=== PATIENT | male | born 1955 | race African-American/Black ===

== ENCOUNTER 2018-08-23 13:45 | Inpatient (IN) | payer MEDICARE, OTHER ==
[2018-08-23] MEDS ORDERED: NITROGLYCERIN SL TABS 0.4 MG TAB SUBLINGUAL STA (14:07)
[2018-08-23] MEDS ORDERED: hydrALAZINE HCL 20 MG/ML 1 ML VIAL IVP STA (14:07)
[2018-08-23] MEDS ORDERED: ASPIRIN 81 MG PO STA (14:07)
[2018-08-23] MEDS ORDERED: NITROGLYCERIN OINT 1 INCH/GM PACKET TOPICAL STA (14:07)
--- NOTE | 2018-08-23 14:11 | ED ---
General Adult HPI - General Chief complaint: Chest Pain Stated complaint: MCKENZIE Time Seen by Provider: 08/23/18 13:50 Source: patient, RN notes reviewed Mode of arrival: EMS Limitations: no limitations - History of Present Illness Initial comments: This is a 62-year-old male who presents emergency Department complaining of shortness of breath and chest pain. Patient states he has been having this chest pain shows breath for about 3 days. Patient states she was recently discharged from the hospital told to take some blood pressure medication but he has not taken it because he wants to be back on his old medication. Patient states the chest pain comes and goes and is worse with exertion. Patient denies any diaphoretic episodes. Patient denies radiation of the pain. Patient denies any nausea. Patient denies abdominal pain. Patient denies any recent vomiting or diarrhea per patient states he has a hard cough but no sputum production and denies any fever chills. Patient denies any lightheadedness dizziness or near syncopal episode. Patient denies any palpitations. Patient denies headache patient denies numbness weakness. Patient denies any swelling to the legs. His any calf tenderness. - Related Data Home Medications Medication Instructions Recorded Confirmed Labetalol [Trandate] 200 mg PO DIRECTED 08/23/18 08/23/18 Allergies Allergy/AdvReac Type Severity Reaction Status Date / Time clonidine Allergy Swelling Verified 08/23/18 14:09 hydralazine Allergy Rash/Hives Verified 08/23/18 14:09 lisinopril Allergy Swelling Verified 08/23/18 14:09 Review of Systems ROS Statement: Those systems with pertinent positive or pertinent negative responses have been documented in the HPI. ROS Other: All systems not noted in ROS Statement are negative. Past Medical History Past Medical History: CVA/TIA, Hypertension, Myocardial Infarction ([place]) Additional Past Medical History / Comment(s): stroke, [place] (2006) History of Any Multi-Drug Resistant Organisms: None Reported Past Surgical History: Heart Catheterization Additional Past Surgical History / Comment(s): removal of left kidney. Past Psychological History: No Psychological Hx Reported Smoking Status: Current every day smoker Past Alcohol Use History: Occasional Past Drug Use History: Marijuana General Exam - General Exam Comments Initial Comments: GENERAL: Patient is well-developed and well-nourished. Patient is nontoxic and well- hydrated and is in mild distress. ENT: Neck is soft and supple. No significant lymphadenopathy is noted. Oropharynx is clear. Moist mucous membranes. Neck has full range of motion without eliciting any pain. EYES: The sclera were anicteric and conjunctiva were pink and moist. Extraocular movements were intact and pupils were equal round and reactive to light. Eyelids were unremarkable. PULMONARY: Unlabored respirations. Good breath sounds bilaterally. Patient's crackles bilateral bases CARDIOVASCULAR: There is a regular rate and rhythm without any murmurs gallops or rubs. ABDOMEN: Soft and nontender with normal bowel sounds. No palpable organomegaly was noted. There is no palpable pulsatile mass. SKIN: Skin is clear with no lesions or rashes and otherwise unremarkable. NEUROLOGIC: Patient is alert and oriented x3. Cranial nerves II through XII are grossly intact. Motor and sensory are also intact. Normal speech, volume and content. Symmetrical smile. MUSCULOSKELETAL: Normal extremities with adequate strength and full range of motion. No lower extremity swelling or edema. No calf tenderness. LYMPHATICS: No significant lymphadenopathy is noted PSYCHIATRIC: Normal psychiatric evaluation. Limitations: no limitations Course Vital Signs 08/23/18 08/23/18 08/23/18 13:47 14:15 14:29 Temperature 97.8 F Pulse Rate 97 89 92 Respiratory 18 22 22 Rate Blood Pressure 211/154 181/135 171/120 O2 Sat by Pulse 98 96 99 Oximetry 08/23/18 08/23/18 08/23/18 14:41 15:00 15:10 Temperature Pulse Rate 88 103 H 87 Respiratory 24 24 24 Rate Blood Pressure 182/116 200/140 180/110 O2 Sat by Pulse 99 99 98 Oximetry 08/23/18 08/23/18 08/23/18 15:19 15:29 15:33 Temperature Pulse Rate 86 78 94 Respiratory 22 24 22 Rate Blood Pressure 178/121 174/115 152/95 O2 Sat by Pulse 98 99 98 Oximetry 08/23/18 16:27 Temperature Pulse Rate 90 Respiratory 22 Rate Blood Pressure 174/117 O2 Sat by Pulse 97 Oximetry Medical Decision Making - Medical Decision Making EKG shows normal sinus rhythm at 92 bpm AR interval 270 QRS is 96 QT interval 400 QTC is 494. Patient's EKG shows ST segment depression in V5 V6. Patient also has T-wave inversions in leads V5 and V6 1 and aVL. I gave the patient nitroglycerin sublingual times one Nitropaste and follow that up with some hydralazine 20 mg. This is all for his high blood pressure. Chest x-ray showed pulmonary edema. Patient received Lasix as well. Patient's blood pressure still remained very mild I informed Dr. Zelaya of this he was okay with the patient going to the floor. I admitted the patient wrote admitting orders I consult to cardiology. I continue the heparin and aspirin and Nitropaste on the floor. - Lab Data Result diagrams: 08/23/18 14:10 08/23/18 14:10 Lab Results 08/23/18 08/23/18 08/23/18 Range/Units 14:10 14:10 14:10 WBC 8.1 (3.8-10.6) k/uL RBC 4.71 (4.30-5.90) m/uL Hgb 12.9 L (13.0-17.5) gm/dL Hct 42.0 (39.0-53.0) % MCV 89.3 (80.0-100.0) fL MCH 27.4 (25.0-35.0) pg MCHC 30.7 L (31.0-37.0) g/dL RDW 14.9 (11.5-15.5) % Plt Count 162 (150-450) k/uL Neutrophils % 61 % Lymphocytes % 29 % Monocytes % 5 % Eosinophils % 3 % Basophils % 0 % Neutrophils # 4.9 (1.3-7.7) k/uL Lymphocytes # 2.4 (1.0-4.8) k/uL Monocytes # 0.4 (0-1.0) k/uL Eosinophils # 0.2 (0-0.7) k/uL Basophils # 0.0 (0-0.2) k/uL Hypochromasia Slight PT 10.1 (9.0-12.0) sec INR 0.9 (<1.2) APTT 24.5 (22.0-30.0) sec Sodium 144 (137-145) mmol/L Potassium 5.0 (3.5-5.1) mmol/L Chloride 113 H (98-107) mmol/L Carbon Dioxide 26 (22-30) mmol/L Anion Gap 5 mmol/L BUN 42 H (9-20) mg/dL Creatinine 2.96 H (0.66-1.25) mg/dL Est GFR (CKD-EPI)AfAm 25 (>60 ml/min/1.73 sqM) Est GFR (CKD-EPI)NonAf 22 (>60 ml/min/1.73 sqM) Glucose 102 H (74-99) mg/dL Calcium 8.8 (8.4-10.2) mg/dL Magnesium 2.0 (1.6-2.3) mg/dL Total Bilirubin 0.4 (0.2-1.3) mg/dL AST 16 L (17-59) U/L ALT 33 (21-72) U/L Alkaline Phosphatase 89 (38-126) U/L Troponin I (0.000-0.034) ng/mL NT-Pro-B Natriuret Pep pg/mL Total Protein 7.3 (6.3-8.2) g/dL Albumin 3.7 (3.5-5.0) g/dL Urine Opiates Screen (NotDetected) Ur Oxycodone Screen (NotDetected) Urine Methadone Screen (NotDetected) Ur Propoxyphene Screen (NotDetected) Ur Barbiturates Screen (NotDetected) U Tricyclic Antidepress (NotDetected) Ur Phencyclidine Scrn (NotDetected) Ur Amphetamines Screen (NotDetected) U Methamphetamines Scrn (NotDetected) U Benzodiazepines Scrn (NotDetected) Urine Cocaine Screen (NotDetected) U Marijuana (THC) Screen (NotDetected) 08/23/18 08/23/18 08/23/18 Range/Units 14:10 14:10 16:00 WBC (3.8-10.6) k/uL RBC (4.30-5.90) m/uL Hgb (13.0-17.5) gm/dL Hct (39.0-53.0) % MCV (80.0-100.0) fL MCH (25.0-35.0) pg MCHC (31.0-37.0) g/dL RDW (11.5-15.5) % Plt Count (150-450) k/uL Neutrophils % % Lymphocytes % % Monocytes % % Eosinophils % % Basophils % % Neutrophils # (1.3-7.7) k/uL Lymphocytes # (1.0-4.8) k/uL Monocytes # (0-1.0) k/uL Eosinophils # (0-0.7) k/uL Basophils # (0-0.2) k/uL Hypochromasia PT (9.0-12.0) sec INR (<1.2) APTT (22.0-30.0) sec Sodium (137-145) mmol/L Potassium (3.5-5.1) mmol/L Chloride (98-107) mmol/L Carbon Dioxide (22-30) mmol/L Anion Gap mmol/L BUN (9-20) mg/dL Creatinine (0.66-1.25) mg/dL Est GFR (CKD-EPI)AfAm (>60 ml/min/1.73 sqM) Est GFR (CKD-EPI)NonAf (>60 ml/min/1.73 sqM) Glucose (74-99) mg/dL Calcium (8.4-10.2) mg/dL Magnesium (1.6-2.3) mg/dL Total Bilirubin (0.2-1.3) mg/dL AST (17-59) U/L ALT (21-72) U/L Alkaline Phosphatase (38-126) U/L Troponin I 0.066 H* (0.000-0.034) ng/mL NT-Pro-B Natriuret Pep 5340 pg/mL Total Protein (6.3-8.2) g/dL Albumin (3.5-5.0) g/dL Urine Opiates Screen Not Detected (NotDetected) Ur Oxycodone Screen Not Detected (NotDetected) Urine Methadone Screen Not Detected (NotDetected) Ur Propoxyphene Screen Not Detected (NotDetected) Ur Barbiturates Screen Not Detected (NotDetected) U Tricyclic Antidepress Not Detected (NotDetected) Ur Phencyclidine Scrn Not Detected (NotDetected) Ur Amphetamines Screen Not Detected (NotDetected) U Methamphetamines Scrn Not Detected (NotDetected) U Benzodiazepines Scrn Not Detected (NotDetected) Urine Cocaine Screen Not Detected (NotDetected) U Marijuana (THC) Screen Not Detected (NotDetected) Critical Care Time Critical Care Time: Yes Total Critical Care Time: 45 Disposition Clinical Impression: Unstable angina pectoris, Acute pulmonary edema, Renal insufficiency, Hypertensive urgency Disposition: ADMITTED IP TO THIS HOSP Referrals: Hansa Freeman MD [Primary Care Provider] - 1-2 days Time of Disposition: 16:35
[2018-08-23 14:29] LABS: Basophils % (A) 0 %; Eosinophils # (A) 0.2 k/uL (0-0.7); Eosinophils % (A) 3 %; HGB 12.9 gm/dL (13.0-17.5); Hypochromasia Slight; Lymphocytes # (A) 2.4 k/uL (1.0-4.8); Lymphocytes % (A) 29 %; MCH 27.4 pg (25.0-35.0); MCHC 30.7 g/dL (31.0-37.0); MCV 89.3 fL (80.0-100.0); Mean Platelet Volume 8.5; Monocytes # (A) 0.4 k/uL (0-1.0); Monocytes % (A) 5 %; Neutrophils # (A) 4.9 k/uL (1.3-7.7); Neutrophils % (A) 61 %; Platelet Count 162 k/uL (150-450); RBC 4.71 m/uL (4.30-5.90); RDW 14.9 % (11.5-15.5); WBC 8.1 k/uL (3.8-10.6)
[2018-08-23 14:38] LABS: Albumin 3.7 g/dL (3.5-5.0); Calcium 8.8 mg/dL (8.4-10.2); Total Bilirubin 0.4 mg/dL (0.2-1.3); Total Protein 7.3 g/dL (6.3-8.2)
[2018-08-23 14:39] LABS: INR 0.9 (<1.2); Partial Thromboplastin Time 24.5 sec (22.0-30.0); Prothrombin Time 10.1 sec (9.0-12.0)
[2018-08-23] MEDS ORDERED: LABETALOL SYRINGE 5 MG/ML IVP STA ×3 (14:57→16:29)
--- NOTE | 2018-08-23 15:00 | XR ---
EXAMINATION TYPE: XR chest 2V DATE OF EXAM: 08/23/2018 COMPARISON: 06/22/2010 TECHNIQUE: PA and lateral views submitted. HISTORY: Shortness of breath FINDINGS: Appears to be dilation of the aorta measuring approximately 4.5 cm correlate for aneurysm. Heart is e nlarged. There is mild coarsened interstitium and bilateral infiltrate with tiny right effusion. Pulm onary artery prominence noted. IMPRESSION: 1. Mild CHF with small right effusion. 2. Suspect that there is a descending thoracic aortic aneurysm measuring approximately 4.5 cm 3. Prominence the pulmonary arteries can be associated with pulmonary arterial hypertension.
[2018-08-23] MEDS ORDERED: diphenhydrAMINE 50 MG/ML 1 ML VIAL IVP STA (15:01)
[2018-08-23] MEDS ORDERED: LORazepam 2 MG/ML INJ IV STA ×2 (15:22→15:55)
[2018-08-23] MEDS ORDERED: HEPARIN SODIUM,PORCINE 5,000 UNIT/ML 1 ML VIAL IV STA ×2 (15:52→23:49)
[2018-08-23] MEDS ORDERED: HEPARIN SOD,PORK IN 0.45% NACL 25,000 UNIT in 0.45% NACL 1 250ML.BAG IV ONE (15:52)
[2018-08-23] MEDS ORDERED: FUROSEMIDE 10 MG/ML 4 ML VIAL IV STA (16:07)
[2018-08-23 16:18] LABS: Amphetamine Screen,Urine Not Detected (NotDetected); Barbiturate Screen,Urine Not Detected (NotDetected); Benzodiazepines Screen,Urine Not Detected (NotDetected); Cocaine Screen,Urine Not Detected (NotDetected); Methadone Screen, Urine Not Detected (NotDetected); Opiate Screen,Urine Not Detected (NotDetected); Oxycodone Screen, Urine Not Detected (NotDetected); Phencyclidine Screen,Urine Not Detected (NotDetected); Tricyclic Antidepressant,Urine Not Detected (NotDetected); Urn Cannabinoid Scrn Not Detected (NotDetected)
[2018-08-23] MEDS ORDERED: NITROGLYCERIN-D5W PMX 50 MG in DEXTROSE/WATER 1 250ML.BAG IV ONE (16:43)
[2018-08-23 18:44] LABS: Glucose,Whole Blood 119 mg/dL (75-99)
[2018-08-23] MEDS: METOPROLOL TARTRATE 25 MG TAB PO SCH (20:11)
[2018-08-23] MEDS ORDERED: amLODIPine 10 MG TAB PO STA (21:04)
[2018-08-24] MEDS: ALPRAZolam 0.25 MG TAB PO PRN ×2 (00:33→12:11)
[2018-08-24] MEDS ORDERED: NALOXONE 0.4 MG/ML 1 ML VIAL IV PRN (01:02)
[2018-08-24] MEDS ORDERED: ACETAMINOPHEN TAB 325 MG TAB PO PRN (01:09)
[2018-08-24] MEDS: SODIUM CHLORIDE 0.9% 1,000 ML IV SCH (02:00)
[2018-08-24 04:36] VITALS: BMI 23.3
[2018-08-24 05:36] LABS: Basophils % (A) 0 %; Eosinophils # (A) 0.2 k/uL (0-0.7); Eosinophils % (A) 3 %; HCT 42.3 % (39.0-53.0); HGB 12.8 gm/dL (13.0-17.5); Hypochromasia Slight; Lymphocytes # (A) 2.5 k/uL (1.0-4.8); Lymphocytes % (A) 31 %; MCH 27.5 pg (25.0-35.0); MCHC 30.3 g/dL (31.0-37.0); MCV 90.8 fL (80.0-100.0); Mean Platelet Volume 8.2; Monocytes # (A) 0.4 k/uL (0-1.0); Monocytes % (A) 5 %; Neutrophils # (A) 4.9 k/uL (1.3-7.7); Neutrophils % (A) 59 %; Platelet Count 180 k/uL (150-450); RBC 4.66 m/uL (4.30-5.90); RDW 14.9 % (11.5-15.5); WBC 8.2 k/uL (3.8-10.6)
[2018-08-24 05:51] LABS: Albumin 3.8 g/dL (3.5-5.0); Calcium 9.6 mg/dL (8.4-10.2); Phosphorus 3.7 mg/dL (2.5-4.5); Total Bilirubin 0.8 mg/dL (0.2-1.3); Total Protein 7.3 g/dL (6.3-8.2)
[2018-08-24] MEDS: FUROSEMIDE 10 MG/ML 4 ML VIAL IV SCH ×2 (06:50→17:48)
[2018-08-24] MEDS: METOPROLOL TARTRATE 25 MG TAB PO SCH ×2 (07:59→20:11)
[2018-08-24] MEDS: PANTOPRAZOLE 40 MG/10 ML VIAL IVP SCH (07:59)
[2018-08-24] MEDS: ASPIRIN 325 MG TAB PO SCH (07:59)
--- NOTE | 2018-08-24 08:21 | XR ---
EXAMINATION TYPE: XR chest 1V portable DATE OF EXAM: 08/24/2018 COMPARISON: Prior chest x-ray 08/23/2018 HISTORY: Shortness of breath TECHNIQUE: Single frontal view of the chest is obtained. FINDINGS: Patient is rotated. No pneumothorax. There is interval blunting of the right costophrenic angle. Heart is enlarged. Central vascularity and interstitium are increased. Aorta appears dilated a nd dense. There are cardiac leads. IMPRESSION: Correlate for congestive heart failure, right pleural effusion and associated atelectasi s versus edema. Correlate to exclude pneumonia. Suspect aortic aneurysm.
[2018-08-24] MEDS: amLODIPine 10 MG TAB PO SCH (09:29)
--- NOTE | 2018-08-24 11:15 | P.CNPUL ---
History of Present Illness Consult date: 08/24/18 Reason for consult: chest pain, other (Hypertensive emergency.) Chief complaint: Chest pain. History of present illness: This is a 62-year-old -Citizen Of [place] male with history of multiple medical problems including alcoholism, hypertension, previous myocardial infarction, previous CVA in 2005, previous cardiac catheterization, history of renal cell carcinoma and previous left nephrectomy, patient is familiar to my service, he was admitted back in June to [facility], and I saw him on consultation at the time. Patient presented at that time with mental status change, and workup including CT of the brain was negative. Lumbar puncture was negative. Cultures were nondiagnostic. And he was seen by many consultants including infectious disease. Patient was treated mostly for alcohol withdrawal , and he was eventually discharged home. He was recently seen in the ER again at [facility], and he was noted to have elevated blood pressure patient was complaining of chest pain. Given a prescription for blood pressure medication, patient could not afford it and he did not comply with it. He presented yesterday to the ER at [facility], mostly complaining of substernal chest pain, and shortness of breath. Pain has been going on for about 3 days, describes the pain as substernal, worse on exertion, not radiating, not associated with diaphoresis, not associated with any other symptoms. Patient was found to have significantly elevated blood pressure, in the range of 220 systolic. His troponin was elevated, hence the patient was placed on nitroglycerin drip, heparin drip, and he was admitted to the intensive care unit. Chest x-ray showed evidence of mild congestive heart failure changes. Received a dose of Lasix in the ER, and overnight no major issues. He was kept on nitroglycerin drip, he was given 1 dose of the beta loll in the ER, and today he was switched to Norvasc, and metoprolol 50 mg by mouth twice a day by cardiology. Feeling better this morning, remains a bit agitated, blood pressure seems to be better controlled, and he is on Ativan when necessary. Blood pressure during my evaluation was 140/90. And his nitroglycerin drip was being titrated down to be discontinued. Patient denies any headache, no blurred vision, no dizziness, had no chest pain, no nausea no vomiting no abdominal pain, no diaphoresis, no dysuria and no frequency no urgency. He just felt a bit short of breath. Chest x-ray showed evidence of interstitial edema, I believe the patient has history of LV dysfunction, and this is more of a pulmonary edema secondary to systolic dysfunction Review of Systems 14 point review of systems were obtained, please refer to pertinent positives in HPI, otherwise remaining systems are negative Past Medical History Past Medical History: CVA/TIA, Hypertension, Myocardial Infarction ([place]) Additional Past Medical History / Comment(s): stroke, [place] (2005) Last Myocardial Infarction Date:: 2005 History of Any Multi-Drug Resistant Organisms: None Reported Past Surgical History: Heart Catheterization Additional Past Surgical History / Comment(s): removal of left kidney. Past Psychological History: No Psychological Hx Reported Smoking Status: Current every day smoker Past Alcohol Use History: None Reported, Occasional Past Drug Use History: Marijuana Medications and Allergies Home Medications Medication Instructions Recorded Confirmed Type Labetalol [Trandate] 200 mg PO DIRECTED 08/23/18 08/23/18 History Allergies Allergy/AdvReac Type Severity Reaction Status Date / Time clonidine Allergy Swelling Verified 08/23/18 14:09 hydralazine Allergy Rash/Hives Verified 08/23/18 14:09 lisinopril Allergy Swelling Verified 08/23/18 14:09 Physical Exam Vitals: Vital Signs Temp Pulse Resp BP Pulse Ox 08/24/18 10:00 79 23 132/91 99 08/24/18 09:00 78 16 131/88 99 08/24/18 08:00 97.6 F 73 12 136/121 96 08/24/18 07:00 75 19 149/108 94 L 08/24/18 06:00 81 15 145/114 98 08/24/18 05:00 78 9 L 145/114 99 08/24/18 04:00 83 19 145/125 99 08/24/18 03:45 85 20 141/119 96 08/24/18 03:30 84 26 H 157/111 100 08/24/18 03:15 82 22 129/106 97 08/24/18 03:00 123/87 96 08/24/18 02:45 81 16 127/94 98 08/24/18 02:30 79 17 130/96 99 08/24/18 02:15 79 13 133/91 99 08/24/18 02:00 78 6 L 122/100 99 08/24/18 01:45 74 8 L 129/99 99 08/24/18 01:30 75 18 138/90 99 08/24/18 01:15 79 19 131/93 98 08/24/18 01:00 78 19 140/105 97 08/24/18 00:45 73 11 L 153/120 97 08/24/18 00:30 73 11 L 170/121 98 08/24/18 00:15 76 11 L 153/113 98 08/24/18 00:00 78 16 161/117 99 08/23/18 23:45 83 23 158/118 99 08/23/18 23:30 83 20 159/124 99 08/23/18 23:15 80 28 H 164/112 100 08/23/18 23:00 79 16 152/120 99 08/23/18 22:45 81 11 L 158/128 98 08/23/18 22:30 75 10 L 147/111 98 08/23/18 22:15 78 10 L 140/94 100 08/23/18 22:00 80 9 L 153/116 99 08/23/18 21:45 77 16 165/132 98 08/23/18 21:30 92 17 143/104 96 08/23/18 21:15 83 23 144/92 99 08/23/18 21:00 83 21 145/112 99 08/23/18 20:45 73 31 H 139/115 100 08/23/18 20:30 81 19 152/118 98 08/23/18 20:15 84 19 155/125 98 08/23/18 20:00 96.1 F L 78 19 143/126 99 08/23/18 19:45 85 9 L 150/109 97 08/23/18 19:30 85 34 H 151/121 99 08/23/18 19:15 81 19 157/111 98 08/23/18 19:00 80 47 H 159/127 97 08/23/18 18:45 96.7 F L 79 14 157/123 98 08/23/18 18:18 98.4 F 78 22 178/122 98 08/23/18 17:59 70 22 167/142 95 08/23/18 17:50 68 22 181/121 98 08/23/18 17:20 98.6 F 77 16 164/112 100 08/23/18 17:00 73 22 164/117 100 08/23/18 16:37 84 16 176/110 100 08/23/18 16:27 90 22 174/117 97 08/23/18 15:33 94 22 152/95 98 08/23/18 15:29 78 24 174/115 99 08/23/18 15:19 86 22 178/121 98 08/23/18 15:10 87 24 180/110 98 08/23/18 15:00 103 H 24 200/140 99 08/23/18 14:41 88 24 182/116 99 08/23/18 14:29 92 22 171/120 99 08/23/18 14:15 89 22 181/135 96 08/23/18 13:47 97.8 F 97 18 211/154 98 Intake and Output 08/23/18 08/24/18 08/24/18 22:59 06:59 14:59 Intake Total 104.067 691.45 217.95 Output Total 1015 425 700 Balance -910.933 266.45 -482.05 Intake: IV 70 160 80 0.9 NS 70 160 80 Intake, IV Titration 34.067 51.45 137.95 Amount Heparin Sod,Pork in 0.45% 25.167 51.45 NaCl 25,000 unit In 0.45 % NaCl 1 250ml.bag @ 1, 000 UNIT/HR 10 mls/hr IV .Q24H ONE Rx#:[id number] Nitroglycerin-D5w Pmx 50 8.9 137.95 mg In Dextrose/Water 1 250ml.bag @ 10 MCG/MIN 3 mls/hr IV .Q24H ONE Rx#: [id number] Oral 480 Output: Urine 1015 425 700 Other: Voiding Method Urinal Urinal Urinal # Voids 3 Weight 76 kg 76 kg GENERAL: Revealed a 62-year-old black male in no distress. Slightly anxious and a bit agitated. ENT: Neck is soft and supple. No significant lymphadenopathy is noted. Oropharynx is clear. Moist mucous membranes. Neck has full range of motion without eliciting any pain. EYES: PERRLA, EOMI, no icterus. PULMONARY: Minimal fine crackles at the bases, no rhonchi no wheezes. Symmetrical chest expansion, no chest wall tenderness. CARDIOVASCULAR: Normal S1 and S2, no S3 gallop, no murmur. ABDOMEN: Soft and nontender with normal bowel sounds. No palpable organomegaly was noted. No bruit, SKIN: Skin is clear with no lesions or rashes and otherwise unremarkable. NEUROLOGIC: Patient is alert and oriented x3. Cranial nerves II through XII are grossly intact. Motor and sensory are also intact. Normal speech, volume and content. MUSCULOSKELETAL: Normal extremities with adequate strength and full range of motion. No lower extremity swelling or edema. No calf tenderness. LYMPHATICS: No significant lymphadenopathy is noted PSYCHIATRIC: Slightly anxious, normal mental status exam. Results - Laboratory Findings CBC and BMP: 08/24/18 05:07 08/24/18 05:07 PT/INR, D-dimer PT 10.1 sec (9.0-12.0) 08/23/18 14:10 INR 0.9 (<1.2) 08/23/18 14:10 Abnormal lab findings: Abnormal Labs 08/23/18 08/23/18 08/23/18 14:10 14:10 14:10 Hgb 12.9 L MCHC 30.7 L APTT Chloride 113 H BUN 42 H Creatinine 2.96 H Glucose 102 H POC Glucose (mg/dL) AST 16 L Troponin I 0.066 H* 08/23/18 08/23/18 08/23/18 18:28 19:29 22:26 Hgb MCHC APTT 30.5 H Chloride BUN Creatinine Glucose POC Glucose (mg/dL) 119 H AST Troponin I 0.071 H* 08/24/18 08/24/18 08/24/18 05:07 05:07 06:56 Hgb 12.8 L MCHC 30.3 L APTT 58.6 H Chloride 113 H BUN 37 H Creatinine 2.82 H Glucose 109 H POC Glucose (mg/dL) AST 15 L Troponin I 08/24/18 06:56 Hgb MCHC APTT Chloride BUN Creatinine Glucose POC Glucose (mg/dL) AST Troponin I 0.063 H* - Diagnostic Findings Chest x-ray: image reviewed (Chest x-ray is suggestive of mild interstitial edema.) Assessment and Plan Assessment: Impression: 1 acute hypertensive emergency 2 acute systolic congestive heart failure and pulmonary edema 3 acute coronary syndrome with positive troponins is strongly suspected. 4 history of alcoholism and recurrent episodes of mental status change I believe related to alcoholism. 5 history of previous myocardial infarction 6 history of previous CVA. 7 history of renal cell carcinoma and previous left-sided nephrectomy. 8 history of noncompliance with medications as noted in the chart. 9 acute on chronic kidney injury, most likely secondary to poorly controlled hypertension. And hypertensive nephrosclerosis. Recommendation: Continue present supportive care measures, continue nitroglycerin and titrate since the blood pressure seems to be better controlled and the patient is pain-free at present. Continue heparin, awaiting cardiology evaluation not certain whether the patient will need to be further studied, I believe considering his renal functioning very unlikely that the patient will undergo cardiac catheterization. Continue Ativan for his mental status change and possible alcohol withdrawal. Patient will be kept in the ICU today, and we'll continue to follow closely. Continue GI and DVT prophylaxis. Will follow. Time with Patient: Greater than 30
--- NOTE | 2018-08-24 11:15 | ECHOF ---
Referral Reason:hypertension crisis MEASUREMENTS -------- HEIGHT: 182.9 cm WEIGHT: 75.7 kg BP: RVIDd: 2.5 cm (< 3.3) IVSd: 1.6 cm (0.6 - 1.1) LVIDd: 4.9 cm (3.9 - 5.3) LVPWd: 1.8 cm (0.6 - 1.1) IVSs: 1.7 cm LVIDs: 4.8 cm LVPWs: 1.7 cm LAESV Index (A-L): 49.80 ml/m Ao Diam: 3.6 cm (2.0 - 3.7) AV Cusp: 2.0 cm (1.5 - 2.6) LA Diam: 3.6 cm (2.7 - 3.8) MV EXCURSION: 25.336 mm (> 18.000) MV EF SLOPE: 203 mm/s (70 - 150) EPSS: 1.4 cm MV E Ralph: 0.62 m/s MV DecT: 149 ms MV A Ralph: 0.38 m/s MV E/A Ratio: 1.61 RAP: 5.00 mmHg RVSP: 27.35 mmHg FINDINGS -------- Sinus rhythm. This was a technically good study. The left ventricular size is normal. There is moderate concentric left ventricular hypertrophy. T here is severe global hypokinesis of LV . Overall left ventricular systolic function is severely im paired with, an EF between 20 - 25 %. The right ventricle is normal in size. LA is severely dilated >40 ml/m2 The right atrium is normal in size. There is mild aortic valve sclerosis. The mitral valve leaflets are mildly thickened. Moderate mitral regurgitation is present. Mild tricuspid regurgitation present. There is no evidence of pulmonary hypertension. The right v entricular systolic pressure, as measured by Doppler, is 27.35mmHg. Trace/mild (physiologic) pulmonic regurgitation. The aortic root size is normal. The inferior vena cava is mildly dilated. There is no pericardial effusion. CONCLUSIONS -------- 1. Sinus rhythm. 2. This was a technically good study. 3. The left ventricular size is normal. 4. There is moderate concentric left ventricular hypertrophy. 5. There is severe global hypokinesis of LV . 6. Overall left ventricular systolic function is severely impaired with, an EF between 20 - 25 %. 7. LA is severely dilated >40 ml/m2 8. There is mild aortic valve sclerosis. 9. The mitral valve leaflets are mildly thickened. 10. Moderate mitral regurgitation is present. 11. Mild tricuspid regurgitation present. 12. There is no evidence of pulmonary hypertension. 13. Trace/mild (physiologic) pulmonic regurgitation. 14. The aortic root size is normal. 15. The inferior vena cava is mildly dilated. 16. There is no pericardial effusion. BAKERY DECORATOR: Lianne Moura RDCS
--- NOTE | 2018-08-24 12:44 | CONS ---
CONSULTATION REASON FOR CONSULT: Renal failure. HISTORY OF PRESENT ILLNESS: The patient is a 62-year-old male who has a history of hypertension, chronic kidney disease. Baseline renal function not known at this time as we do not have previous labs available in the computer. I did check our office records as well and we have not seen the patient recently. He did state that he has seen us in the office a few years ago. The patient was admitted to the hospital with complaints of shortness of breath. He did have some chest pains as well. Serum creatinine on admission was 2.9, it is down to 2.8 today. Blood pressure was also significantly elevated. The patient is maintained on nitroglycerin drip. Chest x-ray showed evidence of CHF and he is currently maintained on Lasix. Patient has a solitary functioning kidney. He has had a left nephrectomy. It appears that patient may not have been taking his medications regularly prior to admission. He denies any significant urinary symptoms. PAST MEDICAL HISTORY: Hypertension, coronary artery disease, CVA/TIA, history of [place], chronic kidney disease. PAST SURGICAL HISTORY: Cardiac catheterization, left nephrectomy. SOCIAL HISTORY: Social history is positive for smoking as well as marijuana use. MEDICATIONS: Medications at home prior to admission included labetalol. ALLERGIES: Allergies are multiple include CLONIDINE, which causes swelling; HYDRALAZINE, causes rash and hives; LISINOPRIL causes swelling as well. PHYSICAL EXAMINATION: On examination, patient is comfortable, awake. He is not in any acute distress. He is sleepy but easily arousable. Blood pressure was 132/91, heart rate 79 per minute. He is afebrile. EXAMINATION OF THE HEART: S1 and S2. EXAMINATION OF THE LUNGS: Bilateral breath sounds are heard. Basal crackles are heard. Abdomen is soft, nontender. Examination of lower extremities shows no evidence of edema. OVERCOILER exam is grossly intact. Patient moving all 4 extremities. LABS: Labs show sodium 144, potassium 5.0, BUN 37, serum creatinine 2.82, hemoglobin 12.8 g/dL. ASSESSMENT: 1. Chronic kidney disease, baseline renal function not known at this time. Currently patient is stage 4. We will try and obtain previous records. I do not see any records through our EMR in the office or at the hospital. We will look through primary care physician;s labs. The etiology is likely nephrosclerosis. Check a urinalysis. 2. Acute kidney injury secondary to congestive heart failure, cardiorenal syndrome, currently somewhat improved. Patient has good urine output. Echocardiogram is being done to assess ejection fraction. We will continue with the current dose of Lasix. There are no nephrotoxic agents on board. Check urinalysis and check ultrasound of the kidneys. 3. History of left nephrectomy for a mass in the . The patient does not believe that it was cancer. 4. Fluid overload. 5. Congestive heart failure, acute on top of chronic. Ejection fraction not known at this time. PLAN: Continue with the Lasix. Check urinalysis. Check ultrasound of the kidney. Repeat labs in a.m. Avoid nephrotoxic agents. Wean down nitro drip. Continue with the Norvasc and Lopressor. Patient is allergic to CLONIDINE, COLTON INHIBITORS, and HYDRALAZINE. Thank you for this consultation. We will continue to follow the patient with you during his hospitalization. MMODL / IJN: [id number] /
[2018-08-24 12:52] LABS: Appearance,Urine Clear (Clear); Bilirubin,Urine Negative (Negative); Blood,Urine Negative (Negative); Color,Urine Colorless; Glucose,Urine (UA) Negative (Negative); Ketones,Urine Negative (Negative); Leukocyte Esterase,Urine Negative (Negative); Nitrite,Urine Negative (Negative); PH, Urine 6.5 (5.0-8.0); Protein,Urine Negative (Negative); Specific Gravity,Urine 1.005 (1.001-1.035); Urobilinogen,Urine <2.0 mg/dL (<2.0)
--- NOTE | 2018-08-24 13:24 | US ---
EXAMINATION TYPE: US renals and bladder DATE OF EXAM: 08/24/2018 COMPARISON: None CLINICAL HISTORY: Renal failure. Left kidney removed x 2006 due to mass per patient EXAM MEASUREMENTS: Right Kidney: 10.4 x 4.9 x 4.3 cm Right Kidney: Appears echogenic in appearance. Two cystic appearing lesion seen. 1- lower medial po le = 0.7 x 0.5 x 0.6 cm. 2- mid lateral pole = 0.6 x 0.5 x 0.5 cm Left Kidney: Surgically absent Bladder: distended, wnl Right jet no seen Right renal cortex is sharply increase echogenicity, there is poor cortical medullary differentiation . Left kidney is not seen. No ureteral jet was identified. No hydronephrosis of the right kidney. IMPRESSION: Findings suggest medical renal disease, postop changes
--- NOTE | 2018-08-24 16:09 | P.CRDCN ---
History of Present Illness Consult date: 08/24/18 History of present illness: This is a 61-year-old -[place] male with history of 4. Multiple medical problems including hypertension, previous myocardial infarction, previous CVA and also renal cell carcinoma. Patient apparently had a left nephrectomy and has chronic renal failure. He was in [facility] in June with alcohol intoxication and withdrawal status. Patient also had an altered mental status. Subsequently he was seen in the emergency room with uncontrolled hypertension. Patient was given new prescription for medication which he could not take . Patient presented to the emergency room with increasing shortness of breath. He was found to have extremely high blood pressures and evidence of CHF. He was also complaining some intermittent chest pain. He was started on IV nitroglycerin and also Lasix along with beta christie. Patient seemed to be relatively stable. Patient is slow in onset and questions could be related to previous CVA. He continues to drink. Denied any drug abuse. His echocardiogram showed severely impaired LV function with an ejection fraction of 20%. Patient is also agitated. At this point we'll continue with current medical therapy with comminution of beta blockers and Norvasc for blood pressure control. We will taper off IV nitroglycerin and started on by mouth nitrates. I will try to get old information and information regarding previous cardiac catheterization. Patient has acute on chronic renal failure. Were not planning any cardiac catheterization at this juncture. Further recommendations depend upon the clinical course Review of Systems As per the chart Past Medical History Past Medical History: CVA/TIA, Hypertension, Myocardial Infarction ([place]) Additional Past Medical History / Comment(s): stroke, [place] (2005) Last Myocardial Infarction Date:: 2005 History of Any Multi-Drug Resistant Organisms: None Reported Past Surgical History: Heart Catheterization Additional Past Surgical History / Comment(s): removal of left kidney. Past Psychological History: No Psychological Hx Reported Smoking Status: Current every day smoker Past Alcohol Use History: None Reported, Occasional Past Drug Use History: Marijuana Medications and Allergies Home Medications Medication Instructions Recorded Confirmed Type Labetalol [Trandate] 200 mg PO DIRECTED 08/23/18 08/23/18 History Allergies Allergy/AdvReac Type Severity Reaction Status Date / Time clonidine Allergy Swelling Verified 08/23/18 14:09 hydralazine Allergy Rash/Hives Verified 08/23/18 14:09 lisinopril Allergy Swelling Verified 08/23/18 14:09 Physical Exam Vitals: Vital Signs Temp Pulse Resp BP Pulse Ox 08/24/18 15:00 77 22 144/99 98 08/24/18 14:00 72 15 114/85 98 08/24/18 13:00 71 17 148/112 97 08/24/18 12:00 96.4 F L 83 20 151/115 98 08/24/18 11:00 75 14 120/66 97 08/24/18 10:00 79 23 132/91 99 08/24/18 09:00 78 16 131/88 99 08/24/18 08:00 97.6 F 73 12 136/121 96 08/24/18 07:00 75 19 149/108 94 L 08/24/18 06:00 81 15 145/114 98 08/24/18 05:00 78 9 L 145/114 99 08/24/18 04:00 83 19 145/125 99 08/24/18 03:45 85 20 141/119 96 08/24/18 03:30 84 26 H 157/111 100 08/24/18 03:15 82 22 129/106 97 08/24/18 03:00 123/87 96 08/24/18 02:45 81 16 127/94 98 08/24/18 02:30 79 17 130/96 99 08/24/18 02:15 79 13 133/91 99 08/24/18 02:00 78 6 L 122/100 99 08/24/18 01:45 74 8 L 129/99 99 08/24/18 01:30 75 18 138/90 99 08/24/18 01:15 79 19 131/93 98 08/24/18 01:00 78 19 140/105 97 08/24/18 00:45 73 11 L 153/120 97 08/24/18 00:30 73 11 L 170/121 98 08/24/18 00:15 76 11 L 153/113 98 08/24/18 00:00 78 16 161/117 99 08/23/18 23:45 83 23 158/118 99 08/23/18 23:30 83 20 159/124 99 08/23/18 23:15 80 28 H 164/112 100 08/23/18 23:00 79 16 152/120 99 08/23/18 22:45 81 11 L 158/128 98 08/23/18 22:30 75 10 L 147/111 98 08/23/18 22:15 78 10 L 140/94 100 08/23/18 22:00 80 9 L 153/116 99 08/23/18 21:45 77 16 165/132 98 08/23/18 21:30 92 17 143/104 96 08/23/18 21:15 83 23 144/92 99 08/23/18 21:00 83 21 145/112 99 08/23/18 20:45 73 31 H 139/115 100 08/23/18 20:30 81 19 152/118 98 08/23/18 20:15 84 19 155/125 98 08/23/18 20:00 96.1 F L 78 19 143/126 99 08/23/18 19:45 85 9 L 150/109 97 08/23/18 19:30 85 34 H 151/121 99 08/23/18 19:15 81 19 157/111 98 08/23/18 19:00 80 47 H 159/127 97 08/23/18 18:45 96.7 F L 79 14 157/123 98 08/23/18 18:18 98.4 F 78 22 178/122 98 08/23/18 17:59 70 22 167/142 95 08/23/18 17:50 68 22 181/121 98 08/23/18 17:20 98.6 F 77 16 164/112 100 08/23/18 17:00 73 22 164/117 100 08/23/18 16:37 84 16 176/110 100 08/23/18 16:27 90 22 174/117 97 Intake and Output 08/24/18 08/24/18 08/24/18 06:59 14:59 22:59 Intake Total 691.45 302.15 40 Output Total 425 1040 340 Balance 266.45 -737.85 -300 Intake: IV 160 140 40 0.9 NS 160 140 40 Intake, IV Titration 51.45 162.15 Amount Heparin Sod,Pork in 0.45% 51.45 NaCl 25,000 unit In 0.45 % NaCl 1 250ml.bag @ 1, 000 UNIT/HR 10 mls/hr IV .Q24H ONE Rx#:[id number] Nitroglycerin-D5w Pmx 50 142.15 mg In Dextrose/Water 1 250ml.bag @ 10 MCG/MIN 3 mls/hr IV .Q24H ONE Rx#: [id number] Sodium Chloride 0.9% 1, 20 000 ml @ 20 mls/hr IV . Q24H [facility] Rx#:[id number] Oral 480 Output: Urine 425 1040 340 Other: Voiding Method Urinal Urinal Urinal # Voids 1 Weight 76 kg 76 kg GENERAL EXAM: Patient is alert and oriented and doesn't appear to be in any acute distress HEENT: Normocephalic. N NECK: No masses, no nuchal rigidity. CHEST: No chest wall deformity. LUNGS: Few rales at the bases HEART: S1 and S2 normal with no audible mumurs or gallops. Regular rhythm, femorals equal on both sides.. ABDOMEN: No hepatosplenomegaly, normal bowel sounds, no guarding or rigidity. SKIN: No rashes CENTRAL NERVOUS SYSTEM: Grossly intact EXTREMITIES: No cyanosis, clubbing or edema. Results 08/24/18 05:07 08/24/18 05:07 Cardiac Enzymes 08/23/18 08/24/18 08/24/18 Range/Units 19:29 05:07 06:56 AST 15 L (17-59) U/L Troponin I 0.071 H* 0.063 H* (0.000-0.034) ng/mL Coagulation 08/23/18 08/24/18 Range/Units 22:26 06:56 APTT 30.5 H 58.6 H (22.0-30.0) sec CBC 08/24/18 Range/Units 05:07 WBC 8.2 (3.8-10.6) k/uL RBC 4.66 (4.30-5.90) m/uL Hgb 12.8 L (13.0-17.5) gm/dL Hct 42.3 (39.0-53.0) % Plt Count 180 (150-450) k/uL Comprehensive Metabolic Panel 08/24/18 Range/Units 05:07 Sodium 144 (137-145) mmol/L Potassium 5.0 (3.5-5.1) mmol/L Chloride 113 H (98-107) mmol/L Carbon Dioxide 23 (22-30) mmol/L BUN 37 H (9-20) mg/dL Creatinine 2.82 H (0.66-1.25) mg/dL Glucose 109 H (74-99) mg/dL Calcium 9.6 (8.4-10.2) mg/dL AST 15 L (17-59) U/L ALT 28 (21-72) U/L Alkaline Phosphatase 86 (38-126) U/L Total Protein 7.3 (6.3-8.2) g/dL Albumin 3.8 (3.5-5.0) g/dL Current Medications Generic Name Dose Route Start Last Admin Trade Name Freq PRN Reason Stop Dose Admin Acetaminophen 650 mg 08/24/18 01:09 08/24/18 12:11 Tylenol Tab PO 650 mg Q4HR PRN Administration Fever and/or Mild Pain Alprazolam 0.25 mg 08/24/18 00:21 08/24/18 12:11 Xanax PO 0.25 mg Q8H PRN Administration Anxiety Amlodipine Besylate 10 mg 08/24/18 09:15 08/24/18 09:29 Norvasc PO 10 mg DAILY ETHEL Administration Aspirin 325 mg 08/24/18 09:00 08/24/18 07:59 Aspirin PO 325 mg DAILY ETHEL Administration Furosemide 40 mg 08/24/18 06:00 08/24/18 06:50 Lasix IV 40 mg Q12H ETHEL Administration Nitroglycerin/Dextrose 50 mg/ 250 mls @ 3 mls/hr 08/23/18 16:43 08/24/18 11: 06 IV Solution IV 08/24/18 16:42 0 mcg/min .Q24H ONE 0 mls/hr Titration Protocol 10 MCG/MIN Sodium Chloride 1,000 mls @ 20 mls/hr 08/24/18 01:15 08/24/18 02:00 Saline 0.9% IV 20 mls/hr .Q24H ETHEL Administration Metoprolol Tartrate 50 mg 08/23/18 21:00 08/24/18 07:59 Lopressor PO 50 mg BID ETHEL Administration Naloxone HCl 0.2 mg 08/24/18 01:02 Narcan IV Q2M PRN Opioid Reversal Pantoprazole Sodium 40 mg 08/24/18 09:00 08/24/18 07:59 Protonix IVP 40 mg DAILY ETHEL Administration Intake and Output 08/24/18 08/24/18 08/24/18 06:59 14:59 22:59 Intake Total 691.45 302.15 40 Output Total 425 1040 340 Balance 266.45 -737.85 -300 Intake: IV 160 140 40 0.9 NS 160 140 40 Intake, IV Titration 51.45 162.15 Amount Heparin Sod,Pork in 0.45% 51.45 NaCl 25,000 unit In 0.45 % NaCl 1 250ml.bag @ 1, 000 UNIT/HR 10 mls/hr IV .Q24H [facility] Rx#:[id number] Nitroglycerin-D5w Pmx 50 142.15 mg In Dextrose/Water 1 250ml.bag @ 10 MCG/MIN 3 mls/hr IV .Q24H [facility] Rx#: [id number] Sodium Chloride 0.9% 1, 20 000 ml @ 20 mls/hr IV . Q24H [facility] Rx#:[id number] Oral 480 Output: Urine 425 1040 340 Other: Voiding Method Urinal Urinal Urinal # Voids 1 Weight 76 kg 76 kg Patient Weight 08/25/18 06:59 Weight 76 kg 08/24/18 05:07 08/24/18 05:07 EKG Interpretations (text) EKG showed a sinus rhythm with biatrial enlargement and left ventricular hypertrophy pattern. QT is prolonged. T-wave inversion in the lateral leads are consistent with hypertrophy Assessment and Plan (1) Chest pain Current Visit: Yes Status: Acute Code(s): R07.9 - CHEST PAIN, UNSPECIFIED SNOMED Code(s): 20154811 (2) Acute pulmonary edema Current Visit: Yes Status: Acute Code(s): J81.0 - ACUTE PULMONARY EDEMA SNOMED Code(s): 27204715 (3) Hypertensive urgency Current Visit: Yes Status: Acute Code(s): I16.0 - HYPERTENSIVE URGENCY SNOMED Code(s): 266317204 (4) Renal insufficiency Current Visit: Yes Status: Acute Code(s): N28.9 - DISORDER OF KIDNEY AND URETER, UNSPECIFIED SNOMED Code(s): 417337447 (5) CAD (coronary artery disease) Current Visit: Yes Status: Acute Code(s): I25.10 - ATHSCL HEART DISEASE OF [place] CORONARY ARTERY W/O ANG PCTRS SNOMED Code(s): 32155677 (6) Troponin level elevated Current Visit: Yes Status: Acute Code(s): R74.8 - ABNORMAL LEVELS OF OTHER SERUM ENZYMES SNOMED Code(s): 307368341 Plan: Though patient had chest pains, his troponin elevation is not consistent with acute myocardial infarction. Seem to be related to his renal failure. Patient has acute on chronic renal failure and acute on chronic systolic congestive heart failure. Patient also has severe cardiomyopathy. We'll continue current medical therapy. Patient is ALLERGIC to hydralazine. I'm going to start him on by mouth nitrates. We'll continue with IV diuretics, beta christie and also Norvasc. We'll also start him on by mouth lipid-lowering agent along with aspirin. Prognosis is guarded
[2018-08-24] MEDS ORDERED: HEPARIN SODIUM,PORCINE 5,000 UNIT/ML 1 ML VIAL IV PRN (16:10)
[2018-08-24] MEDS ORDERED: HEPARIN SOD,PORK IN 0.45% NACL 25,000 UNIT in 0.45% NACL 1 250ML.BAG IV SCH (16:15)
[2018-08-25] MEDS: SODIUM CHLORIDE 0.9% 1,000 ML IV SCH (01:15)
[2018-08-25 05:07] LABS: Basophils % (A) 1 %; Eosinophils # (A) 0.2 k/uL (0-0.7); Eosinophils % (A) 3 %; HCT 48.2 % (39.0-53.0); HGB 14.6 gm/dL (13.0-17.5); Hypochromasia Moderate; Lymphocytes # (A) 2.7 k/uL (1.0-4.8); Lymphocytes % (A) 41 %; MCH 27.4 pg (25.0-35.0); MCHC 30.2 g/dL (31.0-37.0); MCV 90.7 fL (80.0-100.0); Mean Platelet Volume 8.7; Monocytes # (A) 0.4 k/uL (0-1.0); Monocytes % (A) 6 %; Neutrophils # (A) 3.2 k/uL (1.3-7.7); Neutrophils % (A) 48 %; Platelet Count 185 k/uL (150-450); RBC 5.31 m/uL (4.30-5.90); RDW 14.9 % (11.5-15.5); WBC 6.8 k/uL (3.8-10.6)
[2018-08-25 05:16] LABS: Magnesium 2.1 mg/dL (1.6-2.3); Phosphorus 4.3 mg/dL (2.5-4.5); Potassium 5.5 mmol/L (3.5-5.1)
[2018-08-25] MEDS: FUROSEMIDE 10 MG/ML 4 ML VIAL IV SCH (06:50)
[2018-08-25] MEDS ORDERED: ISOSORBIDE MONONITRATE ER 60 MG TAB.ER.24H PO SCH (09:00)
[2018-08-25] MEDS ORDERED: ATORVASTATIN 10 MG TAB PO SCH (09:00)
--- NOTE | 2018-08-25 09:30 | XR ---
EXAMINATION TYPE: XR chest 1V portable DATE OF EXAM: 08/25/2018 COMPARISON: Prior chest x-ray 08/24/2018 HISTORY: Shortness of breath TECHNIQUE: Single frontal view of the chest is obtained. FINDINGS: There is improvement in the interstitium, aeration within the lungs. No pneumothorax. Hear t remains enlarged. Pulmonary artery appears prominently, correlate for possible pulmonary artery hyp ertension. IMPRESSION: Improvement in aeration and volume status, additional findings above
[2018-08-25] MEDS: METOPROLOL TARTRATE 25 MG TAB PO SCH ×2 (10:34→21:02)
[2018-08-25] MEDS: ASPIRIN 325 MG TAB PO SCH (10:34)
[2018-08-25] MEDS: amLODIPine 10 MG TAB PO SCH (10:35)
[2018-08-25] MEDS: PANTOPRAZOLE 40 MG/10 ML VIAL IVP SCH (10:35)
--- NOTE | 2018-08-25 11:10 | P.PN ---
Subjective Progress Note Date: 08/25/18 This is a 62-year-old gentleman with history of hypertension, cardiomyopathy and congestive heart failure who is noncompliant with medications. Patient was admitted with uncontrolled high blood pressure and also congestive heart failure. Patient blood pressure is better but not well controlled. Patient has diuresed well and feeling better. Chest x-ray showed improvement. His blood pressure is still running high. I'm going to start him on labetalol. We' ll continue the rest of the medication. His creatinine has gone up. We'll wait for the nephrology input. Increase activity as tolerated Objective - Vital Signs Vital signs: Vital Signs Temp 97.5 F L 08/25/18 04:00 Pulse 77 08/25/18 07:00 Resp 18 08/25/18 07:00 BP 145/111 08/25/18 07:00 Pulse Ox 97 08/25/18 07:00 Intake & Output 08/24/18 08/25/18 08/25/18 18:59 06:59 18:59 Intake Total 322.15 540 230 Output Total 2019 1200 250 Balance -1697.85 -660 -20 Weight 76 kg 71.6 kg Intake: IV 160 0.9 NS 160 Intake, IV Titration 162.15 Amount Nitroglycerin-D5w Pmx 50 142.15 mg In Dextrose/Water 1 250ml.bag @ 10 MCG/MIN 3 mls/hr IV .Q24H [facility] Rx#: [id number] Sodium Chloride 0.9% 1, 20 000 ml @ 20 mls/hr IV . Q24H [facility] Rx#:[id number] Oral 540 230 Output: Urine 2019 1200 250 Other: Voiding Method Urinal Urinal # Voids 1 # Bowel Movements 1 - Exam GENERAL EXAM: Patient is alert and oriented and doesn't appear to be in any acute distress HEENT: Normocephalic. Normal reaction of pupils, equal size, normal range of extraocular motion. No erythema or exudates in the throat. NECK: No masses, no nuchal rigidity. CHEST: No chest wall deformity. LUNGS: Equal air entry with no crackles or wheeze. HEART: S1 and S2 normal with no audible mumurs or gallops. Regular rhythm, femorals equal on both sides.. ABDOMEN: No hepatosplenomegaly, normal bowel sounds, no guarding or rigidity. SKIN: No rashes CENTRAL NERVOUS SYSTEM: No focal deficits. EXTREMITIES: No cyanosis, clubbing or edema. - Labs CBC & Chem 7: 08/25/18 04:45 08/25/18 04:45 Labs: Abnormal Lab Results - Last 24 Hours (Table) 08/25/18 08/25/18 Range/Units 04:45 04:45 MCHC 30.2 L (31.0-37.0) g/dL Potassium 5.5 H (3.5-5.1) mmol/L BUN 46 H (9-20) mg/dL Creatinine 3.34 H (0.66-1.25) mg/dL Assessment and Plan (1) Chest pain Current Visit: Yes Status: Acute Code(s): R07.9 - CHEST PAIN, UNSPECIFIED SNOMED Code(s): 80914842 (2) Acute pulmonary edema Current Visit: Yes Status: Acute Code(s): J81.0 - ACUTE PULMONARY EDEMA SNOMED Code(s): 63959498 (3) Hypertensive urgency Current Visit: Yes Status: Acute Code(s): I16.0 - HYPERTENSIVE URGENCY SNOMED Code(s): 659418322 (4) Renal insufficiency Current Visit: Yes Status: Acute Code(s): N28.9 - DISORDER OF KIDNEY AND URETER, UNSPECIFIED SNOMED Code(s): 667456576 (5) CAD (coronary artery disease) Current Visit: Yes Status: Acute Code(s): I25.10 - ATHSCL HEART DISEASE OF [place] CORONARY ARTERY W/O ANG PCTRS SNOMED Code(s): 89688957 (6) Troponin level elevated Current Visit: Yes Status: Acute Code(s): R74.8 - ABNORMAL LEVELS OF OTHER SERUM ENZYMES SNOMED Code(s): 314935930 Plan: Continue current medical therapy. I will add labetalol 200 mg by mouth twice a day. Increase activity. Creatinine is going up. I will leave the gaming table operator for the dosing of the diuretics
--- NOTE | 2018-08-25 11:40 | P.PN ---
Subjective Progress Note Date: 08/25/18 Principal diagnosis: Hypertensive emergency This is a 62-year-old -[place] male with history of multiple medical problems including alcoholism, hypertension, previous myocardial infarction, previous CVA in 2005, previous cardiac catheterization, history of renal cell carcinoma and previous left nephrectomy, patient is familiar to my service, he was admitted back in June to [facility], and I saw him on consultation at the time. Patient presented at that time with mental status change, and workup including CT of the brain was negative. Lumbar puncture was negative. Cultures were nondiagnostic. And he was seen by many consultants including infectious disease. Patient was treated mostly for alcohol withdrawal , and he was eventually discharged home. He was recently seen in the ER again at [facility] [place], and he was noted to have elevated blood pressure patient was complaining of chest pain. Given a prescription for blood pressure medication, patient could not afford it and he did not comply with it. He presented yesterday to the ER at [facility], mostly complaining of substernal chest pain, and shortness of breath. Pain has been going on for about 3 days, describes the pain as substernal, worse on exertion, not radiating, not associated with diaphoresis, not associated with any other symptoms. Patient was found to have significantly elevated blood pressure, in the range of 220 systolic. His troponin was elevated, hence the patient was placed on nitroglycerin drip, heparin drip, and he was admitted to the intensive care unit. Chest x-ray showed evidence of mild congestive heart failure changes. Received a dose of Lasix in the ER, and overnight no major issues. He was kept on nitroglycerin drip, he was given 1 dose of the beta loll in the ER, and today he was switched to Norvasc, and metoprolol 50 mg by mouth twice a day by cardiology. Feeling better this morning, remains a bit agitated, blood pressure seems to be better controlled, and he is on Ativan when necessary. Blood pressure during my evaluation was 140/90. And his nitroglycerin drip was being titrated down to be discontinued. Patient denies any headache, no blurred vision, no dizziness, had no chest pain, no nausea no vomiting no abdominal pain, no diaphoresis, no dysuria and no frequency no urgency. He just felt a bit short of breath. Chest x-ray showed evidence of interstitial edema, I believe the patient has history of LV dysfunction, and this is more of a pulmonary edema secondary to systolic dysfunction Reevaluated today on 08/25/2018, patient remains in the ICU, he is presently off all the drips including nitroglycerin drip, he is maintained on oral medications for elevated blood pressure, seems to be doing well. Remains on the alcohol withdrawal protocol. Patient is calm, denies any chest pain, denies any shortness of breath, no cough, no wheezing. However his renal functioning seems to be getting worse, and nephrology was consulted. Patient was restarted on labetalol by cardiology, and supposedly he was taking the basal at home but noncompliant. CBC is normal electrolytes were reviewed. BUN is 46 creatinine 3.34 potassium is 5.5, and again those are being addressed by nephrology on the case. Chest x-ray was reviewed and it showed improved aeration and improved interstitium. Objective - Vital Signs Vital signs: Vital Signs Temp 97.5 F L 08/25/18 04:00 Pulse 77 08/25/18 07:00 Resp 18 08/25/18 07:00 BP 145/111 08/25/18 07:00 Pulse Ox 97 08/25/18 07:00 Intake & Output 08/24/18 08/25/18 08/25/18 18:59 06:59 18:59 Intake Total 322.15 540 230 Output Total 2020 1200 250 Balance -1697.85 -660 -20 Weight 76 kg 71.6 kg Intake: IV 160 0.9 NS 160 Intake, IV Titration 162.15 Amount Nitroglycerin-D5w Pmx 50 142.15 mg In Dextrose/Water 1 250ml.bag @ 10 MCG/MIN 3 mls/hr IV .Q24H [facility] Rx#: [id number] Sodium Chloride 0.9% 1, 20 000 ml @ 20 mls/hr IV . Q24H [facility] Rx#:[id number] Oral 540 230 Output: Urine 2019 1200 250 Other: Voiding Method Urinal Urinal # Voids 1 # Bowel Movements 1 - Exam GENERAL: Revealed a 62-year-old black male in no distress. Definitely calm and less anxious today. ENT: Neck is soft and supple. No significant lymphadenopathy is noted. Oropharynx is clear. Moist mucous membranes. Neck has full range of motion without eliciting any pain. EYES: PERRLA, EOMI, no icterus. PULMONARY: Clear throughout no crackles or rhonchi or wheezes. CARDIOVASCULAR: Normal S1 and S2, no S3 gallop, no murmur. ABDOMEN: Soft and nontender with normal bowel sounds. No palpable organomegaly was noted. No bruit, SKIN: Skin is clear with no lesions or rashes and otherwise unremarkable. NEUROLOGIC: Patient is alert and oriented x3. Cranial nerves II through XII are grossly intact. Motor and sensory are also intact. MUSCULOSKELETAL: Normal extremities with adequate strength and full range of motion. No lower extremity swelling or edema. No calf tenderness. LYMPHATICS: No significant lymphadenopathy is noted PSYCHIATRIC: Normal mood, affect and mental status examination, his anxious mood did resolve - Labs CBC & Chem 7: 08/25/18 04:45 08/25/18 04:45 Labs: Abnormal Lab Results - Last 24 Hours (Table) 08/25/18 08/25/18 Range/Units 04:45 04:45 MCHC 30.2 L (31.0-37.0) g/dL Potassium 5.5 H (3.5-5.1) mmol/L BUN 46 H (9-20) mg/dL Creatinine 3.34 H (0.66-1.25) mg/dL Assessment and Plan Assessment: Impression: 1 acute hypertensive emergency 2 acute systolic congestive heart failure and pulmonary edema 3 acute coronary syndrome with positive troponins is strongly suspected. 4 history of alcoholism and recurrent episodes of mental status change I believe related to alcoholism. 5 history of previous myocardial infarction 6 history of previous CVA. 7 history of renal cell carcinoma and previous left-sided nephrectomy. 8 history of noncompliance with medications as noted in the chart. 9 acute on chronic kidney injury, most likely secondary to poorly controlled hypertension. And hypertensive nephrosclerosis. Recommendation: Continue present blood pressure medications to control the blood pressure, discontinue IV nitroglycerin, continue alcohol withdrawal protocol, continue heparin, continue GI and DVT prophylaxis, continue statins, continue beta blockers, nitrobid orally. We will likely transfer the patient out of the ICU to a monitor bed on selective today. Patient is still followed by cardiology, and now he is being seen by nephrology for his renal failure. Prognosis remains guarded, we'll continue to follow closely. Time with Patient: Less than 30
--- NOTE | 2018-08-25 15:32 | P.HPIM ---
History of Present Illness H&P Date: 08/24/18 Chief Complaint: Shortness of breath 5-year-old gentleman comes into the ER for evaluation of shortness of breath and chest pain gone on for the past 2 days. He said that he is not compliant with his medication. He was prescribed some blood pressure medication while here in the hospital patient a few weeks ago but did not take them and he was taking his own medications. He started having chest pain starting 3 days and also become short of breath at this time. He does came into the ER for further urology management the patient denies any radiation of the pain denies any nausea he denies any abdominal pain, nausea and vomiting no diarrhea constipation he does not complain of any tingling numbness on his extremities, no itch no rash. Review of Systems All systems: negative Past Medical History Past Medical History: CVA/TIA, Hypertension, Myocardial Infarction ([place]) Additional Past Medical History / Comment(s): stroke, MA (2005) Last Myocardial Infarction Date:: 2005 History of Any Multi-Drug Resistant Organisms: None Reported Past Surgical History: Heart Catheterization Additional Past Surgical History / Comment(s): removal of left kidney. Past Psychological History: No Psychological Hx Reported Smoking Status: Current every day smoker Past Alcohol Use History: None Reported, Occasional Past Drug Use History: Marijuana Medications and Allergies Home Medications Medication Instructions Recorded Confirmed Type Labetalol [Trandate] 200 mg PO DIRECTED 08/23/18 08/23/18 History Allergies Allergy/AdvReac Type Severity Reaction Status Date / Time clonidine Allergy Swelling Verified 08/23/18 14:09 hydralazine Allergy Rash/Hives Verified 08/23/18 14:09 lisinopril Allergy Swelling Verified 08/23/18 14:09 Physical Exam Vitals: Vital Signs Temp Pulse Resp BP Pulse Ox 08/25/18 12:00 97.9 F 72 20 103/85 99 08/25/18 09:00 80 18 147/101 95 08/25/18 08:00 97.6 F 73 20 144/111 93 L 08/25/18 07:00 77 18 145/111 97 08/25/18 06:00 73 16 144/104 100 08/25/18 05:00 85 18 137/106 96 08/25/18 04:00 97.5 F L 78 16 120/94 98 08/25/18 03:00 78 16 154/117 95 08/25/18 02:00 65 14 144/98 99 08/25/18 01:00 72 16 147/119 97 08/25/18 00:00 64 13 99 08/24/18 23:24 81 14 126/101 98 08/24/18 23:00 73 19 129/93 96 08/24/18 22:01 97.6 F 65 22 154/99 100 08/24/18 21:00 96.8 F L 67 17 115/42 99 08/24/18 20:00 94.6 F L 80 12 139/104 99 08/24/18 19:00 76 13 152/115 98 08/24/18 18:00 85 19 153/122 96 08/24/18 17:00 78 16 146/107 98 08/24/18 16:00 96.5 F L 72 11 L 133/96 98 Intake and Output 08/25/18 08/25/18 08/25/18 06:59 14:59 22:59 Intake Total 440 730 Output Total 600 550 Balance -160 180 Intake: Oral 440 730 Output: Urine 600 550 Other: Voiding Method Urinal Weight 71.6 kg On exam, alert and oriented x3. HEENT: Conjunctivae normal. eyes normal. NECK: No JVD. No thyroid enlargement. No LNs CARDIOVASCULAR: S1, S2 positive RESPIRATION: Breath sounds diminished in the bases. No rhonchi or crackles. No bronchial breathing. ABDOMEN: Soft, nontender . No guarding. no masses palpable. No ascites, No hepatosplenomegaly.Bowel sounds heard. LEGS: No edema. no swelling NERVOUS SYSTEM: Cranial N 2-12 grossly normal. Moves all 4 limbs. No focal deficits. No sensory deficit. No signs of cerebellar dysfucntion. Skin: no ulcer no rash Joints: No active swelling. No inflammation. Lymphatic system. No LN neck axilla or groin. Results CBC & Chem 7: 08/25/18 04:45 08/25/18 04:45 Labs: Abnormal Lab Results - Last 24 Hours (Table) 08/25/18 08/25/18 Range/Units 04:45 04:45 MCHC 30.2 L (31.0-37.0) g/dL Potassium 5.5 H (3.5-5.1) mmol/L BUN 46 H (9-20) mg/dL Creatinine 3.34 H (0.66-1.25) mg/dL Thrombosis Risk Factor Assmnt - Choose All That Apply Any of the Below Risk Factors Present?: Yes Each Factor Represents 1 point: Heart failure (<1month) Each Risk Factor Represents 2 Points: Age 61-74 years Thrombosis Risk Factor Assessment Total Risk Factor Score: 3 Thrombosis Risk Factor Assessment Level: Moderate Risk Assessment and Plan Assessment: - ACCELERATED HTN - CHEST PAIN - INCREASED TROPS - KASSIE - Non-compliance with medications - History of renal cell carcinoma - History of previous CVA - History of [place] Plan - We'll admit the patient to ICU -The patient is on heparin. Nitro drip was just turned off it was initially started as his blood pressure was very high - Cardiology on board. His troponins are high - Continue aggressive medical care - Nephrology on board as he looks like he is having AK I - ICU management as per ICU team - DVT and GI prophylaxis - We'll order for lab work in the morning - Expected length of stay more than 2 midnights - Patient is full code Time with Patient: Greater than 30
--- NOTE | 2018-08-25 15:34 | P.PN ---
Subjective Patient says that he says short of breath but better than yesterday No chest pain today no racing heart Objective - Vital Signs Vital signs: Vital Signs Temp 97.9 F 08/25/18 12:00 Pulse 72 08/25/18 12:00 Resp 20 08/25/18 12:00 BP 103/85 08/25/18 12:00 Pulse Ox 99 08/25/18 12:00 Intake & Output 08/24/18 08/25/18 08/25/18 18:59 06:59 18:59 Intake Total 322.15 540 730 Output Total 2020 1200 550 Balance -1697.85 -660 180 Weight 76 kg 71.6 kg Intake: IV 160 0.9 NS 160 Intake, IV Titration 162.15 Amount Nitroglycerin-D5w Pmx 50 142.15 mg In Dextrose/Water 1 250ml.bag @ 10 MCG/MIN 3 mls/hr IV .Q24H [facility] Rx#: [id number] Sodium Chloride 0.9% 1, 20 000 ml @ 20 mls/hr IV . Q24H [facility] Rx#:[id number] Oral 540 730 Output: Urine 2019 1200 550 Other: Voiding Method Urinal Urinal Urinal # Voids 1 # Bowel Movements 1 - Exam On exam, alert and oriented x3. HEENT: Conjunctivae normal. eyes normal. NECK: No JVD. No thyroid enlargement. No LNs CARDIOVASCULAR: S1-S2 positive RESPIRATION: Breath sounds diminished in the bases. No rhonchi or crackles. No bronchial breathing. ABDOMEN: Soft, nontender . No guarding. no masses palpable. No ascites, No hepatosplenomegaly.Bowel sounds heard. LEGS: No edema. no swelling NERVOUS SYSTEM: Cranial N 2-12 grossly normal. Moves all 4 limbs. No focal deficits. No sensory deficit. No signs of cerebellar dysfucntion. Skin: no ulcer no rash - Labs CBC & Chem 7: 08/25/18 04:45 08/25/18 04:45 Labs: Abnormal Lab Results - Last 24 Hours (Table) 08/25/18 08/25/18 Range/Units 04:45 04:45 MCHC 30.2 L (31.0-37.0) g/dL Potassium 5.5 H (3.5-5.1) mmol/L BUN 46 H (9-20) mg/dL Creatinine 3.34 H (0.66-1.25) mg/dL Assessment and Plan Assessment: - ACCELERATED HTN - CHEST PAIN - INCREASED TROPS - KASSIE - Non-compliance with medications - History of renal cell carcinoma - History of previous CVA - History of [place] Plan - Continue current management - Cardiology following the patient - Diuretics as per nephrology recommendations - We'll follow the patient Time with Patient: Greater than 30
[2018-08-25 20:47] VITALS: TEMP 97.9
--- NOTE | 2018-08-25 20:53 | PN ---
PROGRESS NOTE Patient is seen for followup for acute kidney injury. He was admitted with CHF, uncontrolled hypertension. Patient was found to have an ejection fraction of 20%. He was being diuresed. Serum creatinine went up from 2.8 to 3.34. We do not have any previous labs available for comparison. This morning patient is much more awake. He states he is feeling better. Respiratory status is also improved. PHYSICAL EXAMINATION: On examination this morning blood pressure was 147/101, heart rate 70 per minute. Patient is afebrile. EXAMINATION OF THE HEART: S1 and S2. EXAMINATION OF LUNGS: Decreased breath sounds at the bases. Basal crackles are heard. ABDOMEN: Soft, non-tender. Examination of lower extremities shows trace edema. BEE BREEDER exam is grossly intact. LABS: Labs show sodium 143, potassium 5.5, chloride 107, BUN 46, serum creatinine 3.34. UA is completely negative. Ultrasound of the kidney shows right kidney 10.4 cm with 2 cysts noted. These appear to be benign. ASSESSMENT: 1. Acute kidney injury, mainly cardiorenal. Patient is status post diuresis. I will decrease the Lasix. Patient did get his dose this morning. I will hold this evening's dose and we will reassess his volume status in the morning. If he remains fluid-overloaded, patient will need to restart diuretics along with inotropic agents like dobutamine. I would also avoid dropping the systolic blood pressure below 130 mmHg. Currently patient is not on any nephrotoxic medications. 2. History of left nephrectomy for a mass which turned out to be not malignant, per patient. 3. Fluid overload, somewhat improved from yesterday. 4. Cardiomyopathy, ejection fraction 20%. 5. Uncontrolled hypertension, now improved. Hold blood pressure medications for systolic blood pressure less than 120. Currently patient is only on Lopressor and Norvasc. PLAN: Hold Lasix. Reassess volume status in a.m. Start dobutamine if renal function is worse and patient needs to be diuresed. Discussed with Dr. Florez as well. MMODL / IJN: [id number] /
[2018-08-26 00:30] VITALS: BP 122/79; PULSE 69; RESP 16
[2018-08-26] MEDS: SODIUM CHLORIDE 0.9% 1,000 ML IV SCH (00:32)
[2018-08-26] MEDS: ALPRAZolam 0.25 MG TAB PO PRN (01:34)
[2018-08-26] MEDS ORDERED: PANTOPRAZOLE 40 MG TABLET PO SCH (09:00)
== END 2018-08-26 04:15 | disposition left against medical advice (07) | DRG 291 ==
LOC: EC 13:45 → 2SICU 16:48
PROVIDERS: ADMIT Internal Medicine; ATTEND Internal Medicine
DX: I13.0 Hypertensive heart and chronic kidney disease with heart failure and stage 1 through stage 4 chronic kidney disease, or unspecified chronic kidney disease (principal); I50.21 Acute systolic (congestive) heart failure; I16.1 Hypertensive emergency; N17.9 Acute kidney failure, unspecified; F10.239 Alcohol dependence with withdrawal, unspecified; I24.9 Acute ischemic heart disease, unspecified; N18.4 Chronic kidney disease, stage 4 (severe); I42.9 Cardiomyopathy, unspecified; T46.5X6A Underdosing of other antihypertensive drugs, initial encounter; I25.10 Atherosclerotic heart disease of native coronary artery without angina pectoris; I25.2 Old myocardial infarction; F17.200 Nicotine dependence, unspecified, uncomplicated; Z91.128 Patient's intentional underdosing of medication regimen for other reason; Z79.899 Other long term (current) drug therapy; Z86.73 Personal history of transient ischemic attack (TIA), and cerebral infarction without residual deficits; Z90.5 Acquired absence of kidney; Z85.528 Personal history of other malignant neoplasm of kidney; Z88.8 Allergy status to other drugs, medicaments and biological substances
CPT/HCPCS: 36415; 71045; 71046; 76770; 80048; 80053; 80306; 81003; 83735; 83880; 84100; 84484; 85025; 85610; 85730; 93005; 93306; 96365; 96366; 96368; 96374; 96375; 96376; 99291

== ENCOUNTER 2018-08-28 01:19 | Inpatient (IN) | payer MEDICARE, OTHER ==
--- NOTE | 2018-08-28 02:05 | ED ---
General Adult HPI - General Chief complaint: Shortness of Breath Stated complaint: SOB Time Seen by Provider: 08/28/18 01:34 Source: patient Mode of arrival: ambulatory Limitations: no limitations - History of Present Illness Initial comments: Dictation was produced using [employer] dictation software. please excuse any grammatical, word or spelling errors. Chief Complaint: Patient is 62-year-old male past nuchal history of CVA, hypertension, OR, nephrectomy presents with chief complaint of dyspnea. History of Present Illness: Patient is a 62-year-old male. Patient was recently admitted to the hospital for congestive heart failure and acute kidney injury. Patient has history of nephrectomy. Patient was admitted to the hospital for approximately 2 days when he signed himself out AGAINST MEDICAL ADVICE because he reports he was feeling better. He was seen by his primary care physician earlier today. Patient states that he was beginning to have increasing shortness of breath that was recurring. Patient denies any cough. Denies any chest pain. However does report feeling in abnormal left costochondral chest discomfort. Chart review shows that patient was recently admitted and 4 days ago was value by pulmonology, nephrology and cardiology. The ROS documented in this emergency department record has been reviewed and confirmed by me. Those systems with pertinent positive or negative responses have been documented in the HPI. All other systems are other negative and/or noncontributory. PHYSICAL EXAM: General Impression: Alert and oriented x3, not in acute distress HEENT: Normocephalic atraumatic, extra-ocular movements intact, pupils equal and reactive to light bilaterally, mucous membranes moist. Cardiovascular: Heart regular rate and rhythm, S1&S2 audible, no murmurs, rubs or gallops Chest: Mild chest crackles Abdomen: Bowel sounds present, abdomen soft, non-tender, non-distended, no orga nomegaly Musculoskeletal: Pulses present and equal in all extremities, no peripheral edema Motor: Power 5/5 bilaterally, no focal deficits noted Neurological: CN II-XII grossly intact, no focal motor or sensory deficits noted Skin: Intact with no visualized rashes Psych: Normal affect and mood ED course: 62-year-old male presents with chief complaint of dyspnea. Vital signs upon arrival are within acceptable limits. Laboratory evaluation obtained. CBC, metabolic panels obtained. CBC is unremarkable. Metabolic panel shows creatinine 3.71 which has been trending of since recent admission. This reflects worsening acute kidney injury. Patient also has elevated troponin of 0.082. Renagel or hepatitis 2000. Chest x-ray shows no consolidation or pleural effusion. Patient's clinical presentation consistent with CHF, acute kidney injury and non-ST segment elevation OR. Patient started heparin given aspirin. At this point patient not showing significant signs of respiratory distress. We've sent more of a priority to provide patient with fluids given that patient has history of nephrectomy. Patient be admitted. Cardiology and nephrology consult it. EKG interpretation: Ventricular rate 74, normal sinus rhythm, MT interval 190, QRS 102, QTC 492. There are T-wave inversions in the lateral precordial leads and high lateral leads. These findings are similar to EKG performed on 08/23/2018 - Related Data Home Medications Medication Instructions Recorded Confirmed Labetalol [Trandate] 200 mg PO DIRECTED 08/23/18 08/28/18 Allergies Allergy/AdvReac Type Severity Reaction Status Date / Time clonidine Allergy Swelling Verified 08/23/18 14:09 hydralazine Allergy Rash/Hives Verified 08/23/18 14:09 lisinopril Allergy Swelling Verified 08/23/18 14:09 Review of Systems ROS Statement: Those systems with pertinent positive or pertinent negative responses have been documented in the HPI. ROS Other: All systems not noted in ROS Statement are negative. Past Medical History Past Medical History: CVA/TIA, Hypertension, Myocardial Infarction (OR) Additional Past Medical History / Comment(s): stroke, [place] (2005) Last Myocardial Infarction Date:: 2005 History of Any Multi-Drug Resistant Organisms: None Reported Past Surgical History: Heart Catheterization Additional Past Surgical History / Comment(s): removal of left kidney. Past Psychological History: No Psychological Hx Reported Smoking Status: Current every day smoker Past Alcohol Use History: None Reported, Occasional Past Drug Use History: Marijuana General Exam Limitations: no limitations Course Vital Signs 08/28/18 01:27 Temperature 97.7 F Pulse Rate 71 Respiratory 22 Rate Blood Pressure 167/109 O2 Sat by Pulse 98 Oximetry Medical Decision Making - Lab Data Result diagrams: 08/28/18 01:58 08/28/18 01:58 Lab Results 08/28/18 08/28/18 08/28/18 Range/Units 01:58 01:58 01:58 WBC 8.3 (3.8-10.6) k/uL RBC 4.85 (4.30-5.90) m/uL Hgb 13.6 (13.0-17.5) gm/dL Hct 43.8 (39.0-53.0) % MCV 90.3 (80.0-100.0) fL MCH 28.1 (25.0-35.0) pg MCHC 31.2 (31.0-37.0) g/dL RDW 15.0 (11.5-15.5) % Plt Count 177 (150-450) k/uL Neutrophils % 51 % Lymphocytes % 35 % Monocytes % 7 % Eosinophils % 3 % Basophils % 0 % Neutrophils # 4.2 (1.3-7.7) k/uL Lymphocytes # 2.9 (1.0-4.8) k/uL Monocytes # 0.6 (0-1.0) k/uL Eosinophils # 0.2 (0-0.7) k/uL Basophils # 0.0 (0-0.2) k/uL Hypochromasia Slight Sodium 143 (137-145) mmol/L Potassium 4.7 (3.5-5.1) mmol/L Chloride 109 H (98-107) mmol/L Carbon Dioxide 25 (22-30) mmol/L Anion Gap 9 mmol/L BUN 57 H (9-20) mg/dL Creatinine 3.71 H (0.66-1.25) mg/dL Est GFR (CKD-EPI)AfAm 19 (>60 ml/min/1.73 sqM) Est GFR (CKD-EPI)NonAf 16 (>60 ml/min/1.73 sqM) Glucose 126 H (74-99) mg/dL Calcium 9.3 (8.4-10.2) mg/dL Magnesium 2.1 (1.6-2.3) mg/dL Total Creatine Kinase (55-170) U/L CK-MB (CK-2) (0.0-2.4) ng/mL CK-MB (CK-2) Rel Index Troponin I (0.000-0.034) ng/mL NT-Pro-B Natriuret Pep 2060 pg/mL 08/28/18 Range/Units 02:18 WBC (3.8-10.6) k/uL RBC (4.30-5.90) m/uL Hgb (13.0-17.5) gm/dL Hct (39.0-53.0) % MCV (80.0-100.0) fL MCH (25.0-35.0) pg MCHC (31.0-37.0) g/dL RDW (11.5-15.5) % Plt Count (150-450) k/uL Neutrophils % % Lymphocytes % % Monocytes % % Eosinophils % % Basophils % % Neutrophils # (1.3-7.7) k/uL Lymphocytes # (1.0-4.8) k/uL Monocytes # (0-1.0) k/uL Eosinophils # (0-0.7) k/uL Basophils # (0-0.2) k/uL Hypochromasia Sodium (137-145) mmol/L Potassium (3.5-5.1) mmol/L Chloride (98-107) mmol/L Carbon Dioxide (22-30) mmol/L Anion Gap mmol/L BUN (9-20) mg/dL Creatinine (0.66-1.25) mg/dL Est GFR (CKD-EPI)AfAm (>60 ml/min/1.73 sqM) Est GFR (CKD-EPI)NonAf (>60 ml/min/1.73 sqM) Glucose (74-99) mg/dL Calcium (8.4-10.2) mg/dL Magnesium (1.6-2.3) mg/dL Total Creatine Kinase 326 H (55-170) U/L CK-MB (CK-2) 4.3 H (0.0-2.4) ng/mL CK-MB (CK-2) Rel Index 1.3 Troponin I 0.082 H* (0.000-0.034) ng/mL NT-Pro-B Natriuret Pep pg/mL Disposition Clinical Impression: Congestive heart failure, KASSIE (acute kidney injury) Disposition: ADMITTED IP TO THIS HOSP Condition: Fair Referrals: Hansa Freeman MD [Primary Care Provider] - 1-2 days Decision Time: 04:03
[2018-08-28 02:19] LABS: Basophils % (A) 0 %; Eosinophils # (A) 0.2 k/uL (0-0.7); Eosinophils % (A) 3 %; HCT 43.8 % (39.0-53.0); HGB 13.6 gm/dL (13.0-17.5); Hypochromasia Slight; Lymphocytes # (A) 2.9 k/uL (1.0-4.8); Lymphocytes % (A) 35 %; MCH 28.1 pg (25.0-35.0); MCHC 31.2 g/dL (31.0-37.0); MCV 90.3 fL (80.0-100.0); Mean Platelet Volume 9.2; Monocytes # (A) 0.6 k/uL (0-1.0); Monocytes % (A) 7 %; Neutrophils # (A) 4.2 k/uL (1.3-7.7); Neutrophils % (A) 51 %; Platelet Count 177 k/uL (150-450); RBC 4.85 m/uL (4.30-5.90); WBC 8.3 k/uL (3.8-10.6)
[2018-08-28 02:38] LABS: Calcium 9.3 mg/dL (8.4-10.2); Magnesium 2.1 mg/dL (1.6-2.3); Potassium 4.7 mmol/L (3.5-5.1)
[2018-08-28 02:55] LABS: Creatine Kinase MB 4.3 ng/mL (0.0-2.4)
--- NOTE | 2018-08-28 02:55 | XR ---
EXAM: XR Chest, 2 Views CLINICAL HISTORY: ITS.REASON XR Reason: Pain TECHNIQUE: Frontal and lateral views of the chest. COMPARISON: 08/25/18 chest x-ray IMPRESSION: Cardiomegaly. No consolidation or pleural effusion.
[2018-08-28 03:30] LABS: Troponin I 0.082 ng/mL (0.000-0.034)
[2018-08-28] MEDS ORDERED: HEPARIN SODIUM,PORCINE 5,000 UNIT/ML 1 ML VIAL IV ONE (03:51)
[2018-08-28] MEDS ORDERED: HEPARIN SODIUM,PORCINE 5,000 UNIT/ML 1 ML VIAL IV PRN (03:51)
[2018-08-28] MEDS ORDERED: ASPIRIN 81 MG PO STA (03:53)
[2018-08-28] MEDS ORDERED: SODIUM CHLORIDE 0.9% 1,000 ML IV STA (03:55)
[2018-08-28] MEDS ORDERED: NITROGLYCERIN SL TABS 0.4 MG TAB SUBLINGUAL PRN (03:59)
[2018-08-28] MEDS ORDERED: HEPARIN SOD,PORK IN 0.45% NACL 25,000 UNIT in 0.45% NACL 1 250ML.BAG IV SCH (04:00)
[2018-08-28] MEDS: LABETALOL 200 MG TAB PO SCH ×2 (04:32→04:56)
[2018-08-28 05:21] VITALS: RESP 18; BMI 23.4
--- NOTE | 2018-08-28 09:16 | P.NPCON ---
History of Present Illness - Reason for Consult acute renal failure - History of Present Illness Reason for consultation: Acute kidney injury History of present illness: Patient is a 62-year-old male seen in renal consultation for acute kidney injury. Unclear as to what his basin renal function is. Patient was recently admitted to the hospital for CHF exacerbation and received IV diuresis. Creatinine during that admission was 2.96 and went up to 3.34 with diuresis. Patient subsequently signed himself out AGAINST MEDICAL ADVICE as he started to feel better. Patient comes back to the hospital with dyspnea and chest discomfort. He is currently maintained on IV heparin. He does have systolic CH F with ejection fraction of 20-25% with moderate atrial regurgitation. He admits to good urine output. No hematuria or dysuria. Denies history of diabetes. No vomiting or diarrhea. He is currently not on any diuretics. Chest x-ray was not suggestive of fluid overload. He denies regular use of NSAIDs. No family history of renal disease. Vital signs are stable. General: The patient appeared well nourished and normally developed. HEENT: Head exam is unremarkable. Neck is without jugular venous distension. LUNGS: Lungs are clear to auscultation and percussion. Breath sounds decreased. HEART: Rate and Rhythm are regular. First and second heart sounds normal. No murmurs, rubs or gallops. ABDOMEN: Abdominal exam reveals normal bowel sounds. Non-tender and non- distended. No evidence of peritonitis. EXTREMITITES: No clubbing, cyanosis, or edema. Past Medical History Past Medical History: CVA/TIA, Hypertension, Myocardial Infarction ([place]) Additional Past Medical History / Comment(s): stroke, [place] (2005) Last Myocardial Infarction Date:: 2005 History of Any Multi-Drug Resistant Organisms: None Reported Past Surgical History: Heart Catheterization Additional Past Surgical History / Comment(s): removal of left kidney. Past Anesthesia/Blood Transfusion Reactions: No Reported Reaction Past Psychological History: No Psychological Hx Reported Smoking Status: Current every day smoker Past Alcohol Use History: None Reported, Occasional Past Drug Use History: Marijuana Medications and Allergies Home Medications Medication Instructions Recorded Confirmed Type Metoprolol Tartrate [Lopressor] 50 mg PO BID 08/28/18 08/28/18 History amLODIPine [Norvasc] 10 mg PO DAILY 08/28/18 08/28/18 History Allergies Allergy/AdvReac Type Severity Reaction Status Date / Time clonidine Allergy Swelling Verified 08/28/18 08:13 hydralazine Allergy Rash/Hives Verified 08/28/18 08:13 lisinopril Allergy Swelling Verified 08/28/18 08:13 Physical Exam Vitals: Vital Signs Temp Pulse Pulse Resp BP BP Pulse Ox 08/28/18 04:35 97.5 F L 81 18 128/90 97 08/28/18 04:30 70 20 159/106 97 08/28/18 01:27 97.7 F 71 22 167/109 98 Intake and Output 08/27/18 08/28/18 08/28/18 22:59 06:59 14:59 Intake Total 150 Balance 150 Intake: Intake, IV Titration 150 Amount Sodium Chloride 0.9% 1, 150 000 ml @ 75 mls/hr IV . [id number] STA Rx#:[id number] Other: Weight 76.2 kg Results - Lab Results Most recent lab results Calcium 9.3 mg/dL (8.4-10.2) 08/28/18 01:58 Magnesium 2.1 mg/dL (1.6-2.3) 08/28/18 01:58 08/28/18 01:58 08/28/18 01:58 Assessment and Plan Plan: Assessment: 1. Acute kidney injury secondary to cardiorenal syndrome. Creatinine 3.71 on admission. Unknown baseline renal function. Creatinine earlier this month was in the range of 2.9-3.3. Recent ultrasound revealed no evidence of hydronephrosis in the right kidney. Recent UA benign. 2. Systolic CHF with ejection fraction of 20-25% with moderate mitral regurgitation. Currently compensated. 3. Benign hypertension. Better this morning. 4. Status post left nephrectomy due to renal mass in 2006. Plan: I will decrease the rate of normal saline to 50 mL an hour. Encourage oral intake. Avoid nephrotoxins. Hold off on diuretics at this time. Thank you for the consultation. I will continue to follow the patient with you during his hospital stay.
[2018-08-28] MEDS: amLODIPine 10 MG TAB PO SCH (12:20)
--- NOTE | 2018-08-28 13:03 | P.CRDCN ---
History of Present Illness History of present illness: This is a pleasant 62-year-old -[place] male past medical history significant for hypertension, peripheral vascular disease, renal cell carcinoma status post left nephrectomy, chronic renal failure, excessive alcohol consumption, chronic nicotine dependence and cardiomyopathy. He also has a history of noncompliance. He has followed in the office with Dr. Valdez in the past, last visit was 2016. He has undergone cardiac catheterization in 2010 which revealed normal coronary artery disease. He was here earlier this month for heart failure and fluid overload however he left AGAINST MEDICAL ADVICE. He returned to the hospital with ongoing shortness of breath and the desire to get his medications resumed. We have been asked to see him in consultation for congestive heart failure. He presented to the hospital with persistent shortness of breath with chest tightness intermittently since leaving the hospital last week. He denies palpitations, dizziness, nausea, vomiting or d iaphoresis. Echocardiogram obtained reveals LV systolic function with EF 20-25%, severely dilated LA, moderate MR. Previously in the office is maintained on amlodipine 10 mg daily, atorvastatin 40 mg daily, Coreg 25 mg twice a day and hydralazine 25 mg 3 times a day. EKG reveals sinus mechanism with diffuse T-wave inversion similar to previous EKG. Chest xray negative for an acute cardiopulmonary process. Laboratory data reviewed, WBC 8.3, hemoglobin 13.6, platelets 177, sodium 143, potassium 4.7, creatinine 3.71, magnesium 2.1, troponin 0.082 and 0.069, NT proBNP 2060. At the time of my exam: CONSTITUTIONAL: Denies fever. Denies chills. EYES: Denies blurred vision. Denies vision changes. Denies eye pain. EARS, NOSE, MOUTH & THROAT: Denies headache. Denies sore throat. Denies ear pain. CARDIOVASCULAR: Denies chest pain. Complains of shortness of breath. Denies orthopnea. Denies PND. Denies palpitations. RESPIRATORY: Denies cough. GASTROINTESTINAL: Denies abdominal pain. Denies diarrhea. Denies constipation. Denies nausea. Denies vomiting. MUSCULOSKELETAL: Denies myalgias. INTEGUMENTARY: Denies pruitis. Denies rash. NEUROLOGIC: Denies numbness. Denies tingling. Denies weakness. PSYCHIATRIC: Denies anxiety. Denies depression. ENDOCRINE: Denies fatigue. Denies weight change. Denies polydipsia. Denies polyurina. GENITOURINARY: Denies burning, hematuria or urgency with micturation. HEMATOLOGIC: Denies history of anemia. Denies bleeding. Blood pressure 141/99 heart rate 74 afebrile maintaining oxygen saturation on room air GENERAL: This is a 62-year-old -[place] male in no apparent distress at the time of my examination. HEENT: Head is atraumatic, normocephalic. Pupils are equal, round. Sclerae anicteric. Conjunctivae are clear. Mucous membranes of the mouth are moist. Neck is supple. There is no jugular venous distention. No carotid bruit is heard. LUNGS: Trace rhonchi throughout, no wheezes or raless. No chest wall tenderness is noted on palpation or with deep breathing. HEART: Regular rate and rhythm without murmurs, rubs or gallops. S1 and S2 heard. ABDOMEN: Soft, nontender. Bowel sounds are heard. No organomegaly noted. EXTREMITIES: No evidence of peripheral edema and no calf tenderness noted. VASCULAR: Radial and dorsalis pedis pulses palpated, no evidence of clubbing. NEUROLOGIC: Patient is awake, alert and oriented x3. ASSESSMENT Pleuritic chest pain not suggestive of angina. Troponin elevation, not due to ischemia or infarction. Secondary to renal failure with similar elvations previously. Hypertension Dyslipidemia History of peripheral vascular disease Non-ischemic cardiomyopathy Chronic systolic heart failure Histoy of peripheral vascular disease Chronic nicotine dependence Daily excessive alcohol intake PLAN Troponin elevation is not due to an acute myocardial infarction, discontinue heparin infusion. Resume amlodipine, beta blockers and atorvastatin. Appreciate nephrology recommendations regarding diuretics. We will continue to follow and make recommendations accordingly. Alcohol and tobacco cessation recommended. Further recommendations to follow. Thank you kindly for this consultation. Nurse Practitioner note has been reviewed, I agree with a documented findings and plan of care. Patient was seen and examined. Past Medical History Past Medical History: CVA/TIA, Hypertension, Myocardial Infarction ([place]) Additional Past Medical History / Comment(s): stroke, [place] (2005) Last Myocardial Infarction Date:: 2005 History of Any Multi-Drug Resistant Organisms: None Reported Past Surgical History: Heart Catheterization Additional Past Surgical History / Comment(s): removal of left kidney. Past Anesthesia/Blood Transfusion Reactions: No Reported Reaction Past Psychological History: No Psychological Hx Reported Smoking Status: Current every day smoker Past Alcohol Use History: None Reported, Occasional Past Drug Use History: Marijuana Medications and Allergies Home Medications Medication Instructions Recorded Confirmed Type Metoprolol Tartrate [Lopressor] 50 mg PO BID 08/28/18 08/28/18 History amLODIPine [Norvasc] 10 mg PO DAILY 08/28/18 08/28/18 History Allergies Allergy/AdvReac Type Severity Reaction Status Date / Time clonidine Allergy Swelling Verified 08/28/18 08:13 hydralazine Allergy Rash/Hives Verified 08/28/18 08:13 lisinopril Allergy Swelling Verified 08/28/18 08:13 Physical Exam Vitals: Vital Signs Temp Pulse Pulse Resp BP BP Pulse Ox 08/28/18 04:35 97.5 F L 81 18 128/90 97 08/28/18 04:30 70 20 159/106 97 08/28/18 01:27 97.7 F 71 22 167/109 98 Intake and Output 08/27/18 08/28/18 08/28/18 22:59 06:59 14:59 Intake Total 150 Balance 150 Intake: Intake, IV Titration 150 Amount Sodium Chloride 0.9% 1, 150 000 ml @ 75 mls/hr IV . [id number] STA Rx#:[id number] Other: Weight 76.2 kg Results 08/28/18 01:58 08/28/18 01:58 Cardiac Enzymes 08/28/18 Range/Units 02:18 CK-MB (CK-2) 4.3 H (0.0-2.4) ng/mL Troponin I 0.082 H* (0.000-0.034) ng/mL CBC 08/28/18 Range/Units 01:58 WBC 8.3 (3.8-10.6) k/uL RBC 4.85 (4.30-5.90) m/uL Hgb 13.6 (13.0-17.5) gm/dL Hct 43.8 (39.0-53.0) % Plt Count 177 (150-450) k/uL Comprehensive Metabolic Panel 08/28/18 Range/Units 01:58 Sodium 143 (137-145) mmol/L Potassium 4.7 (3.5-5.1) mmol/L Chloride 109 H (98-107) mmol/L Carbon Dioxide 25 (22-30) mmol/L BUN 57 H (9-20) mg/dL Creatinine 3.71 H (0.66-1.25) mg/dL Glucose 126 H (74-99) mg/dL Calcium 9.3 (8.4-10.2) mg/dL Current Medications Generic Name Dose Route Start Last Admin Trade Name Freq PRN Reason Stop Dose Admin Aspirin 325 mg 08/29/18 09:00 Aspirin PO DAILY [facility] Heparin Sodium (Porcine) 0 unit 08/28/18 03:51 Heparin IV PER PROTOCOL PRN Low PTT Protocol Heparin Sodium/Sodium Chloride 250 mls @ 8.981 mls/hr 08/28/18 04:00 08/28/18 04:28 25,000 unit/ Sodium Chloride IV 12 units/kg/hr .Q24H ETHEL 8.981 mls/hr Administration Protocol 12 UNITS/KG/HR Sodium Chloride 1,000 mls @ 75 mls/hr 08/28/18 03:55 08/28/18 04:29 Saline 0.9% IV 08/28/18 17:14 75 mls/hr .[id number] STA Administration Labetalol HCl 200 mg 08/28/18 04:15 08/28/18 04:56 Trandate PO Not Given DIRECTED [facility] Nitroglycerin 0.4 mg 08/28/18 03:59 Nitrostat SUBLINGUAL Q5M PRN Chest Pain Intake and Output 08/27/18 08/28/18 08/28/18 22:59 06:59 14:59 Intake Total 150 Balance 150 Intake: Intake, IV Titration 150 Amount Sodium Chloride 0.9% 1, 150 000 ml @ 75 mls/hr IV . [id number] STA Rx#:[id number] Other: Weight 76.2 kg 08/28/18 01:58 08/28/18 01:58
--- NOTE | 2018-08-28 14:46 | P.HPIM ---
History of Present Illness 61-year-old male came in with complaints of a chest of pain in the left side of the chest appears to have some relationship with the food moderate amount of chest pain and patient's symptomology is not clear patient's present with s imilar symptoms last time did have some elevated troponins at that time patient was admitted to ICU was treated for hypertensive emergency patient left AMA came back again with similar symptoms. Patient had ejection fraction of 20-25% patient was diuresed at this time patient has increased to creatinine from his baseline of 2.9 during his last hospitalization to 3.5. Patient is not volume overloaded patient chest pain has some pleuritic competent acidosis some nausea started after eating moderate amount of chest pain nonreproducible. Because of the pleuritic competent of obtain a d-dimer if it's positive adopted a VQ scan. Patient had history of renal cell carcinoma status post left nephrectomy with chronic renal failure. Continues to smoke has nonischemic cardio myopathy possibility of cardio myopathy from alcoholism. Patient is minimally elevated troponins which are flat didn't go up. Cardiology evaluated the patient they do not believe patient has acute microinfarction patient had a cardiac catheterization in 2010 which did not show any significant the ascorbic vascular disease. EKG showed diffuse T-wave inversions. IV heparin was discontinued. Patient was on labetalol during her last hospitalization presently will be started on amlodipine and is also on hydralazine both of which will be continued. Review of Systems REVIEW OF SYSTEMS: CONSTITUTIONAL: No fever, no malaise, no fatigue. HEENT: No recent visual problems or hearing problems. Denied any sore throat. CARDIOVASCULAR: No orthopnea, PND, no palpitations, no syncope. PULMONARY: No shortness of breath, no cough, no hemoptysis. GASTROINTESTINAL: No diarrhea, no nausea, no vomiting, no abdominal pain. NEUROLOGICAL: No headaches, no weakness, no numbness. HEMATOLOGICAL: Denies any bleeding or petechiae. GENITOURINARY: Denies any burning micturition, frequency, or urgency. MUSCULOSKELETAL/RHEUMATOLOGICAL: Denies any joint pain, swelling, or any muscle pain. ENDOCRINE: Denies any polyuria or polydipsia. The rest of the 14-point review of systems is negative. Past Medical History Past Medical History: CVA/TIA, Hypertension, Myocardial Infarction ([place]) Additional Past Medical History / Comment(s): stroke, [place] (2005) Last Myocardial Infarction Date:: 2005 History of Any Multi-Drug Resistant Organisms: None Reported Past Surgical History: Heart Catheterization Additional Past Surgical History / Comment(s): removal of left kidney. Past Anesthesia/Blood Transfusion Reactions: No Reported Reaction Past Psychological History: No Psychological Hx Reported Smoking Status: Current every day smoker Past Alcohol Use History: None Reported, Occasional Past Drug Use History: Marijuana Medications and Allergies Home Medications Medication Instructions Recorded Confirmed Type Metoprolol Tartrate [Lopressor] 50 mg PO BID 08/28/18 08/28/18 History amLODIPine [Norvasc] 10 mg PO DAILY 08/28/18 08/28/18 History Allergies Allergy/AdvReac Type Severity Reaction Status Date / Time clonidine Allergy Swelling Verified 08/28/18 08:13 hydralazine Allergy Rash/Hives Verified 08/28/18 08:13 lisinopril Allergy Swelling Verified 08/28/18 08:13 Physical Exam Vitals: Vital Signs Temp Pulse Pulse Resp BP BP Pulse Ox 08/28/18 12:15 97.5 F L 69 18 166/78 99 08/28/18 08:35 97.4 F L 74 18 141/99 99 08/28/18 04:35 97.5 F L 81 18 128/90 97 08/28/18 04:30 70 20 159/106 97 08/28/18 01:27 97.7 F 71 22 167/109 98 Intake and Output 08/27/18 08/28/18 08/28/18 22:59 06:59 14:59 Intake Total 150 740 Balance 150 740 Intake: Intake, IV Titration 150 500 Amount Sodium Chloride 0.9% 1, 150 500 000 ml @ 50 mls/hr IV . Q20H STA Rx#:[id number] Oral 240 Other: Weight 76.2 kg PHYSICAL EXAMINATION: GENERAL: The patient is alert and oriented x3, not in any acute distress. Well developed, well nourished. HEENT: Pupils are round and equally reacting to light. EOMI. No scleral icterus. No conjunctival pallor. Normocephalic, atraumatic. No pharyngeal erythema. No thyromegaly. CARDIOVASCULAR: S1 and S2 present. No murmurs, rubs, or gallops. PULMONARY: Chest is clear to auscultation, no wheezing or crackles. ABDOMEN: Soft, nontender, nondistended, normoactive bowel sounds. No palpable organomegaly. MUSCULOSKELETAL: No joint swelling or deformity. EXTREMITIES: No cyanosis, clubbing, or pedal edema. NEUROLOGICAL: Gross neurological examination did not reveal any focal deficits. SKIN: No rashes. Results CBC & Chem 7: 08/28/18 01:58 08/28/18 01:58 Labs: Abnormal Lab Results - Last 24 Hours (Table) 08/28/18 08/28/18 08/28/18 Range/Units 01:58 02:18 06:15 Chloride 109 H (98-107) mmol/L BUN 57 H (9-20) mg/dL Creatinine 3.71 H (0.66-1.25) mg/dL Glucose 126 H (74-99) mg/dL Total Creatine Kinase 326 H (55-170) U/L CK-MB (CK-2) 4.3 H (0.0-2.4) ng/mL Troponin I 0.082 H* 0.069 H* (0.000-0.034) ng/mL Thrombosis Risk Factor Assmnt - Choose All That Apply Any of the Below Risk Factors Present?: Yes Each Factor Represents 1 point: Heart failure (<1month) Other Risk Factors: Yes Each Risk Factor Represents 2 Points: Age 61-74 years Other congenital or acquired thrombophilia - If yes, enter type in comment: No Thrombosis Risk Factor Assessment Total Risk Factor Score: 3 Thrombosis Risk Factor Assessment Level: Moderate Risk Assessment and Plan Plan: -Chest pain, atypical, cardiology valid the patient IV heparin was discontinued patient has some pleuritic chest pain cannot rule out chest pain secondary to gastritis. D-dimer will be obtained and patient will be started on Pepcid. Extensive counseling was provided regarding noncompliance with medications. Patient said he will not leave against medical advise this time acute renal failure on chronic kidney disease which I cannot stage at this time. Patient was on gentle hydration because of his poor ejection fraction ultrasound of the kidney did not show any hydronephrosis during his last hospital admission did not show any significant abnormality. Will monitor kidney function -Hypertension uncontrolled due to noncompliance patient was started on amlodipine and the hydralazine -Status post left nephrectomy from renal cell carcinoma in the past -Mild troponin elevation which appears to be secondary to renal failure.
[2018-08-28] MEDS: FAMOTIDINE 20 MG/2 ML VIAL IV SCH ×2 (15:19→22:05)
[2018-08-28] MEDS: ATORVASTATIN 40 MG TAB PO SCH (15:19)
[2018-08-28] MEDS: CARVEDILOL 12.5 MG TAB PO SCH (17:21)
[2018-08-28] MEDS ORDERED: METOPROLOL TARTRATE 50 MG TAB PO SCH (21:00)
[2018-08-29 03:47] VITALS: TEMP 97.5
[2018-08-29] MEDS: CARVEDILOL 12.5 MG TAB PO SCH (06:22)
[2018-08-29 07:01] LABS: Calcium 8.9 mg/dL (8.4-10.2); Potassium 4.8 mmol/L (3.5-5.1)
[2018-08-29] MEDS: ATORVASTATIN 40 MG TAB PO SCH (08:23)
[2018-08-29] MEDS: amLODIPine 10 MG TAB PO SCH (08:23)
[2018-08-29] MEDS: FAMOTIDINE 20 MG/2 ML VIAL IV SCH (08:23)
[2018-08-29] MEDS ORDERED: ASPIRIN 81 MG PO SCH (09:00)
[2018-08-29] MEDS ORDERED: ASPIRIN 325 MG TAB PO SCH (09:00)
[2018-08-29 09:52] VITALS: BP 137/92; PULSE 67
--- NOTE | 2018-08-29 10:07 | P.PN ---
Subjective Patient is seen in follow-up for acute kidney injury. Unclear as to what his baseline renal function is. Creatinine was 2.7 on admission and is 3.17 today. No vomiting or diarrhea. No chest pain or shortness of breath. No edema. Patient has systolic CHF with ejection fraction of 20-25% with moderate mitral regurgitation. He is currently off all IV fluids. He is also not on any diuretics at this time. Vital signs are stable. General: The patient appeared well nourished and normally developed. HEENT: Head exam is unremarkable. Neck is without jugular venous distension. LUNGS: Lungs are clear to auscultation and percussion. Breath sounds decreased. HEART: Rate and Rhythm are regular. First and second heart sounds normal. No murmurs, rubs or gallops. ABDOMEN: Abdominal exam reveals normal bowel sounds. Non-tender and non-distende d. No evidence of peritonitis. EXTREMITITES: No clubbing, cyanosis, or edema. Objective - Vital Signs Vital signs: Vital Signs Temp 97.5 F L 08/29/18 08:20 Pulse 67 08/29/18 09:52 Resp 18 08/29/18 08:20 BP 137/92 08/29/18 09:52 Pulse Ox 99 08/29/18 08:20 Intake & Output 08/28/18 08/29/18 08/29/18 17:59 06:59 18:59 Intake Total 110 Output Total Balance 110 Weight Intake: Intake, IV Titration Amount Sodium Chloride 0.9% 1, 000 ml @ 50 mls/hr IV . Q20H STA Rx#:[id number] Oral 110 Output: Urine Other: Voiding Method # Voids - Labs CBC & Chem 7: 08/28/18 01:58 08/29/18 05:45 Labs: Abnormal Lab Results - Last 24 Hours (Table) 08/28/18 08/29/18 Range/Units 13:46 05:45 Chloride 111 H (98-107) mmol/L BUN 45 H (9-20) mg/dL Creatinine 3.17 H (0.66-1.25) mg/dL Troponin I 0.053 H* (0.000-0.034) ng/mL HDL Cholesterol 31 L (40-60) mg/dL Assessment and Plan Plan: Assessment: 1. Acute kidney injury secondary to cardiorenal syndrome. Creatinine 3.71 on admission and is 3.17 today. Unknown baseline renal function. Creatinine earlier this month was in the range of 2.9-3.3. Recent ultrasound revealed no evidence of hydronephrosis in the right kidney. Recent UA benign. 2. Systolic CHF with ejection fraction of 20-25% with moderate mitral r egurgitation. Currently compensated. 3. Benign hypertension. Better this morning. 4. Status post left nephrectomy due to renal mass in 2006. Plan: Remains off all IV fluids and diuretics at this time. Encourage oral intake. Avoid nephrotoxins. Stable for discharge from nephrology standpoint if cleared by cardiology. He will need to follow-up as outpatient in the next 1-2 weeks.
--- NOTE | 2018-08-29 11:47 | P.DS ---
Providers Date of admission: 08/28/18 04:03 Attending physician: Phil Pa Consults: 08/28/18 03:59 Consult Physician Routine Consulting Provider: Radha Anthony Consult Reason/Comments: ricardo Do you want consulting provider notified?: Yes Consult Physician Urgent Consulting Provider: Garry Valdez Consult Reason/Comments: chf Do you want consulting provider notified?: Yes Primary care physician: [facility] Course: 61-year-old male came in with complaints of a chest of pain in the left side of the chest appears to have some relationship with the food moderate amount of chest pain and patient's symptomology is not clear patient's present with similar symptoms last time did have some elevated troponins at that time patient was admitted to ICU was treated for hypertensive emergency patient left AMA came back again with similar symptoms. Patient had ejection fraction of 20-25% patient was diuresed at this time patient has increased to creatinine from his baseline of 2.9 during his last hospitalization to 3.5. Patient is not volume overloaded patient chest pain has some pleuritic competent acidosis some nausea started after eating moderate amount of chest pain nonreproducible. Because of the pleuritic competent of obtain a d-dimer if it's positive adopted a VQ scan. Patient had history of renal cell carcinoma status post left nephrectomy with chronic renal failure. Continues to smoke has nonischemic cardio myopathy possibility of cardio myopathy from alcoholism. Patient is minimally elevated troponins which are flat didn't go up. Cardiology evaluated the patient they do not believe patient has acute microinfarction patient had a cardiac catheterization in 2010 which did not show any significant the ascorbic vascular disease. EKG showed diffuse T-wave inversions. IV heparin was discontinued. Patient was on labetalol during her last hospitalization presently will be started on amlodipine and is also on hydralazine both of which will be continued. 08/29/2018 Patient blood pressure is well controlled today with cardiology and nephrology. Patient's serum creatinine is coming down in spite of low ejection fraction patient will not require any Lasix. Patient will closely follow with nephrology as an outpatient and the patient and septic going into heart failure patient will be started on diuretic therapy. In spite of low ejection fraction cannot start him on any COLTON inhibitor because of his acute renal failure which appears to be improving at this time. PHYSICAL EXAMINATION: GENERAL: The patient is alert and oriented x3, not in any acute distress. Well developed, well nourished. HEENT: Pupils are round and equally reacting to light. EOMI. No scleral icterus. No conjunctival pallor. Normocephalic, atraumatic. No pharyngeal erythema. No thyromegaly. CARDIOVASCULAR: S1 and S2 present. No murmurs, rubs, or gallops. PULMONARY: Chest is clear to auscultation, no wheezing or crackles. ABDOMEN: Soft, nontender, nondistended, normoactive bowel sounds. No palpable organomegaly. MUSCULOSKELETAL: No joint swelling or deformity. EXTREMITIES: No cyanosis, clubbing, or pedal edema. NEUROLOGICAL: Gross neurological examination did not reveal any focal deficits. SKIN: No rashes. Assessment and Plan Plan: -Chest pain, atypical, cardiology evaluated the patient and cleared for discharge patient troponin elevation is secondary to a renal failure and the chest pain is mostly peptic ulcer disease mild patient will be discharged on Zantac acute renal failure on chronic kidney disease which I cannot stage at this time. Probably due to excessive diuretic therapy, patient is euvolemic at this time diuretics will be discontinued patient will followed closely with nephrology and cardiology considering his low ejection fraction. Start failure nonischemic cardiomyopathy ejection fraction of 20% patient is hypovolemic not in heart failure exacerbation -Hypertension uncontrolled due to noncompliance patient will be discharged on amlodipine and Coreg -Status post left nephrectomy from renal cell carcinoma in the past -Mild troponin elevation which appears to be secondary to renal failure. Patient Condition at Discharge: Fair Plan - Discharge Summary Discharge Rx Participant: Yes New Discharge Prescriptions: New Aspirin 81 mg PO DAILY chew Carvedilol [Coreg*] 25 mg PO BID-W/MEALS #60 tab Nitroglycerin Sl Tabs [Nitrostat] 0.4 mg SUBLINGUAL Q5M PRN #30 tab PRN Reason: Chest Pain Continue amLODIPine [Norvasc] 10 mg PO DAILY #30 tab Discontinued Metoprolol Tartrate [Lopressor] 50 mg PO BID Discharge Medication List Aspirin 81 mg PO DAILY chew 08/29/18 [Rx] Carvedilol [Coreg*] 25 mg PO BID-W/MEALS #60 tab 08/29/18 [Rx] Nitroglycerin Sl Tabs [Nitrostat] 0.4 mg SUBLINGUAL Q5M PRN #30 tab 08/29/18 [Rx] amLODIPine [Norvasc] 10 mg PO DAILY #30 tab 08/29/18 [Rx] Follow up Appointment(s)/Referral(s): [facility], [NON-STAFF] - Garry Valdez MD [STAFF PHYSICIAN] - 2 Weeks Hansa Freeman MD [Primary Care Provider] - 1-2 days
== END 2018-08-29 12:27 | disposition home or self-care (01) | DRG 683 ==
LOC: EC 01:19 → 3SCARD 04:03
PROVIDERS: ADMIT Hospitalist; ATTEND Hospitalist
DX: N17.9 Acute kidney failure, unspecified (principal); E87.2 Acidosis; I42.6 Alcoholic cardiomyopathy; I13.0 Hypertensive heart and chronic kidney disease with heart failure and stage 1 through stage 4 chronic kidney disease, or unspecified chronic kidney disease; I50.22 Chronic systolic (congestive) heart failure; N18.9 Chronic kidney disease, unspecified; K27.9 Peptic ulcer, site unspecified, unspecified as acute or chronic, without hemorrhage or perforation; E78.5 Hyperlipidemia, unspecified; E86.1 Hypovolemia; F10.20 Alcohol dependence, uncomplicated; Z71.6 Tobacco abuse counseling; F17.210 Nicotine dependence, cigarettes, uncomplicated; Z71.41 Alcohol abuse counseling and surveillance of alcoholic; I25.10 Atherosclerotic heart disease of native coronary artery without angina pectoris; I25.2 Old myocardial infarction; I34.0 Nonrheumatic mitral (valve) insufficiency; I73.9 Peripheral vascular disease, unspecified; Z86.19 Personal history of other infectious and parasitic diseases; Z79.899 Other long term (current) drug therapy; Z86.73 Personal history of transient ischemic attack (TIA), and cerebral infarction without residual deficits; Z90.5 Acquired absence of kidney; Z91.14 Patient's other noncompliance with medication regimen; Z91.19 Patient's noncompliance with other medical treatment and regimen; R74.8 Abnormal levels of other serum enzymes; T50.2X5A Adverse effect of carbonic-anhydrase inhibitors, benzothiadiazides and other diuretics, initial encounter; Z88.8 Allergy status to other drugs, medicaments and biological substances
CPT/HCPCS: 36415; 71046; 80048; 80061; 82550; 82553; 83735; 83880; 84484; 85025; 93005; 96365; 96376; 99285

== ENCOUNTER 2020-12-24 18:11 | Inpatient (IN) | payer MEDICARE, OTHER ==
[2020-12-24] MEDS ORDERED: ALBUTEROL NEBULIZED 2.5 MG/3 ML INHALATION STA (18:26)
[2020-12-24] MEDS ORDERED: methylPREDNISolone SOD SUCCI 125 MG/2 ML VIAL IV STA (18:26)
[2020-12-24] MEDS ORDERED: IPRATROPIUM 0.5 MG/2.5 ML NEBU INHALATION STA (18:26)
[2020-12-24] MEDS ORDERED: SODIUM CHLORIDE 0.9% 500 ML 500 ML IV STA (18:26)
--- NOTE | 2020-12-24 18:34 | ED ---
General Adult HPI - General Chief complaint: Shortness of Breath Stated complaint: MCKENZIE, leg pain Time Seen by Provider: 12/24/20 18:15 Source: patient, RN notes reviewed, old records reviewed Mode of arrival: ambulatory Limitations: no limitations - History of Present Illness Initial comments: This is a 65-year-old male who presents emergency Department complaining of difficulty breathing and bilateral leg cramping at night. Patient states it's been the last few days or difficulty breathing patient denies any chest pain or palpitations. Patient states he has a history of high blood pressure high cholesterol as well as having had a heart attack many years ago. Patient continues to smoke as well. Patient denies any fever chills or cough per pa tient denies any sputum production. Patient states he just feels short of breath particularly with any kind activity. Patient denies any abdominal pain patient denies nausea vomiting or diarrhea. Patient denies any recent injury or trauma. - Related Data Previous Rx's Medication Instructions Recorded Aspirin 81 mg PO DAILY chew 08/29/18 Nitroglycerin Sl Tabs [Nitrostat] 0.4 mg SUBLINGUAL Q5M PRN #30 tab 08/29/18 Ranitidine HCl [Zantac] 150 mg PO BID #30 tab 08/29/18 amLODIPine [Norvasc] 10 mg PO DAILY #30 tab 08/29/18 carvediloL [Coreg*] 25 mg PO BID-W/MEALS #60 tab 08/29/18 Allergies Allergy/AdvReac Type Severity Reaction Status Date / Time clonidine Allergy Swelling Verified 12/24/20 18:15 hydralazine Allergy Rash/Hives Verified 12/24/20 18:15 lisinopril Allergy Swelling Verified 12/24/20 18:15 Review of Systems ROS Statement: Those systems with pertinent positive or pertinent negative responses have been documented in the HPI. ROS Other: All systems not noted in ROS Statement are negative. Past Medical History Past Medical History: CVA/TIA, Hypertension, Myocardial Infarction ([place]) Additional Past Medical History / Comment(s): stroke, [place] (2005) Last Myocardial Infarction Date:: 2005 History of Any Multi-Drug Resistant Organisms: None Reported Past Surgical History: Heart Catheterization Additional Past Surgical History / Comment(s): removal of left kidney. Past Anesthesia/Blood Transfusion Reactions: No Reported Reaction Past Psychological History: No Psychological Hx Reported Smoking Status: Current every day smoker Past Alcohol Use History: None Reported, Occasional Past Drug Use History: Marijuana General Exam - General Exam Comments Initial Comments: GENERAL: Patient is well-developed and well-nourished. Patient is nontoxic and well-h ydrated and is in mild distress. ENT: Neck is soft and supple. No significant lymphadenopathy is noted. Oropharynx is clear. Moist mucous membranes. Neck has full range of motion without eliciting any pain. EYES: The sclera were anicteric and conjunctiva were pink and moist. Extraocular mov ements were intact and pupils were equal round and reactive to light. Eyelids were unremarkable. PULMONARY: Unlabored respirations. Good breath sounds bilaterally. Expiratory wheezing CARDIOVASCULAR: There is a regular rate and rhythm without any murmurs gallops or rubs. ABDOMEN: Soft and nontender with normal bowel sounds. SKIN: Skin is clear with no lesions or rashes and otherwise unremarkable. NEUROLOGIC: Patient is alert and oriented x3. Cranial nerves II through XII are grossly intact. Motor and sensory are also intact. Normal speech, volume and content. Symmetrical smile. MUSCULOSKELETAL: Normal extremities with adequate strength and full range of motion. No edema an d no calf tenderness LYMPHATICS: No significant lymphadenopathy is noted PSYCHIATRIC: Normal psychiatric evaluation. Limitations: no limitations Course Vital Signs 12/24/20 12/24/20 12/24/20 18:13 19:13 19:27 Temperature 97.6 F Pulse Rate 87 77 80 Respiratory 24 20 Rate Blood Pressure 134/82 O2 Sat by Pulse 97 Oximetry Medical Decision Making - Medical Decision Making EKG shows sinus rhythm at [address] interval is 248 QRSs 106 QT interval 418 QTC is 42 per patient's EKG shows T-wave inversions in precordial leads V4 V5 and V6 and lateral leads 1 and aVL which were seen on previous EKG. Patient is not expressing any chest pain at this time. Chest x-ray shows a large right-sided mass. Patient's creatinine is 10.6. I'm admitting the patient a doctor sheet Dr. Thierno del rosario agreed to take the admission I wrote admitting orders I consulted nephrology pulmonary and oncology. - Lab Data Result diagrams: 12/24/20 18:40 12/24/20 18:40 Lab Results 12/24/20 12/24/20 12/24/20 Range/Units 18:40 18:40 18:40 WBC 6.7 (3.8-10.6) k/uL RBC 3.34 L (4.30-5.90) m/uL Hgb 9.3 L (13.0-17.5) gm/dL Hct 28.9 L (39.0-53.0) % MCV 86.7 (80.0-100.0) fL MCH 27.8 (25.0-35.0) pg MCHC 32.1 (31.0-37.0) g/dL RDW 15.6 H (11.5-15.5) % Plt Count 207 (150-450) k/uL MPV 9.0 Neutrophils % 60 % Lymphocytes % 28 % Monocytes % 7 % Eosinophils % 3 % Basophils % 0 % Neutrophils # 4.0 (1.3-7.7) k/uL Lymphocytes # 1.9 (1.0-4.8) k/uL Monocytes # 0.5 (0-1.0) k/uL Eosinophils # 0.2 (0-0.7) k/uL Basophils # 0.0 (0-0.2) k/uL Hypochromasia Slight PT 9.9 (9.0-12.0) sec INR 0.9 (<1.2) APTT 22.8 (22.0-30.0) sec D-Dimer 0.68 H (<0.60) mg/L FEU Sodium 142 (137-145) mmol/L Potassium 4.9 (3.5-5.1) mmol/L Chloride 116 H (98-107) mmol/L Carbon Dioxide 14 L (22-30) mmol/L Anion Gap 12 mmol/L BUN 97 H (9-20) mg/dL Creatinine 10.63 H* (0.66-1.25) mg/dL Est GFR (CKD-EPI)AfAm 5 (>60 ml/min/1.73 sqM) Est GFR (CKD-EPI)NonAf 4 (>60 ml/min/1.73 sqM) Glucose 95 (74-99) mg/dL Plasma Lactic Acid Ramón (0.7-2.0) mmol/L Calcium 6.6 L (8.4-10.2) mg/dL Total Bilirubin <0.1 L (0.2-1.3) mg/dL AST 12 L (17-59) U/L ALT 13 (4-49) U/L Alkaline Phosphatase 99 (38-126) U/L Troponin I (0.000-0.034) ng/mL NT-Pro-B Natriuret Pep pg/mL Total Protein 7.1 (6.3-8.2) g/dL Albumin 3.7 (3.5-5.0) g/dL 12/24/20 12/24/20 12/24/20 Range/Units 18:40 18:40 18:40 WBC (3.8-10.6) k/uL RBC (4.30-5.90) m/uL Hgb (13.0-17.5) gm/dL Hct (39.0-53.0) % MCV (80.0-100.0) fL MCH (25.0-35.0) pg MCHC (31.0-37.0) g/dL RDW (11.5-15.5) % Plt Count (150-450) k/uL MPV Neutrophils % % Lymphocytes % % Monocytes % % Eosinophils % % Basophils % % Neutrophils # (1.3-7.7) k/uL Lymphocytes # (1.0-4.8) k/uL Monocytes # (0-1.0) k/uL Eosinophils # (0-0.7) k/uL Basophils # (0-0.2) k/uL Hypochromasia PT (9.0-12.0) sec INR (<1.2) APTT (22.0-30.0) sec D-Dimer (<0.60) mg/L FEU Sodium (137-145) mmol/L Potassium (3.5-5.1) mmol/L Chloride (98-107) mmol/L Carbon Dioxide (22-30) mmol/L Anion Gap mmol/L BUN (9-20) mg/dL Creatinine (0.66-1.25) mg/dL Est GFR (CKD-EPI)AfAm (>60 ml/min/1.73 sqM) Est GFR (CKD-EPI)NonAf (>60 ml/min/1.73 sqM) Glucose (74-99) mg/dL Plasma Lactic Acid Ramón 0.6 L (0.7-2.0) mmol/L Calcium (8.4-10.2) mg/dL Total Bilirubin (0.2-1.3) mg/dL AST (17-59) U/L ALT (4-49) U/L Alkaline Phosphatase (38-126) U/L Troponin I 0.014 (0.000-0.034) ng/mL NT-Pro-B Natriuret Pep 830 pg/mL Total Protein (6.3-8.2) g/dL Albumin (3.5-5.0) g/dL Critical Care Time Critical Care Time: Yes Total Critical Care Time: 35 Disposition Clinical Impression: Lung mass, Acute on chronic renal failure, Dyspnea Disposition: ADMITTED IP TO THIS HOSP Referrals: Hansa Freeman MD [Primary Care Provider] - 1-2 days Time of Disposition: 20:03
[2020-12-24 18:52] LABS: Basophils % (A) 0 %; Eosinophils # (A) 0.2 k/uL (0-0.7); Eosinophils % (A) 3 %; HCT 28.9 % (39.0-53.0); HGB 9.3 gm/dL (13.0-17.5); Hypochromasia Slight; Lymphocytes # (A) 1.9 k/uL (1.0-4.8); Lymphocytes % (A) 28 %; MCH 27.8 pg (25.0-35.0); MCHC 32.1 g/dL (31.0-37.0); MCV 86.7 fL (80.0-100.0); Monocytes # (A) 0.5 k/uL (0-1.0); Monocytes % (A) 7 %; Neutrophils % (A) 60 %; Platelet Count 207 k/uL (150-450); RBC 3.34 m/uL (4.30-5.90); RDW 15.6 % (11.5-15.5); WBC 6.7 k/uL (3.8-10.6)
[2020-12-24 19:04] LABS: ALT 13 U/L (4-49); AST 12 U/L (17-59); African American GFR (CKD) 5 (>60 ml/min/1.73 sqM); Albumin 3.7 g/dL (3.5-5.0); Alkaline Phosphatase 99 U/L (38-126); Anion Gap 12 mmol/L; Blood Urea Nitrogen 97 mg/dL (9-20); Calcium 6.6 mg/dL (8.4-10.2); Carbon Dioxide 14 mmol/L (22-30); Chloride 116 mmol/L (98-107); Glucose 95 mg/dL (74-99); Non-African American GFR(CKD) 4 (>60 ml/min/1.73 sqM); Potassium 4.9 mmol/L (3.5-5.1); Sodium 142 mmol/L (137-145); Total Bilirubin <0.1 mg/dL (0.2-1.3); Total Protein 7.1 g/dL (6.3-8.2)
--- NOTE | 2020-12-24 19:05 | XR ---
EXAMINATION TYPE: XR chest 2V DATE OF EXAM: 12/24/2020 COMPARISON: 08/28/2018 HISTORY: Inability breathing TECHNIQUE: 2 views FINDINGS: There is a slightly lobulated 9 cm masslike density in the right lung in the anterior segme nt right upper lobe. The other lung rosas are clear. There is no heart failure. Mediastinum is tabatha l. There is no pleural effusion. There are chest leads. The bony thorax is intact. IMPRESSION: Large right upper lobe mass suspicious for primary tumor. Follow-up recommended. No heart failure. Mass appears new compared to old exam.
[2020-12-24 19:06] LABS: INR 0.9 (<1.2); Partial Thromboplastin Time 22.8 sec (22.0-30.0); Prothrombin Time 9.9 sec (9.0-12.0)
[2020-12-24 19:09] LABS: D-Dimer 0.68 mg/L FEU (<0.60)
[2020-12-24] MEDS ORDERED: NICOTINE 21MG/24HR PATCH TRANSDERM STA (20:14)
[2020-12-24] MEDS ORDERED: SODIUM CHLORIDE 0.9% 1,000 ML IV SCH (20:30)
[2020-12-24] MEDS ORDERED: IPRATROPIUM-ALBUTEROL 3 ML NEB INHALATION PRN (20:33)
[2020-12-24] MEDS: SODIUM BICARB IV SCH (20:49)
[2020-12-24] MEDS: DEXTROSE 5% IV SCH (20:49)
[2020-12-24] MEDS: WATER IV SCH (20:49)
[2020-12-24] MEDS: FAMOTIDINE 20 MG/2 ML VIAL IV SCH (22:03)
[2020-12-24] MEDS: HEPARIN SODIUM,PORCINE/PF 5,000 UNIT/0.5 ML SYRINGE SQ SCH (22:06)
[2020-12-25 04:52] LABS: Basophils % (A) 0 %; Eosinophils # (A) 0.1 k/uL (0-0.7); Eosinophils % (A) 1 %; HCT 30.7 % (39.0-53.0); HGB 9.6 gm/dL (13.0-17.5); Hypochromasia Moderate; Lymphocytes # (A) 0.6 k/uL (1.0-4.8); Lymphocytes % (A) 9 %; MCH 27.4 pg (25.0-35.0); MCHC 31.4 g/dL (31.0-37.0); MCV 87.3 fL (80.0-100.0); Mean Platelet Volume 8.3; Monocytes # (A) 0.1 k/uL (0-1.0); Monocytes % (A) 1 %; Neutrophils # (A) 6.2 k/uL (1.3-7.7); Neutrophils % (A) 88 %; Platelet Count 221 k/uL (150-450); RBC 3.52 m/uL (4.30-5.90); RDW 15.8 % (11.5-15.5); WBC 7.1 k/uL (3.8-10.6)
[2020-12-25] MEDS: HEPARIN SODIUM,PORCINE/PF 5,000 UNIT/0.5 ML SYRINGE SQ SCH ×2 (09:28→20:07)
--- NOTE | 2020-12-25 09:36 | CT ---
EXAMINATION TYPE: CT chest wo con DATE OF EXAM: 12/25/2020 COMPARISON: Chest x-ray from yesterday and older x-rays HISTORY: Lung mass, difficulty breathing, abnormal chest x-ray. CT DLP: 333.1 mGycm. Automated Exposure Control for Dose Reduction was Utilized. TECHNIQUE: CT scan of the thorax is performed without IV contrast. FINDINGS: LUNGS: There is confirmation of large lobulated mass in the anterior inferior right upper lobe abutti ng the anterior pleural surface in the mediastinum at level of the ascending aorta and SVC measuring 6.7 x 6.4 x 6.9 cm axial image 23 and coronal image 40. Mild bibasilar linear scarring and/or atelect asis. No pleural effusion or pneumothorax. MEDIASTINUM: Lack of IV contrast is noted to limit evaluation for mediastinal and especially hilar ad enopathy. There are no definitive greater than 1 cm mediastinal lymph nodes. Heart size upper limits of normal. No pericardial effusion is seen. Main pulmonary artery dilated at 3.5 cm axial image 27. A scending aorta measures up to 3.9 cm. OTHER: Small degree of playing-shaped gynecomastia bilaterally. No adrenal masses. IMPRESSION: Confirmation of 6.9 cm lobulated right upper lobe mass worrisome for neoplasm. No definit josé manuel abnormal adenopathy or adrenal masses noted. Consider PET/CT or sampling follow-up.
[2020-12-25 09:44] LABS: African American GFR (CKD) 6.5 (60.0-200.0); Albumin 4.2 g/dL (3.80-4.90); Albumin/Globulin Ratio 1.14 (1.60-3.17); Anion Gap 12.4 mmol/L (4.00-12.00); BUN/Creat Ratio 12.5 Ratio (12.00-20.00); Calcium 6.7 mg/dL (8.7-10.3); Carbon Dioxide 13.6 mmol/L (21.6-31.8); Globulin 3.7 g/dL (1.6-3.3); Magnesium 1.6 mg/dL (1.5-2.4); Non-African American GFR(CKD) 5.6 (60.0-200.0); Potassium 4.9 mmol/L (3.5-5.5); Total Bilirubin 0.1 mg/dL (0.2-1.2); Total Protein 7.9 g/dL (6.2-8.2)
[2020-12-25] MEDS ORDERED: CALCIUM GLUCONATE 2 GM in SODIUM CHLORIDE 0.9% 100 ML IVPB ONE (09:57)
--- NOTE | 2020-12-25 10:00 | P.NPCON ---
History of Present Illness - Reason for Consult acute renal failure, chronic renal failure - History of Present Illness Reason for consultation: Acute kidney injury on chronic kidney disease History of present illness: Patient is a 65-year-old male seen in renal consultation for acute kidney injury on chronic kidney disease. Patient has chronic kidney disease stage IV secondary to nephrosclerosis as well as solitary right kidney. Patient had left nephrectomy due to renal cell carcinoma in the past. Patient was following with [place] outpatient in his creatinine in May 2019 was up to 4.3. Patient was interested in peritoneal dialysis and had been referred to surgeon for PD catheter consultation. However patient states that due to the pandemic he stopped all follow-ups and stopped seeing physicians. He presents to the hospital now with shortness of breath which has been progressively worsening over the last few months as well as cramping in his lower extremities. Patient's creatinine on admission was 10.63 and a bicarb level of 14. Potassium level was in the normal range. He denies chest pain. Oral intake has been poor. Has been voiding but states urine output has been low. No hematuria or dysuria. Denies use of nonsteroidals. No history of diabetes. Vital signs are stable. General: The patient appeared well nourished and normally developed. HEENT: Head exam is unremarkable. Neck is without jugular venous distension. LUNGS: Breath sounds decreased. HEART: Rate and Rhythm are regular. ABDOMEN: Soft, no distention. EXTREMITITES: No edema. Past Medical History Past Medical History: CVA/TIA, Hypertension, Myocardial Infarction ([place]), Supraventricular Tachycardia ([place]) Additional Past Medical History / Comment(s): multiple strokes, [place] (2005) Last Myocardial Infarction Date:: 2005 History of Any Multi-Drug Resistant Organisms: None Reported Past Surgical History: Heart Catheterization Additional Past Surgical History / Comment(s): removal of left kidney. Past Anesthesia/Blood Transfusion Reactions: No Reported Reaction Past Psychological History: No Psychological Hx Reported Smoking Status: Current every day smoker Past Alcohol Use History: Occasional Past Drug Use History: Marijuana Medications and Allergies Home Medications Medication Instructions Recorded Confirmed Type Nitroglycerin Sl Tabs [Nitrostat] 0.4 mg SUBLINGUAL Q5M PRN #30 tab 08/29/18 12/24/20 Rx amLODIPine [Norvasc] 10 mg PO DAILY #30 tab 08/29/18 12/24/20 Rx carvediloL [Coreg*] 25 mg PO BID-W/MEALS #60 tab 08/29/18 12/24/20 Rx Potassium Gluconate 99 mg PO DAILY PRN 12/24/20 12/24/20 History Allergies Allergy/AdvReac Type Severity Reaction Status Date / Time clonidine Allergy Swelling Verified 12/24/20 20:11 hydralazine Allergy Rash/Hives Verified 12/24/20 20:11 lisinopril Allergy Swelling Verified 12/24/20 20:11 Physical Exam Vitals: Vital Signs Temp Pulse Pulse Resp BP BP Pulse Ox 12/25/20 04:48 97.3 F L 83 16 130/77 93 L 12/24/20 21:39 97.5 F L 80 20 129/82 98 12/24/20 20:30 86 18 128/85 97 12/24/20 19:27 80 12/24/20 19:13 77 20 12/24/20 18:13 97.6 F 87 24 134/82 97 Intake and Output 12/24/20 12/25/20 12/25/20 22:59 06:59 14:59 Intake Total 650 Balance 650 Intake: Intake, IV Titration 450 Amount Dextrose 5% in Water 1, 450 000 ml Sodium Bicarb (1 Meq/ml) 150 ml @ 100 mls/ hr IV .[id number] [facility] Rx#: [id number] Oral 200 Other: # Voids 3 Weight 90.718 kg Results - Lab Results Most recent lab results Calcium 6.7 mg/dL (8.7-10.3) L 12/25/20 04:35 Magnesium 1.6 mg/dL (1.5-2.4) 12/25/20 04:35 12/25/20 04:35 12/25/20 04:35 Assessment and Plan Plan: Assessment: 1. Acute kidney injury with concern of progression to end-stage renal disease. Creatinine 10.6 on admission. 2. Chronic kidney disease stage IV with creatinine of 4.3 in May 2019. Etiology is solitary right kidney and nephrosclerosis. He also had sub- nephrotic range proteinuria but was not a candidate for renal biopsy. 3. Renal cell carcinoma status post left nephrectomy in the past. 4. Metabolic acidosis secondary to acute kidney injury. 5. Hypocalcemia secondary to acute kidney injury. 6. Poor appetite and leg cramping due to uremia. 7. Anemia of chronic kidney disease. Rule out iron deficiency. Plan: Maintain bicarb drip. Replace calcium. Add oral bicarb. Check iron studies. Check phosphorus level. Due to significantly depressed GFR, acidosis and symptoms of uremia, initiate renal replacement therapy. Consult vascular surgery for dialysis catheter placement. Plan for first treatment of hemodialysis today and second treatment tomorrow. P atient agreeable. Thank you for the consultation. I will continue to follow patient with you during his hospital stay.
[2020-12-25] MEDS: FAMOTIDINE 20 MG/2 ML VIAL IV SCH ×2 (10:07→20:06)
[2020-12-25] MEDS: SODIUM BICARBONATE TAB 650 MG TAB PO SCH ×2 (10:32→20:07)
[2020-12-25] MEDS: SODIUM BICARB IV SCH (10:38)
[2020-12-25] MEDS: DEXTROSE 5% IV SCH (10:38)
[2020-12-25] MEDS: WATER IV SCH (10:38)
[2020-12-25] MEDS ORDERED: NITROGLYCERIN SL TABS 0.4 MG TAB SUBLINGUAL PRN (11:36)
--- NOTE | 2020-12-25 13:49 | P.CONS ---
History of Present Illness - Reason for Consult Consult date: 12/25/20 Rt Lung Mass - History of Present Illness The patient is a 65-year-old male with multiple medical problems. The patient was limited because of shortness of breath that has started a few days ago, and had become much worse over the past 2 days. The patient reports some cough without expectoration. He denied any hemoptysis. He came into the emergency room where chest x-ray revealed a large right upper lobe masslike opacity. He subsequently had a CT scan that confirmed the presence of right upper lobe mass greater than 6 cm. Prior chest x-ray in the EMR, from 02/08 had shown no evidence of a mass. He was therefore admitted for the management and consult placed with He has a long-standing history of smoking greater than a pack a day for many years. He denied any history of malignancy previous to ne. However review of his EMR and other physician notes subsequently revealed a history of left renal cell cancer treated with nephrectomy some years ago. Associated symptoms also included cramping in both lower extremities, with radiation upwards into the lower trunk. In addition the patient was found to have a creatinine of 10.60 on admission. He has a known history of chronic kidney disease with baseline creatinine in the 3-4 range based on most recent labs in the EMR. He states that his oral intake especially fluid intake had been fairly normal. According to the patient since 02/08 his kidney function has been getting worse, and dialysis was recommended as an outpatient. He had not followed up on that because of the coronavirus epidemic. Review of Systems Constitutional: Reports fatigue, Reports weakness Eyes: denies blurred vision, denies pain Ears: deny: decreased hearing, ear discharge, earache, tinnitus Ears, nose, mouth and throat: Denies headache, Denies sore throat Cardiovascular: Reports shortness of breath Respiratory: Reports cough, Reports dyspnea Gastrointestinal: Denies abdominal pain, Denies diarrhea, Denies nausea, Denies vomiting Genitourinary: Reports as per HPI Musculoskeletal: Reports muscle cramps Integumentary: Denies pruritus, Denies rash Neurological: Reports weakness Psychiatric: Denies anxiety, Denies depression Endocrine: Reports fatigue Hematologic/Lymphatic: Reports as per HPI Past Medical History Past Medical History: CVA/TIA, Hypertension, Myocardial Infarction ([place]), Supraventricular Tachycardia (SVT) Additional Past Medical History / Comment(s): multiple strokes, [place] (2005) Last Myocardial Infarction Date:: 2005 History of Any Multi-Drug Resistant Organisms: None Reported Past Surgical History: Heart Catheterization Additional Past Surgical History / Comment(s): removal of left kidney. Past Anesthesia/Blood Transfusion Reactions: No Reported Reaction Past Psychological History: No Psychological Hx Reported Smoking Status: Current every day smoker Past Alcohol Use History: Occasional Past Drug Use History: Marijuana Medications and Allergies Home Medications Medication Instructions Recorded Confirmed Type Nitroglycerin Sl Tabs [Nitrostat] 0.4 mg SUBLINGUAL Q5M PRN #30 tab 08/29/18 0 12/24/20 Rx amLODIPine [Norvasc] 10 mg PO DAILY #30 tab 08/29/18 12/24/20 Rx carvediloL [Coreg*] 25 mg PO BID-W/MEALS #60 tab 08/29/18 12/24/20 Rx Potassium Gluconate 99 mg PO DAILY PRN 12/24/20 12/24/20 History Allergies Allergy/AdvReac Type Severity Reaction Status Date / Time clonidine Allergy Swelling Verified 12/24/20 20:11 hydralazine Allergy Rash/Hives Verified 12/24/20 20:11 lisinopril Allergy Swelling Verified 12/24/20 20:11 Physical Exam Vitals: Vital Signs Temp Pulse Pulse Resp BP BP Pulse Ox 12/25/20 12:15 97.6 F 68 21 153/83 99 12/25/20 04:48 97.3 F L 83 16 130/77 93 L 12/24/20 21:39 97.5 F L 80 20 129/82 98 12/24/20 20:30 86 18 128/85 97 12/24/20 19:27 80 12/24/20 19:13 77 20 12/24/20 18:13 97.6 F 87 24 134/82 97 Intake and Output 12/24/20 12/25/20 12/25/20 22:59 06:59 14:59 Intake Total 650 Balance 650 Intake: Intake, IV Titration 450 Amount Dextrose 5% in Water 1, 450 000 ml Sodium Bicarb (1 Meq/ml) 150 ml @ 100 mls/ hr IV .[id number] Rx#: [id number] Oral 200 Other: Voiding Method Urinal # Voids 3 Weight 90.718 kg - Constitutional General appearance: no acute distress - EENT Eyes: EOMI, PERRLA ENT: hearing grossly normal, normal oropharynx - Neck Neck: no lymphadenopathy - Respiratory Respiratory: right: diminished (Diminished air entry right upper lobe) - Cardiovascular Rhythm: regular Heart sounds: normal: S1, S2 - Gastrointestinal General gastrointestinal: normal bowel sounds, soft - Integumentary Integumentary: normal - Neurologic Neurologic: CNII-XII intact - Musculoskeletal Musculoskeletal: strength equal bilaterally - Psychiatric Psychiatric: A&O x's 3, appropriate affect Results CBC & Chem 7: 12/25/20 04:35 12/25/20 04:35 Labs: Abnormal Lab Results - Last 24 Hours (Table) 12/24/20 12/24/20 12/24/20 Range/Units 18:40 18:40 18:40 RBC 3.34 L (4.30-5.90) m/uL Hgb 9.3 L (13.0-17.5) gm/dL Hct 28.9 L (39.0-53.0) % RDW 15.6 H (11.5-15.5) % Lymphocytes # (1.0-4.8) k/uL D-Dimer 0.68 H (<0.60) mg/L FEU Chloride 116 H (98-107) mmol/L Carbon Dioxide 14 L (22-30) mmol/L Anion Gap (4.00-12.00) mmol/L BUN 97 H (9-20) mg/dL Creatinine 10.63 H* (0.66-1.25) mg/dL Est GFR (CKD-EPI)AfAm (60.0-200.0) Est GFR (CKD-EPI)NonAf (60.0-200.0) Glucose (70-110) mg/dL Plasma Lactic Acid Ramón (0.7-2.0) mmol/L Calcium 6.6 L (8.4-10.2) mg/dL Total Bilirubin <0.1 L (0.2-1.3) mg/dL AST 12 L (17-59) U/L Alkaline Phosphatase (41-126) U/L Globulin (1.6-3.3) g/dL Albumin/Globulin Ratio (1.60-3.17) g/dL Procalcitonin (0.02-0.09) ng/mL 07/11/0912/25/20 12/25/20 Range/Units 18:40 04:35 04:35 RBC 3.52 L (4.30-5.90) m/uL Hgb 9.6 L (13.0-17.5) gm/dL Hct 30.7 L (39.0-53.0) % RDW 15.8 H (11.5-15.5) % Lymphocytes # 0.6 L (1.0-4.8) k/uL D-Dimer (<0.60) mg/L FEU Chloride (98-107) mmol/L Carbon Dioxide (22-30) mmol/L Anion Gap (4.00-12.00) mmol/L BUN (9-20) mg/dL Creatinine (0.66-1.25) mg/dL Est GFR (CKD-EPI)AfAm (60.0-200.0) Est GFR (CKD-EPI)NonAf (60.0-200.0) Glucose (70-110) mg/dL Plasma Lactic Acid Ramón 0.6 L (0.7-2.0) mmol/L Calcium (8.4-10.2) mg/dL Total Bilirubin (0.2-1.3) mg/dL AST (17-59) U/L Alkaline Phosphatase (41-126) U/L Globulin (1.6-3.3) g/dL Albumin/Globulin Ratio (1.60-3.17) g/dL Procalcitonin 0.38 H (0.02-0.09) ng/mL 12/25/20 Range/Units 04:35 RBC (4.30-5.90) m/uL Hgb (13.0-17.5) gm/dL Hct (39.0-53.0) % RDW (11.5-15.5) % Lymphocytes # (1.0-4.8) k/uL D-Dimer (<0.60) mg/L FEU Chloride 113 H (98-107) mmol/L Carbon Dioxide 13.6 L (22-30) mmol/L Anion Gap 12.40 H (4.00-12.00) mmol/L BUN 110.0 H* (9-20) mg/dL Creatinine 8.8 H* (0.66-1.25) mg/dL Est GFR (CKD-EPI)AfAm 6.5 L (60.0-200.0) Est GFR (CKD-EPI)NonAf 5.6 L (60.0-200.0) Glucose 229 H (70-110) mg/dL Plasma Lactic Acid Ramón (0.7-2.0) mmol/L Calcium 6.7 L (8.4-10.2) mg/dL Total Bilirubin 0.1 L (0.2-1.3) mg/dL AST 10 L (17-59) U/L Alkaline Phosphatase 127 H (41-126) U/L Globulin 3.7 H (1.6-3.3) g/dL Albumin/Globulin Ratio 1.14 L (1.60-3.17) g/dL Procalcitonin (0.02-0.09) ng/mL Comments: EKG image and report reviewed Chest x-ray: report reviewed CT scan - chest: report reviewed, image reviewed Assessment and Plan (1) Lung mass Narrative/Plan: The patient is being seen for a new diagnosis of a large right upper lung mass. As noted this was not present on chest x-ray in 02/08. Imaging results and implications were discussed in detail with him. He was advised that malignancy is obviously the primary concern. Given his history of smoking, a primary lung malignancy would likely be the major differential. However in view of prior history of nephrectomy, metastasis from renal cell cancer is also not ruled out. - The patient was advised that he will need a tissue diagnosis as well as add itional staging. He cannot have any contrast studies at this time because of his end-stage renal function. We will therefore plan on a PET scan as an outpatient. Brain imaging would only be sustained with the use of contrast, and will therefore be scheduled once the patient is established on effective renal replacement therapy. - Pulmonary medicine will be consulted to evaluate for getting a biopsy. Patient was advised that a procedure like a bronchoscopy may need to be delayed until he is stabilized in terms of his renal function. He may however be able to proceed with a CT-guided biopsy if that is felt to be feasible by pulmonary medicine. We will await their recommendations. Current Visit: Yes Status: Acute Code(s): R91.8 - OTHER NONSPECIFIC ABNORMAL FINDING OF LUNG FIELD SNOMED Code(s): 113015685 (2) Acute on chronic renal failure Narrative/Plan: The patient had a known history of absence of 1 kidney and nephroscler It appears that renal function Was declining prior to this admission and the patient had actually been recommended dialysis. Nephrology has been consulted. As noted, at least some of his workup I'll forward will need to await stabilization of his renal status. Defer to nephrology and the admitting service for further management Current Visit: Yes Status: Acute Code(s): N17.9 - ACUTE KIDNEY FAILURE, UNSPECIFIED; N18.9 - CHRONIC KIDNEY DISEASE, UNSPECIFIED SNOMED Code(s): 671490408
[2020-12-25] MEDS ORDERED: LIDOCAINE 1% INJ 10MG/ML (20 ML MDV) ONE (14:03)
[2020-12-25] MEDS ORDERED: HEPARIN SODIUM 1,000 UN/ML (10ML VL) ONE (14:03)
[2020-12-25] MEDS ORDERED: fentaNYL (PF) 50 MCG/ML 2 ML AMP ONE (14:03)
[2020-12-25] MEDS ORDERED: fentaNYL (PF) 50 MCG/ML 2 ML AMP IV ONE (14:24)
[2020-12-25] MEDS: LIDOCAINE 1% INJ 10MG/ML (20 ML MDV) SQ ONE ×2 (14:26→14:28)
[2020-12-25] MEDS ORDERED: SODIUM CHLORIDE 0.9% 500 ML 500 ML IV ONE (14:26)
--- NOTE | 2020-12-25 14:43 | CONS ---
DATE OF CONSULTATION: 12/25/2020 This is a 65-year-old gentleman. I was consulted for placement of urgent dialysis catheter. The patient has history of renal carcinoma, had a nephrectomy done on the left side in the past. The patient's creatinine is 10.63 and bicarb is 14. PAST MEDICAL HISTORY: History of hypertension, myocardial infarction, SVT. SOCIAL HISTORY: Smokes every day. PHYSICAL EXAMINATION: NECK: Supple. Trachea central. LUNGS: Breath sounds were decreased. HEART is rate and rhythm are regular. ABDOMEN: Soft, nontender. Femorals are 1+. PLAN: Placement of the dialysis catheter. Risks and complications discussed. MMODL / IJN: [id number] / MTDD
--- NOTE | 2020-12-25 15:21 | IR ---
Fluoroscopy HISTORY: Dialysis catheter placement 1.3 minutes fluoroscopy time supplied to the referring clinician. 265 intraoperative C-arm images do cument the procedure. See dictated report from vascular surgery.
--- NOTE | 2020-12-25 15:26 | P.CNPUL ---
History of Present Illness Consult date: 12/25/20 Reason for consult: lung mass History of present illness: 65-year-old male patient, -[place], came into the hospital because of some increased shortness of breath that was progressively getting worse. The patient also reported some chronic of without any significant sputum production. No hemoptysis. Chest x-ray showed a right upper lobe mass and a CAT scan of the chest showed a 6 cm right upper lobe mass and for that reason a pulmonary consultation was requested. At the same time, the patient was found to be in acute kidney injury. He has a previous history of left renal cell cancer that was treated by nephrectomy several years ago. He was found to have a creatinine of 10.6. He typically has chronic kidney disease with a baseline creatinine ranging between 3 and 4. He stated that he was taking oral intake normally. A pparently there is a possibility that his kidney function was progressively getting worse since January 2020 and he was recommended one point to consider hemodialysis. Overnight the testing is been negative. No altered mentation. No change in his voice characteristics. No swelling of the face or the upper extremities. Review of Systems Constitutional: Reports fatigue, Reports weakness Eyes: denies blurred vision, denies pain Ears: deny: decreased hearing, ear discharge, earache, tinnitus Ears, nose, mouth and throat: Denies headache, Denies sore throat Cardiovascular: Reports shortness of breath Respiratory: Reports cough, Reports dyspnea Gastrointestinal: Denies abdominal pain, Denies diarrhea, Denies nausea, Denies vomiting Genitourinary: Reports as per HPI Musculoskeletal: Reports muscle cramps Integumentary: Denies pruritus, Denies rash Neurological: Reports weakness Psychiatric: Denies anxiety, Denies depression Endocrine: Reports fatigue Hematologic/Lymphatic: Reports as per HPI Past Medical History Past Medical History: CVA/TIA, Hypertension, Myocardial Infarction ([place]), Supraventricular Tachycardia (SV[place]) Additional Past Medical History / Comment(s): multiple strokes, [place] (2005) Last Myocardial Infarction Date:: 2005 History of Any Multi-Drug Resistant Organisms: None Reported Past Surgical History: Heart Catheterization Additional Past Surgical History / Comment(s): removal of left kidney. Past Anesthesia/Blood Transfusion Reactions: No Reported Reaction Past Psychological History: No Psychological Hx Reported Smoking Status: Current every day smoker Past Alcohol Use History: Occasional Past Drug Use History: Marijuana Medications and Allergies Home Medications Medication Instructions Recorded Confirmed Type Nitroglycerin Sl Tabs [Nitrostat] 0.4 mg SUBLINGUAL Q5M PRN #30 tab 08/29/18 12/24/20 Rx amLODIPine [Norvasc] 10 mg PO DAILY #30 tab 08/29/18 12/24/20 Rx carvediloL [Coreg*] 25 mg PO BID-W/MEALS #60 tab 08/29/18 12/24/20 Rx Potassium Gluconate 99 mg PO DAILY PRN 12/24/20 12/24/20 History Allergies Allergy/AdvReac Type Severity Reaction Status Date / Time clonidine Allergy Swelling Verified 12/24/20 20:11 hydralazine Allergy Rash/Hives Verified 12/24/20 20:11 lisinopril Allergy Swelling Verified 12/24/20 20:11 Physical Exam Vitals: Vital Signs Temp Pulse Pulse Resp BP BP Pulse Ox 12/25/20 12:15 97.6 F 68 21 153/83 99 12/25/20 04:48 97.3 F L 83 16 130/77 93 L 12/24/20 21:39 97.5 F L 80 20 129/82 98 12/24/20 20:30 86 18 128/85 97 12/24/20 19:27 80 12/24/20 19:13 77 20 12/24/20 18:13 97.6 F 87 24 134/82 97 Intake and Output 12/24/20 12/25/20 12/25/20 22:59 06:59 14:59 Intake Total 650 50 Balance 650 50 Intake: IV 50 Intake, IV Titration 450 Amount Dextrose 5% in Water 1, 450 000 ml Sodium Bicarb (1 Meq/ml) 150 ml @ 100 mls/ hr IV .[id number] [facility] Rx#: [id number] Oral 200 Other: Voiding Method Urinal # Voids 3 Weight 90.718 kg Results - Laboratory Findings CBC and BMP: 12/25/20 04:35 12/25/20 04:35 PT/INR, D-dimer PT 9.9 sec (9.0-12.0) 12/24/20 18:40 INR 0.9 (<1.2) 12/24/20 18:40 D-Dimer 0.68 mg/L FEU (<0.60) H 12/24/20 18:40 Abnormal lab findings: Abnormal Labs 12/24/20 12/24/20 12/24/20 18:40 18:40 18:40 RBC 3.34 L Hgb 9.3 L Hct 28.9 L RDW 15.6 H Lymphocytes # D-Dimer 0.68 H Chloride 116 H Carbon Dioxide 14 L Anion Gap BUN 97 H Creatinine 10.63 H* Est GFR (CKD-EPI)AfAm Est GFR (CKD-EPI)NonAf Glucose Plasma Lactic Acid Ramón Calcium 6.6 L Total Bilirubin <0.1 L AST 12 L Alkaline Phosphatase Globulin Albumin/Globulin Ratio Procalcitonin 12/24/20 12/25/20 12/25/20 18:40 04:35 04:35 RBC 3.52 L Hgb 9.6 L Hct 30.7 L RDW 15.8 H Lymphocytes # 0.6 L D-Dimer Chloride Carbon Dioxide Anion Gap BUN Creatinine Est GFR (CKD-EPI)AfAm Est GFR (CKD-EPI)NonAf Glucose Plasma Lactic Acid Ramón 0.6 L Calcium Total Bilirubin AST Alkaline Phosphatase Globulin Albumin/Globulin Ratio Procalcitonin 0.38 H 12/25/20 04:35 RBC Hgb Hct RDW Lymphocytes # D-Dimer Chloride 113 H Carbon Dioxide 13.6 L Anion Gap 12.40 H BUN 110.0 H* Creatinine 8.8 H* Est GFR (CKD-EPI)AfAm 6.5 L Est GFR (CKD-EPI)NonAf 5.6 L Glucose 229 H Plasma Lactic Acid Ramón Calcium 6.7 L Total Bilirubin 0.1 L AST 10 L Alkaline Phosphatase 127 H Globulin 3.7 H Albumin/Globulin Ratio 1.14 L Procalcitonin Assessment and Plan Plan: 1 right upper lobe mass measuring as large as 6 cm in size, highly suspicious for primary bronchogenic carcinoma of the lung. Metastatic disease less likely based on the CAT scan images and the radiographic presentation 2 history of kidney cancer, probably in the form of renal cell carcinoma with a previous nephrectomy 3 acute on top of chronic kidney disease. The patient presents with a creatinine of 10 and the patient has a single kidney for now. Nephrology is being consulted, renal function improved slightly 4 shortness of breath secondary to above 5 non-anion gap metabolic acidosis 6 anemia of chronic disease, with a possibility of iron deficiency of the patient's MCV has been low. Plan Corrected bicarb deficits Continue bicarb infusion Monitor renal function, possible hemodialysis and nephrology is on consult We'll schedule this patient for a Bronchoscopy with transbronchial biopsy of the right upper lobe within next 24-48 hours depending on his progress.
[2020-12-25] MEDS: ACETAMINOPHEN TAB 325 MG TAB PO PRN (15:50)
--- NOTE | 2020-12-25 16:33 | OP ---
OPERATIVE REPORT PREOPERATIVE DIAGNOSIS: Acute on chronic failure. POSTOPERATIVE DIAGNOSIS: Same. PROCEDURE PERFORMED: Ultrasound-guided 30 cm dialysis catheter, jugular approach. SEDATION TIME: Forty-eight minutes. PROCEDURE IN DETAIL: This patient was brought to the dentures lab technician. Right neck and chest were prepped and draped in a sterile manner, 1% lidocaine were infiltrated in the neck and chest area. Ultrasound-guided micropuncture into the right jugular vein, micropuncture guidewire was passed and 4-Czech sheath was passed up the guidewire. After that, we passed a guidewire which was parked in the inferior vena cava. A tunnel was created. Through the tunnel , we brought the 30 cm dialysis catheter. The dilator was advanced on the top of the guidewire. Then the sheath was advanced on the top of the guidewire under fluoroscopy control. The catheter was introduced through the sheath. Sheath was removed. The tip of the catheter in superior vena cava at the junction flushed with heparin saline and hep-locked, secured with 3-0 nylon, dressing applied. Patient tolerated the procedure well. MMODL / IJN: [id number] /
[2020-12-25] MEDS: HYDROcodone/APAP 5-325MG 1 EACH TAB PO PRN (16:38)
[2020-12-25 17:12] LABS: % Iron Saturation 17.13 (15.00-50.00)
[2020-12-25 17:19] LABS: Ferritin 55.2 ng/mL (22.0-322.0)
[2020-12-25] MEDS: carvediloL 12.5 MG TAB PO SCH (20:06)
[2020-12-25 20:29] LABS: Glucose,Whole Blood 236 mg/dL (75-99)
[2020-12-25] MEDS: ALPRAZolam 0.25 MG TAB PO PRN (20:50)
[2020-12-25] MEDS: NICOTINE 21MG/24HR PATCH TRANSDERM SCH (20:55)
--- NOTE | 2020-12-25 22:20 | P.HPIM ---
History of Present Illness H&P Date: 12/25/20 Chief Complaint: Shortness of breath and fatigue and back cramps is a 65-year-old male with a past medical history of hypertension, coronary artery disease, CVA/TIA, supraventricular tachycardia, s/p left nephrectomy for renal cell carcinoma, CKD stage IV coming in with a chief complaint of fatigue shortness of breath and trapping of his lower extremities. Patient states that his difficulty in breathing is progressively worsened over the past 1 week and he also complained of decreased urinary output. Patient denies having any chest pain or palpitations. He denies having any cough or sputum production. No abdominal pain nausea vomiting or diarrhea. No dysuria or hematuria. In the ED at the time of admission patient's temperature 97.6, heart rate 87, respiratory 24, blood pressure 134/82 saturating at 97.8. A.m. labs done showing white count of 6.7, hemoglobin 9.3, platelets 207. D-dimer of 0.68. Sodium 142, potassium 4.9, chloride 116, bicarb 14, BUN 97 and creatinine of 10.63 patient's creatinine is around 4 at baseline. Patient had a chest x-ray done showing a large right upper lobe mass suspicious for primary tumor and so he had a chest CT showing 6.9 cm lobulated right upper lobe mass worrisome for neoplasm. He is admitted for further management. Review of Systems REVIEW OF SYSTEMS: CONSTITUTIONAL: No fever, no malaise, no fatigue. HEENT: No headache, no neck stiffness, no blurring of vision CARDIOVASCULAR: No chest pain or palpitations PULMONARY: No cough or difficulty in breathing GASTROINTESTINAL: No abdominal pain, nausea or vomiting NEUROLOGICAL: + generalized weakness , no focal weakness HEMATOLOGICAL: Denies any bleeding or petechiae. GENITOURINARY: Denies any burning micturition, frequency, or urgency. Decreased urine output MUSCULOSKELETAL/RHEUMATOLOGICAL: + leg cramps ENDOCRINE: Denies polyuria polydipsia or heat or cold intolerance The rest of the 14-point review of systems is negative. Past Medical History Past Medical History: CVA/TIA, Hypertension, Myocardial Infarction (NC), Supraventricular Tachycardia (SVT) Additional Past Medical History / Comment(s): multiple strokes, NC (2005) Last Myocardial Infarction Date:: 2005 History of Any Multi-Drug Resistant Organisms: None Reported Past Surgical History: Heart Catheterization Additional Past Surgical History / Comment(s): removal of left kidney. Past Anesthesia/Blood Transfusion Reactions: No Reported Reaction Past Psychological History: No Psychological Hx Reported Smoking Status: Current every day smoker Past Alcohol Use History: Occasional Past Drug Use History: Marijuana Medications and Allergies Home Medications Medication Instructions Recorded Confirmed Type Nitroglycerin Sl Tabs [Nitrostat] 0.4 mg SUBLINGUAL Q5M PRN #30 tab 08/29/18 12/24/20 Rx amLODIPine [Norvasc] 10 mg PO DAILY #30 tab 08/29/18 12/24/20 Rx carvediloL [Coreg*] 25 mg PO BID-W/MEALS #60 tab 08/29/18 12/24/20 Rx Potassium Gluconate 99 mg PO DAILY PRN 12/24/20 12/24/20 History Allergies Allergy/AdvReac Type Severity Reaction Status Date / Time clonidine Allergy Swelling Verified 12/24/20 20:11 hydralazine Allergy Rash/Hives Verified 12/24/20 20:11 lisinopril Allergy Swelling Verified 12/24/20 20:11 Physical Exam Vitals: Vital Signs Temp Pulse Pulse Resp BP BP Pulse Ox 12/25/20 04:48 97.3 F L 83 16 130/77 93 L 12/24/20 21:39 97.5 F L 80 20 129/82 98 12/24/20 20:30 86 18 128/85 97 12/24/20 19:27 80 12/24/20 19:13 77 20 12/24/20 18:13 97.6 F 87 24 134/82 97 Intake and Output 12/24/20 12/25/20 12/25/20 22:59 06:59 14:59 Intake Total 650 Balance 650 Intake: Intake, IV Titration 450 Amount Dextrose 5% in Water 1, 450 000 ml Sodium Bicarb (1 Meq/ml) 150 ml @ 100 mls/ hr IV .[id number] [facility] Rx#: [id number] Oral 200 Other: # Voids 3 Weight 90.718 kg PHYSICAL EXAMINATION: GENERAL:complaining of pain in the right chest where he had the permacath placed HEENT: Pupils are round and equally reacting to light. EOMI. No scleral icterus. No conjunctival pallor. CARDIOVASCULAR: S1 and S2 present. No murmurs, rubs, or gallops. PULMONARY: Bilateral breath sounds positive. No wheeze or crackles.. ABDOMEN: Soft, Non -tender , Bowel sounds hypoactive. MUSCULOSKELETAL: No joint swelling or deformity. EXTREMITIES: No edema NEUROLOGICAL: Gross neurological examination did not reveal any focal deficits. SKIN:No rash Results CBC & Chem 7: 12/25/20 04:35 12/25/20 04:35 Labs: Abnormal Lab Results - Last 24 Hours (Table) 12/24/20 12/24/20 12/24/20 Range/Units 18:40 18:40 18:40 RBC 3.34 L (4.30-5.90) m/uL Hgb 9.3 L (13.0-17.5) gm/dL Hct 28.9 L (39.0-53.0) % RDW 15.6 H (11.5-15.5) % Lymphocytes # (1.0-4.8) k/uL D-Dimer 0.68 H (<0.60) mg/L FEU Chloride 116 H (98-107) mmol/L Carbon Dioxide 14 L (22-30) mmol/L Anion Gap (4.00-12.00) mmol/L BUN 97 H (9-20) mg/dL Creatinine 10.63 H* (0.66-1.25) mg/dL Est GFR (CKD-EPI)AfAm (60.0-200.0) Est GFR (CKD-EPI)NonAf (60.0-200.0) Glucose (70-110) mg/dL Plasma Lactic Acid Ramón (0.7-2.0) mmol/L Calcium 6.6 L (8.4-10.2) mg/dL Total Bilirubin <0.1 L (0.2-1.3) mg/dL AST 12 L (17-59) U/L Alkaline Phosphatase (41-126) U/L Globulin (1.6-3.3) g/dL Albumin/Globulin Ratio (1.60-3.17) g/dL 12/24/20 12/25/20 12/25/20 Range/Units 18:40 04:35 04:35 RBC 3.52 L (4.30-5.90) m/uL Hgb 9.6 L (13.0-17.5) gm/dL Hct 30.7 L (39.0-53.0) % RDW 15.8 H (11.5-15.5) % Lymphocytes # 0.6 L (1.0-4.8) k/uL D-Dimer (<0.60) mg/L FEU Chloride 113 H (98-107) mmol/L Carbon Dioxide 13.6 L (22-30) mmol/L Anion Gap 12.40 H (4.00-12.00) mmol/L BUN 110.0 H* (9-20) mg/dL Creatinine 8.8 H* (0.66-1.25) mg/dL Est GFR (CKD-EPI)AfAm 6.5 L (60.0-200.0) Est GFR (CKD-EPI)NonAf 5.6 L (60.0-200.0) Glucose 229 H (70-110) mg/dL Plasma Lactic Acid Ramón 0.6 L (0.7-2.0) mmol/L Calcium 6.7 L (8.4-10.2) mg/dL Total Bilirubin 0.1 L (0.2-1.3) mg/dL AST 10 L (17-59) U/L Alkaline Phosphatase 127 H (41-126) U/L Globulin 3.7 H (1.6-3.3) g/dL Albumin/Globulin Ratio 1.14 L (1.60-3.17) g/dL Thrombosis Risk Factor Assmnt - Choose All That Apply Any of the Below Risk Factors Present?: Yes Each Factor Represents 1 point: Abnormal pulmonary function (COPD) Other Risk Factors: Yes Each Risk Factor Represents 2 Points: Age 61-74 years Other congenital or acquired thrombophilia - If yes, enter type in comment: No Thrombosis Risk Factor Assessment Total Risk Factor Score: 3 Thrombosis Risk Factor Assessment Level: Moderate Risk Assessment and Plan Assessment: ASSESSMENT Acute kidney injury Right lung upper lobe mass measuring up to 6 cm concerning for neoplasm CKD stage IV Non-anion gap metabolic acidosis History of renal cell carcinoma status post left nephrectomy Anemia of chronic disease Hypertension History of coronary artery disease Nicotine dependence History of CVA/TIA PLAN: Vascular surgery has been consulted and dialysis catheter has been placed by Dr. Neal Nephrology Dr. Rajput consulted and plan for first treatment of dialysis today In view of his right upper lung mass that is concerning for malignancy, oncology Dr. Vaca has been consulted Pulmonary Dr. Ledezma has been consulted for possible biopsy of the right upper lobe, as we need tissue biopsy for diagnosis Overall prognosis remains guarded Further recommendations depending on the progress of the patient
[2020-12-26 05:57] LABS: African American GFR (CKD) 7 (>60 ml/min/1.73 sqM); Anion Gap 14 mmol/L; Blood Urea Nitrogen 85 mg/dL (9-20); Calcium 6.9 mg/dL (8.4-10.2); Carbon Dioxide 24 mmol/L (22-30); Chloride 105 mmol/L (98-107); Glucose 206 mg/dL (74-99); Magnesium 1.7 mg/dL (1.6-2.3); Non-African American GFR(CKD) 6 (>60 ml/min/1.73 sqM); Sodium 143 mmol/L (137-145)
[2020-12-26] MEDS: NICOTINE 21MG/24HR PATCH TRANSDERM SCH (09:01)
[2020-12-26] MEDS: HEPARIN SODIUM,PORCINE/PF 5,000 UNIT/0.5 ML SYRINGE SQ SCH ×2 (09:01→19:39)
[2020-12-26] MEDS: SODIUM CHLORIDE 0.9% 1,000 ML IV SCH (09:23)
--- NOTE | 2020-12-26 09:44 | P.PN ---
Subjective Patient is seen in follow-up for acute kidney injury on chronic kidney disease, now progressed to end-stage renal disease. Started on hemodialysis December 25. Tolerating dialysis well currently. Denies chest pain or shortness of breath. Vital signs are stable. General: The patient appeared well nourished and normally developed. HEENT: Head exam is unremarkable. Neck is without jugular venous distension. LUNGS: Lungs are clear to auscultation and percussion. Breath sounds decreased. HEART: Rate and Rhythm are regular. ABDOMEN: Soft, no distention. EXTREMITITES: No edema. Objective - Vital Signs Vital signs: Vital Signs Temp 97.4 F L 12/26/20 04:41 Pulse 74 12/26/20 04:41 Resp 16 12/26/20 04:41 BP 148/97 12/26/20 04:41 Pulse Ox 95 12/26/20 04:41 Intake & Output 12/25/20 12/26/20 12/26/20 18:59 06:59 18:59 Intake Total 1200 Output Total 700 Balance 500 Intake: IV 50 Intake, IV Titration 1150 Amount Calcium Gluconate 2 gm In 100 Sodium Chloride 0.9% 100 ml @ 100 mls/hr IVPB ONCE ONE Rx#:[id number] Dextrose 5% in Water 1, 150 000 ml Sodium Bicarb (1 Meq/ml) 150 ml @ 100 mls/ hr IV .[id number] [facility] Rx#: [id number] Sodium Chloride 0.9% 1, 900 000 ml @ 75 mls/hr IV . [id number] [facility] Rx#:[id number] Output: Urine 200 Hemodialysis 500 Other: Voiding Method Urinal Urinal # Voids 1 - Labs CBC & Chem 7: 12/25/20 04:35 12/26/20 05:16 Labs: Abnormal Lab Results - Last 24 Hours (Table) 12/24/20 12/25/20 12/25/20 Range/Units 18:40 04:35 04:35 Chloride 113 H (96-109) mmol/L Carbon Dioxide 13.6 L (21.6-31.8) mmol/L Anion Gap 12.40 H (4.00-12.00) mmol/L BUN 110.0 H* (9.0-27.0) mg/dL Creatinine 8.8 H* (0.6-1.5) mg/dL Est GFR (CKD-EPI)AfAm 6.5 L (60.0-200.0) Est GFR (CKD-EPI)NonAf 5.6 L (60.0-200.0) Glucose 229 H (70-110) mg/dL POC Glucose (mg/dL) (75-99) mg/dL Calcium 6.7 L (8.7-10.3) mg/dL Phosphorus (2.5-4.5) mg/dL Iron 49 L (65-175) ug/dL Total Bilirubin 0.1 L (0.2-1.2) mg/dL AST 10 L (14-35) U/L Alkaline Phosphatase 127 H (41-126) U/L Globulin 3.7 H (1.6-3.3) g/dL Albumin/Globulin Ratio 1.14 L (1.60-3.17) g/dL Procalcitonin 0.38 H (0.02-0.09) ng/mL 12/25/20 12/26/20 Range/Units 20:27 05:16 Chloride (96-109) mmol/L Carbon Dioxide (21.6-31.8) mmol/L Anion Gap (4.00-12.00) mmol/L BUN 85 H (9.0-27.0) mg/dL Creatinine 7.85 H* (0.6-1.5) mg/dL Est GFR (CKD-EPI)AfAm (60.0-200.0) Est GFR (CKD-EPI)NonAf (60.0-200.0) Glucose 206 H (70-110) mg/dL POC Glucose (mg/dL) 236 H (75-99) mg/dL Calcium 6.9 L (8.7-10.3) mg/dL Phosphorus 5.0 H (2.5-4.5) mg/dL Iron (65-175) ug/dL Total Bilirubin (0.2-1.2) mg/dL AST (14-35) U/L Alkaline Phosphatase (41-126) U/L Globulin (1.6-3.3) g/dL Albumin/Globulin Ratio (1.60-3.17) g/dL Procalcitonin (0.02-0.09) ng/mL Assessment and Plan Plan: Assessment: 1. Chronic kidney disease stage IV now progressed to end-stage renal disease. Etiology is solitary right kidney and nephrosclerosis. He also had sub- nephrotic range proteinuria but was not a candidate for renal biopsy. Started on hemodialysis December 25. Has a permacath. 2. Lung mass. Pulmonology and oncology following. Bronchoscopy and biopsy pending. 3. Renal cell carcinoma status post left nephrectomy in the past. 4. Metabolic acidosis secondary to acute kidney injury. Status post bicarb drip. Improved. 5. Hypocalcemia secondary to acute kidney injury. Improved. 6. Poor appetite and leg cramping due to uremia. 7. Anemia of chronic kidney disease. Iron deficiency noted. 8. Hyperphosphatemia secondary to chronic kidney disease. Plan: Stop bicarb drip. Start normal saline at 50 mL an hour. Add PhosLo with meals. Add IV iron. Currently seen was undergoing hemodialysis. Another treatment tomorrow. product engineering manager to set up outpatient hemodialysis.
[2020-12-26] MEDS: SODIUM FERRIC GLUCONAT-SUCROSE 125 MG in SODIUM CHLORIDE 0.9% 100 ML IVPB SCH (10:30)
--- NOTE | 2020-12-26 10:48 | P.PN ---
Subjective Progress Note Date: 12/26/20 65-year-old male patient, -[place], came into the hospital because of some increased shortness of breath that was progressively getting worse. The patient also reported some chronic of without any significant sputum production. No hemoptysis. Chest x-ray showed a right upper lobe mass and a CAT scan of the chest showed a 6 cm right upper lobe mass and for that reason a pulmonary consultation was requested. At the same time, the patient was found to be in acute kidney injury. He has a previous history of left renal cell cancer that was treated by nephrectomy several years ago. He was found to have a creatinine of 10.6. He typically has chronic kidney disease with a baseline creatinine ranging between 3 and 4. He stated that he was taking oral intake normally. Apparently there is a possibility that his kidney function was progressively getting worse since January 2020 and he was recommended one point to consider hemodialysis. Overnight the testing is been negative. No altered mentation. No change in his voice characteristics. No swelling of the face or the upper extremities. 12/26/2020 I'm seeing the patient for a follow-up. The patient is currently undergoing hemodialysis. He received his first session yesterday after having a permacath catheter insertion and a second session is due to be done today and a third session tomorrow. Is a bit cloudy although much more alert and oriented compared to yesterday. No confusion. No focal neurological deficit. Metabolic acidosis improved and serum bicarbs up to 24. Creatinine is also on the decline. No major electrode imbalance. I discussed with him the possibility of doing a bronchoscopy and transbronchial biopsy of the right upper lobe mass. I think it's reasonable to postpone another day or 2 until the patient has further stabilizes and undergone at least 3 sessions of hemodialysis and the tentative plan is to proceed with this procedure on Thursday. Objective - Vital Signs Vital signs: Vital Signs Temp 97.4 F L 12/26/20 04:41 Pulse 74 12/26/20 04:41 Resp 16 12/26/20 04:41 BP 148/97 12/26/20 04:41 Pulse Ox 95 12/26/20 04:41 Intake & Output 12/25/20 12/26/20 12/26/20 18:59 06:59 18:59 Intake Total 1200 Output Total 700 Balance 500 Intake: IV 50 Intake, IV Titration 1150 Amount Calcium Gluconate 2 gm In 100 Sodium Chloride 0.9% 100 ml @ 100 mls/hr IVPB ONCE ONE Rx#:[id number] Dextrose 5% in Water 1, 150 000 ml Sodium Bicarb (1 Meq/ml) 150 ml @ 100 mls/ hr IV .[id number] [facility] Rx#: [id number] Sodium Chloride 0.9% 1, 900 000 ml @ 75 mls/hr IV . [id number] [facility] Rx#:[id number] Output: Urine 200 Hemodialysis 500 Other: Voiding Method Urinal Urinal # Voids 1 - Exam he patient appeared well nourished and normally developed. Vital signs as documented. Head exam is unremarkable. No scleral icterus or corneal arcus noted. Neck is without jugular venous distension, thyromegaly, or carotid bruits. Carotid upstrokes are brisk bilaterally. Lungs are clear to auscultation and percussion. Cardiac exam reveals the PMI to be normally sized and situated. Rhythm is regular. First and second heart sounds normal. No murmurs, rubs or gallops. Abdominal exam reveals normal bowel sounds, no masses, no organomegaly and no aortic enlargement. Extremities are nonedematous and both femoral and pedal pulses are normal. Examination of the skin revealed no evidence of significant rashes, suspicious appearing nevi or other concerning lesions. The patient has a permacath over the right anterior chest area - Labs CBC & Chem 7: 12/25/20 04:35 12/26/20 05:16 Labs: Abnormal Lab Results - Last 24 Hours (Table) 12/24/20 12/25/20 12/25/20 Range/Units 18:40 04:35 20:27 BUN (9-20) mg/dL Creatinine (0.66-1.25) mg/dL Glucose (74-99) mg/dL POC Glucose (mg/dL) 236 H (75-99) mg/dL Calcium (8.4-10.2) mg/dL Phosphorus (2.5-4.5) mg/dL Iron 49 L (65-175) ug/dL Procalcitonin 0.38 H (0.02-0.09) ng/mL 12/26/20 Range/Units 05:16 BUN 85 H (9-20) mg/dL Creatinine 7.85 H* (0.66-1.25) mg/dL Glucose 206 H (74-99) mg/dL POC Glucose (mg/dL) (75-99) mg/dL Calcium 6.9 L (8.4-10.2) mg/dL Phosphorus 5.0 H (2.5-4.5) mg/dL Iron (65-175) ug/dL Procalcitonin (0.02-0.09) ng/mL Assessment and Plan Plan: 1 right upper lobe mass measuring as large as 6 cm in size, highly suspicious for primary bronchogenic carcinoma of the lung. Metastatic disease less likely based on the CAT scan images and the radiographic presentation 2 history of kidney cancer, probably in the form of renal cell carcinoma with a previous nephrectomy 3 acute on top of chronic kidney disease. The patient presents with a creatinine of 10 and the patient has a single kidney for now. Nephrology is being consulted, renal function improved slightly 4 shortness of breath secondary to above 5 non-anion gap metabolic acidosis 6 anemia of chronic disease, with a possibility of iron deficiency of the patient's MCV has been low. Plan The bicarb deficit is corrected and the patient is undergoing a second session of hemodialysis. His third session is to follow tomorrow and attentive bronchoscopy dated will be on Thursday. Procedure was discussed with the patient.
[2020-12-26 11:16] LABS: Hepatitis B Surface AB- Quant 9.1 mIU/mL; Hepatitis B Surface Antibody Equivocal (Non-Reactive); Hepatitis B Surface Antigen Non-Reactive (Non-Reactive)
[2020-12-26] MEDS: CALCIUM ACETATE 667 MG TAB PO SCH ×2 (12:46→17:44)
[2020-12-26] MEDS: carvediloL 12.5 MG TAB PO SCH ×2 (12:46→17:44)
[2020-12-26] MEDS: SODIUM BICARBONATE TAB 650 MG TAB PO SCH ×2 (12:46→19:39)
[2020-12-26] MEDS: FAMOTIDINE 20 MG TAB PO SCH (12:47)
[2020-12-26] MEDS: WATER IV SCH ×2 (12:53→13:01)
[2020-12-26] MEDS: DEXTROSE 5% IV SCH ×2 (12:53→13:01)
[2020-12-26] MEDS: SODIUM BICARB IV SCH ×2 (12:53→13:01)
[2020-12-26] MEDS ORDERED: SODIUM FERRIC GLUCONAT-SUCROSE 125 MG in SODIUM CHLORIDE 0.9% 100 ML IVPB ONE (13:00)
--- NOTE | 2020-12-26 16:01 | P.PN ---
Subjective Progress Note Date: 12/26/20 Chief Complaint: Shortness of breath and fatigue and back cramps is a 65-year-old male with a past medical history of hypertension, coronary artery disease, CVA/TIA, supraventricular tachycardia, s/p left nephrectomy for renal cell carcinoma, CKD stage IV coming in with a chief complaint of fatigue shortness of breath and trapping of his lower extremities. Patient states that his difficulty in breathing is progressively worsened over the past 1 week and he also complained of decreased urinary output. Patient denies having any chest pain or palpitations. He denies having any cough or s putum production. No abdominal pain nausea vomiting or diarrhea. No dysuria or hematuria. In the ED at the time of admission patient's temperature 97.6, heart rate 87, respiratory 24, blood pressure 134/82 saturating at 97.8. A.m. labs done showing white count of 6.7, hemoglobin 9.3, platelets 207. D-dimer of 0.68. Sodium 142, potassium 4.9, chloride 116, bicarb 14, BUN 97 and creatinine of 10.63 patient's creatinine is around 4 at baseline. Patient had a chest x-ray done showing a large right upper lobe mass suspicious for primary tumor and so he had a chest CT showing 6.9 cm lobulated right upper lobe mass worrisome for neoplasm. He is admitted for further management. 12/26/2020 Patient is seen in follow-up this morning currently receiving ultrafiltration with hemodialysis nurse at the bedside. Patient was reportedly having some right chest wall discomfort at the dialysis site with some mild anxiety and given small dose of Xanax as needed and states improved. Patient continues on gentle IV hydration along with sodium bicarb tablets per nephrology recommendations with nephrology following closely. Pulmonary also following closely with possible bronchoscopy this Thursday with a transbronchial biopsy of the right upper lobe mass if stabilized. Patient continues on 2 L via nasal cannula and states he does not wear oxygen in the outpatient setting. Oxygen saturation is 99% on 2 L. Patient is afebrile. Sodium is 143 with a potassium of 4.0 current creatinine slightly improved at 7.85 with a BUN of 85. Hepatitis B testing antibody is equivocal and hepatitis B core total antibody is reactive a. IDDM is 1.7 today. Review of systems: Constitutional: No reports of fatigue, fever, or chills Cardiovascular: No reports of chest pain or palpitations Respiratory: Reports mild shortness of breath GI: No reports of nausea, vomiting, or diarrhea : No reports of dysuria or retention Neurovascular: No reports of weakness or numbness All medications have been reviewed Objective - Vital Signs Vital signs: Vital Signs Temp 97.4 F L 12/26/20 04:41 Pulse 74 12/26/20 04:41 Resp 16 12/26/20 04:41 BP 148/97 12/26/20 04:41 Pulse Ox 95 12/26/20 04:41 Intake & Output 12/25/20 12/26/20 12/26/20 18:59 06:59 18:59 Intake Total 1200 Output Total 700 Balance 500 Intake: IV 50 Intake, IV Titration 1150 Amount Calcium Gluconate 2 gm In 100 Sodium Chloride 0.9% 100 ml @ 100 mls/hr IVPB ONCE ONE Rx#:[id number] Dextrose 5% in Water 1, 150 000 ml Sodium Bicarb (1 Meq/ml) 150 ml @ 100 mls/ hr IV .[id number] [facility] Rx#: [id number] Sodium Chloride 0.9% 1, 900 000 ml @ 75 mls/hr IV . [id number] [facility] Rx#:[id number] Output: Urine 200 Hemodialysis 500 Other: Voiding Method Urinal Urinal # Voids 1 - Exam GENERAL: This is a 65-year-old male awake, alert and oriented 3, well- developed, well-nourished in no acute distress HEENT: Pupils are round and equally reacting to light. EOMI. No scleral icterus. No conjunctival pallor. CARDIOVASCULAR: S1 and S2 present. No murmurs, rubs, or gallops. PULMONARY: Bilateral breath sounds positive. No wheeze or crackles.. ABDOMEN: Soft, Non -tender , Bowel sounds hypoactive. MUSCULOSKELETAL: No joint swelling or deformity. EXTREMITIES: No edema NEUROLOGICAL: Gross neurological examination did not reveal any focal deficits. SKIN:No rash - Labs CBC & Chem 7: 12/25/20 04:35 12/26/20 05:16 Labs: Abnormal Lab Results - Last 24 Hours (Table) 12/24/20 12/25/20 12/25/20 Range/Units 18:40 04:35 17:00 BUN (9-20) mg/dL Creatinine (0.66-1.25) mg/dL Glucose (74-99) mg/dL POC Glucose (mg/dL) (75-99) mg/dL Calcium (8.4-10.2) mg/dL Phosphorus (2.5-4.5) mg/dL Iron 49 L (65-175) ug/dL Procalcitonin 0.38 H (0.02-0.09) ng/mL Hep Bs Antibody Equivocal A (Non-Reactive) Hep B Core Total Ab Reactive A (Non-Reactive) 12/25/20 12/26/20 Range/Units 20:27 05:16 BUN 85 H (9-20) mg/dL Creatinine 7.85 H* (0.66-1.25) mg/dL Glucose 206 H (74-99) mg/dL POC Glucose (mg/dL) 236 H (75-99) mg/dL Calcium 6.9 L (8.4-10.2) mg/dL Phosphorus 5.0 H (2.5-4.5) mg/dL Iron (65-175) ug/dL Procalcitonin (0.02-0.09) ng/mL Hep Bs Antibody (Non-Reactive) Hep B Core Total Ab (Non-Reactive) Assessment and Plan Assessment: Acute kidney injury, status post permacath placement and started on hemodialysis Right lung upper lobe mass measuring up to 6 cm concerning for neoplasm CKD stage IV Non-anion gap metabolic acidosis History of renal cell carcinoma status post left nephrectomy Anemia of chronic disease Hypertension History of coronary artery disease Nicotine dependence History of CVA/TIA PLAN: Patient received permacath right chest wall placement for hemodialysis and currently undergoing ultrafiltration today with nephrology following closely. Pulmonary also following and plans are for possible endoscopy with biopsy once more stabilized and tentatively scheduled for Thursday. Patient will continue with breathing inhalational treatments and oxygen therapy as needed. Discussed with nursing staff about weaning FiO2 as tolerated as he does not wear oxygen at home and currently 99% on 2 L. Oncology also following and will need results from tissue biopsy and possible outpatient PET scan for further diagnosis. Will repeat labs and continue to monitor closely. Further recommendations to follow based on the clinical course of the patient. Prognosis remains guarded.
[2020-12-26] MEDS: ALPRAZolam 0.25 MG TAB PO PRN (19:39)
[2020-12-27] MEDS: HYDROcodone/APAP 5-325MG 1 EACH TAB PO PRN (07:43)
[2020-12-27] MEDS: CALCIUM ACETATE 667 MG TAB PO SCH ×3 (08:08→17:06)
[2020-12-27] MEDS: HEPARIN SODIUM,PORCINE/PF 5,000 UNIT/0.5 ML SYRINGE SQ SCH ×2 (08:08→20:08)
[2020-12-27] MEDS: FAMOTIDINE 20 MG TAB PO SCH (08:08)
[2020-12-27] MEDS: SODIUM BICARBONATE TAB 650 MG TAB PO SCH ×2 (08:08→20:08)
[2020-12-27] MEDS: NICOTINE 21MG/24HR PATCH TRANSDERM SCH (08:09)
--- NOTE | 2020-12-27 09:32 | P.PN ---
Subjective Patient is seen in follow-up for acute kidney injury on chronic kidney disease, now progressed to end-stage renal disease. Started on hemodialysis December 25. No problems with dialysis. Denies chest pain or shortness of breath. Vital signs are stable. General: The patient appeared well nourished and normally developed. HEENT: Head exam is unremarkable. Neck is without jugular venous distension. LUNGS: Lungs are clear to auscultation and percussion. Breath sounds decreased. HEART: Rate and Rhythm are regular. ABDOMEN: Soft, no distention. EXTREMITITES: No edema. Objective - Vital Signs Vital signs: Vital Signs Temp 97.3 F L 12/27/20 04:44 Pulse 70 12/27/20 04:44 Resp 16 12/27/20 04:44 BP 142/89 12/27/20 04:44 Pulse Ox 100 12/27/20 04:44 Intake & Output 12/26/20 12/27/20 12/27/20 18:59 06:59 18:59 Intake Total 0 500 Output Total 300 Balance -300 500 Intake: Intake, IV Titration 500 Amount Sodium Chloride 0.9% 1, 500 000 ml @ 50 mls/hr IV . Q20H [facility] Rx#:[id number] Hemodialysis 0 Output: Urine 300 Other: Voiding Method Urinal # Voids 1 0 - Labs CBC & Chem 7: 12/25/20 04:35 12/26/20 05:16 Labs: Abnormal Lab Results - Last 24 Hours (Table) 12/25/20 Range/Units 17:00 Hep Bs Antibody Equivocal A (Non-Reactive) Hep B Core Total Ab Reactive A (Non-Reactive) Assessment and Plan Plan: Assessment: 1. Chronic kidney disease stage IV now progressed to end-stage renal disease. Etiology is solitary right kidney and nephrosclerosis. He also had sub- nephrotic range proteinuria but was not a candidate for renal biopsy. Started on hemodialysis December 25. Has a permacath. 2. Lung mass. Pulmonology and oncology following. Bronchoscopy tomorrow. 3. Renal cell carcinoma status post left nephrectomy in the past. 4. Metabolic acidosis secondary to acute kidney injury. Status post bicarb drip. Improved. Now on oral bicarbonate. 5. Hypocalcemia secondary to acute kidney injury. Improved. 6. Poor appetite and leg cramping due to uremia. 7. Anemia of chronic kidney disease. Iron deficiency noted. 8. Hyperphosphatemia secondary to chronic kidney disease maintained on PhosLo. Plan: Maintain IV fluids. Maintain IV iron. Third treatment of hemodialysis today. Hold dialysis tomorrow. manager [employer] to set up outpatient hemodialysis.
[2020-12-27 09:52] LABS: African American GFR (CKD) 12.3 (60.0-200.0); Anion Gap 12.3 mmol/L (4.00-12.00); BUN/Creat Ratio 8.85 Ratio (12.00-20.00); Carbon Dioxide 24.7 mmol/L (21.6-31.8); Magnesium 1.5 mg/dL (1.5-2.4); Non-African American GFR(CKD) 10.6 (60.0-200.0); Potassium 4.1 mmol/L (3.5-5.5)
[2020-12-27] MEDS: SODIUM FERRIC GLUCONAT-SUCROSE 125 MG in SODIUM CHLORIDE 0.9% 100 ML IVPB SCH (10:09)
--- NOTE | 2020-12-27 11:50 | P.PN ---
Subjective Progress Note Date: 12/27/20 Principal diagnosis: Right upper lobe lung mass This is a 67-year-old male patient, known history of CAD, known history of ischemic cardiomyopathy with an ejection fraction of 20%, coming in for worsening dyspnea. He denied having any chest pain. He was quite exhausted, tired and he had some slight cough without any significant sputum production. No angina. No palpitation. The patient was started on a combination of antibiotics utilizing a combination of Rocephin and Zithromax. His white cell count was at 9.3 as was nonelevated. BUN was 21 with a creatinine of 1.1. His proBNP level was 2660 and a proton syndrome and level was nonelevated at 0.12. The CT angiogram showed areas of scattered groundglass pulmonary infiltrates bilaterally. Overnight the testing is been negative patient has taken his COVID-19 vaccination. Cultures are negative thus far and the patient is responding nicely to diuretics. He is currently on Lasix 40 mg IV every 8 hours. A repeat chest x-ray was done that showed presence of patchy airspace pulmonary infiltrates although this was improving compared to the earlier chest x-ray was done on admission. Cardiac the patient is on room air oxygen. His cardiac rhythm is in atrial fibrillation. The echocardiogram shows an ejection fraction of less than 20%. Most of any chronic lung disease. No cervical emphysema and asthma. He is a nonsmoker. No supple with fibrosis. 12/26/2020, the patient is feeling better. Less short of breath. Diuresing well. No significant cough sputum production chest tightness or wheezing. He was switched to oral Lasix. He remains in atrial fibrillation. The plan is to undergo cardioversion tomorrow. He remains on long-term and to coagulation with Eliquis. Aldactone was added to his regimen. He is on oral Lasix for now. No nausea. No vomiting. No chest pain. No other new complaints otherwise for now. Note that on today's blood work, creatinine is up to 1.4 The patient is seen today 12/27/2020 in follow-up on the regular medical floor. He is currently resting comfortably in bed. Maintaining good O2 saturations in the 90s on room air. He's afebrile. Hemodynamically stable. Sodium 142. Potassium 4.1. Creatinine 5.2. The plan is for hemodialysis again today. He remains on bronchodilators. Heparin for DVT prophylaxis. Objective - Vital Signs Vital signs: Vital Signs Temp 97.3 F L 12/27/20 04:44 Pulse 70 12/27/20 04:44 Resp 16 12/27/20 04:44 BP 142/89 12/27/20 04:44 Pulse Ox 100 12/27/20 04:44 Intake & Output 12/26/20 12/27/20 12/27/20 18:59 06:59 18:59 Intake Total 0 500 Output Total 300 Balance -300 500 Intake: Intake, IV Titration 500 Amount Sodium Chloride 0.9% 1, 500 000 ml @ 50 mls/hr IV . Q20H [facility] Rx#:[id number] Hemodialysis 0 Output: Urine 300 Other: Voiding Method Urinal # Voids 1 0 - Exam A pleasant 65-year-old gentleman appears well nourished and normally developed. Vital signs as documented. Head exam is unremarkable. No scleral icterus or corneal arcus noted. Neck is without jugular venous distension, thyromegaly, or carotid bruits. Carotid upstrokes are brisk bilaterally. Lungs are clear to auscultation and percussion. Cardiac exam reveals the PMI to be normally sized and situated. Rhythm is regular. First and second heart sounds normal. No murmurs, rubs or gallops. Abdominal exam reveals normal bowel sounds, no masses, no organomegaly and no aortic enlargement. Extremities are nonedematous and both femoral and pedal pulses are normal. Examination of the skin revealed no evidence of significant rashes, suspicious appearing nevi or other concerning lesions. The patient has a permacath over the right anterior chest area - Labs CBC & Chem 7: 12/25/20 04:35 12/27/20 05:03 Labs: Abnormal Lab Results - Last 24 Hours (Table) 12/27/20 Range/Units 05:03 Anion Gap 12.30 H (4.00-12.00) mmol/L BUN 46.0 H (9.0-27.0) mg/dL Creatinine 5.2 H (0.6-1.5) mg/dL Est GFR (CKD-EPI)AfAm 12.3 L (60.0-200.0) Est GFR (CKD-EPI)NonAf 10.6 L (60.0-200.0) BUN/Creatinine Ratio 8.85 L (12.00-20.00) Ratio Calcium 7.0 L (8.7-10.3) mg/dL Assessment and Plan Assessment: 1 right upper lobe mass measuring as large as 6 cm in size, highly suspicious for primary bronchogenic carcinoma of the lung. Metastatic disease less likely based on the CAT scan images and the radiographic presentation 2 history of kidney cancer, probably in the form of renal cell carcinoma with a previous nephrectomy 3 acute on top of chronic kidney disease. The patient presents with a cr eatinine of 10 and the patient has a single kidney for now. Nephrology is following, renal function improved slightly 4 shortness of breath secondary to above 5 non-anion gap metabolic acidosis 6 anemia of chronic disease, with a possibility of iron deficiency of the patient's MCV has been low. Plan The patient was seen and evaluated by Dr. Brewer Plan is for his third hemodialysis today We will perform bronchoscopy with biopsies of the right upper lobe tomorrow The patient is agreeable to the plan We will continue to follow I, the cosigning physician, performed a history & physical examination of the patient. Lungs sounds are clear. Maintaining good O2 saturations in the 90s on room air. I discussed the assessment and plan of care with my nurse practitioner, Amber Don. I attest to the above note as dictated by her.
[2020-12-27] MEDS: carvediloL 12.5 MG TAB PO SCH ×2 (12:18→17:06)
[2020-12-27] MEDS: SODIUM CHLORIDE 0.9% 1,000 ML IV SCH (13:12)
[2020-12-27] MEDS: ALPRAZolam 0.25 MG TAB PO PRN (14:36)
[2020-12-27] MEDS ORDERED: Magnesium Replacement Protocol 1 EACH MISC MISCELLANE PRN (14:58)
--- NOTE | 2020-12-27 15:03 | P.PN ---
Subjective Progress Note Date: 12/27/20 Chief Complaint: Shortness of breath and fatigue and back cramps is a 65-year-old male with a past medical history of hypertension, coronary artery disease, CVA/TIA, supraventricular tachycardia, s/p left nephrectomy for renal cell carcinoma, CKD stage IV coming in with a chief complaint of fatigue shortness of breath and trapping of his lower extremities. Patient states that his difficulty in breathing is progressively worsened over the past 1 week and he also complained of decreased urinary output. Patient denies having any chest pain or palpitations. He denies having any cough or s putum production. No abdominal pain nausea vomiting or diarrhea. No dysuria or hematuria. In the ED at the time of admission patient's temperature 97.6, heart rate 87, respiratory 24, blood pressure 134/82 saturating at 97.8. A.m. labs done showing white count of 6.7, hemoglobin 9.3, platelets 207. D-dimer of 0.68. Sodium 142, potassium 4.9, chloride 116, bicarb 14, BUN 97 and creatinine of 10.63 patient's creatinine is around 4 at baseline. Patient had a chest x-ray done showing a large right upper lobe mass suspicious for primary tumor and so he had a chest CT showing 6.9 cm lobulated right upper lobe mass worrisome for neoplasm. He is admitted for further management. 12/26/2020 Patient is seen in follow-up this morning currently receiving ultrafiltration with hemodialysis nurse at the bedside. Patient was reportedly having some right chest wall discomfort at the dialysis site with some mild anxiety and given small dose of Xanax as needed and states improved. Patient continues on gentle IV hydration along with sodium bicarb tablets per nephrology recommendations with nephrology following closely. Pulmonary also following closely with possible bronchoscopy this Thursday with a transbronchial biopsy of the right upper lobe mass if stabilized. Patient continues on 2 L via nasal cannula and states he does not wear oxygen in the outpatient setting. Oxygen saturation is 99% on 2 L. Patient is afebrile. Sodium is 143 with a potassium of 4.0 current creatinine slightly improved at 7.85 with a BUN of 85. Hepatitis B testing antibody is equivocal and hepatitis B core total antibody is reactive a. Magnesium is 1.7 today. 12/27/2020 Patient is seen this morning awaiting to receive hemodialysis again today and will hold tomorrow as plans are for bronchoscopy with biopsy of the right lung mass with pulmonary. Patient is on subcutaneous heparin and will hold prior to procedure. Patient currently sitting up at the site of the bed in no acute distress currently on room air with oxygen saturations of 94%. Patient also receiving IV iron infusions. Patient continues on sodium bicarb tablets and will continue. Sodium today is 142 with a potassium of 4.1, BUN is 46 and creatinine is 5.2. Magnesium is 1.5 and will replace and repeat labs. Review of systems: Constitutional: No reports of fatigue, fever, or chills Cardiovascular: No reports of chest pain or palpitations Respiratory: Reports mild shortness of breath GI: No reports of nausea, vomiting, or diarrhea : No reports of dysuria or retention Neurovascular: No reports of weakness or numbness All medications have been reviewed Objective - Vital Signs Vital signs: Vital Signs Temp 97.3 F L 12/27/20 04:44 Pulse 70 12/27/20 04:44 Resp 16 12/27/20 04:44 BP 142/89 12/27/20 04:44 Pulse Ox 100 12/27/20 04:44 Intake & Output 12/26/20 12/27/20 12/27/20 18:59 06:59 18:59 Intake Total 0 500 Output Total 300 Balance -300 500 Intake: Intake, IV Titration 500 Amount Sodium Chloride 0.9% 1, 500 000 ml @ 50 mls/hr IV . Q20H [facility] Rx#:[id number] Hemodialysis 0 Output: Urine 300 Other: Voiding Method Urinal # Voids 1 0 - Exam GENERAL: This is a 65-year-old male awake, alert and oriented 3, well- developed, well-nourished in no acute distress HEENT: Pupils are round and equally reacting to light. EOMI. No scleral icterus. No conjunctival pallor. CARDIOVASCULAR: S1 and S2 present. No murmurs, rubs, or gallops. PULMONARY: Bilateral breath sounds positive. No wheeze or crackles.. ABDOMEN: Soft, Non -tender , Bowel sounds hypoactive. MUSCULOSKELETAL: No joint swelling or deformity. EXTREMITIES: No edema NEUROLOGICAL: Gross neurological examination did not reveal any focal deficits. SKIN:No rash - Labs CBC & Chem 7: 12/25/20 04:35 12/27/20 05:03 Labs: Abnormal Lab Results - Last 24 Hours (Table) 12/25/20 Range/Units 17:00 Hep Bs Antibody Equivocal A (Non-Reactive) Hep B Core Total Ab Reactive A (Non-Reactive) Assessment and Plan Assessment: Acute kidney injury, status post permacath placement and started on hemodialysis Right lung upper lobe mass measuring up to 6 cm concerning for neoplasm CKD stage IV Non-anion gap metabolic acidosis History of renal cell carcinoma status post left nephrectomy Anemia of chronic disease Hypertension History of coronary artery disease Nicotine dependence History of CVA/TIA PLAN: Patient received permacath right chest wall placement for hemodialysis and currently undergoing hemodialysis today with nephrology following closely. Plans are to hold hemodialysis tomorrow. Pulmonary also following and plans are for bronchoscopy with biopsy scheduled for tomorrow. Hold morning dose of heparin subcutaneous. Patient will continue with breathing inhalational treatments and oxygen therapy as needed. Discussed with nursing staff about weaning FiO2 as tolerated as he does not wear oxygen at home. Oncology also following and will need results from tissue biopsy and possible outpatient PET scan for further diagnosis. Magnesium low at 1.5 and will replace per protocol. Will repeat labs and continue to monitor closely. Further recommendations to follow based on the clinical course of the patient. Prognosis remains guarded.
[2020-12-27] MEDS: MAGNESIUM SULFATE-D5W PMX 1 GM in DEXTROSE/WATER 1 100ML.BAG IVPB SCH ×2 (17:06→18:10)
--- NOTE | 2020-12-27 19:41 | P.PN ---
Subjective Progress Note Date: 12/27/20 Principal diagnosis: pulm mass In follow-up today patient is up sitting in a chair. He is waiting for some food from home. He is not sure he feels much better than on admission. He is currently denying any pain, difficulty in breathing, nausea. Objective - Vital Signs Vital signs: Vital Signs Temp 97.4 F L 12/27/20 16:55 Pulse 68 12/27/20 16:55 Resp 18 12/27/20 16:55 BP 170/84 12/27/20 16:55 Pulse Ox 94 L 12/27/20 12:03 Intake & Output 12/27/20 12/27/20 12/28/20 06:59 18:59 06:59 Intake Total 500 Output Total 900 Balance 500 -900 Intake: Intake, IV Titration 500 Amount Sodium Chloride 0.9% 1, 500 000 ml @ 50 mls/hr IV . Q20H [facility] Rx#:[id number] Output: Urine 900 Hemodialysis 0 Other: Voiding Method Urinal # Voids 0 - Constitutional General appearance: Present: average body habitus, cooperative, no acute distress - EENT Eyes: Present: anicteric sclerae, EOMI ENT: Present: hearing grossly normal - Respiratory Details: respirations even and unlabored at rest - Gastrointestinal General gastrointestinal: Present: distended - Neurologic Neurologic: Present: CNII-XII intact - Musculoskeletal Musculoskeletal: Present: generalized weakness - Psychiatric Psychiatric: Present: A&O x's 3, appropriate affect, intact judgment & insight - Labs CBC & Chem 7: 12/25/20 04:35 12/27/20 05:03 Labs: Abnormal Lab Results - Last 24 Hours (Table) 12/27/20 Range/Units 05:03 Anion Gap 12.30 H (4.00-12.00) mmol/L BUN 46.0 H (9.0-27.0) mg/dL Creatinine 5.2 H (0.6-1.5) mg/dL Est GFR (CKD-EPI)AfAm 12.3 L (60.0-200.0) Est GFR (CKD-EPI)NonAf 10.6 L (60.0-200.0) BUN/Creatinine Ratio 8.85 L (12.00-20.00) Ratio Calcium 7.0 L (8.7-10.3) mg/dL Assessment and Plan (1) Lung mass Narrative/Plan: Patient pending biopsy with Pulmonary for diagnosis Pending stability of renal function for MRI of the brain for staging Plan for staging PET scan outpatient. Will schedule once we have an idea of discharge date Current Visit: Yes Status: Acute Priority: High Code(s): R91.8 - OTHER NONSPECIFIC ABNORMAL FINDING OF LUNG FIELD SNOMED Code(s): 509271477 (2) Anemia in chronic kidney disease Narrative/Plan: Nephrology following. Iron given for deficiency Current Visit: Yes Status: Chronic Priority: Medium Code(s): N18.9 - C HRONIC KIDNEY DISEASE, UNSPECIFIED; D63.1 - ANEMIA IN CHRONIC KIDNEY DISEASE SNOMED Code(s): 123098061
[2020-12-28] MEDS: HYDROcodone/APAP 5-325MG 1 EACH TAB PO PRN (02:40)
[2020-12-28] MEDS: ALPRAZolam 0.25 MG TAB PO PRN (02:42)
[2020-12-28] MEDS: SODIUM CHLORIDE 0.9% 1,000 ML IV SCH (03:15)
[2020-12-28 05:05] LABS: Basophils % (A) 0 %; Eosinophils # (A) 0.3 k/uL (0-0.7); Eosinophils % (A) 3 %; HCT 28.2 % (39.0-53.0); Hypochromasia Slight; Lymphocytes # (A) 1.6 k/uL (1.0-4.8); Lymphocytes % (A) 19 %; MCH 27.5 pg (25.0-35.0); MCHC 31.9 g/dL (31.0-37.0); MCV 86.2 fL (80.0-100.0); Mean Platelet Volume 8.6; Monocytes # (A) 0.8 k/uL (0-1.0); Monocytes % (A) 9 %; Neutrophils # (A) 5.7 k/uL (1.3-7.7); Neutrophils % (A) 68 %; Platelet Count 164 k/uL (150-450); RBC 3.27 m/uL (4.30-5.90); RDW 15.1 % (11.5-15.5); WBC 8.5 k/uL (3.8-10.6)
[2020-12-28 05:13] LABS: African American GFR (CKD) 16 (>60 ml/min/1.73 sqM); Anion Gap 8 mmol/L; Blood Urea Nitrogen 32 mg/dL (9-20); Calcium 7.2 mg/dL (8.4-10.2); Carbon Dioxide 25 mmol/L (22-30); Chloride 103 mmol/L (98-107); Glucose 92 mg/dL (74-99); Magnesium 2.2 mg/dL (1.6-2.3); Non-African American GFR(CKD) 14 (>60 ml/min/1.73 sqM); Potassium 3.8 mmol/L (3.5-5.1); Sodium 136 mmol/L (137-145)
[2020-12-28] MEDS: carvediloL 12.5 MG TAB PO SCH ×2 (08:51→10:40)
[2020-12-28] MEDS: SODIUM BICARBONATE TAB 650 MG TAB PO SCH (08:51)
[2020-12-28] MEDS: CALCIUM ACETATE 667 MG TAB PO SCH ×2 (08:51→13:43)
[2020-12-28] MEDS: FAMOTIDINE 20 MG TAB PO SCH (08:51)
[2020-12-28] MEDS: HEPARIN SODIUM,PORCINE/PF 5,000 UNIT/0.5 ML SYRINGE SQ SCH (08:51)
[2020-12-28] MEDS: SODIUM FERRIC GLUCONAT-SUCROSE 125 MG in SODIUM CHLORIDE 0.9% 100 ML IVPB SCH (09:07)
[2020-12-28] MEDS: NICOTINE 21MG/24HR PATCH TRANSDERM SCH (09:07)
--- NOTE | 2020-12-28 12:10 | P.PN ---
Subjective Patient is seen in follow-up for acute kidney injury on chronic kidney disease, now progressed to end-stage renal disease. Started on hemodialysis December 25. No problems with dialysis. Denies chest pain or shortness of breath. Scheduled for bronchoscopy today. Vital signs are stable. General: The patient appeared well nourished and normally developed. HEENT: Head exam is unremarkable. Neck is without jugular venous distension. LUNGS: Lungs are clear to auscultation and percussion. Breath sounds decreased. HEART: Rate and Rhythm are regular. ABDOMEN: Soft, no distention. EXTREMITITES: No edema. Objective - Vital Signs Vital signs: Vital Signs Temp 97.4 F L 12/28/20 04:54 Pulse 73 12/28/20 04:54 Resp 18 12/28/20 04:54 BP 149/91 12/28/20 04:54 Pulse Ox 97 12/28/20 04:54 Intake & Output 12/27/20 12/28/20 12/28/20 18:59 06:59 18:59 Output Total 900 800 Balance -900 -800 Output: Urine 900 800 Hemodialysis 0 Other: Voiding Method Urinal Urinal - Labs CBC & Chem 7: 12/28/20 04:36 12/28/20 04:36 Labs: Abnormal Lab Results - Last 24 Hours (Table) 12/28/20 12/28/20 Range/Units 04:36 04:36 RBC 3.27 L (4.30-5.90) m/uL Hgb 9.0 L (13.0-17.5) gm/dL Hct 28.2 L (39.0-53.0) % Sodium 136 L (137-145) mmol/L BUN 32 H (9-20) mg/dL Creatinine 4.21 H (0.66-1.25) mg/dL Calcium 7.2 L (8.4-10.2) mg/dL Assessment and Plan Plan: Assessment: 1. Chronic kidney disease stage IV now progressed to end-stage renal disease. Etiology is solitary right kidney and nephrosclerosis. He also had sub- nephrotic range proteinuria but was not a candidate for renal biopsy. Started on hemodialysis December 25. Has a permacath. 2. Lung mass. Pulmonology and oncology following. Bronchoscopy today. 3. Renal cell carcinoma status post left nephrectomy in the past. 4. Metabolic acidosis secondary to acute kidney injury. Status post bicarb drip. Improved. Now on oral bicarbonate. 5. Hypocalcemia secondary to acute kidney injury. Improved. 6. Poor appetite and leg cramping due to uremia. 7. Anemia of chronic kidney disease. Iron deficiency noted. 8. Hyperphosphatemia secondary to chronic kidney disease maintained on PhosLo. Plan: Maintain IV fluids. Maintain IV iron. Hold hemodialysis today. Plan for another treatment tomorrow. environmental department manager to set up outpatient hemodialysis.
[2020-12-28] MEDS ORDERED: IV FLUID CONTINUATION 1,000 ML IV ONE (12:26)
--- NOTE | 2020-12-28 12:50 | CT ---
EXAMINATION TYPE: CT Chest leeanne Cisneros Protocol DATE OF EXAM: 12/28/2020 COMPARISON: None HISTORY: Navigation bronchoscopy CT DLP: [address] of the chest was performed with lung and mediastinal window settings submitted. The la ck of contrast limits evaluation of the vascular, mediastinal and parenchymal structures including th e upper abdomen. LUNGS: Right upper lobe/right apical mass measuring 7.1 x 6.9 x 6.6 cm. Internal foci of air reflecti ng cavitation. No additional nodules or masses identified at this time. MEDIASTINUM/SARAH: Thoracic a tamir is of normal caliber with limited evaluation given lack of contrast. The heart is not enlarged. No evidence for mediastinal mass. No lymph nodes greater than 1cm. UPPER ABDOMEN: No significant abnormality is seen. OTHER: Aneurysm thoracic aorta at the level of the hiatus measuring 4.3 cm. Ascending thoracic aortic aneurysm measuring 4.2 cm. Descending thoracic aortic aneurysm measuring 3.5 cm. IMPRESSION: 1. Right upper lobe/right apical mass.
[2020-12-28] MEDS ORDERED: MIDAZOLAM 2 MG/2 ML VIAL IVP ONE (14:18)
[2020-12-28] MEDS ORDERED: LIDOCAINE 1% INJ 10MG/ML (20 ML MDV) ONE ×2 (14:35)
[2020-12-28] MEDS ORDERED: SUCCINYLCHOLINE CHLORIDE 100 MG/5 ML SYR IV ONE ×2 (14:35)
[2020-12-28] MEDS ORDERED: MIDAZOLAM 2 MG/2 ML VIAL ONE ×2 (14:35)
[2020-12-28] MEDS ORDERED: fentaNYL (PF) 50 MCG/ML 2 ML AMP ONE ×2 (14:35)
[2020-12-28] MEDS ORDERED: PROPOFOL 10 MG/ML 20 ML VIAL IV ONE ×2 (14:35)
--- NOTE | 2020-12-28 14:41 | P.PN ---
Subjective Progress Note Date: 12/28/20 Chief Complaint: Shortness of breath and fatigue and back cramps is a 65-year-old male with a past medical history of hypertension, coronary artery disease, CVA/TIA, supraventricular tachycardia, s/p left nephrectomy for renal cell carcinoma, CKD stage IV coming in with a chief complaint of fatigue shortness of breath and trapping of his lower extremities. Patient states that his difficulty in breathing is progressively worsened over the past 1 week and he also complained of decreased urinary output. Patient denies having any chest pain or palpitations. He denies having any cough or s putum production. No abdominal pain nausea vomiting or diarrhea. No dysuria or hematuria. In the ED at the time of admission patient's temperature 97.6, heart rate 87, respiratory 24, blood pressure 134/82 saturating at 97.8. A.m. labs done showing white count of 6.7, hemoglobin 9.3, platelets 207. D-dimer of 0.68. Sodium 142, potassium 4.9, chloride 116, bicarb 14, BUN 97 and creatinine of 10.63 patient's creatinine is around 4 at baseline. Patient had a chest x-ray done showing a large right upper lobe mass suspicious for primary tumor and so he had a chest CT showing 6.9 cm lobulated right upper lobe mass worrisome for neoplasm. He is admitted for further management. 12/26/2020 Patient is seen in follow-up this morning currently receiving ultrafiltration with hemodialysis nurse at the bedside. Patient was reportedly having some right chest wall discomfort at the dialysis site with some mild anxiety and given small dose of Xanax as needed and states improved. Patient continues on gentle IV hydration along with sodium bicarb tablets per nephrology recommendations with nephrology following closely. Pulmonary also following closely with possible bronchoscopy this Thursday with a transbronchial biopsy of the right upper lobe mass if stabilized. Patient continues on 2 L via nasal cannula and states he does not wear oxygen in the outpatient setting. Oxygen saturation is 99% on 2 L. Patient is afebrile. Sodium is 143 with a potassium of 4.0 current creatinine slightly improved at 7.85 with a BUN of 85. Hepatitis B testing antibody is equivocal and hepatitis B core total antibody is reactive a. Magnesium is 1.7 today. 12/27/2020 Patient is seen this morning awaiting to receive hemodialysis again today and will hold tomorrow as plans are for bronchoscopy with biopsy of the right lung mass with pulmonary. Patient is on subcutaneous heparin and will hold prior to procedure. Patient currently sitting up at the site of the bed in no acute distress currently on room air with oxygen saturations of 94%. Patient also receiving IV iron infusions. Patient continues on sodium bicarb tablets and will continue. Sodium today is 142 with a potassium of 4.1, BUN is 46 and creatinine is 5.2. Magnesium is 1.5 and will replace and repeat labs. 12/28/2020 Patient is seen in follow-up this morning with no acute overnight issues. Patient is scheduled to have a bronchoscopy with right lung mass biopsy today with pulmonary. Nephrology also following. No plans for hemodialysis today and will repeat labs and monitor closely. White blood count is 8.5 with a hemoglobin of 9.0, sodium is 136, potassium is 3.8, BUN is 32 with a creatinine of 4.21. Vital signs are stable. Patient is sitting up in the bed comfortably with oxygen saturation of 97% on room air. Patient denies any worsening shortness of breath, chest pain, or palpitations. Review of systems: Constitutional: No reports of fatigue, fever, or chills Cardiovascular: No reports of chest pain or palpitations Respiratory: Reports mild shortness of breath GI: No reports of nausea, vomiting, or diarrhea : No reports of dysuria or retention Neurovascular: No reports of weakness or numbness All medications have been reviewed Objective - Vital Signs Vital signs: Vital Signs Temp 97.4 F L 12/28/20 04:54 Pulse 73 12/28/20 04:54 Resp 18 12/28/20 04:54 BP 149/91 12/28/20 04:54 Pulse Ox 97 12/28/20 04:54 Intake & Output 12/27/20 12/28/20 12/28/20 18:59 06:59 18:59 Output Total 900 800 Balance -900 -800 Output: Urine 900 800 Hemodialysis 0 Other: Voiding Method Urinal - Exam GENERAL: This is a 65-year-old male awake, alert and oriented 3, well- developed, well-nourished in no acute distress HEENT: Pupils are round and equally reacting to light. EOMI. No scleral icterus. No conjunctival pallor. CARDIOVASCULAR: S1 and S2 present. No murmurs, rubs, or gallops. PULMONARY: Bilateral breath sounds positive. No wheeze or crackles.. ABDOMEN: Soft, Non -tender , Bowel sounds hypoactive. MUSCULOSKELETAL: No joint swelling or deformity. EXTREMITIES: No edema NEUROLOGICAL: Gross neurological examination did not reveal any focal deficits. SKIN:No rash - Labs CBC & Chem 7: 12/28/20 04:36 12/28/20 04:36 Labs: Abnormal Lab Results - Last 24 Hours (Table) 12/27/20 12/28/20 12/28/20 Range/Units 05:03 04:36 04:36 RBC 3.27 L (4.30-5.90) m/uL Hgb 9.0 L (13.0-17.5) gm/dL Hct 28.2 L (39.0-53.0) % Sodium 136 L (137-145) mmol/L Anion Gap 12.30 H (4.00-12.00) mmol/L BUN 46.0 H 32 H (9.0-27.0) mg/dL Creatinine 5.2 H 4.21 H (0.6-1.5) mg/dL Est GFR (CKD-EPI)AfAm 12.3 L (60.0-200.0) Est GFR (CKD-EPI)NonAf 10.6 L (60.0-200.0) BUN/Creatinine Ratio 8.85 L (12.00-20.00) Ratio Calcium 7.0 L 7.2 L (8.7-10.3) mg/dL Assessment and Plan Assessment: Acute kidney injury, status post permacath placement and started on hemodialysis Right lung upper lobe mass measuring up to 6 cm concerning for neoplasm CKD stage IV Non-anion gap metabolic acidosis History of renal cell carcinoma status post left nephrectomy Anemia of chronic disease Hypertension History of coronary artery disease Nicotine dependence History of CVA/TIA PLAN: Patient received permacath right chest wall placement for hemodialysis and currently undergoing hemodialysis with nephrology following closely. Plans are to hold hemodialysis today. Pulmonary also following and plans are for bronchoscopy with biopsy scheduled this afternoon. Patient will continue with breathing inhalational treatments and oxygen therapy as needed. Discussed with nursing staff about weaning FiO2 as tolerated as he does not wear oxygen at home. Currently 97% oxygen saturation on room air with no further reports of worsening shortness of breath. Oncology also following and will need results from tissue biopsy and possible outpatient PET scan for further diagnosis. Will repeat labs and continue to monitor closely. Prognosis remains guarded.
--- NOTE | 2020-12-28 15:15 | P.PCN ---
Date of Procedure: 12/28/20 Preoperative Diagnosis: Date of Procedure: 12/28/20 Preoperative Diagnosis: Right upper lobe mass , mediastinal lymphadenopathy Postoperative Diagnosis: Right upper lobe mass Anesthesia: RICHYA Surgeon: Jagdish Brewer Estimated Blood Loss (ml): 0 Pathology: other Condition: stable Disposition: same day Operative Findings: 1 Navigational bronchoscopy 2 transbronchial biopsy of the right upper lobe mass 3 transbronchial brushing of the right upper lobe mass 4 bronchial lavage of the right upper lobe Anesthesia: GETA Surgeon: Jagdish Brewer Job Coach/Job Developer #1:Amber Don Estimated Blood Loss (ml): 0 Pathology: other Condition: stable Disposition: same day Operative Findings: Indication: right upper lobe mass This procedure was done under general anesthesia. There is a navigational bronchoscopy. The patient initially had a CAT scan of the chest utilizing the [employer] protocol. The images were uploaded into the software and the right middle lobe mass was identified and appropriate calibrations and mapping was done. Following that, all of this information was uploaded into the [employer] navigational tower. The patient was brought into the endoscopy suite. The patient was intubated by TECHNICAL SERVICES ANALYST. The patient had a 8 ET tube placed and she was secured in place. Following that, flexible bronchoscope was introduced through the orotracheal tube and an airway inspection was done. The visualized airways included the mid and the distal trachea, bilateral mainstem bronchi, right upper lobe bronchus, bronchus intermedius, right middle lobe and right lower lobe bronchus and the various 10 segments on the right. Bronchoscope was moved to the left and the visualized airways included the left mainstem bronchus, left upper lobe bronchus and left lower lobe bronchus and the various 8 segments on the left. No evidence of any endobronchial lesions or tumors. No foreign bodies. No mucosal abnormalities identified. Using navigational guidance, the bronchoscope was directed to the right upper lobe. Using a navigational forceps, transbronchial biopsies of the right upper lobe anterior segment mass was identified and biopsied. Several biopsies were obtained. Following that, transbronchial transbronchial brushings of the the same lesion was done using navigational guidance. The bronchoscope was wedged in the anterior segment of the right upper lobe and a total of 80 mL's of fluid was administered and 20 mL was suctioned back. Aspirate was nonbloody. No complications. No evidence of an endobronchial bleeding. Therapeutic airway suctioning was done. Bronchoscope was removed. Patient was extubated and transferred to recovery in stable condition. Chest x-rays to follow to rule out any complications or pneumothorax.
--- NOTE | 2020-12-28 15:19 | P.PN ---
Subjective Progress Note Date: 12/28/20 This is a 67-year-old male patient, known history of CAD, known history of ischemic cardiomyopathy with an ejection fraction of 20%, coming in for worsening dyspnea. He denied having any chest pain. He was quite exhausted, tired and he had some slight cough without any significant sputum production. N o angina. No palpitation. The patient was started on a combination of antibiotics utilizing a combination of Rocephin and Zithromax. His white cell count was at 9.3 as was nonelevated. BUN was 21 with a creatinine of 1.1. His proBNP level was 2660 and a proton syndrome and level was nonelevated at 0.12. The CT angiogram showed areas of scattered groundglass pulmonary infiltrates bilaterally. Overnight the testing is been negative patient has taken his COVID-19 vaccination. Cultures are negative thus far and the patient is responding nicely to diuretics. He is currently on Lasix 40 mg IV every 8 hours. A repeat chest x-ray was done that showed presence of patchy airspace pulmonary infiltrates although this was improving compared to the earlier chest x-ray was done on admission. Cardiac the patient is on room air oxygen. His cardiac rhythm is in atrial fibrillation. The echocardiogram shows an ejection fraction of less than 20%. Most of any chronic lung disease. No cervical emphysema and asthma. He is a nonsmoker. No supple with fibrosis. 12/26/2020, the patient is feeling better. Less short of breath. Diuresing well. No significant cough sputum production chest tightness or wheezing. He was switched to oral Lasix. He remains in atrial fibrillation. The plan is to undergo cardioversion tomorrow. He remains on long-term and to coagulation with Eliquis. Aldactone was added to his regimen. He is on oral Lasix for now. No nausea. No vomiting. No chest pain. No other new complaints otherwise for now. Note that on today's blood work, creatinine is up to 1.4 The patient is seen today 12/27/2020 in follow-up on the regular medical floor. He is currently resting comfortably in bed. Maintaining good O2 saturations in the 90s on room air. He's afebrile. Hemodynamically stable. Sodium 142. Potassium 4.1. Creatinine 5.2. The plan is for hemodialysis again today. He remains on bronchodilators. Heparin for DVT prophylaxis. 12/28/2020, the patient is a specific complaints. He was undergoing regular dialysis and he is hemodynamically stable. No respiratory difficulties. No significant cough sputum production chest tightness or wheezing. No hemoptysis. The plan was to proceed with a navigational bronchoscopy and right upper lobe b iopsy regarding the possibility of a right upper lobe malignancy/tumor. This he was weaned to the patient's and the patient was agreeable to that. The patient was brought to the endoscopy suite. Under general anesthesia, navigational bronchoscopy was completed and the patient was transferred recovery in stable condition. He remained hemodynamically stable throughout the procedure. Biopsies of the right upper lobe brushing of the right upper lobe lavage of the right upper lobe posterior segment mass was obtained without any issues. No bleeding was encountered. Preop hemoglobin was stable at 9.0. Preop creatinine was 4.2 with a potassium level of 3.8. Objective - Vital Signs Vital signs: Vital Signs Temp 97 F L 12/28/20 12:29 Pulse 69 12/28/20 12:29 Resp 16 12/28/20 12:29 BP 167/94 12/28/20 12:29 Pulse Ox 97 12/28/20 12:29 Intake & Output 12/27/20 12/28/20 12/28/20 18:59 06:59 18:59 Intake Total 200 Output Total 900 800 Balance -900 -800 200 Intake: IV 200 Output: Urine 900 800 Hemodialysis 0 Other: Voiding Method Urinal Urinal - Exam he patient appeared well nourished and normally developed. Vital signs as documented. Head exam is unremarkable. No scleral icterus or corneal arcus noted. Neck is without jugular venous distension, thyromegaly, or carotid bruits. Carotid upstrokes are brisk bilaterally. Lungs are clear to auscultation and percussion. Cardiac exam reveals the PMI to be normally sized and situated. Rhythm is regular. First and second heart sounds normal. No murmurs, rubs or gallops. Abdominal exam reveals normal bowel sounds, no masses, no organomegaly and no aortic enlargement. Extremities are nonedematous and both femoral and pedal pulses are normal. Examination of the skin revealed no evidence of significant rashes, suspicious appearing nevi or other concerning lesions. The patient has a permacath over the right anterior chest area - Labs CBC & Chem 7: 12/28/20 04:36 12/28/20 04:36 Labs: Abnormal Lab Results - Last 24 Hours (Table) 12/28/20 12/28/20 Range/Units 04:36 04:36 RBC 3.27 L (4.30-5.90) m/uL Hgb 9.0 L (13.0-17.5) gm/dL Hct 28.2 L (39.0-53.0) % Sodium 136 L (137-145) mmol/L BUN 32 H (9-20) mg/dL Creatinine 4.21 H (0.66-1.25) mg/dL Calcium 7.2 L (8.4-10.2) mg/dL Assessment and Plan Plan: 1 right upper lobe mass measuring as large as 6 cm in size, highly suspicious for primary bronchogenic carcinoma of the lung. Metastatic disease less likely based on the CAT scan images and the radiographic presentation patient is post medication bronchoscopy and transbronchial biopsies and brushings and lavage of the right upper lobe. 2 history of kidney cancer, probably in the form of renal cell carcinoma with a previous nephrectomy 3 dialysis-dependent renal failure the patient has a permacath undergoing dialysis periodically, electrolytes have normalized 4 shortness of breath secondary to above 5 non-anion gap metabolic acidosis, recovered 6 anemia of chronic disease, with a possibility of iron deficiency of the patient's MCV has been low. Plan Medication bronchoscopy was completed chest x-rays to follow Transfer this patient to recovery We'll move him back to his floor post full recovery and will continue to follow.
--- NOTE | 2020-12-28 16:10 | XR ---
EXAMINATION TYPE: XR chest 1V portable DATE OF EXAM: 12/28/2020 COMPARISON: Prior chest x-ray 12/24/2020 HISTORY: Status post navigational bronchoscopy with biopsy TECHNIQUE: Single frontal view of the chest is obtained. FINDINGS: There is been interval placement of a right jugular central venous catheter. No evident pn eumothorax or pleural effusion. Heart remains enlarged. IMPRESSION: No evident complication status post bronchoscopy.
--- NOTE | 2020-12-29 01:04 | P.PN ---
Subjective Progress Note Date: 12/28/20 the patient had bronchoscopy earlier today. He tolerated the procedure reasonably well. After return to the floor the patient was apparently wanting to be discharged and was quite combative. Security had to be called after which the patient come down. respiratory status is improved. No fever/chills /nausea/vomiting. Objective - Vital Signs Vital signs: Vital Signs Temp 97.6 F 12/28/20 15:22 Pulse 73 12/28/20 15:52 Resp 14 12/28/20 15:52 BP 156/94 12/28/20 15:52 Pulse Ox 96 12/28/20 15:52 Intake & Output 12/28/20 12/28/20 12/29/20 06:59 18:59 06:59 Intake Total 550 Output Total 800 300 Balance -800 250 Intake: IV 550 Output: Urine 800 300 Other: Voiding Method Urinal Urinal - Constitutional General appearance: Present: no acute distress - EENT Eyes: Present: EOMI ENT: Present: hearing grossly normal, normal oropharynx - Respiratory Respiratory: right: diminished - Cardiovascular Rhythm: regular Heart sounds: normal: S1, S2 - Gastrointestinal General gastrointestinal: Present: soft - Integumentary Integumentary: Present: normal - Neurologic Neurologic: Present: CNII-XII intact - Musculoskeletal Musculoskeletal: Present: generalized weakness, strength equal bilaterally - Psychiatric Psychiatric Comment(s): as per HPI at the time of my exam the patient was calm, with appropriate responses - Labs CBC & Chem 7: 12/28/20 04:36 12/28/20 04:36 Labs: Abnormal Lab Results - Last 24 Hours (Table) 12/28/20 12/28/20 Range/Units 04:36 04:36 RBC 3.27 L (4.30-5.90) m/uL Hgb 9.0 L (13.0-17.5) gm/dL Hct 28.2 L (39.0-53.0) % Sodium 136 L (137-145) mmol/L BUN 32 H (9-20) mg/dL Creatinine 4.21 H (0.66-1.25) mg/dL Calcium 7.2 L (8.4-10.2) mg/dL Microbiology - Last 24 Hours (Table) 12/28/20 14:51 Fungal Culture - Preliminary Bronchial Washings - Right 12/28/20 14:51 Acid Fast Bacilli Culture - Preliminary Bronchial Washings - Right 12/28/20 14:51 Bronchial Washings Culture - Preliminary Bronchial Washings - Random Assessment and Plan (1) Lung mass Narrative/Plan: the patient is status post bronchoscopy with biopsy today. Report was reviewed. No obvious endobronchial mass seen. Await results of biopsy - Patient will need additional staging with PET scan. This will be performed as an outpatient - Given high suspicion for primary lung cancer, the patient will also need brain imaging with contrast. Contrast will have to be time according to the patient's dialysis schedule. It was discussed with the patient that this would be much more easier to rule out logistically inpatient that outpatient. Patient expressed understanding of the same, and stated that he was willing to stay. We'll discuss with nephrology as to the most appropriate timing for setting up contrast administration and scan in relation to his dialysis. Current Visit: Yes Status: Acute Priority: High Code(s): R91.8 - OTHER NON SPECIFIC ABNORMAL FINDING OF LUNG FIELD SNOMED Code(s): 492247460 (2) Acute on chronic renal failure Narrative/Plan: the patient is currently on dialysis which she is tolerating well. Continue treatment per nephrology Current Visit: Yes Status: Acute Code(s): N17.9 - ACUTE KIDNEY FAILURE, UNSPECIFIED; N18.9 - CHRONIC KIDNEY DISEASE, UNSPECIFIED SNOMED Code(s): 438393704
[2020-12-29] MEDS: HEPARIN SODIUM,PORCINE/PF 5,000 UNIT/0.5 ML SYRINGE SQ SCH ×2 (05:23→09:47)
[2020-12-29] MEDS: CALCIUM ACETATE 667 MG TAB PO SCH ×4 (05:23→17:05)
[2020-12-29] MEDS: SODIUM CHLORIDE 0.9% 1,000 ML IV SCH ×2 (05:23→17:05)
[2020-12-29] MEDS: carvediloL 12.5 MG TAB PO SCH ×3 (05:23→17:05)
[2020-12-29] MEDS: SODIUM BICARBONATE TAB 650 MG TAB PO SCH ×2 (05:24→09:47)
[2020-12-29] MEDS: LORazepam 2 MG/ML INJ IM PRN ×2 (06:05→11:01)
[2020-12-29] MEDS: HALOPERIDOL LACTATE 5 MG/ML 1 ML VIAL IM PRN ×3 (06:05→21:30)
[2020-12-29] MEDS: FAMOTIDINE 20 MG TAB PO SCH (09:47)
[2020-12-29] MEDS: SODIUM FERRIC GLUCONAT-SUCROSE 125 MG in SODIUM CHLORIDE 0.9% 100 ML IVPB SCH (09:47)
--- NOTE | 2020-12-29 10:23 | P.PN ---
Subjective Patient is seen in follow-up for acute kidney injury on chronic kidney disease, now progressed to end-stage renal disease. Started on hemodialysis December 25. No problems with dialysis. He underwent bronchoscopy yesterday he's been more combative and currently has a sitter. Vital signs are stable. General: The patient appeared well nourished and normally developed. HEENT: Head exam is unremarkable. Neck is without jugular venous distension. LUNGS: Lungs are clear to auscultation and percussion. Breath sounds decreased. HEART: Rate and Rhythm are regular. ABDOMEN: Soft, no distention. EXTREMITITES: No edema. Objective - Vital Signs Vital signs: Vital Signs Temp 97.6 F 12/28/20 15:22 Pulse 73 12/28/20 15:52 Resp 14 12/28/20 15:52 BP 156/94 12/28/20 15:52 Pulse Ox 96 12/28/20 15:52 Intake & Output 12/28/20 12/29/20 12/29/20 18:59 06:59 18:59 Intake Total 550 Output Total 300 Balance 250 Intake: IV 550 Output: Urine 300 Other: Voiding Method Urinal Toilet Urinal - Labs CBC & Chem 7: 12/28/20 04:36 12/28/20 04:36 Labs: Microbiology - Last 24 Hours (Table) 12/28/20 14:51 Gram Stain - Preliminary Bronchial Washings - Random Bronchial Washings Culture - Preliminary 12/28/20 14:51 Fungal Culture - Preliminary Bronchial Washings - Right 12/28/20 14:51 Acid Fast Bacilli Culture - Preliminary Bronchial Washings - Right Assessment and Plan Plan: Assessment: 1. Chronic kidney disease stage IV now progressed to end-stage renal disease. Etiology is solitary right kidney and nephrosclerosis. He also had sub- nephrotic range proteinuria but was not a candidate for renal biopsy. Started on hemodialysis December 25. Has a permacath. 2. Lung mass. Pulmonology and oncology following. Underwent bronchoscopy with biopsy of the lung mass on December 28. 3. Renal cell carcinoma status post left nephrectomy in the past. 4. Metabolic acidosis secondary to acute kidney injury. Status post bicarb drip. Improved. Now on oral bicarbonate. 5. Hypocalcemia secondary to acute kidney injury. Improved. 6. Poor appetite and leg cramping due to uremia. 7. Anemia of chronic kidney disease. Iron deficiency noted. 8. Hyperphosphatemia secondary to chronic kidney disease maintained on PhosLo. Plan: Hep-Lock IV fluids. Maintain IV iron. Hemodialysis today. artist relationship manager to set up outpatient hemodialysis.
--- NOTE | 2020-12-29 11:04 | P.PN ---
Subjective Progress Note Date: 12/29/20 Principal diagnosis: Right upper lobe lung mass This is a 67-year-old male patient, known history of CAD, known history of ischemic cardiomyopathy with an ejection fraction of 20%, coming in for worsening dyspnea. He denied having any chest pain. He was quite exhausted, tired and he had some slight cough without any significant sputum production. No angina. No palpitation. The patient was started on a combination of antibiotics utilizing a combination of Rocephin and Zithromax. His white cell count was at 9.3 as was nonelevated. BUN was 21 with a creatinine of 1.1. His proBNP level was 2660 and a proton syndrome and level was nonelevated at 0.12. The CT angiogram showed areas of scattered groundglass pulmonary infiltrates bilaterally. Overnight the testing is been negative patient has taken his COVID-19 vaccination. Cultures are negative thus far and the patient is responding nicely to diuretics. He is currently on Lasix 40 mg IV every 8 hours. A repeat chest x-ray was done that showed presence of patchy airspace pulmonary infiltrates although this was improving compared to the earlier chest x-ray was done on admission. Cardiac the patient is on room air oxygen. His cardiac rhythm is in atrial fibrillation. The echocardiogram shows an ejection fraction of less than 20%. Most of any chronic lung disease. No cervical emphysema and asthma. He is a nonsmoker. No supple with fibrosis. 12/26/2020, the patient is feeling better. Less short of breath. Diuresing well. No significant cough sputum production chest tightness or wheezing. He was switched to oral Lasix. He remains in atrial fibrillation. The plan is to undergo cardioversion tomorrow. He remains on long-term and to coagulation with Eliquis. Aldactone was added to his regimen. He is on oral Lasix for now. No nausea. No vomiting. No chest pain. No other new complaints otherwise for now. Note that on today's blood work, creatinine is up to 1.4 The patient is seen today 12/27/2020 in follow-up on the regular medical floor. He is currently resting comfortably in bed. Maintaining good O2 saturations in the 90s on room air. He's afebrile. Hemodynamically stable. Sodium 142. Potassium 4.1. Creatinine 5.2. The plan is for hemodialysis again today. He remains on bronchodilators. Heparin for DVT prophylaxis. 12/28/2020, the patient is a specific complaints. He was undergoing regular dialysis and he is hemodynamically stable. No respiratory difficulties. No significant cough sputum production chest tightness or wheezing. No hemoptysis. The plan was to proceed with a navigational bronchoscopy and right upper lobe biopsy regarding the possibility of a right upper lobe malignancy/tumor. This he was weaned to the patient's and the patient was agreeable to that. The patient was brought to the endoscopy suite. Under general anesthesia, na vigational bronchoscopy was completed and the patient was transferred recovery in stable condition. He remained hemodynamically stable throughout the procedure. Biopsies of the right upper lobe brushing of the right upper lobe lavage of the right upper lobe posterior segment mass was obtained without any issues. No bleeding was encountered. Preop hemoglobin was stable at 9.0. Preop creatinine was 4.2 with a potassium level of 3.8. The patient is seen today 12/29/2020 in follow-up on the regular medical floor. He is maintaining good O2 saturations in the 90s on room air. He did undergo b ronchoscopy with biopsies of the right upper lobe lesion yesterday. Pathology pending. Today he is been late aggressive and uncooperative. Security is at the bedside. Mr. Hatch have been called 2. Possible brain metastasis. Objective - Vital Signs Vital signs: Vital Signs Temp 97.6 F 12/28/20 15:22 Pulse 73 12/28/20 15:52 Resp 14 12/28/20 15:52 BP 156/94 12/28/20 15:52 Pulse Ox 96 12/28/20 15:52 Intake & Output 12/28/20 12/29/20 12/29/20 18:59 06:59 18:59 Intake Total 550 Output Total 300 Balance 250 Intake: IV 550 Output: Urine 300 Other: Voiding Method Urinal Toilet Urinal - Exam 65-year-old gentleman appears well nourished and normally developed. Currently very aggressive and uncooperative. Vital signs as documented. Head exam is unremarkable. No scleral icterus or corneal arcus noted. Neck is without jugular venous distension, thyromegaly, or carotid bruits. Carotid upstrokes are brisk bilaterally. Lungs are clear to auscultation and percussion. Cardiac exam reveals the PMI to be normally sized and situated. Rhythm is regular. First and second heart sounds normal. No murmurs, rubs or gallops. Abdominal exam reveals normal bowel sounds, no masses, no organomegaly and no aortic enlargement. Extremities are nonedematous and both femoral and pedal pulses are normal. Examination of the skin revealed no evidence of significant rashes, suspicious appearing nevi or other concerning lesions. The patient has a permacath over the right anterior chest area - Labs CBC & Chem 7: 12/28/20 04:36 12/28/20 04:36 Labs: Microbiology - Last 24 Hours (Table) 12/28/20 14:51 Gram Stain - Preliminary Bronchial Washings - Random Bronchial Washings Culture - Preliminary 12/28/20 14:51 Fungal Culture - Preliminary Bronchial Washings - Right 12/28/20 14:51 Acid Fast Bacilli Culture - Preliminary Bronchial Washings - Right Assessment and Plan Assessment: 1 right upper lobe mass measuring as large as 6 cm in size, highly suspicious for primary bronchogenic carcinoma of the lung. Metastatic disease less likely based on the CAT scan images and the radiographic presentation. Status post navigation bronchoscopy with biopsy of the right upper lobe on 12/28/2020. P athology pending. 2 aggressive and uncooperative behavior, possible [employer] metastasis. 2 history of kidney cancer, probably in the form of renal cell carcinoma with a previous nephrectomy 3 acute on top of chronic kidney disease. The patient presents with a creatinine of 10 and the patient has a single kidney for now. Nephrology is following, renal function improved slightly 4 shortness of breath secondary to above 5 non-anion gap metabolic acidosis 6 anemia of chronic disease, with a possibility of iron deficiency of the patient's MCV has been low. Plan The patient was seen and evaluated by Dr. Brewer Aggressive and uncooperative today Need to consider possible brain metastasis Computed tomography scan of the brain if we can get him We will continue to follow I, the cosigning physician, performed a history & physical examination of the patient. Lungs sounds are clear. Maintaining good O2 saturations in the 90s on room air. I discussed the assessment and plan of care with my nurse practitioner, Amber Don. I attest to the above note as dictated by her.
[2020-12-29] MEDS: NICOTINE 21MG/24HR PATCH TRANSDERM SCH (11:18)
--- NOTE | 2020-12-29 12:11 | P.CN ---
Psychiatric Consult - . Consult date: 12/29/20 Consult:: I was called to consult on this the patient who was reportedly combative. I reviewed his a history from the medical records as follows: " is a 65-year-old male with a past medical history of hypertension, coronary artery disease, CVA/TIA, supraventricular tachycardia, s/p left nephrectomy for renal cell carcinoma, CKD stage IV coming in with a chief complaint of fatigue shortness of breath and trapping of his lower extremities. Patient states that his difficulty in breathing is progressively worsened over the past 1 week and he also complained of decreased urinary output. Patient denies having any chest pain or palpitations. He denies having any cough or sputum production. No abdominal pain nausea vomiting or diarrhea. No dysuria or hematuria." This patient is unable to provide any information at all. He was seen in his room he was wobly as if he was going to fall down. He is confused and disoriented. He does not know where he is and how he was brought here. His appearance is disheveled he was observed to be talking to himself. His speech is low monotonous and he is unable to communicate his needs and wants. His mood is blank. His behavior is uncooperative. I was not able to assess his thought content or any auditory, visual or any other types of hallucinations or delusions. He was talking to himself and saying "I don't know where I am". Other times he will make remarks that it looks like a hospital. He got up from his bed and started pacing. He knew who the president was and who the president was before that. Diagnostic impression: Acute confusional state Rule out delirium Recommendations: This patient appears seriously medically ill. He is severely confused and disoriented. At this time he does not meet the criteria for inpatient psychiatric hospitalization. His medical condition needs to be stabilized and psychiatry may be re-consulted. This patient is a risk to himself and risk to other people and needs close monitoring.
[2020-12-29] MEDS ORDERED: ZIPRASIDONE 20 MG VIAL IM PRN ×2 (13:53→16:39)
--- NOTE | 2020-12-29 16:48 | P.PN ---
Subjective Chief Complaint: Shortness of breath and fatigue and back cramps is a 65-year-old male with a past medical history of hypertension, coronary artery disease, CVA/TIA, supraventricular tachycardia, s/p left nephrectomy for renal cell carcinoma, CKD stage IV coming in with a chief complaint of fatigue shortness of breath and trapping of his lower extremities. Patient states that his difficulty in breathing is progressively worsened over the past 1 week and he also complained of decreased urinary output. Patient denies having any chest pain or palpitations. He denies having any cough or sputum production. No abdominal pain nausea vomiting or diarrhea. No dysuria or hematuria. In the ED at the time of admission patient's temperature 97.6, heart rate 87, respiratory 24, blood pressure 134/82 saturating at 97.8. A.m. labs done showing white count of 6.7, hemoglobin 9.3, platelets 207. D-dimer of 0.68. Sodium 142, potassium 4.9, chloride 116, bicarb 14, BUN 97 and creatinine of 10.63 patient's creatinine is around 4 at baseline. Patient had a chest x-ray done showing a large right upper lobe mass suspicious for primary tumor and so he had a chest CT showing 6.9 cm lobulated right upper lobe mass worrisome for neoplasm. He is admitted for further management. 12/26/2020 Patient is seen in follow-up this morning currently receiving ultrafiltration with hemodialysis nurse at the bedside. Patient was reportedly having some right chest wall discomfort at the dialysis site with some mild anxiety and given small dose of Xanax as needed and states improved. Patient continues on gentle IV hydration along with sodium bicarb tablets per nephrology recommendations with nephrology following closely. Pulmonary also following closely with possible bronchoscopy this Thursday with a transbronchial biopsy of the right upper lobe mass if stabilized. Patient continues on 2 L via nasal cannula and states he does not wear oxygen in the outpatient setting. Oxygen saturation is 99% on 2 L. Patient is afebrile. Sodium is 143 with a potassium of 4.0 current creatinine slightly improved at 7.85 with a BUN of 85. Hepatitis B testing antibody is equivocal and hepatitis B core total antibody is reactive a. Magnesium is 1.7 today. 12/27/2020 Patient is seen this morning awaiting to receive hemodialysis again today and will hold tomorrow as plans are for bronchoscopy with biopsy of the right lung mass with pulmonary. Patient is on subcutaneous heparin and will hold prior to procedure. Patient currently sitting up at the site of the bed in no acute distress currently on room air with oxygen saturations of 94%. Patient also receiving IV iron infusions. Patient continues on sodium bicarb tablets and will continue. Sodium today is 142 with a potassium of 4.1, BUN is 46 and creatinine is 5.2. Magnesium is 1.5 and will replace and repeat labs. 12/28/2020 Patient is seen in follow-up this morning with no acute overnight issues. Patient is scheduled to have a bronchoscopy with right lung mass biopsy today with pulmonary. Nephrology also following. No plans for hemodialysis today and will repeat labs and monitor closely. White blood count is 8.5 with a hemoglobin of 9.0, sodium is 136, potassium is 3.8, BUN is 32 with a creatinine of 4.21. Vital signs are stable. Patient is sitting up in the bed comfortably with oxygen saturation of 97% on room air. Patient denies any worsening shortness of breath, chest pain, or palpitations. 12/29/2020 Patient was quite a bit agitated last night because of which patient was receiving Ativan which I discontinued and patient was started on antipsychotic psychiatry evaluated the patient, did not give any recommendations regarding the medications will check with psychiatry again. Patient was petitioned. Psychiatrist was doesn't believe patient can make his own decisions. Patient is presently receiving Geodon and Haldol as needed basis. Review of systems: Unable to obtain as patient is sedated and just received Geodon All medications have been reviewed - Exam GENERAL: This is a 65-year-old male sleeping well-developed, well-nourished in no acute distress HEENT: Pupils are round and equally reacting to light. EOMI. No scleral icterus. No conjunctival pallor. CARDIOVASCULAR: S1 and S2 present. No murmurs, rubs, or gallops. PULMONARY: Bilateral breath sounds positive. ABDOMEN: Soft, Non -tender , Bowel sounds hypoactive. MUSCULOSKELETAL: No joint swelling or deformity. EXTREMITIES: No edema NEUROLOGICAL: Unable to assess at this time SKIN:No rash Assessment and plan: Acute kidney injury, status post permacath placement and started on hemodialysis, unfortunately he didn't receive a poor dialysis because of his agitation today. Patient has a right solitary kidney and stage IV chronic kidney disease Right lung upper lobe mass measuring up to 6 cm concerning for neoplasm, patient is status post bronchoscopy and biopsy CKD stage IV -Episodes of agitation most probably because of sedatives dose will be discontinued patient will be started on antipsychotics patient is petitioned was evaluated by psychiatry patient cannot make his own decisions as per psychiatry at this time. Non-anion gap metabolic acidosis secondary to renal failure History of renal cell carcinoma status post left nephrectomy Anemia of chronic disease Hypertension History of coronary artery disease Nicotine dependence History of CVA/TIA Objective - Vital Signs Vital signs: Vital Signs Temp 97.6 F 12/28/20 15:22 Pulse 73 12/28/20 15:52 Resp 14 12/28/20 15:52 BP 156/94 12/28/20 15:52 Pulse Ox 96 12/28/20 15:52 Intake & Output 12/28/20 12/29/20 12/29/20 18:59 06:59 18:59 Intake Total 550 Output Total 300 Balance 250 Intake: IV 550 Output: Urine 300 Other: Voiding Method Urinal Toilet Urinal - Labs CBC & Chem 7: 12/28/20 04:36 12/28/20 04:36 Labs: Microbiology - Last 24 Hours (Table) 12/28/20 14:51 Gram Stain - Preliminary Bronchial Washings - Random Bronchial Washings Culture - Preliminary 12/28/20 14:51 Fungal Culture - Preliminary Bronchial Washings - Right 12/28/20 14:51 Acid Fast Bacilli Culture - Preliminary Bronchial Washings - Right
[2020-12-29] MEDS ORDERED: ZIPRASIDONE 20 MG VIAL IM SCH (21:00)
[2020-12-30] MEDS: SODIUM BICARBONATE TAB 650 MG TAB PO SCH ×2 (01:36→07:48)
[2020-12-30] MEDS: HEPARIN SODIUM,PORCINE/PF 5,000 UNIT/0.5 ML SYRINGE SQ SCH ×2 (01:37→07:48)
[2020-12-30] MEDS: HALOPERIDOL LACTATE 5 MG/ML 1 ML VIAL IM PRN ×2 (02:10→05:27)
[2020-12-30] MEDS: FAMOTIDINE 20 MG TAB PO SCH ×2 (07:48→21:14)
[2020-12-30] MEDS: NICOTINE 21MG/24HR PATCH TRANSDERM SCH ×2 (07:48→21:14)
[2020-12-30] MEDS: carvediloL 12.5 MG TAB PO SCH ×2 (07:48→21:11)
[2020-12-30] MEDS: CALCIUM ACETATE 667 MG TAB PO SCH ×2 (07:48→14:07)
[2020-12-30] MEDS: SODIUM CHLORIDE 0.9% 1,000 ML IV SCH (07:49)
--- NOTE | 2020-12-30 10:01 | P.PN ---
Subjective Patient is seen in follow-up for acute kidney injury on chronic kidney disease, now progressed to end-stage renal disease. Started on hemodialysis December 25. No problems with dialysis. Remains confused. Sitter present at bedside. Currently sleeping. Vital signs are stable. General: The patient appeared well nourished and normally developed. HEENT: Head exam is unremarkable. LUNGS: Breath sounds decreased. HEART: Rate and Rhythm are regular. ABDOMEN: Soft, no distention. EXTREMITITES: No edema. Objective - Vital Signs Vital signs: Vital Signs Temp 97.6 F 12/28/20 15:22 Pulse 73 12/28/20 15:52 Resp 14 12/28/20 15:52 BP 156/94 12/28/20 15:52 Pulse Ox 96 12/28/20 15:52 Intake & Output 12/29/20 12/30/20 12/30/20 18:59 06:59 18:59 Other: Voiding Method Toilet Toilet Urinal Urinal # Voids 1 - Labs CBC & Chem 7: 12/28/20 04:36 12/28/20 04:36 Labs: Microbiology - Last 24 Hours (Table) 12/28/20 14:51 Gram Stain - Final Bronchial Washings - Random Bronchial Washings Culture - Final 12/28/20 14:51 Acid Fast Bacilli Smear - Final Bronchial Washings - Right Acid Fast Bacilli Culture - Preliminary Assessment and Plan Plan: Assessment: 1. Chronic kidney disease stage IV now progressed to end-stage renal disease. Etiology is solitary right kidney and nephrosclerosis. He also had sub-n ephrotic range proteinuria but was not a candidate for renal biopsy. Started on hemodialysis December 25. Has a permacath. 2. Lung mass. Pulmonology and oncology following. Underwent bronchoscopy with biopsy of the lung mass on December 28. 3. Renal cell carcinoma status post left nephrectomy in the past. 4. Metabolic acidosis secondary to acute kidney injury. Status post bicarb drip. Improved. Now on oral bicarbonate. 5. Hypocalcemia secondary to acute kidney injury. Improved. 6. Poor appetite and leg cramping due to uremia. 7. Anemia of chronic kidney disease. Iron deficiency noted - s/p IV iron. 8. Hyperphosphatemia secondary to chronic kidney disease maintained on PhosLo. Plan: Hemodialysis tomorrow. Could not be done yesterday due to his mental state. manager product management to set up outpatient hemodialysis.
--- NOTE | 2020-12-30 10:47 | P.PN ---
Subjective Chief Complaint: Shortness of breath and fatigue and back cramps is a 65-year-old male with a past medical history of hypertension, coronary artery disease, CVA/TIA, supraventricular tachycardia, s/p left nephrectomy for renal cell carcinoma, CKD stage IV coming in with a chief complaint of fatigue shortness of breath and trapping of his lower extremities. Patient states that his difficulty in breathing is progressively worsened over the past 1 week and he also complained of decreased urinary output. Patient denies having any chest pain or palpitations. He denies having any cough or sputum production. No abdominal pain nausea vomiting or diarrhea. No dysuria or hematuria. In the ED at the time of admission patient's temperature 97.6, heart rate 87, respiratory 24, blood pressure 134/82 saturating at 97.8. A.m. labs done showing white count of 6.7, hemoglobin 9.3, platelets 207. D-dimer of 0.68. Sodium 142, potassium 4.9, chloride 116, bicarb 14, BUN 97 and creatinine of 10.63 patient's creatinine is around 4 at baseline. Patient had a chest x-ray done showing a large right upper lobe mass suspicious for primary tumor and so he had a chest CT showing 6.9 cm lobulated right upper lobe mass worrisome for neoplasm. He is admitted for further management. 12/26/2020 Patient is seen in follow-up this morning currently receiving ultrafiltration with hemodialysis nurse at the bedside. Patient was reportedly having some right chest wall discomfort at the dialysis site with some mild anxiety and given small dose of Xanax as needed and states improved. Patient continues on gentle IV hydration along with sodium bicarb tablets per nephrology recommendations with nephrology following closely. Pulmonary also following closely with possible bronchoscopy this Thursday with a transbronchial biopsy of the right upper lobe mass if stabilized. Patient continues on 2 L via nasal cannula and states he does not wear oxygen in the outpatient setting. Oxygen saturation is 99% on 2 L. Patient is afebrile. Sodium is 143 with a potassium of 4.0 current creatinine slightly improved at 7.85 with a BUN of 85. Hepatitis B testing antibody is equivocal and hepatitis B core total antibody is reactive a. Magnesium is 1.7 today. 12/27/2020 Patient is seen this morning awaiting to receive hemodialysis again today and will hold tomorrow as plans are for bronchoscopy with biopsy of the right lung mass with pulmonary. Patient is on subcutaneous heparin and will hold prior to procedure. Patient currently sitting up at the site of the bed in no acute distress currently on room air with oxygen saturations of 94%. Patient also receiving IV iron infusions. Patient continues on sodium bicarb tablets and will continue. Sodium today is 142 with a potassium of 4.1, BUN is 46 and creatinine is 5.2. Magnesium is 1.5 and will replace and repeat labs. 12/28/2020 Patient is seen in follow-up this morning with no acute overnight issues. Patient is scheduled to have a bronchoscopy with right lung mass biopsy today with pulmonary. Nephrology also following. No plans for hemodialysis today and will repeat labs and monitor closely. White blood count is 8.5 with a hemoglobin of 9.0, sodium is 136, potassium is 3.8, BUN is 32 with a creatinine of 4.21. Vital signs are stable. Patient is sitting up in the bed comfortably with oxygen saturation of 97% on room air. Patient denies any worsening shortness of breath, chest pain, or palpitations. 12/29/2020 Patient was quite a bit agitated last night because of which patient was receiving Ativan which I discontinued and patient was started on antipsychotic psychiatry evaluated the patient, did not give any recommendations regarding the medications will check with psychiatry again. Patient was petitioned. Psychiatrist was doesn't believe patient can make his own decisions. Patient is presently receiving Geodon and Haldol as needed basis. 12/30/2020 Patient is alert oriented 3 now patient is more reasonable but not making appropriate dictations although patient I believe patient can make his own decision patient is agreeable to get hemodialysis today if that can be done as this is not emergent hemodialysis, hemodialysis will be scheduled for tomorrow we'll obtain a basic metabolic profile today. Patient is not volume overloaded doesn't have any significant intercurrent abnormalities although we will obtain a basic metabolic profile today. Patient is requesting his pants and wallet which probably will calm him. Patient probably had delirium from anesthetic agents and Ativan made it worse. I'll request psychiatry to reevaluate the patient as I believe patient can make his own decision and may not need inpatient psychiatric hospitalization. Patient is agreeable in hemodialysis tomorrow after that hemodialysis will be arranged as an outpatient tomorrow and possibility of discharge tomorrow. Constitutional: Denied any fatigue denied any fever. Cardio vascular: denied any chest pain, palpitations Gastrointestinal denied any nausea vomiting Pulmonary: Denied any shortness of breath cough Neurologic denied any new focal deficits All inpatient medications were reviewed and appropriate changes in these medications as dictated in the interval history and assessment and plan. - Exam GENERAL: This is a 65-year-old male sleeping well-developed, well-nourished in no acute distress HEENT: Pupils are round and equally reacting to light. EOMI. No scleral icterus. No conjunctival pallor. CARDIOVASCULAR: S1 and S2 present. No murmurs, rubs, or gallops. PULMONARY: Bilateral breath sounds positive. ABDOMEN: Soft, Non -tender , Bowel sounds hypoactive. MUSCULOSKELETAL: No joint swelling or deformity. EXTREMITIES: No edema NEUROLOGICAL: No focal deficits patient is alert oriented 3 SKIN:No rash Assessment and plan: Acute kidney injury, status post permacath placement and started on hemodialysis, unfortunately he didn't receive hemodialysis for last couple days because of agitation and patient is agreeable for hemodialysis today patient has a solitary right kidney with the 4 chronic kidney disease. Right lung upper lobe mass measuring up to 6 cm concerning for neoplasm, patient is status post bronchoscopy and biopsy CKD stage IV -Episodes of agitation most probably because of sedatives, which were discontinued patient will be started on antipsychotics she is more appropriate today I'll request a candidate to be evaluated the patient. Toxic encephalopathy and delirium secondary to medications and anesthetic agents. Non-anion gap metabolic acidosis secondary to renal failure History of renal cell carcinoma status post left nephrectomy Anemia of chronic disease Hypertension History of coronary artery disease Nicotine dependence History of CVA/TIA Objective - Vital Signs Vital signs: Vital Signs Temp 97.6 F 12/28/20 15:22 Pulse 73 12/28/20 15:52 Resp 14 12/28/20 15:52 BP 156/94 12/28/20 15:52 Pulse Ox 96 12/28/20 15:52 Intake & Output 12/29/20 12/30/20 12/30/20 18:59 06:59 18:59 Other: Voiding Method Toilet Toilet Urinal Urinal # Voids 1 - Labs CBC & Chem 7: 12/28/20 04:36 12/28/20 04:36 Labs: Microbiology - Last 24 Hours (Table) 12/28/20 14:51 Gram Stain - Final Bronchial Washings - Random Bronchial Washings Culture - Final 12/28/20 14:51 Acid Fast Bacilli Smear - Final Bronchial Washings - Right Acid Fast Bacilli Culture - Preliminary
--- NOTE | 2020-12-30 15:44 | P.PN ---
Subjective Progress Note Date: 12/30/20 Principal diagnosis: Lung Mass Sitter/Security outside, he is laying in bed, answers questions Objective - Vital Signs Vital signs: Vital Signs Temp 97.6 F 12/28/20 15:22 Pulse 73 12/28/20 15:52 Resp 14 12/28/20 15:52 BP 156/94 12/28/20 15:52 Pulse Ox 96 12/28/20 15:52 Intake & Output 12/29/20 12/30/20 12/30/20 18:59 06:59 18:59 Other: Voiding Method Toilet Toilet Urinal Urinal # Voids 1 - Exam Constitutional General appearance: Present: no acute distress - EENT Eyes: Present: EOMI ENT: Present: hearing grossly normal, normal oropharynx - Respiratory Respiratory: right: diminished - Cardiovascular Rhythm: regular Heart sounds: normal: S1, S2 - Gastrointestinal General gastrointestinal: Present: soft - Integumentary Integumentary: Present: normal - Neurologic Neurologic: Present: CNII-XII intact - Musculoskeletal Musculoskeletal: Present: generalized weakness, strength equal bilaterally - Psychiatric Psychiatric Comment(s): as per HPI at the time of my exam the patient was calm, with appropriate responses - Labs CBC & Chem 7: 12/28/20 04:36 12/28/20 04:36 Labs: Microbiology - Last 24 Hours (Table) 12/28/20 14:51 Gram Stain - Final Bronchial Washings - Random Bronchial Washings Culture - Final 12/28/20 14:51 Acid Fast Bacilli Smear - Final Bronchial Washings - Right Acid Fast Bacilli Culture - Preliminary Assessment and Plan Plan: Assessment and Plan (1) Lung mass Narrative/Plan: - Status POst Bronchoscopy, awaiting path. Current Visit: Yes Status: Acute Priority: High Code(s): R91.8 - OTHER NONSPECIFIC ABNORMAL FINDING OF LUNG FIELD SNOMED Code(s): 462125879 (2) Acute on chronic renal failure - the patient is currently on dialysis which she is tolerating well. Continue treatment per nephrology Current Visit: Yes Status: Acute Code(s): N17.9 - ACUTE KIDNEY FAILURE, UNSPECIFIED; N18.9 - CHRONIC KIDNEY DISEASE, UNSPECIFIED SNOMED Code(s): 103685371 MOnitor daily CBC
[2020-12-30] MEDS: ACETAMINOPHEN TAB 325 MG TAB PO PRN (21:11)
[2020-12-30] MEDS: ALPRAZolam 0.25 MG TAB PO PRN (21:11)
[2020-12-30 22:30] LABS: Basophils # (A) 0.1 k/uL (0-0.2); Basophils % (A) 1 %; Eosinophils # (A) 0.2 k/uL (0-0.7); Eosinophils % (A) 2 %; HCT 29.8 % (39.0-53.0); HGB 9.6 gm/dL (13.0-17.5); Hypochromasia Slight; Lymphocytes # (A) 1.9 k/uL (1.0-4.8); Lymphocytes % (A) 18 %; MCH 28.1 pg (25.0-35.0); MCHC 32.2 g/dL (31.0-37.0); Mean Platelet Volume 8.3; Monocytes # (A) 1.2 k/uL (0-1.0); Monocytes % (A) 11 %; Neutrophils # (A) 7.2 k/uL (1.3-7.7); Neutrophils % (A) 67 %; Platelet Count 160 k/uL (150-450); RBC 3.42 m/uL (4.30-5.90); RDW 15.4 % (11.5-15.5); WBC 10.8 k/uL (3.8-10.6)
[2020-12-30 22:31] LABS: ALT 18 U/L (4-49); AST 24 U/L (17-59); African American GFR (CKD) 8 (>60 ml/min/1.73 sqM); Albumin 3.6 g/dL (3.5-5.0); Albumin/Globulin Ratio 1.1; Alkaline Phosphatase 99 U/L (38-126); Anion Gap 13 mmol/L; Blood Urea Nitrogen 68 mg/dL (9-20); Calcium 7.5 mg/dL (8.4-10.2); Carbon Dioxide 21 mmol/L (22-30); Chloride 109 mmol/L (98-107); Globulin 3.2 g/dL; Glucose 97 mg/dL (74-99); Magnesium 2.3 mg/dL (1.6-2.3); Non-African American GFR(CKD) 7 (>60 ml/min/1.73 sqM); Potassium 4.2 mmol/L (3.5-5.1); Sodium 143 mmol/L (137-145); Total Bilirubin 0.2 mg/dL (0.2-1.3); Total Protein 6.8 g/dL (6.3-8.2)
[2020-12-31] MEDS: CALCIUM ACETATE 667 MG TAB PO SCH ×3 (03:19→12:40)
[2020-12-31] MEDS: HEPARIN SODIUM,PORCINE/PF 5,000 UNIT/0.5 ML SYRINGE SQ SCH ×2 (03:19→07:26)
[2020-12-31] MEDS: SODIUM BICARBONATE TAB 650 MG TAB PO SCH ×2 (03:20→07:26)
[2020-12-31 05:05] VITALS: PULSE 79; RESP 20
[2020-12-31 05:08] VITALS: BP 115/76; TEMP 98.2
[2020-12-31] MEDS: NICOTINE 21MG/24HR PATCH TRANSDERM SCH (07:26)
[2020-12-31] MEDS: carvediloL 12.5 MG TAB PO SCH (07:26)
[2020-12-31] MEDS: SODIUM CHLORIDE 0.9% 1,000 ML IV SCH (09:23)
--- NOTE | 2020-12-31 12:40 | P.PN ---
Subjective Progress Note Date: 12/31/20 Principal diagnosis: Right upper lobe mass This is a 67-year-old male patient, known history of CAD, known history of ischemic cardiomyopathy with an ejection fraction of 20%, coming in for worsening dyspnea. He denied having any chest pain. He was quite exhausted, tired and he had some slight cough without any significant sputum production. No angina. No palpitation. The patient was started on a combination of antibiotics utilizing a combination of Rocephin and Zithromax. His white cell count was at 9.3 as was nonelevated. BUN was 21 with a creatinine of 1.1. His proBNP level was 2660 and a proton syndrome and level was nonelevated at 0.12. The CT angiogram showed areas of scattered groundglass pulmonary infiltrates bilaterally. Overnight the testing is been negative patient has taken his COVID-19 vaccination. Cultures are negative thus far and the patient is responding nicely to diuretics. He is currently on Lasix 40 mg IV every 8 hours. A repeat chest x-ray was done that showed presence of patchy airspace pulmonary infiltrates although this was improving compared to the earlier chest x-ray was done on admission. Cardiac the patient is on room air oxygen. His cardiac rhythm is in atrial fibrillation. The echocardiogram shows an ejection fraction of less than 20%. Most of any chronic lung disease. No cervical emphysema and asthma. He is a nonsmoker. No supple with fibrosis. 12/26/2020, the patient is feeling better. Less short of breath. Diuresing well. No significant cough sputum production chest tightness or wheezing. He was switched to oral Lasix. He remains in atrial fibrillation. The plan is to undergo cardioversion tomorrow. He remains on long-term and to coagulation with Eliquis. Aldactone was added to his regimen. He is on oral Lasix for now. No nausea. No vomiting. No chest pain. No other new complaints otherwise for now. Note that on today's blood work, creatinine is up to 1.4 The patient is seen today 12/27/2020 in follow-up on the regular medical floor. He is currently resting comfortably in bed. Maintaining good O2 saturations in the 90s on room air. He's afebrile. Hemodynamically stable. Sodium 142. Potassium 4.1. Creatinine 5.2. The plan is for hemodialysis again today. He remains on bronchodilators. Heparin for DVT prophylaxis. 12/28/2020, the patient is a specific complaints. He was undergoing regular dialysis and he is hemodynamically stable. No respiratory difficulties. No significant cough sputum production chest tightness or wheezing. No hemoptysis. The plan was to proceed with a navigational bronchoscopy and right upper lobe biopsy regarding the possibility of a right upper lobe malignancy/tumor. This he was weaned to the patient's and the patient was agreeable to that. The patient was brought to the endoscopy suite. Under general anesthesia, navigat ional bronchoscopy was completed and the patient was transferred recovery in stable condition. He remained hemodynamically stable throughout the procedure. Biopsies of the right upper lobe brushing of the right upper lobe lavage of the right upper lobe posterior segment mass was obtained without any issues. No bleeding was encountered. Preop hemoglobin was stable at 9.0. Preop creatinine was 4.2 with a potassium level of 3.8. The patient is seen today 12/29/2020 in follow-up on the regular medical floor. He is maintaining good O2 saturations in the 90s on room air. He did undergo bronchoscopy with biopsies of the right upper lobe lesion yesterday. Pathology pending. Today he is been late aggressive and uncooperative. Security is at the bedside. Mr. Hatch have been called 2. Possible brain metastasis. On 12/31/2020 patient seen in follow-up on medical oncology floor, he is currently resting comfortably in bed, he is calm and cooperative, he is oriented 3, she denies any breathing issues, he is currently having hemodialysis treatment done. Her pulse ox is 98%, patient says bronchoscopy with biopsies of the right upper lobe, and his biopsy results are still pending at this time, vital signs have been stable. No acute issues overnight. His labs have been noted. Patient is on is needed Xanax, and is needed Haldol for psychosis. Patient was evaluated by psychiatry services, he did not meet the criteria for inpatient psychiatric hospitalization. However periodically patient has been combative and uncooperative. Appears calm and comfortable and cooperative du ring our rounds. Objective - Vital Signs Vital signs: Vital Signs Temp 98.2 F 12/31/20 04:50 Pulse 79 12/31/20 04:50 Resp 20 12/31/20 04:50 BP 115/76 12/31/20 04:50 Pulse Ox 98 12/31/20 04:50 Intake & Output 12/30/20 12/31/20 12/31/20 18:59 06:59 18:59 Intake Total 200 Balance 200 Intake: Oral 200 Other: Voiding Method Toilet Toilet Urinal # Voids 1 2 - Exam GENERAL EXAM: Alert, cooperative, 65-year-old -Spanish male on room air, with pulse ox of 98% comfortable in no apparent distress. HEAD: Normocephalic/atraumatic. EYES: Normal reaction of pupils, equal size. Conjunctiva pink, sclera white. NOSE: Clear with pink turbinates. THROAT: No erythema or exudates. NECK: No masses, no JVD, no thyroid enlargement, no adenopathy. CHEST: No chest wall deformity. Symmetrical expansion. Right upper chest permacath dialysis catheter LUNGS: Equal air entry with no crackles, wheeze, rhonchi or dullness. CVS: Regular rate and rhythm, normal S1 and S2, no gallops, no murmurs, no rubs ABDOMEN: Soft, nontender. No hepatosplenomegaly, normal bowel sounds, no guarding or rigidity. EXTREMITIES: No clubbing, no edema, no cyanosis, 2+ pulses and upper and lower extremities. MUSCULOSKELETAL: Muscle strength and tone normal. SPINE: No scoliosis or deformity SKIN: No rashes CENTRAL NERVOUS SYSTEM: Alert and oriented -3. No focal deficits, tone is normal in all 4 extremities. PSYCHIATRIC: Alert and oriented -3. Appropriate affect. Intact judgment and insight. - Labs CBC & Chem 7: 12/30/20 21:33 12/30/20 21:33 Labs: Abnormal Lab Results - Last 24 Hours (Table) 12/30/20 12/30/20 Range/Units 21:33 21:33 WBC 10.8 H (3.8-10.6) k/uL RBC 3.42 L (4.30-5.90) m/uL Hgb 9.6 L (13.0-17.5) gm/dL Hct 29.8 L (39.0-53.0) % Monocytes # 1.2 H (0-1.0) k/uL Chloride 109 H (98-107) mmol/L Carbon Dioxide 21 L (22-30) mmol/L BUN 68 H (9-20) mg/dL Creatinine 7.48 H* (0.66-1.25) mg/dL Calcium 7.5 L (8.4-10.2) mg/dL Microbiology - Last 24 Hours (Table) 12/28/20 14:51 Gram Stain - Final Bronchial Washings - Random Bronchial Washings Culture - Final Assessment and Plan Plan: 1 right upper lobe mass measuring as large as 6 cm in size, highly suspicious for primary bronchogenic carcinoma of the lung. Metastatic disease less likely based on the CAT scan images and the radiographic presentation. Status post navigation bronchoscopy with biopsy of the right upper lobe on 12/28/2020. Pathology pending. 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 2 history of kidney cancer, probably in the form of renal cell carcinoma with a previous nephrectomy 3 acute on top of chronic kidney disease. The patient presents with a creatinine of 10 and the patient has a single kidney for now. Nephrology is following, renal function improved slightly 4 shortness of breath secondary to above 5 non-anion gap metabolic acidosis 6 anemia of chronic disease, with a possibility of iron deficiency of the patient's MCV has been low. Plan: Awaiting results of the biopsy of the right upper lobe mass Breathing comfortably, patient is on room air Vital signs are stable Cooperative this morning, continues on Haldol for psychosis and delirium Stable from pulmonary perspective could be considered for discharge either home or ECF We'll defer to the primary care services on that decision Patient states he will follow up with the doctors Does not need to be inpatient while awaiting results of the biopsy He will however need follow-up in the office with medical oncology, and Dr. Brewer I performed a history & physical examination of the patient and discussed their management with my nurse practitioner, Monika Westfall. I reviewed the nurse practitioner's note and agree with the documented findings and plan of care. Lung sounds are positive for diminished breath sounds. The findings and the impression was discussed with the patient. I attest to the documentation by the nurse practitioner. Time with Patient: Less than 30
--- NOTE | 2020-12-31 12:58 | P.PN ---
Progress Note - Text Progress Note Date: 12/31/20 SUBJECTIVE: Patient was seen at bedside. Currently, the patient is not reporting any significant issues at this time. He is calmly eating his lunch. He is currently denying any suicidal or homicidal ideation, intention, and/or plan. He is denying any auditory or visualizations. He reports no paranoia or other delusions. The patient denies any confusion at this time. He is alert and oriented to person, place, and time. The patient does express a strong desire to go home. He does report that he had some difficulty with sleep last night but attributes it to his environment. He is otherwise not reporting any acute psychiatric pathology. OBJECTIVE: MENTAL STATUS EXAM: General Appearance: Patient appears to be stated age is alert, directable, and cooperative. Behavior: Patient is calmly seated without any agitated behavior. Patient is calmly eating his lunch. Speech: Patient's speech is fluent and nonpressured. Spontaneous, with normal rate, tone, and volume. Mood/Affect: Mood is "feeling good", affect is congruent and constricted. Suicidality/Homicidality: Patient denies having any suicidal or homicidal ideation intent or plan. Perceptions: Patient denies any visual hallucinations and denies any auditory hallucinations Though content/process: There is no evidence of any delusional thought content and thought process is linear and goal-directed. Memory and concentration: AOX3, grossly intact for the purposes of this session Judgment and insight: Improved Vital Signs Temp 98.2 F 12/31/20 04:50 Pulse 79 12/31/20 04:50 Resp 20 12/31/20 04:50 BP 115/76 12/31/20 04:50 Pulse Ox 98 12/31/20 04:50 Intake & Output 12/30/20 12/31/20 12/31/20 18:59 06:59 18:59 Intake Total 200 Balance 200 Intake: Oral 200 Other: Voiding Method Toilet Toilet Urinal # Voids 1 2 Laboratory Results - Last 24 Hours 12/30/20 12/30/20 12/30/20 21:33 21:33 21:33 WBC 10.8 H RBC 3.42 L Hgb 9.6 L Hct 29.8 L MCV 87.0 MCH 28.1 MCHC 32.2 RDW 15.4 Plt Count 160 MPV 8.3 Neutrophils % 67 Lymphocytes % 18 Monocytes % 11 Eosinophils % 2 Basophils % 1 Neutrophils # 7.2 Lymphocytes # 1.9 Monocytes # 1.2 H Eosinophils # 0.2 Basophils # 0.1 Hypochromasia Slight Sodium 143 Potassium 4.2 Chloride 109 H Carbon Dioxide 21 L Anion Gap 13 BUN 68 H Creatinine 7.48 H* Est GFR (CKD-EPI)AfAm 8 Est GFR (CKD-EPI)NonAf 7 Glucose 97 Plasma Lactic Acid Ramón 0.9 Calcium 7.5 L Magnesium 2.3 Total Bilirubin 0.2 AST 24 ALT 18 Alkaline Phosphatase 99 Total Protein 6.8 Albumin 3.6 Globulin 3.2 Albumin/Globulin Ratio 1.1 ASSESSMENT: Altered mental status, resolved - likely secondary to acute metabolic encephalopathy PLAN: -At this time patient DOES NOT meet criteria for inpatient psychiatric admission. -Delirium precautions recommended with patient including - avoiding use of narcotics and RESIDENTIAL PROGRAM COORDINATOR sedatives, limit anticholinergic medications when possible, frequent re-orientation, minimize use of restraints, open window shades during the day and close them at night -Would recommend the following medication changes/additions: No medication recommendations at this time. -Discontinue 1:1 sitter -Psychiatry will sign off at this point, please contact with any questions.Patient is cleared psychiatrically for discharge.
[2020-12-31 14:19] VITALS: BMI 27.8
--- NOTE | 2020-12-31 15:17 | P.PN ---
Subjective Progress Note Date: 12/31/20 Principal diagnosis: Lung Mass Patient needs an MRI of the Brain, this will need to be coordinated with Nephrology and dialysis. Discussed with primary team to ensure prior to dis charge. . Objective - Vital Signs Vital signs: Vital Signs Temp 98.2 F 12/31/20 04:50 Pulse 79 12/31/20 04:50 Resp 20 12/31/20 04:50 BP 115/76 12/31/20 04:50 Pulse Ox 98 12/31/20 04:50 Intake & Output 12/30/20 12/31/20 12/31/20 18:59 06:59 18:59 Intake Total 200 Balance 200 Weight 90.718 kg Intake: Oral 200 Other: Voiding Method Toilet Toilet Urinal # Voids 1 2 - Exam Constitutional General appearance: Present: no acute distress - EENT Eyes: Present: EOMI ENT: Present: hearing grossly normal, normal oropharynx - Respiratory Respiratory: right: diminished - Cardiovascular Rhythm: regular Heart sounds: normal: S1, S2 - Gastrointestinal General gastrointestinal: Present: soft - Integumentary Integumentary: Present: normal - Neurologic Neurologic: Present: CNII-XII intact - Musculoskeletal Musculoskeletal: Present: generalized weakness, strength equal bilaterally - Psychiatric Psychiatric Comment(s): as per HPI at the time of my exam the patient was calm, with appropriate responses - Labs CBC & Chem 7: 12/30/20 21:33 12/30/20 21:33 Labs: Abnormal Lab Results - Last 24 Hours (Table) 12/30/20 12/30/20 Range/Units 21:33 21:33 WBC 10.8 H (3.8-10.6) k/uL RBC 3.42 L (4.30-5.90) m/uL Hgb 9.6 L (13.0-17.5) gm/dL Hct 29.8 L (39.0-53.0) % Monocytes # 1.2 H (0-1.0) k/uL Chloride 109 H (98-107) mmol/L Carbon Dioxide 21 L (22-30) mmol/L BUN 68 H (9-20) mg/dL Creatinine 7.48 H* (0.66-1.25) mg/dL Calcium 7.5 L (8.4-10.2) mg/dL Assessment and Plan Plan: Assessment and Plan (1) Lung mass Narrative/Plan: - Status POst Bronchoscopy, awaiting path. Current Visit: Yes Status: Acute Priority: High Code(s): R91.8 - OTHER NONSPECIFIC ABNORMAL FINDING OF LUNG FIELD SNOMED Code(s): 960592398 (2) Acute on chronic renal failure - the patient is currently on dialysis which she is tolerating well. Continue treatment per nephrology Current Visit: Yes Status: Acute Code(s): N17.9 - ACUTE KIDNEY FAILURE, UNSPECIFIED; N18.9 - CHRONIC KIDNEY DISEASE, UNSPECIFIED SNOMED Code(s): 744665672 MOnitor daily CBC Will need further staging with MRI Brain with COntrast - PLease cordinate with diaylysis
--- NOTE | 2020-12-31 18:09 | PN ---
PROGRESS NOTE Patient is seen for followup for chronic kidney disease. Newly started on renal replacement therapy. The patient is currently seen on dialysis. He is tolerating his treatment fairly well. PHYSICAL EXAMINATION: Blood pressure 115/76, heart rate 79 per minute, he is afebrile. Examination of the heart S1, S2. Examination of the lungs, decreased breath sounds at the bases. Abdomen is soft, nontender. Examination of lower extremities shows no significant edema. DINING MANAGER exam grossly intact. LAB: Show sodium 143, potassium 4.2 from 12/30/2020. ASSESSMENT: 1. Chronic kidney disease with progressive renal failure, started on hemodialysis. The patient will be going to the [facility] on a Thursday, Thursday, Thursday schedule. Etiology is a solitary kidney and nephrosclerosis. 2. Lung mass, being followed by Pulmonary and Oncology. 3. Renal cell cancer status post left nephrectomy. 4. Metabolic acidosis associated with renal failure. 5. Hyperphosphatemia, maintained on PhosLo. PLAN: Hemodialysis today. Await outpatient chair time and placement. MMODL / IJN: [id number] /
--- NOTE | 2021-01-01 09:35 | P.DS ---
Providers Date of admission: 12/24/20 20:04 Expected date of discharge: 12/31/20 Attending physician: Lucas Tinsley MD Consults: 12/24/20 20:04 Consult Physician Urgent Consulting Provider: Rickey Leon Consult Reason/Comments: Lung mass Do you want consulting provider notified?: Yes Consult Physician Urgent Consulting Provider: Chad Rajput Consult Reason/Comments: Acute on chronic renal failure Do you want consulting provider notified?: Yes Consult Physician Urgent Consulting Provider: Jania Lloyd Consult Reason/Comments: Lung mass Do you want consulting provider notified?: Yes 12/25/20 08:32 Consult Physician Routine Consulting Provider: Jacob Neal Consult Reason/Comments: Permanent Dialysis Catheter Placement Do you want consulting provider notified?: Yes 12/28/20 19:27 Consult Physician Routine Consulting Provider: Rigoberto Singh Consult Reason/Comments: Change in mentation Do you want consulting provider notified?: Yes, Notify in am Primary care physician: Hansa Freeman Hospital Course: Final diagnosis Acute kidney injury, status post permacath placement and started on hemodialysis Right lung upper lobe mass measuring up to 6 cm concerning for neoplasm, patient is status post bronchoscopy and biopsy CKD stage IV Episodes of agitation most probably because of sedatives, which were discontinued Toxic encephalopathy and delirium secondary to medications and anesthetic agents. Resolved Non-anion gap metabolic acidosis secondary to renal failure History of renal cell carcinoma status post left nephrectomy Anemia of chronic disease Hypertension History of coronary artery disease Nicotine dependence History of CVA/TIA Discharge disposition Patient is being discharged in a stable condition with guarded prognosis to home. Patient will follow-up with in the outpatient setting upon discharge. Patient is to follow-up with pulmonary patient for test results along with oncology and nephrology. Patient is to continue with hemodialysis as scheduled. Total time taken is greater than 35 minutes. hospital course Chief Complaint: Shortness of breath and fatigue and back cramps is a 65-year-old male with a past medical history of hypertension, coronary artery disease, CVA/TIA, supraventricular tachycardia, s/p left nephrectomy for renal cell carcinoma, CKD stage IV coming in with a chief complaint of fatigue shortness of breath and trapping of his lower extremities. Patient states that his difficulty in breathing is progressively worsened over the past 1 week and he also complained of decreased urinary output. Patient denies having any chest pain or palpitations. He denies having any cough or sputum production. No abdominal pain nausea vomiting or diarrhea. No dysuria or hematuria. In the ED at the time of admission patient's temperature 97.6, heart rate 87, respiratory 24, blood pressure 134/82 saturating at 97.8. A.m. labs done showing white count of 6.7, hemoglobin 9.3, platelets 207. D-dimer of 0.68. Sodium 142, potassium 4.9, chloride 116, bicarb 14, BUN 97 and creatinine of 10.63 patient's creatinine is around 4 at baseline. Patient had a chest x-ray d one showing a large right upper lobe mass suspicious for primary tumor and so he had a chest CT showing 6.9 cm lobulated right upper lobe mass worrisome for neoplasm. He is admitted for further management. 12/26/2020 Patient is seen in follow-up this morning currently receiving ultrafiltration with hemodialysis nurse at the bedside. Patient was reportedly having some right chest wall discomfort at the dialysis site with some mild anxiety and given small dose of Xanax as needed and states improved. Patient continues on gentle IV hydration along with sodium bicarb tablets per nephrology re commendations with nephrology following closely. Pulmonary also following closely with possible bronchoscopy this Thursday with a transbronchial biopsy of the right upper lobe mass if stabilized. Patient continues on 2 L via nasal cannula and states he does not wear oxygen in the outpatient setting. Oxygen saturation is 99% on 2 L. Patient is afebrile. Sodium is 143 with a potassium of 4.0 current creatinine slightly improved at 7.85 with a BUN of 85. Hepatitis B testing antibody is equivocal and hepatitis B core total antibody is reactive a. Magnesium is 1.7 today. 12/27/2020 Patient is seen this morning awaiting to receive hemodialysis again today and will hold tomorrow as plans are for bronchoscopy with biopsy of the right lung mass with pulmonary. Patient is on subcutaneous heparin and will hold prior to procedure. Patient currently sitting up at the site of the bed in no acute distress currently on room air with oxygen saturations of 94%. Patient also receiving IV iron infusions. Patient continues on sodium bicarb tablets and will continue. Sodium today is 142 with a potassium of 4.1, BUN is 46 and creatinine is 5.2. Magnesium is 1.5 and will replace and repeat labs. 12/28/2020 Patient is seen in follow-up this morning with no acute overnight issues. Patient is scheduled to have a bronchoscopy with right lung mass biopsy today with pulmonary. Nephrology also following. No plans for hemodialysis today and will repeat labs and monitor closely. White blood count is 8.5 with a hemoglobin of 9.0, sodium is 136, potassium is 3.8, BUN is 32 with a creatinine of 4.21. Vital signs are stable. Patient is sitting up in the bed comfortably with oxygen saturation of 97% on room air. Patient denies any worsening shortness of breath, chest pain, or palpitations. 12/29/2020 Patient was quite a bit agitated last night because of which patient was receiving Ativan which I discontinued and patient was started on antipsychotic psychiatry evaluated the patient, did not give any recommendations regarding the medications will check with psychiatry again. Patient was petitioned. Psychiatrist was doesn't believe patient can make his own decisions. Patient is presently receiving Geodon and Haldol as needed basis. 12/30/2020 Patient is alert oriented 3 now patient is more reasonable but not making appropriate dictations although patient I believe patient can make his own decision patient is agreeable to get hemodialysis today if that can be done as this is not emergent hemodialysis, hemodialysis will be scheduled for tomorrow we'll obtain a basic metabolic profile today. Patient is not volume overloaded doesn't have any significant intercurrent abnormalities although we will obtain a basic metabolic profile today. Patient is requesting his pants and wallet which probably will calm him. Patient probably had delirium from anesthetic agents and Ativan made it worse. I'll request psychiatry to reevaluate the patient as I believe patient can make his own decision and may not need inpatient psychiatric hospitalization. Patient is agreeable in hemodialysis tomorrow after that hemodialysis will be arranged as an outpatient tomorrow and possibility of discharge tomorrow. 12/31/2020 Patient is seen in follow-up today with no acute issues noted. Patient currently receiving hemodialysis and will continue in the outpatient setting at [facility] and will follow-up closely with nephrology. Patient will also need to follow-up with pulmonary for test results and oncology for further testing and treatment plan. Patient instructed to follow-up with primary care provider upon discharge. patient needs outpatient PET scan along with MRI of the brain in the outpatient setting but ultimately needs improved kidney function testing as MRI needs to be with contrast and will need to continue with hemodialysis and follow-up closely with nephrology along with oncology. Patient was seen and evaluated by psychiatry recommending outpatient counseling within the community. Currently no reports of chest pain, shortness of breath, or palpitations. Patient is afebrile. No reports of nausea or vomiting and patient is tolerating diet. Patient will discharged home today. On exam vital signs are stable. Cardio S1, S2 are muffled. Respiratory system shows diminished breath sounds at the bases with no wheezing or rhonchi noted. Abdomen is soft and obese, and nontender. Nervous system shows no focal deficits. Please refer to medication reconciliation sheet for a list of medications. Patient Condition at Discharge: Stable Plan - Discharge Summary New Discharge Prescriptions: New Famotidine [Pepcid] 20 mg PO DAILY 30 Days #30 tab Calcium Acetate [PhosLo] 667 mg PO TID-W/MEALS 30 Days #90 tab Sodium Bicarbonate Tab 650 mg PO BID 30 Days #60 tab Acetaminophen Tab [Tylenol] 650 mg PO Q6HR PRN tab PRN Reason: Fever And/ Or Pain Continue carvediloL [Coreg*] 25 mg PO BID-W/MEALS #60 tab Nitroglycerin Sl Tabs [Nitrostat] 0.4 mg SUBLINGUAL Q5M PRN #30 tab PRN Reason: Chest Pain Discontinued amLODIPine [Norvasc] 10 mg PO DAILY #30 tab Potassium Gluconate 99 mg PO DAILY PRN PRN Reason: hypokalemia Discharge Medication List Nitroglycerin Sl Tabs [Nitrostat] 0.4 mg SUBLINGUAL Q5M PRN #30 tab 08/29/18 [Rx] carvediloL [Coreg*] 25 mg PO BID-W/MEALS #60 tab 08/29/18 [Rx] Acetaminophen Tab [Tylenol] 650 mg PO Q6HR PRN tab 12/31/20 [Rx] Calcium Acetate [PhosLo] 667 mg PO TID-W/MEALS 30 Days #90 tab 12/31/20 [Rx] Famotidine [Pepcid] 20 mg PO DAILY 30 Days #30 tab 12/31/20 [Rx] Sodium Bicarbonate Tab 650 mg PO BID 30 Days #60 tab 12/31/20 [Rx] Follow up Appointment(s)/Referral(s): Hansa Freeman MD [Primary Care Provider] - 1-2 days (They are only doing same day appointments they said to call on the day you need the appointment and they will schedule you please call either thursday or morning.) Chad Rajput DO [STAFF PHYSICIAN] - 1 Week (The office states you will see the doctor at your next dialysis appointment.) Jagdish Brewer MD [STAFF PHYSICIAN] - 01/09/21 9:45 am (Please arrive at 9:30.) Patient Instructions/Handouts: Famotidine (By mouth), Calcium Acetate (By mouth), Sodium Bicarbonate (By mouth), Chronic Kidney Disease (GEN), Dyspnea (DC) Activity/Diet/Wound Care/Special Instructions: [facility] # Activity Limited until follow-up Follow-up with primary care provider upon discharge Follow-up with oncology outpatient to discuss treatment plan and further options along with additional testing needed outpatient Follow-up with pulmonary in one week for test results Continue with hemodialysis Closely follow-up with nephrology outpatient Continue renal diet low potassium, low phosphorus, low sodium Discharge Disposition: HOME SELF-CARE
--- NOTE | 2021-01-02 05:33 | CDI ---
Documentation Clarification Form Date: 01/01/2021 11:16:00 AM From: Lizet Goode Admit Date: 12/24/2020 08:04:00 PM Patient Name: David Owens Visit Number: [id number] Discharge Date: 12/31/2020 04:26:00 PM ATTENTION: The Clinical Documentation Specialists (CDI) and [facility] Coding Staff appreciate your assistance in clarifying documentation. Please respond to the clarification below the line at the bottom and electronically sign. The CDI & [facility] Coding staff will review the response and follow-up if needed. Please note: Queries are made part of the Legal Health Record. If you have any questions, please contact the author of this message via ITS. Dr. Jagdish Brewer, Atrial Fibrillation is documented in your PNs 12/27, 12/28, 12/29 & 12/31, Additional clarification regarding the type of atrial fibrillation is requested. History/Risk Factors: ARF with HTN w ESRD, RUL mass Clinical Indicators: 12/27 PN- His cardiac is in atrial fibrillation.12/26-He remains in atrial fibrillation. The plan is to undergo cardioversion tomorrow. He remains on long-term and anticoagulation with Eliquis, Aldactone will be added to his regimen. Treatment: The above mentioned he did not receive. He did not get cardioverted. Please clarify the type of atrial fibrillation, if known: [ ] No atrial fibrillation [ ] Chronic [x ] Permanent [ ] Paroxysmal [ ] Persistent [ ] Other, please specify [ ] Unable to determine MTDD
--- NOTE | 2021-01-04 11:22 | CDI ---
Documentation Clarification Form Date: 01/04/21 From: Lizet Goode Admit Date: 12/24/2020 08:04:00 PM Patient Name: David Owens Visit Number: [id number] Discharge Date: 12/31/2020 04:26:00 PM ATTENTION: The Clinical Documentation Specialists (CDI) and [facility] Coding Staff appreciate your assistance in clarifying documentation. Please respond to the clarification below the line at the bottom and electronically sign. The CDI & [facility] Coding staff will review the response and follow-up if needed. Please note: Queries are made part of the Legal Health Record. If you have any questions, please contact the author of this message via ITS. Dr. Clarice Zelaya, The final diagnosis of the pathology report states RUL-Features compatible with squamous cell carcinoma. Coding guidelines do not allow coding professionals to code based on pathology results; therefore, clarification is requested. History/risk factors: HTN w Stage IV CKD, HX CAD, smoker Clinical Indicators: Lobulated 6.9 cm mass like density in the right lung in the anterior segment right upper lobe. Treatment: Navigational bronchoscopy, transbronchial biopsy of the right upper lobe mass, transbronchial brushing of the right upper lobe mass, Bronchial lavage of the right upper lobe. 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
== END 2020-12-31 16:26 | disposition home or self-care (01) | DRG 673 ==
LOC: EC 18:11 → 5NMEDONC 20:04
PROVIDERS: ADMIT Internal Medicine; ATTEND Internal Medicine
PROC: 5A1D70Z Performance of Urinary Filtration, Intermittent, Less than 6 Hours Per Day (ICD-10-PCS; principal; 2020-12-25 19:55)
PROC: 0JH63XZ Insertion of Tunneled Vascular Access Device into Chest Subcutaneous Tissue and Fascia, Percutaneous Approach (ICD-10-PCS; principal; 2020-12-25 19:55)
PROC: 02HV33Z Insertion of Infusion Device into Superior Vena Cava, Percutaneous Approach (ICD-10-PCS; principal; 2020-12-25 19:55)
PROC: 0BDC8ZX Extraction of Right Upper Lung Lobe, Via Natural or Artificial Opening Endoscopic, Diagnostic (ICD-10-PCS; 2020-12-28 13:05)
PROC: 0B9C8ZX Drainage of Right Upper Lung Lobe, Via Natural or Artificial Opening Endoscopic, Diagnostic (ICD-10-PCS; 2020-12-28 13:05)
DX: N17.9 Acute kidney failure, unspecified (principal); G92 Toxic encephalopathy; E87.2 Acidosis; I12.0 Hypertensive chronic kidney disease with stage 5 chronic kidney disease or end stage renal disease; C34.11 Malignant neoplasm of upper lobe, right bronchus or lung; I48.21 Permanent atrial fibrillation; D63.1 Anemia in chronic kidney disease; E83.39 Other disorders of phosphorus metabolism; E83.51 Hypocalcemia; N18.6 End stage renal disease; Z99.2 Dependence on renal dialysis; Z20.822 Contact with and (suspected) exposure to COVID-19; T41.0X5A Adverse effect of inhaled anesthetics, initial encounter; T42.4X5A Adverse effect of benzodiazepines, initial encounter; I25.5 Ischemic cardiomyopathy; I25.10 Atherosclerotic heart disease of native coronary artery without angina pectoris; E61.1 Iron deficiency; E78.00 Pure hypercholesterolemia, unspecified; F41.9 Anxiety disorder, unspecified; I25.2 Old myocardial infarction; E66.9 Obesity, unspecified; Z68.27 Body mass index [BMI] 27.0-27.9, adult; F17.210 Nicotine dependence, cigarettes, uncomplicated; Z71.6 Tobacco abuse counseling; Z79.82 Long term (current) use of aspirin; Z79.899 Other long term (current) drug therapy; Z85.528 Personal history of other malignant neoplasm of kidney; Z86.73 Personal history of transient ischemic attack (TIA), and cerebral infarction without residual deficits; Z90.5 Acquired absence of kidney; Z86.79 Personal history of other diseases of the circulatory system; Z98.890 Other specified postprocedural states; Z88.8 Allergy status to other drugs, medicaments and biological substances
CPT/HCPCS: 31623; 31624; 31625; 31627; 31629; 36415; 36558; 71045; 71046; 71250; 76937; 77001; 80048; 80053; 82728; 83540; 83550; 83605; 83735; 83880; 84100; 84145; 84484; 85025; 85379; 85610; 85730; 86704; 86706; 87040; 87070; 87102; 87116; 87205; 87206; 87252; 87340; 87496; 87498; 87502; 87529; 87634; 87635; 87798; 88104; 88108; 88173; 88305; 88341; 88342; 90935; 93005; 96361; 96374; 99291

== ENCOUNTER → 2021-01-18 | Outpatient (CLI) | payer MEDICARE, OTHER ==
--- NOTE | 2021-01-21 06:25 | PE ---
EXAMINATION TYPE: PET CT fusion skull to thigh DATE OF EXAM: 01/18/2021 COMPARISON: Chest CT December 25, 2020 HISTORY: Abnormal CT, solitary pulmonary nodule. Right-sided cancer on bronchoscopy with biopsy Yoan y 9. TECHNIQUE: Following the intravenous administration of 10.01 mCi of F-18 FDG, whole body images are performed from the skull base to the midthigh. Images are reviewed on the computer in the coronal, a xial, and sagittal planes. Reconstructed rotating images are created on independent workstation and reviewed on the computer. A localization and attenuation correction CT is performed in conjunction with the PET scan. Blood glucose level equals 109 SCAN: Initial Scan FINDINGS: SKULL BASE AND NECK: No areas of abnormal hypermetabolic uptake. CHEST, MEDIASTINUM, AND HILAR REGION: Background mild to moderate underlying emphysematous changes re demonstrated. Persistent anterior right upper to midlung partially cavitating mass measuring 7.2 x 7. 2 cm axial image 77, abnormal hypermetabolic uptake with Max SUV of 9.5s, central necrosis is noted. The lesion appears to abut the mediastinum and pleural surfaces. No additional areas of abnormal hypermetabolic uptake. No abnormal hypermetabolic enlarged thoracic a denopathy noted. ABDOMEN AND PELVIS: No adrenal masses. Normal excretion is seen. Subtle hypermetabolic round near 1.0 cm focus posterior right upper to mid pole kidney axial image 135, max SUV is 5.07. No definitive CT correlate. Correlate with ultrasound and/or contrast-enhanced CT/MRI to exclude solid mass or neopla sm at this level. No additional areas of abnormal hypermetabolic uptake. OSSEOUS STRUCTURES: No areas of abnormal hypermetabolic uptake. OTHER CT: New Right internal jugular Mediport catheter terminates in SVC. Prominent pulmonary arterie s, CT findings consistent with underlying pulmonary artery hypertension. Cardiomegaly is present. Sub areolar bilateral flame-shaped gynecomastia. Left kidney not visualized suspected surgically or congenitally absent. Mild calcified plaque distal abdominal aorta extends into branch vessels. Facet arthropathy lower lumbar levels. IMPRESSION: Confirmation of known large right lung neoplasm. Attention to right kidney otherwise no s uspicious adenopathy or metastatic disease.
== END | disposition home or self-care (01) ==
LOC: RADPETMAIN 07:30
PROVIDERS: ATTEND Internal Medicine Hematology & Oncology
DX: C34.11 Malignant neoplasm of upper lobe, right bronchus or lung (principal)
CPT/HCPCS: 78815; A9552

== ENCOUNTER → 2021-02-07 | Outpatient (CLI) | payer MEDICARE, OTHER ==
--- NOTE | 2021-02-07 20:27 | CT ---
EXAMINATION TYPE: CT brain w con DATE OF EXAM: 02/07/2021 COMPARISON: MRI brain June 21, 2020. CT brain June 22, 2020 HISTORY: LUNG CA, CHECKING FOR METS CT DLP: 1121 mGycm Automated exposure control for dose reduction was used. CONTRAST: CT scan of the head is performed with IV Contrast, patient injected with 80 mL of Isovue 300. FINDINGS: There is no abnormal enhancing mass or midline shift identified. The ventricles and sulci are within normal limits in size for patient's age. Moderate to severe Areas of low density throughout the deep and periventricular white matter are redemonstrated bilaterally. Old infarct medial aspect left occi pital lobe is redemonstrated. Old fracture deformity medial wall left orbit. Small mucous retention c yst or polyp right maxillary sinus axial image 6 redemonstrated. The calvarium is intact. IMPRESSION: 1. No suspicious enhancing masses to suggest metastatic disease to the brain. 2. Moderate to severe nonspecific white matter changes may be on basis of chronic small vessel ischem ic change. Old infarct medial left occipital lobe noted.
== END | disposition home or self-care (01) ==
LOC: RADCTMAIN 14:01
PROVIDERS: ATTEND Internal Medicine Hematology & Oncology
DX: C34.90 Malignant neoplasm of unspecified part of unspecified bronchus or lung (principal)
CPT/HCPCS: 82565; 84520; 70460; 36415; Q9967

== ENCOUNTER → 2021-02-07 | Outpatient (CLI) | payer MEDICARE, OTHER ==
--- NOTE | 2021-02-07 15:32 | US ---
EXAMINATION TYPE: US kidneys/renal and bladder DATE OF EXAM: 02/07/2021 COMPARISON: PET CT 01/18/21 CLINICAL HISTORY: 65-year-old male R93.89 ABN IMAGING. Left kidney removed 2006 due to renal mass. Hx Lung mass, SOB TECHNIQUE: Multiple sonographic images of the kidneys and bladder are obtained. FINDINGS: EXAM MEASUREMENTS: Right Kidney: 11.2 x 6.1 x 4.2 cm Left Kidney: Surgically absent Right Kidney: No hydronephrosis or masses seen. Mid pole lateral cyst = 0.9 x 0.9 x 0.7 cm. This does not clearly correspond to the region of increased uptake on PET/CT. Left Kidney: Surgically absent Bladder: Underdistention limits its evaluation. Bilateral Jets seen: No Post Void Residual: Not calculated due to near empty bladder. IMPRESSION: 1. No discrete sonographic correlate to the area of increased uptake on PET/CT upper to mid pole righ t kidney. Findings may reflect early focal accumulating FDG within the collecting system. Recommend 6 month follow-up contrast enhanced CT or kidney MRI as a precautionary measure to exclude a developin g solid mass here. 2. Status post left nephrectomy.
== END | disposition home or self-care (01) ==
LOC: RADUSWWP 13:23
PROVIDERS: ATTEND Internal Medicine Hematology & Oncology
DX: N28.89 Other specified disorders of kidney and ureter (principal); Z90.5 Acquired absence of kidney
CPT/HCPCS: 76770

== ENCOUNTER 2021-02-15 06:47 | Inpatient (IN) | payer MEDICARE, OTHER ==
[~2021-02-15 06:47] MED LIST: ALBUTEROL NEB (CONC) 2.5 MG/0.5 ML INHALATION ONE; DEXAMETHASONE SOD PHOSPHATE 4 MG/ML 1 ML VIAL IV ONE; LIDOCAINE 1% (10MG/ML) FOR IV START INTRADERMA PRN; LIDOCAINE 2% (PF) 20 MG/ML 5 ML VIAL INHALATION ONE; LIDOCAINE VISCOUS 300 MG/15 ML CUP MUCOUS MEM ONE; ONDANSETRON 4 MG/2 ML VIAL IVP ONE
[2021-02-15] MEDS ORDERED: SODIUM CHLORIDE 0.9% 1,000 ML IV ONE (08:25)
[2021-02-15] MEDS ORDERED: ePHEDrine SULFATE/0.9% NACL/PF 50 MG/5 ML SYRINGE IV ONE (08:30)
[2021-02-15] MEDS ORDERED: SUGAMMADEX SODIUM 500 MG/5 ML SDV IV ONE (08:30)
[2021-02-15] MEDS ORDERED: PHENYLEPHRINE-0.9% NACL SYG 1,000 MCG/10 ML SYRINGE ONE (08:30)
[2021-02-15] MEDS ORDERED: ROCURONIUM 10 MG/ML (5 ML VIAL) IV ONE (08:30)
[2021-02-15] MEDS ORDERED: PROPOFOL 10 MG/ML 20 ML VIAL IV ONE (08:30)
[2021-02-15] MEDS ORDERED: HYDROmorphone (PF) 1 MG/ML ONE (08:30)
--- NOTE | 2021-02-15 11:04 | P.PCN ---
Date of Procedure: 02/15/21 Preoperative Diagnosis: 1 squamous cell carcinoma, right upper lobe 2 mediastinal lymphadenopathy, preoperative endoscopic ultrasound for staging purposes Postoperative Diagnosis: 1 right upper lobe mass, squamous cell lung cancer 2 mediastinal lymphadenopathy 3 bronchial stenosis involving the anterior segment of the right upper lobe with some endobronchial irregularities consistent of cancer. In addition, there was another stenotic segment involving the apical posterior segment of the left upper lobe. Otherwise, rest of the airway exam was essentially within normal limits. Procedure(s) Performed: 1 flexible bronchoscopy, airway inspection 2 endoscopic ultrasound (EBUS) 3 transbronchial needle aspirate of station 4R and station 7 lymph nodes Surgeon: Jagdish Brewer Body Trimmer #1: germania Crow) Body Trimmer #2: CAROLYN WELDON Estimated Blood Loss (ml): 0 Pathology: other Condition: stable Disposition: same day Operative Findings: After obtaining the consent the patient was taken to the OR suite he was intuba daniel and put on MV by anesthesia then the scope was advanced to the ET tube until the Trachea was seen and it was normal and then the lizy appears normal then the scope advanced to the left main and KAELA LB1-LB3 were seen and no endobronchial lesions were seen then the scope advanced to the lingula and the LB4 and LB5 were seen and no endobronchial lesions were seen the scope retracted and advanced to the left lower lobes LB6 to LB12 were seen one by one and no endobronchial lesions, then the scope was retracted back to the lizy and advanced to the Right main and RUL RB1 and RB2 and RB3 were seen one by one and no endobronchial lesions were seen the scope then retracted and advanced to the BI and RML RB4 and RB5 were seen and no endobronchial lesions were seen then it was retracted and advanced to the RLL RB6 to RB12 were seen one by one and no endobronchial lesions. Then EBUS was used and the lymph nodes were examined. Direct measurement of the mediastinal lymph nodes revealed a 9 x 7.5 cm station 4R lymph node, 11.8 x 8.3 cm station 10 R lymph node, 10.7 x 10.9 cm station 11 R s lymph nodes, 11.7 x 10.9 cm station 11 R i lymph node, 4.6 x 10.2 cm station 7 lymph node and 12.2 x 10.1 cm 11 LC lymph nodes. I performed transbronchial needle aspirate of station 7 and a total of 4 passes FNA without major bleeding station 4 R lymph nodes were a total of 3 passes were obtained. No major bleeding and the scope was removed and taken out in total the patient was send to the floor in stable condition
[2021-02-15] MEDS: LACTATED RINGERS 1,000 ML IV SCH ×3 (15:09→15:11)
[2021-02-15] MEDS ORDERED: ACETAMINOPHEN TAB 325 MG TAB PO PRN (15:13)
[2021-02-15] MEDS ORDERED: [UNRECOGNIZED DRUG - OTHER] PO PRN (15:13)
[2021-02-15] MEDS ORDERED: [UNRECOGNIZED DRUG - OTHER] PO PRN (15:13)
[2021-02-15] MEDS ORDERED: NITROGLYCERIN SL TABS 0.4 MG TAB SUBLINGUAL PRN (15:13)
--- NOTE | 2021-02-15 16:07 | XR ---
EXAMINATION TYPE: XR chest 1V portable DATE OF EXAM: 02/15/2021 COMPARISON: Chest x-ray 12/28/2020 HISTORY: Shortness of breath TECHNIQUE: Single frontal view of the chest is obtained. FINDINGS: There is abnormal density in the right midlung similar to prior exam. Right jugular centra l venous catheter is again noted. There is no evident pneumothorax or pleural effusion. Heart is enla rged. Bibasilar increased attenuation is present. Patient is rotated. IMPRESSION: There is an underlying lung mass. Correlate to exclude pneumonia. Cardiomegaly.
[2021-02-15 16:40] LABS: Glucose,Whole Blood 95 mg/dL (75-99)
--- NOTE | 2021-02-15 16:57 | P.CNPUL ---
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 He was recently hospitalized for shortness of breath and was found to have a right upper lobe lung mass undergone transbronchial biopsy by Dr. Brewer on 12/28/2020. 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 PET scan all confirmed large right lung neoplasm. Right kidney had some subtle hypermetabolic uptake. He had been seen and evaluated by Dr. Washington who recommended the patient have biopsies of the mediastinal adenopathy. He was brought in electively today for EBUS procedure performed by Dr. Brewer. Following the procedure he had some issues with toxemia after being extubated. He has some cough and congestion. He was kept as an inpatient today to receive his hemodialysis and to be followed overnight. He is seen in consultation on the regular medical floor. Currently receiving hemodialysis. He is having issues with hypoxemia and hypertension. Today continues to revealed a right upper lobe mass. Left lung clear. He is maintaining O2 saturations in the 80s on a nonrebreather mask. Hypertensive. Lab work pending. Glucose 95. Review of Systems REVIEW OF SYSTEMS: CONSTITUTIONAL: Denies any recent significant weight loss or weight gain. EYES: Denies change in vision. EARS, NOSE, MOUTH, THROAT: Denies headaches, denies sore throat. CARDIOVASCULAR: Denies chest pain, palpitations or syncopal episodes. RESPIRATORY: Positive for shortness of breath, cough, congestion no hemoptysis. GASTROINTESTINAL: Denies change in appetite, denies abdominal pain GENITOURINARY: Denies hematuria, denies infections. MUSKULOSKELETAL: Denies pain, denies swelling. INTEGUMENTARY: Denies rash, denies eczema. NEUROLOGICAL: Denies recent memory loss, no recent seizure activity. PSYCHIATRIC: Denies anxiety, denies depression. HEMATOLOGIC/LYMPHATIC: Denies anemia, denies enlarged lymph nodes. Past Medical History Past Medical History: CVA/TIA, Hypertension, Myocardial Infarction ([place]), Supraventricular Tachycardia (SVT) Additional Past Medical History / Comment(s): multiple strokes, [place] (2005), Dialysis [facility]- Thursday, Wednesdays and Fridays. Last Dialysis-02/13/21 Last Myocardial Infarction Date:: 2005 History of Any Multi-Drug Resistant Organisms: None Reported Past Surgical History: Heart Catheterization Additional Past Surgical History / Comment(s): removal of left kidney Past Anesthesia/Blood Transfusion Reactions: No Reported Reaction Smoking Status: Current every day smoker Medications and Allergies Home Medications Medication Instructions Recorded Confirmed Type Nitroglycerin Sl Tabs [Nitrostat] 0.4 mg SUBLINGUAL Q5M PRN #30 tab 08/29/18 02/15/21 Rx carvediloL [Coreg*] 25 mg PO BID-W/MEALS #60 tab 08/29/18 02/15/21 Rx Acetaminophen Tab [Tylenol] 650 mg PO Q6HR PRN tab 12/31/20 02/15/21 Rx Hydrocodone Bit/Homatrop Me-Br 5 ml PO Q6H #100 ml 01/30/21 02/15/21 Rx [Hycodan 5 mg-1.5 mg/5 ml Soln] Hydrocodone Bit/Homatrop Me-Br 5 ml PO Q6H PRN #100 ml 02/06/21 02/15/21 Rx [Hycodan 5 mg-1.5 mg/5 ml Soln] Hydrocodone Bit/Homatrop Me-Br 5 ml PO Q6H PRN #100 ml 02/13/21 02/15/21 Rx [Hycodan 5 mg-1.5 mg/5 ml Soln] Allergies Allergy/AdvReac Type Severity Reaction Status Date / Time clonidine Allergy Swelling Verified 02/15/21 08:12 hydralazine Allergy Rash/Hives Verified 02/15/21 08:12 lisinopril Allergy Swelling Verified 02/15/21 08:12 Physical Exam Vitals: Vital Signs Temp Pulse Pulse Resp BP BP Pulse Ox 02/15/21 14:25 97.8 F 80 19 147/86 94 L 02/15/21 13:30 81 16 115/69 88 L 02/15/21 13:00 87 16 103/65 89 L 02/15/21 12:27 79 17 106/63 90 L 02/15/21 12:06 86 17 114/75 91 L 02/15/21 11:45 85 16 118/77 79 L 02/15/21 11:30 84 16 113/73 91 L 02/15/21 11:15 91 16 129/86 92 L 02/15/21 10:57 91 16 132/86 96 02/15/21 10:45 86 16 112/62 97 02/15/21 10:30 91 14 106/64 99 02/15/21 10:17 97.0 F L 95 16 111/69 93 L 02/15/21 08:08 85 24 102/67 92 L 02/15/21 07:35 98.6 F 82 22 95/58 85 L Intake and Output 02/15/21 02/15/21 02/15/21 06:59 14:59 22:59 Intake Total 450 Balance 450 Intake: IV 450 Other: Weight 85.4 kg GENERAL EXAM: 65-year-old -[place] male patient, on nonrebreather mask, O2 saturation 88%, in mild respiratory distress. HEAD: Normocephalic. EYES: Normal reaction of pupils, equal size. NOSE: Clear with pink turbinates. THROAT: No erythema or exudates. NECK: No masses, no JVD. CHEST: No chest wall deformity. LUNGS: Equal air entry with crackles and scattered rhonchi in the right lung. CVS: S1 and S2 normal with no audible murmur, regular rhythm. ABDOMEN: No hepatosplenomegaly, normal bowel sounds, no guarding or rigidity. SPINE: No scoliosis or deformity SKIN: No rashes CENTRAL NERVOUS SYSTEM: No focal deficits, tone is normal in all 4 extremities. EXTREMITIES: There is no peripheral edema. No clubbing, no cyanosis. Peripheral pulses are intact. Results - Diagnostic Findings Chest x-ray: image reviewed Assessment and Plan Assessment: 1 Acute hypoxic respiratory failure secondary to significant right upper lobe lung mass, positive for squamous cell carcinoma 2 Lymphadenopathy status post EBUS transbronchial needle aspirate on 02/15/2021 3 Chronic tobacco dependence 4 Marijuana use 5 Chronic kidney disease, receiving hemodialysis Thursday 6 History of kidney cancer suspected renal cell carcinoma with previous left nephrectomy 7 Hypertension 8 Anemia of chronic disease Plan: The patient was seen and evaluated by Dr. Brewer Based on his hypoxemia and hypertension he'll be transferred to the intensive care unit Receiving hemodialysis today Obtain lab work Continue Coreg We will continue to follow and make further recommendations based on his clinical status I, the cosigning physician, performed a history & physical examination of the patient. Lungs sounds with scattered rhonchi. Maintaining good O2 saturations in the upper 80s on a nonrebreather mask. I discussed the assessment and plan of care with my nurse practitioner, Amber Don. I attest to the above consultation as dictated by her. Time with Patient: Greater than 30
[2021-02-15 16:58] LABS: Basophils % (A) 0 %; Eosinophils # (A) 0.1 k/uL (0-0.7); Eosinophils % (A) 1 %; HCT 31.9 % (39.0-53.0); HGB 9.5 gm/dL (13.0-17.5); Hypochromasia Marked; Lymphocytes # (A) 1.1 k/uL (1.0-4.8); Lymphocytes % (A) 8 %; MCH 27.4 pg (25.0-35.0); MCHC 29.8 g/dL (31.0-37.0); Monocytes # (A) 0.4 k/uL (0-1.0); Monocytes % (A) 3 %; Neutrophils # (A) 11.5 k/uL (1.3-7.7); Neutrophils % (A) 88 %; Platelet Count 232 k/uL (150-450); RBC 3.47 m/uL (4.30-5.90); RDW 14.8 % (11.5-15.5); WBC 13.1 k/uL (3.8-10.6)
[2021-02-15 17:02] LABS: African American GFR (CKD) 13 (>60 ml/min/1.73 sqM); Anion Gap 11 mmol/L; Blood Urea Nitrogen 20 mg/dL (9-20); Carbon Dioxide 26 mmol/L (22-30); Chloride 97 mmol/L (98-107); Glucose 106 mg/dL (74-99); Non-African American GFR(CKD) 11 (>60 ml/min/1.73 sqM); Potassium 3.8 mmol/L (3.5-5.1); Sodium 134 mmol/L (137-145)
[2021-02-15 17:18] LABS: MCV 92.1 fL (80.0-100.0)
[2021-02-15] MEDS ORDERED: NALOXONE 0.4 MG/ML 1 ML VIAL IV PRN (18:02)
--- NOTE | 2021-02-15 18:09 | CONS ---
CONSULTATION This is a 65-year-old gentleman who has a history of chronic renal failure. Patient is on dialysis through the right jugular approach catheter. Patient has very poor clearance and I was consulted for placement of a dialysis catheter. The patient also has a history of squamous cell carcinoma of the right upper lobe with mediastinal lymphadenopathy. The patient had a right upper lobe mass. Also patient has some bronchial stenosis. The patient had recent bronchoscopy and also trans needle aspiration. PHYSICAL EXAMINATION: Patient was seen in his room. Patient is very short of breath. The patient has a right chest dialysis catheter which is not functioning well. His chest has crackles bilaterally. Abdomen is non-tender. Femorals are 1+. PLAN: Since patient is in acute respiratory distress, the patient may be transferred to the intensive care unit. We will place a temporary dialysis catheter when he is stable enough. Then we will exchange the catheter. Discussed with the patient. He understands. MMODL / IJN: [id number] /
[2021-02-15] MEDS: [UNRECOGNIZED DRUG - OTHER] PO SCH (18:52)
[2021-02-15] MEDS: carvediloL 12.5 MG TAB PO SCH (18:52)
[2021-02-15 18:58] LABS: ABG Base Excess 0.4 mmol/L; ABG HCO3 27 mmol/L (21-25); ABG Oxygen Saturation 96.3 % (94-97); ABG PCO2 57 mmHg (35-45); ABG PH 7.29 (7.35-7.45); ABG PO2 88 mmHg (83-108); ABG TCO2 29 mmol/L (19-24); Allen Test Performed? Yes
[2021-02-15] MEDS: methylPREDNISolone SOD SUCCI 125 MG/2 ML VIAL IV SCH (19:51)
[2021-02-15] MEDS: IPRATROPIUM-ALBUTEROL 3 ML NEB INHALATION SCH (20:57)
[2021-02-16] MEDS: [UNRECOGNIZED DRUG - OTHER] PO SCH ×2 (00:21→05:24)
[2021-02-16] MEDS: methylPREDNISolone SOD SUCCI 125 MG/2 ML VIAL IV SCH (02:35)
[2021-02-16 05:15] LABS: Basophils % (A) 0 %; Eosinophils % (A) 0 %; HCT 29.1 % (39.0-53.0); HGB 8.8 gm/dL (13.0-17.5); Hypochromasia Marked; Lymphocytes # (A) 0.6 k/uL (1.0-4.8); Lymphocytes % (A) 3 %; MCHC 30.3 g/dL (31.0-37.0); MCV 92.2 fL (80.0-100.0); Mean Platelet Volume 8.1; Monocytes # (A) 0.3 k/uL (0-1.0); Monocytes % (A) 2 %; Neutrophils # (A) 16.3 k/uL (1.3-7.7); Neutrophils % (A) 95 %; Platelet Count 233 k/uL (150-450); RBC 3.16 m/uL (4.30-5.90); RDW 15.1 % (11.5-15.5); WBC 17.2 k/uL (3.8-10.6)
[2021-02-16] MEDS: LACTATED RINGERS 1,000 ML IV SCH ×2 (05:24→12:37)
[2021-02-16] MEDS: carvediloL 12.5 MG TAB PO SCH ×3 (06:54→17:24)
--- NOTE | 2021-02-16 07:25 | XR ---
EXAMINATION TYPE: XR chest 1V DATE OF EXAM: 02/16/2021 COMPARISON: Chest x-ray 02/15/2021 HISTORY: Shortness of breath TECHNIQUE: Single frontal view of the chest is obtained. FINDINGS: Findings are similar to prior exam. IMPRESSION: There is an underlying mass. Correlate for possible pneumonia. Stable cardiomegaly.
--- NOTE | 2021-02-16 08:18 | P.NPCON ---
History of Present Illness - Reason for Consult end stage renal disease - History of Present Illness Reason for consultation: End-stage renal disease History of present illness: Patient is a 65-year-old male seen in renal consultation for end-stage renal disease. He is maintained on hemodialysis on Thursday schedule. He was started on dialysis recently and he had not followed up in the office for over a year. He underwent hemodialysis yesterday with 3 L ultrafiltration. However his dialysis catheter was not functioning well. He was transferred to the intensive care unit due to hemodynamic instability. Patient has known history of squamous cell lung cancer and underwent bronchoscopy yesterday which revealed right upper lobe mass, mediastinal lymphadenopathy as well as bronchial stenosis in the anterior segment of the right upper lobe. Due to shortness of breath he was admitted to the hospital. He currently denies any chest pain but does admit to a mild cough. Blood pressure is on the lower side. No fever. He's now on 12 L high flow nasal cannula. No vomiting or diarrhea. Vital signs are stable. General: The patient appeared well nourished and normally developed. HEENT: Head exam is unremarkable. On nasal cannula. LUNGS: Breath sounds decreased. HEART: Rate and Rhythm are regular. ABDOMEN: Soft, no distention. EXTREMITITES: 1+ edema. Past Medical History Past Medical History: CVA/TIA, Hypertension, Myocardial Infarction ([place]), Supraventricular Tachycardia (SVT) Additional Past Medical History / Comment(s): multiple strokes, [place] (2005), Dialysis [facility]- Thursday, Wednesdays and Fridays. Last Dialysis-02/13/21 Last Myocardial Infarction Date:: 2005 History of Any Multi-Drug Resistant Organisms: None Reported Past Surgical History: Heart Catheterization Additional Past Surgical History / Comment(s): removal of left kidney Past Anesthesia/Blood Transfusion Reactions: No Reported Reaction Smoking Status: Current every day smoker Medications and Allergies Home Medications Medication Instructions Recorded Confirmed Type Nitroglycerin Sl Tabs [Nitrostat] 0.4 mg SUBLINGUAL Q5M PRN #30 tab 08/29/18 02/15/21 Rx carvediloL [Coreg*] 25 mg PO BID-W/MEALS #60 tab 08/29/18 02/15/21 Rx Acetaminophen Tab [Tylenol] 650 mg PO Q6HR PRN tab 12/31/20 02/15/21 Rx Hydrocodone Bit/Homatrop Me-Br 5 ml PO Q6H #100 ml 01/30/21 02/15/21 Rx [Hycodan 5 mg-1.5 mg/5 ml Soln] Hydrocodone Bit/Homatrop Me-Br 5 ml PO Q6H PRN #100 ml 02/06/21 02/15/21 Rx [Hycodan 5 mg-1.5 mg/5 ml Soln] Hydrocodone Bit/Homatrop Me-Br 5 ml PO Q6H PRN #100 ml 02/13/21 02/15/21 Rx [Hycodan 5 mg-1.5 mg/5 ml Soln] Allergies Allergy/AdvReac Type Severity Reaction Status Date / Time clonidine Allergy Swelling Verified 02/15/21 08:12 hydralazine Allergy Rash/Hives Verified 02/15/21 08:12 lisinopril Allergy Swelling Verified 02/15/21 08:12 Physical Exam Vitals: Vital Signs Temp Pulse Pulse Pulse Resp BP BP 02/16/21 07:00 80 9 L 108/73 02/16/21 06:00 69 13 93/77 02/16/21 05:00 75 16 127/84 02/16/21 04:00 98.4 F 82 25 H 97/62 02/16/21 03:00 80 11 L 116/85 02/16/21 02:00 80 6 L 153/80 02/16/21 01:00 84 17 113/70 02/16/21 00:00 97.9 F 85 14 117/80 02/15/21 23:22 84 16 02/15/21 23:00 87 15 97/68 02/15/21 22:00 86 16 104/75 02/15/21 21:08 91 02/15/21 21:00 88 17 102/66 02/15/21 20:00 98.1 F 87 15 101/76 02/15/21 19:30 91 17 105/75 02/15/21 19:00 89 13 109/69 02/15/21 18:30 93 16 93/62 02/15/21 18:13 94 20 115/78 02/15/21 18:00 98 21 103/71 02/15/21 17:40 95 21 121/86 02/15/21 17:30 98 21 02/15/21 17:20 24 02/15/21 17:10 92 18 114/75 02/15/21 17:00 98.5 F 93 15 141/36 02/15/21 16:50 92 20 141/36 02/15/21 16:40 93 27 H 131/76 02/15/21 16:37 112 H 21 02/15/21 16:10 20 204/118 02/15/21 14:25 97.8 F 80 19 147/86 02/15/21 13:30 81 16 115/69 02/15/21 13:00 87 16 103/65 02/15/21 12:27 79 17 106/63 02/15/21 12:06 86 17 114/75 02/15/21 11:45 85 16 118/77 02/15/21 11:30 84 16 113/73 02/15/21 11:15 91 16 129/86 02/15/21 10:57 91 16 132/86 02/15/21 10:45 86 16 112/62 02/15/21 10:30 91 14 106/64 02/15/21 10:17 97.0 F L 95 16 111/69 Pulse Ox 02/16/21 07:00 78 L 02/16/21 06:00 97 02/16/21 05:00 97 02/16/21 04:00 96 02/16/21 03:00 94 L 02/16/21 02:00 96 02/16/21 01:00 95 02/16/21 00:00 95 02/15/21 23:22 94 L 02/15/21 23:00 95 02/15/21 22:00 94 L 02/15/21 21:08 02/15/21 21:00 97 02/15/21 20:00 97 02/15/21 19:30 02/15/21 19:00 02/15/21 18:30 02/15/21 18:13 02/15/21 18:00 90 L 02/15/21 17:40 45 L 02/15/21 17:30 41 L 02/15/21 17:20 02/15/21 17:10 90 L 02/15/21 17:00 92 L 02/15/21 16:50 02/15/21 16:40 02/15/21 16:37 02/15/21 16:10 88 L 02/15/21 14:25 94 L 02/15/21 13:30 88 L 02/15/21 13:00 89 L 02/15/21 12:27 90 L 02/15/21 12:06 91 L 02/15/21 11:45 79 L 02/15/21 11:30 91 L 02/15/21 11:15 92 L 02/15/21 10:57 96 02/15/21 10:45 97 02/15/21 10:30 99 02/15/21 10:17 93 L Intake and Output 02/15/21 02/16/21 02/16/21 22:59 06:59 14:59 Output Total 6000 0 Balance -6000 0 Output: Gastric Drainage 3000 Urine 0 0 Hemodialysis 3000 Other: Weight 84 kg Results - Lab Results Most recent lab results ABG pH 7.29 (7.35-7.45) L 02/15/21 18:44 ABG pCO2 57 mmHg (35-45) H 02/15/21 18:44 ABG pO2 88 mmHg (83-108) 02/15/21 18:44 ABG HCO3 27 mmol/L (21-25) H 02/15/21 18:44 ABG O2 Saturation 96.3 % (94-97) 02/15/21 18:44 Calcium 8.0 mg/dL (8.4-10.2) L 02/16/21 04:59 02/16/21 04:59 02/16/21 04:59 Assessment and Plan Plan: Assessment: 1. End-stage renal disease maintained on hemodialysis on Thursday schedule via permacath. 2. Squamous cell lung cancer with mediastinal lymphadenopathy. Status post bronchoscopy February 15. 3. Volume overload. 4. Anemia of chronic kidney disease. 5. Chronic systolic CHF with ejection fraction of 20-25% with moderate mitral regurgitation. 6. Acute hypoxia respiratory failure. 7. Malfunctioning permacath. Vascular surgery following. Plan: Another treatment of hemodialysis today with goal 2 liters ultrafiltration. Check iron studies. Wean FiO2. Check phosphorus level. Thank you for the consultation. I will continue to follow the patient with you during his hospital stay.
[2021-02-16] MEDS: IPRATROPIUM-ALBUTEROL 3 ML NEB INHALATION SCH ×4 (08:21→19:25)
[2021-02-16 09:10] LABS: Phosphorus 5.8 mg/dL (2.5-4.5)
--- NOTE | 2021-02-16 09:14 | P.PN ---
Subjective Progress Note Date: 02/16/21 This is a 65-year-old gentleman with a history of anemia of chronic disease, chronic kidney disease receiving hemodialysis Thursday, history of CVA/TIA, hypertension, SVT, chronic and ongoing tobacco dependence, occasional alcohol use, marijuana use. He was recently hospitalized for short ness of breath and was found to have a right upper lobe lung mass undergone transbronchial biopsy by Dr. Brewer on 12/28/2020. 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 PET scan all confirmed large right lung neoplasm. Right kidney had some subtle hypermetabolic uptake. He had been seen and evaluated by Dr. Washington who recommended the patient have biopsies of the mediastinal adenopathy. He was brought in electively today for EBUS procedure performed by Dr. Brewer. Following the procedure he had some issues with toxemia after being extubated. He has some cough and congestion. He was kept as an inpatient today to receive his hemodialysis and to be followed overnight. He is seen in consultation on the regular medical floor. Currently receiving hemodialysis. He is having issues with hypoxemia and hypertension. Today continues to revealed a right upper lobe mass. Left lung clear. He is maintaining O2 saturations in the 80s on a nonrebreather mask. Hypertensive. Lab work pending. Glucose 95. Days evaluation of a 2020, the patient is much more awake and alert and is communicating. He woke up today and he had a full breakfast. Nevertheless, we have noted that on and off the is still confused and this is the same situation he is been over the past 3-4 weeks as reported by his significant other. No focal neurological deficits. CT of the brain was negative. We considered the possibility of ongoing encephalopathy as his dialysis may not be fully effective knowing that the patient was having some issues with his permacath catheter yest erday. Based on that, we've made recommendations for vascular surgery to replace the catheter. He underwent dialysis with ultrafiltration yesterday and the same will be done today. Also, the possibility of neoplastic syndrome is being considered in this patient based on his massive and large right upper lobe tumor. The endoscopic ultrasound was done yesterday and the appropriate lymph nodes were sampled without any significant complications. He did have a component of respiratory acidosis postop. Please note that blood gases. This could be related to anesthetics, paralytic agents, and possibly the increased amount of codeine that he was ingesting at home. A repeat blood gases will be done today. Earlier this morning he was on 12 L of oxygen and currently is at 5 L and the pulse ox is around 94%. Repeat blood gases will be done. He is able to swallow appropriately. No hyperkalemia. No other major electrolyte disturbance for now. Objective - Vital Signs Vital signs: Vital Signs Temp 98.0 F 02/16/21 08:00 Pulse 73 02/16/21 08:00 Resp 16 02/16/21 08:00 BP 98/73 02/16/21 08:00 Pulse Ox 98 02/16/21 08:00 Intake & Output 02/15/21 02/16/21 02/16/21 18:59 06:59 18:59 Intake Total 450 Output Total 6000 0 Balance -5550 0 Weight 85.4 kg 84 kg Intake: IV 450 Output: Gastric Drainage 3000 Urine 0 0 Hemodialysis 3000 - Exam GENERAL EXAM: 65-year-old -[place] male patient, on nonrebreather mask, O2 saturation 94% on 5 L of oxygen by nasal cannula. Breathing is nonlabored and the patient having any respiratory distress. He is awake and communicating. He remains somewhat encephalopathic which is HEAD: Normocephalic. EYES: Normal reaction of pupils, equal size. NOSE: Clear with pink turbinates. THROAT: No erythema or exudates. NECK: No masses, no JVD. CHEST: No chest wall deformity. LUNGS: Equal air entry with crackles and scattered rhonchi in the right lung. CVS: S1 and S2 normal with no audible murmur, regular rhythm. ABDOMEN: No hepatosplenomegaly, normal bowel sounds, no guarding or rigidity. SPINE: No scoliosis or deformity SKIN: No rashes CENTRAL NERVOUS SYSTEM: No focal deficits, tone is normal in all 4 extremities. EXTREMITIES: There is no peripheral edema. No clubbing, no cyanosis. Peripheral pulses are intact. - Labs CBC & Chem 7: 02/16/21 04:59 02/16/21 04:59 Labs: Abnormal Lab Results - Last 24 Hours (Table) 02/15/21 02/15/21 02/15/21 Range/Units 16:50 16:50 18:44 WBC 13.1 H (3.8-10.6) k/uL RBC 3.47 L (4.30-5.90) m/uL Hgb 9.5 L (13.0-17.5) gm/dL Hct 31.9 L (39.0-53.0) % MCHC 29.8 L (31.0-37.0) g/dL Neutrophils # 11.5 H (1.3-7.7) k/uL Lymphocytes # (1.0-4.8) k/uL ABG pH 7.29 L (7.35-7.45) ABG pCO2 57 H (35-45) mmHg ABG HCO3 27 H (21-25) mmol/L ABG Total CO2 29 H (19-24) mmol/L Sodium 134 L (137-145) mmol/L Chloride 97 L (98-107) mmol/L BUN (9-20) mg/dL Creatinine 4.88 H (0.66-1.25) mg/dL Glucose 106 H (74-99) mg/dL Calcium 8.0 L (8.4-10.2) mg/dL 02/16/21 02/16/21 Range/Units 04:59 04:59 WBC 17.2 H (3.8-10.6) k/uL RBC 3.16 L (4.30-5.90) m/uL Hgb 8.8 L (13.0-17.5) gm/dL Hct 29.1 L (39.0-53.0) % MCHC 30.3 L (31.0-37.0) g/dL Neutrophils # 16.3 H (1.3-7.7) k/uL Lymphocytes # 0.6 L (1.0-4.8) k/uL ABG pH (7.35-7.45) ABG pCO2 (35-45) mmHg ABG HCO3 (21-25) mmol/L ABG Total CO2 (19-24) mmol/L Sodium 134 L (137-145) mmol/L Chloride (98-107) mmol/L BUN 25 H (9-20) mg/dL Creatinine 5.91 H (0.66-1.25) mg/dL Glucose 203 H (74-99) mg/dL Calcium 8.0 L (8.4-10.2) mg/dL Assessment and Plan Plan: 1 squamous cell carcinoma. The patient is a large right upper lobe mass with some mediastinal lymphadenopathy, post EBUS for mediastinal staging 2 Acute on chronic hypoxic respiratory failure secondary to significant right upper lobe lung mass, positive for squamous cell carcinoma. No signs of any f luid overload. The patient arrived to us with a pulse ox of 85% preoperatively. He will also likely need oxygen at time of discharge. Note that the patient also had a component of acute hypercapnic respiratory failure with of these mentioned above. 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 CAT scan of the brain has been negative. Consider uremic encephalopathy. I discussed this i ssue with nephrology. BUN is not elevated. Dialysis catheter will be replaced and the patient will be continued on hemodialysis. No signs of any fluid overload. He has been essentially noncompliant even an outpatient basis regarding his hemodialysis per Dr. Casarez. 4 Marijuana use 5 Chronic kidney disease, receiving hemodialysis Thursday 6 History of kidney cancer suspected renal cell carcinoma with previous left nephrectomy 7 Hypertension 8 Anemia of chronic disease Plan: Drop-down the oxygen to 5 L per minute nasal cannula Arrange home O2 A neurologic consultation requested, consider paraneoplastic encephalopathy Replace the permacath by vascular surgery Receiving hemodialysis today Obtain lab work We will continue to follow and make further recommendations based on his clinical status. He is stable for now. His much more awake compared to yesterday. Repeat blood gases will be done also to reevaluate his acid-base status. Long-term prognosis extremely poor baseline above-mentioned comorbidities. We'll establish a CODE STATUS also with the significant other.
[2021-02-16 09:47] LABS: ABG Base Excess 0.7 mmol/L; ABG HCO3 27 mmol/L (21-25); ABG Oxygen Saturation 93.7 % (94-97); ABG PCO2 54 mmHg (35-45); ABG PH 7.31 (7.35-7.45); ABG PO2 70 mmHg (83-108); ABG TCO2 29 mmol/L (19-24); Allen Test Performed? Yes
--- NOTE | 2021-02-16 12:29 | OP ---
OPERATIVE REPORT POSTOPERATIVE DIAGNOSIS: Acute on chronic renal failure with malfunction right IJ catheter, history of CA of the lung with extreme shortness of breath. PROCEDURE: Placement of the right femoral dialysis catheter ultrasound-guided. DESCRIPTION: The patient was seen in the intensive care unit right groin was prepped and draped of a sterile manner. Next 1% lidocaine plain infiltrated in the groin area. Ultrasound- guided micropuncture introduced right common femoral vein. Micropuncture guidewire was passed and a 4 Danish dilator advanced on the top of the guidewire. Then we placed the dilator on the top of the guidewire and placed triple-lumen dialysis catheter on the top of the guidewire. Guidewire was removed, flushed, flushed with saline and secured with 3-0 nylon. Dressing applied. The patient is going to have a dialysis right away. SKIP / RAYRAYN: [id number] /
--- NOTE | 2021-02-16 16:27 | P.CNNES ---
History of Present Illness Consult date: 02/16/21 Requesting physician: Amber Don Reason for Consult: Altered mental status History of Present Illness: This is a Tele-neurology consultation performed today on 02/16/2021. Patient is a 65-year-old male with history of recent diagnosis of ESRD on hemodialysis for the past 1-2 months, history of CVA/TIA, hypertension came to the hospital yesterday at 4:12 PM for bronchoscopy. Patient was recently diagnosed with squamous cell carcinoma of the lung. Neurology was consulted for mental confusion going on for last 1 month. He is noticed to be oriented 1-2 at baseline. Patient at present denies headache, no problem with the vision, no numbness or tingling or weakness. Denies any problems with balance. Patient has been diagnosed with right upper lobe mass, squamous cell lung cancer, mediastinal lymphadenopathy. Chest x-ray showed there is an underlying mass. Correlate for possible pneumonia. Stable cardiomegaly. Patient's PET/CT from 01/20/2021 showed confirmation of known large right lung neoplasm. A ttention to right kidney otherwise no suspicious adenopathy or metastatic disease. Patient had a computed tomography scan of head with contrast on 02/07/2021 which revealed no suspicious enhancing masses to suggest metastatic disease to the brain. Moderate to severe nonspecific white matter changes may be on the basis of chronic small vessel ischemic change. Old infarct medial left occipital lobe noted. Patient's blood test shows WBC 17.2 hemoglobin 8.8, platelets 233. Sodium 134 potassium 4.0, BUN 25 creatinine 5.91. Patient has end-stage renal disease on hemodialysis. Patient had undergone bronchoscopy yesterday. Patient's ABG shows pH 7.31, pCO2 54, PaO2 70 and saturation 93.7%. Patient has smoked 1 pack per day since he was age 17, still smokes. He quit drinking 2-4 years ago. Patient states that he lives with his significant other. Patient has history of stroke TIA in the past, but he does not remember what side was affected. I spoke to patient's significant other Miss Marina Moulton, who states that patient has been having slow memory decline for the last 3 months. He repeats same questions, transposes numbers, like for 256, he will change it to 562. She mentions that patient has history of multiple strokes in the last 10 years. He has series of mini-strokes 3 years ago. He used to be on lipid lowering medication but somehow it was discontinued 2-3 years ago for unclear reason. He currently does not take any antiplatelet medication. She states that he still smokes, and gets agitated and angry if he does not get his cigarettes. Review of Systems As above in detail. Patient denies any chest pain. No abdominal pain. No nausea vomiting diarrhea. Denies headache or any problem with the vision or numbness tingling. Patient denies any fever or chills. No rash. No dysphagia. No incontinence. Past Medical History Past Medical History: CVA/TIA, Hypertension, Myocardial Infarction (NC), Supraventricular Tachycardia (SVT) Additional Past Medical History / Comment(s): multiple strokes, NC (2005), Dialysis [facility]- Thursday, Wednesdays and Fridays. Last Dialysis-02/13/21 Last Myocardial Infarction Date:: 2005 History of Any Multi-Drug Resistant Organisms: None Reported Past Surgical History: Heart Catheterization Additional Past Surgical History / Comment(s): removal of left kidney Past Anesthesia/Blood Transfusion Reactions: No Reported Reaction Smoking Status: Current every day smoker Medications and Allergies Home Medications Medication Instructions Recorded Confirmed Type Nitroglycerin Sl Tabs [Nitrostat] 0.4 mg SUBLINGUAL Q5M PRN #30 tab 08/29/18 02/15/21 Rx carvediloL [Coreg*] 25 mg PO BID-W/MEALS #60 tab 08/29/18 02/15/21 Rx Acetaminophen Tab [Tylenol] 650 mg PO Q6HR PRN tab 12/31/20 02/15/21 Rx Hydrocodone Bit/Homatrop Me-Br 5 ml PO Q6H #100 ml 01/30/21 02/15/21 Rx [Hycodan 5 mg-1.5 mg/5 ml Soln] Hydrocodone Bit/Homatrop Me-Br 5 ml PO Q6H PRN #100 ml 02/06/21 02/15/21 Rx [Hycodan 5 mg-1.5 mg/5 ml Soln] Hydrocodone Bit/Homatrop Me-Br 5 ml PO Q6H PRN #100 ml 02/13/21 02/15/21 Rx [Hycodan 5 mg-1.5 mg/5 ml Soln] Allergies Allergy/AdvReac Type Severity Reaction Status Date / Time clonidine Allergy Swelling Verified 02/15/21 08:12 hydralazine Allergy Rash/Hives Verified 02/15/21 08:12 lisinopril Allergy Swelling Verified 02/15/21 08:12 Physical Examination - Vital Signs Vital Signs: Vital Signs Temp Pulse Pulse Pulse Resp BP BP 02/16/21 08:00 98.0 F 73 16 98/73 02/16/21 07:00 80 9 L 108/73 02/16/21 06:00 69 13 93/77 02/16/21 05:00 75 16 127/84 02/16/21 04:00 98.4 F 82 25 H 97/62 02/16/21 03:00 80 11 L 116/85 02/16/21 02:00 80 6 L 153/80 02/16/21 01:00 84 17 113/70 02/16/21 00:00 97.9 F 85 14 117/80 02/15/21 23:22 84 16 02/15/21 23:00 87 15 97/68 02/15/21 22:00 86 16 104/75 02/15/21 21:08 91 02/15/21 21:00 88 17 102/66 02/15/21 20:00 98.1 F 87 15 101/76 02/15/21 19:30 91 17 105/75 02/15/21 19:00 89 13 109/69 02/15/21 18:30 93 16 93/62 02/15/21 18:13 94 20 115/78 02/15/21 18:00 98 21 103/71 02/15/21 17:40 95 21 121/86 02/15/21 17:30 98 21 02/15/21 17:20 24 02/15/21 17:10 92 18 114/75 02/15/21 17:00 98.5 F 93 15 141/36 02/15/21 16:50 92 20 141/36 02/15/21 16:40 93 27 H 131/76 02/15/21 16:37 112 H 21 02/15/21 16:10 20 204/118 02/15/21 14:25 97.8 F 80 19 147/86 02/15/21 13:30 81 16 115/69 02/15/21 13:00 87 16 103/65 02/15/21 12:27 79 17 106/63 08/27/21 12:06 86 17 114/75 02/15/21 11:45 85 16 118/77 02/15/21 11:30 84 16 113/73 02/15/21 11:15 91 16 129/86 02/15/21 10:57 91 16 132/86 02/15/21 10:45 86 16 112/62 02/15/21 10:30 91 14 106/64 Pulse Ox 02/16/21 08:00 98 02/16/21 07:00 78 L 02/16/21 06:00 97 02/16/21 05:00 97 02/16/21 04:00 96 02/16/21 03:00 94 L 02/16/21 02:00 96 02/16/21 01:00 95 02/16/21 00:00 95 02/15/21 23:22 94 L 02/15/21 23:00 95 02/15/21 22:00 94 L 02/15/21 21:08 02/15/21 21:00 97 02/15/21 20:00 97 02/15/21 19:30 02/15/21 19:00 02/15/21 18:30 02/15/21 18:13 02/15/21 18:00 90 L 02/15/21 17:40 45 L 02/15/21 17:30 41 L 02/15/21 17:20 02/15/21 17:10 90 L 02/15/21 17:00 92 L 02/15/21 16:50 02/15/21 16:40 02/15/21 16:37 02/15/21 16:10 88 L 02/15/21 14:25 94 L 02/15/21 13:30 88 L 02/15/21 13:00 89 L 02/15/21 12:27 90 L 02/15/21 12:06 91 L 02/15/21 11:45 79 L 02/15/21 11:30 91 L 02/15/21 11:15 92 L 02/15/21 10:57 96 02/15/21 10:45 97 02/15/21 10:30 99 Intake and Output 02/15/21 02/16/21 02/16/21 22:59 06:59 14:59 Output Total 6000 0 Balance -6000 0 Output: Gastric Drainage 3000 Urine 0 0 Hemodialysis 3000 Other: Weight 84 kg Patient is an elderly Afro-[place] male, laying comfortably in the bed. Patient is getting hemodialysis at this time. Patient is alert awake, knows that it is January 2021 and that is in the hospital although he does not know the name. Patient knows that he is in [place] in [place], and name of the current president. Speech and language functions are normal. Patient can name and repeat. Attention, concentration and fund of knowledge is limited. On cranial examination, pupils are round and reacting to light, visual rosas are full on confrontation, extraocular muscles are intact with no nystagmus. Face is symmetric, tongue protrudes to the midline. Palatal elevation and sensation normal, hearing is slightly decreased and shoulder shrug normal, facial sensation normal. Shoulder shrug normal. On muscle strength testing, there is mild right pronator drift. Patient's strength is slightly weak in the right arm with biceps and triceps 4 whereas 5 on the left. Patient's deltoid, field care advocate are normal bilaterally. Patient's ankle dorsiflexion, plantarflexion and toes are normal. Left leg strength is normal. Right leg not tested because of receiving dialysis. Deep tendon reflexes are symmetric, 0 at the biceps, trace at brachioradialis. 2+ at the knees, and plantars are withdrawal bilaterally. Sensory to touch is equal with no neglect. Cerebellar function showed ataxia for [id number] testing only on the right side. Tone and bulk of muscles normal. Gait not checked. On general examination, carotids could not be heard because of significant wheezing. No murmur. Abdomen is soft nontender. Chest has wheezing. Patient has bilateral peripheral edema. Results - Laboratory Findings CBC and BMP: 02/16/21 04:59 02/16/21 04:59 Abnormal Lab Findings: Abnormal Labs 02/15/21 02/15/21 02/15/21 16:50 16:50 18:44 WBC 13.1 H RBC 3.47 L Hgb 9.5 L Hct 31.9 L MCHC 29.8 L Neutrophils # 11.5 H Lymphocytes # ABG pH 7.29 L ABG pCO2 57 H ABG pO2 ABG HCO3 27 H ABG Total CO2 29 H ABG O2 Saturation Sodium 134 L Chloride 97 L BUN Creatinine 4.88 H Glucose 106 H Calcium 8.0 L Phosphorus 02/16/21 02/16/21 02/16/21 04:59 04:59 04:59 WBC 17.2 H RBC 3.16 L Hgb 8.8 L Hct 29.1 L MCHC 30.3 L Neutrophils # 16.3 H Lymphocytes # 0.6 L ABG pH ABG pCO2 ABG pO2 ABG HCO3 ABG Total CO2 ABG O2 Saturation Sodium 134 L Chloride BUN 25 H Creatinine 5.91 H Glucose 203 H Calcium 8.0 L Phosphorus 5.8 H 02/16/21 09:45 WBC RBC Hgb Hct MCHC Neutrophils # Lymphocytes # ABG pH 7.31 L ABG pCO2 54 H ABG pO2 70 L ABG HCO3 27 H ABG Total CO2 29 H ABG O2 Saturation 93.7 L Sodium Chloride BUN Creatinine Glucose Calcium Phosphorus Assessment and Plan Assessment: * Altered mental status, possible mild metabolic encephalopathy. * Slowly progressive memory loss over the past 3 months, possible early stage of vascular dementia. Patient has history of multiple strokes in the past. Also has multiple vascular risk factors. * Hypertension * Hyperlipidemia * Chronic tobacco use * Newly diagnosed squamous cell lung cancer. * History of alcoholism Plan: * Patient needs a vascular workup. * We will check carotid Doppler, 2-D echo. * Hemoglobin A1c, lipid panel. * Continue telemetry monitoring. * B12, folic acid, TSH, MMA, RPR. * Suggest starting aspirin 81 mg daily, when cleared by pulmonary/IM. * We will follow.
[2021-02-16 17:18] LABS: % Iron Saturation 4.21 (15.00-50.00); Ferritin 581.6 ng/mL (22.0-322.0)
--- NOTE | 2021-02-16 17:52 | US ---
EXAMINATION TYPE: US carotid duplex BILAT DATE OF EXAM: 02/16/2021 COMPARISON: NONE CLINICAL HISTORY: AMS,history of multiple stroke/TIA. ICU patient with h/o multiple TIA/Strokes, alte red mental status, Lung CA EXAM MEASUREMENTS: RIGHT: Peak Systolic Velocity (PSV) cm/sec ----- Right CCA: 76.5 ----- Right ICA: 60.5 ----- Right ECA: 105.2 ICA/CCA ratio: 0.8 RIGHT: End Diastole cm/sec ----- Right CCA: 17.1 ----- Right ICA: 29.1 ----- Right ECA: 6.9 LEFT: Peak Systolic Velocity (PSV) cm/sec ----- Left CCA: 53.8 ----- Left ICA: 103.0 ----- Left ECA: 71.1 ICA/CCA ratio: 1.9 LEFT: End Diastole cm/sec ----- Left CCA: 15.4 ----- Left ICA: 37.0 ----- Left ECA: 8.9 VERTEBRALS (direction of flow): Right Vertebral: Antegrade Left Vertebral: Antegrade Rhythm: Normal Difficult patient to image, he was sitting upright, could not lay down Mild homogeneous plaque with no significant stenosis seen. IMPRESSION: There is antegrade flow in the vertebral arteries. The images and measurements suggest l ess than 25% stenosis in both internal carotid arteries. NASCET criteria was used in interpretation of this exam? Criteria for Assigning % of Stenosis / Diameter reduction (Estimation based on the indirect measurements of the internal carotid artery velocities (ICA PSV). 1. Normal (no stenosis)=ICA PSV < 125 cm/s: ratio < 2.0: ICA EDV<40 cm/s. 2. Less than 50% stenosis=ICA PSV < 125 cm/s: ratio < 2.0: ICA EDV<40 cm/s. 3. 50 to 69% stenosis=ICA PSV of 125 to 230 cm/s: ration 2.0 ? 4.0: ICA EDV 40-100 cm/s. 4. Greater than 70% stenosis to near occlusion= ICA PSV > 230 cm/s: ratio > 4.0: ICA EDV > 100 cm/s. 5. Near occlusion= ICA PSV velocities may be low or undetectable: variable ratio and ICA EDV. 6. Total occlusion=unable to detect flow.
--- NOTE | 2021-02-16 23:37 | P.HPIM ---
History of Present Illness H&P Date: 02/16/21 Chief Complaint: Hypoxia Patient is a 65-year-old male with a known history of hypertension, history of CVA/TIA, SVT, ESRD on hemodialysis Thursday and Thursday, currently everyday smoker was admitted to the hospital after elective endobronchial ultrasound procedure.. Patient was recently admitted to hospital and was found to have right upper lobe mass and underwent bronchoscopy and biopsy on 12/28/2020. 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 PET scan confirmed large right lung neoplasm. Patient had elective EBUS with mediastinal lymph node biopsy. Postprocedure patient was hypoxic and was in the 80s on 100% nonrebreather. Patient was also hypotensive. He was admitted to hospital MICU. Oxygen requirement improved and currently patient is on 5 L oxygen via nasal cannula. Chest x-ray showed there is underlying lung mass. Correlate to exclude pneumonia. Cardiomegaly. Laboratory data showed WBC 13.1, hemoglobin 9.5 and platelets 232 ABG showed pH 7.29 PCO2 57 and PO2 88 Sodium 134 potassium 3.8 chloride 97 BUN 20 and creatinine 4.88 Patient is undergoing hemodialysis currently. Patient had problems with right IJ dialysis catheter and currently placed with right femoral catheter ultrasound-guided by Dr. Neal. Review of Systems Constitutional: Patient denies any fever or chills . No generalized weakness or weight loss. Abdomen: Patient denied nausea vomiting and diarrhea and abdominal pain. Cardiovascular: Patient denies any chest pain or short of breath no palpitations. Respiratory: patient denied any cough or sputum production. No shortness of breath Neurologic: Patient denied any numbness or tingling headache. Musculoskeletal: Patient denies any complaints of joint swelling or deformity. Skin: Negative Psychiatric: Negative Endocrine: No heat or cold intolerance. No recent weight gain. Genitourinary: No dysuria or hematuria. All other 14 point ROS negative except the above Past Medical History Past Medical History: CVA/TIA, Hypertension, Myocardial Infarction (NC), Supraventricular Tachycardia (SVT) Additional Past Medical History / Comment(s): multiple strokes, NC (2005), Dialysis [facility]- Thursday, Wednesdays and Fridays. Last Dialysis-02/13/21 Last Myocardial Infarction Date:: 2005 History of Any Multi-Drug Resistant Organisms: None Reported Past Surgical History: Heart Catheterization Additional Past Surgical History / Comment(s): removal of left kidney Past Anesthesia/Blood Transfusion Reactions: No Reported Reaction Smoking Status: Current every day smoker Medications and Allergies Home Medications Medication Instructions Recorded Confirmed Type RX: Nitroglycerin Sl Tabs 0.4 mg SUBLINGUAL Q5M PRN #30 tab 08/29/18 02/15/21 Rx [Nitrostat] RX: carvediloL [Coreg*] 25 mg PO BID-W/MEALS #60 tab 08/29/18 02/15/21 Rx RX: Acetaminophen Tab [Tylenol] 650 mg PO Q6HR PRN tab 12/31/20 02/15/21 Rx Hydrocodone Bit/Homatrop Me-Br 5 ml PO Q6H #100 ml 01/30/21 02/15/21 Rx [Hycodan 5 mg-1.5 mg/5 ml Soln] Hydrocodone Bit/Homatrop Me-Br 5 ml PO Q6H PRN #100 ml 02/06/21 02/15/21 Rx [Hycodan 5 mg-1.5 mg/5 ml Soln] Hydrocodone Bit/Homatrop Me-Br 5 ml PO Q6H PRN #100 ml 02/13/21 02/15/21 Rx [Hycodan 5 mg-1.5 mg/5 ml Soln] Allergies Allergy/AdvReac Type Severity Reaction Status Date / Time clonidine Allergy Swelling Verified 02/15/21 08:12 hydralazine Allergy Rash/Hives Verified 02/15/21 08:12 lisinopril Allergy Swelling Verified 02/15/21 08:12 Physical Exam Vitals: Vital Signs Temp Pulse Pulse Pulse Resp BP BP 02/16/21 08:00 98.0 F 73 16 98/73 02/16/21 07:00 80 9 L 108/73 02/16/21 06:00 69 13 93/77 02/16/21 05:00 75 16 127/84 02/16/21 04:00 98.4 F 82 25 H 97/62 02/16/21 03:00 80 11 L 116/85 02/16/21 02:00 80 6 L 153/80 02/16/21 01:00 84 17 113/70 02/16/21 00:00 97.9 F 85 14 117/80 02/15/21 23:22 84 16 02/15/21 23:00 87 15 97/68 02/15/21 22:00 86 16 104/75 02/15/21 21:08 91 02/15/21 21:00 88 17 102/66 02/15/21 20:00 98.1 F 87 15 101/76 02/15/21 19:30 91 17 105/75 02/15/21 19:00 89 13 109/69 02/15/21 18:30 93 16 93/62 02/15/21 18:13 94 20 115/78 02/15/21 18:00 98 21 103/71 02/15/21 17:40 95 21 121/86 02/15/21 17:30 98 21 02/15/21 17:20 24 02/15/21 17:10 92 18 114/75 02/15/21 17:00 98.5 F 93 15 141/36 02/15/21 16:50 92 20 141/36 02/15/21 16:40 93 27 H 131/76 02/15/21 16:37 112 H 21 02/15/21 16:10 20 204/118 02/15/21 14:25 97.8 F 80 19 147/86 02/15/21 13:30 81 16 115/69 02/15/21 13:00 87 16 103/65 02/15/21 12:27 79 17 106/63 02/15/21 12:06 86 17 114/75 02/15/21 11:45 85 16 118/77 02/15/21 11:30 84 16 113/73 02/15/21 11:15 91 16 129/86 02/15/21 10:57 91 16 132/86 02/15/21 10:45 86 16 112/62 02/15/21 10:30 91 14 106/64 02/15/21 10:17 97.0 F L 95 16 111/69 Pulse Ox 02/16/21 08:00 98 02/16/21 07:00 78 L 02/16/21 06:00 97 02/16/21 05:00 97 02/16/21 04:00 96 02/16/21 03:00 94 L 02/16/21 02:00 96 02/16/21 01:00 95 02/16/21 00:00 95 02/15/21 23:22 94 L 02/15/21 23:00 95 02/15/21 22:00 94 L 02/15/21 21:08 02/15/21 21:00 97 02/15/21 20:00 97 02/15/21 19:30 02/15/21 19:00 02/15/21 18:30 02/15/21 18:13 02/15/21 18:00 90 L 02/15/21 17:40 45 L 02/15/21 17:30 41 L 02/15/21 17:20 02/15/21 17:10 90 L 02/15/21 17:00 92 L 02/15/21 16:50 02/15/21 16:40 02/15/21 16:37 02/15/21 16:10 88 L 02/15/21 14:25 94 L 02/15/21 13:30 88 L 02/15/21 13:00 89 L 02/15/21 12:27 90 L 02/15/21 12:06 91 L 02/15/21 11:45 79 L 02/15/21 11:30 91 L 02/15/21 11:15 92 L 02/15/21 10:57 96 02/15/21 10:45 97 02/15/21 10:30 99 02/15/21 10:17 93 L Intake and Output 02/15/21 02/16/21 02/16/21 22:59 06:59 14:59 Output Total 6000 0 Balance -6000 0 Output: Gastric Drainage 3000 Urine 0 0 Hemodialysis 3000 Other: Weight 84 kg PHYSICAL EXAMINATION: Patient is lying in the bed comfortably, no acute distress, awake alert and oriented.. HEENT: Normocephalic. Neck is supple. Pupils reactive. Nostrils clear. Oral cavity is moist. Neck reveals no JVD, carotid bruits, or thyromegaly. CHEST EXAMINATION: Trachea is central. Symmetrical expansion. Scattered coarse sounds on the right side no wheezing... CARDIAC: Normal S1, S2 with no gallops. No murmurs ABDOMEN: Soft. Bowel sounds normal. No organomegaly. No abdominal bruits. Extremities: reveal no edema. No clubbing or cyanosis Neurologically awake, alert, oriented x3 with well-coordinated movements. No focal deficits noted Skin: No rash or skin lesions. Psychiatric: Coperative. Nonsuicidal Musculoskeletal: No joint swelling or deformity. Normal range of motion. Results CBC & Chem 7: 02/16/21 04:59 02/16/21 04:59 Labs: Abnormal Lab Results - Last 24 Hours (Table) 02/15/21 02/15/21 02/15/21 Range/Units 16:50 16:50 18:44 WBC 13.1 H (3.8-10.6) k/uL RBC 3.47 L (4.30-5.90) m/uL Hgb 9.5 L (13.0-17.5) gm/dL Hct 31.9 L (39.0-53.0) % MCHC 29.8 L (31.0-37.0) g/dL Neutrophils # 11.5 H (1.3-7.7) k/uL Lymphocytes # (1.0-4.8) k/uL ABG pH 7.29 L (7.35-7.45) ABG pCO2 57 H (35-45) mmHg ABG pO2 (83-108) mmHg ABG HCO3 27 H (21-25) mmol/L ABG Total CO2 29 H (19-24) mmol/L ABG O2 Saturation (94-97) % Sodium 134 L (137-145) mmol/L Chloride 97 L (98-107) mmol/L BUN (9-20) mg/dL Creatinine 4.88 H (0.66-1.25) mg/dL Glucose 106 H (74-99) mg/dL Calcium 8.0 L (8.4-10.2) mg/dL Phosphorus (2.5-4.5) mg/dL 02/16/21 02/16/21 02/16/21 Range/Units 04:59 04:59 04:59 WBC 17.2 H (3.8-10.6) k/uL RBC 3.16 L (4.30-5.90) m/uL Hgb 8.8 L (13.0-17.5) gm/dL Hct 29.1 L (39.0-53.0) % MCHC 30.3 L (31.0-37.0) g/dL Neutrophils # 16.3 H (1.3-7.7) k/uL Lymphocytes # 0.6 L (1.0-4.8) k/uL ABG pH (7.35-7.45) ABG pCO2 (35-45) mmHg ABG pO2 (83-108) mmHg ABG HCO3 (21-25) mmol/L ABG Total CO2 (19-24) mmol/L ABG O2 Saturation (94-97) % Sodium 134 L (137-145) mmol/L Chloride (98-107) mmol/L BUN 25 H (9-20) mg/dL Creatinine 5.91 H (0.66-1.25) mg/dL Glucose 203 H (74-99) mg/dL Calcium 8.0 L (8.4-10.2) mg/dL Phosphorus 5.8 H (2.5-4.5) mg/dL 02/16/21 Range/Units 09:45 WBC (3.8-10.6) k/uL RBC (4.30-5.90) m/uL Hgb (13.0-17.5) gm/dL Hct (39.0-53.0) % MCHC (31.0-37.0) g/dL Neutrophils # (1.3-7.7) k/uL Lymphocytes # (1.0-4.8) k/uL ABG pH 7.31 L (7.35-7.45) ABG pCO2 54 H (35-45) mmHg ABG pO2 70 L (83-108) mmHg ABG HCO3 27 H (21-25) mmol/L ABG Total CO2 29 H (19-24) mmol/L ABG O2 Saturation 93.7 L (94-97) % Sodium (137-145) mmol/L Chloride (98-107) mmol/L BUN (9-20) mg/dL Creatinine (0.66-1.25) mg/dL Glucose (74-99) mg/dL Calcium (8.4-10.2) mg/dL Phosphorus (2.5-4.5) mg/dL Thrombosis Risk Factor Assmnt - DVT/VTE Prophylaxis DVT/VTE Prophylaxis: Pharmacologic Prophylaxis ordered - Choose All That Apply Any of the Below Risk Factors Present?: Yes Each Risk Factor Represents 2 Points: Age 61-74 years Thrombosis Risk Factor Assessment Total Risk Factor Score: 2 Thrombosis Risk Factor Assessment Level: Low Risk Assessment and Plan Assessment: Acute hypoxic respiratory failure due to large right upper lobe mass. 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 ESRD on hemodialysis with malfunctioning of IJ catheter. Right femoral catheter was placed on 02/15. 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 Plan: Patient was 100% nonrebreather initially and is being titrated down to 5 L today. New right femoral dialysis catheter was placed and currently patient is undergoing hemodialysis. Continue with duo nebs and pain management. Continue blood pressure medications and follow-up closely. Pulmonary and nephrology is on board. Time with Patient: Greater than 30
[2021-02-17 04:32] LABS: Basophils % (A) 0 %; Eosinophils % (A) 0 %; HCT 26.5 % (39.0-53.0); Hypochromasia Marked; Lymphocytes # (A) 0.7 k/uL (1.0-4.8); Lymphocytes % (A) 5 %; MCH 27.6 pg (25.0-35.0); MCHC 30.2 g/dL (31.0-37.0); MCV 91.2 fL (80.0-100.0); Mean Platelet Volume 8.1; Monocytes # (A) 0.5 k/uL (0-1.0); Monocytes % (A) 3 %; Neutrophils # (A) 13.1 k/uL (1.3-7.7); Neutrophils % (A) 92 %; Platelet Count 231 k/uL (150-450); RDW 15.2 % (11.5-15.5); WBC 14.3 k/uL (3.8-10.6)
[2021-02-17 06:32] LABS: Glucose,Whole Blood 227 mg/dL (75-99)
[2021-02-17] MEDS: INSULIN ASPART (NovoLOG) 100 UNIT/ML VIAL SQ SCH ×4 (06:34→20:16)
[2021-02-17] MEDS: carvediloL 12.5 MG TAB PO SCH ×2 (06:34→17:07)
--- NOTE | 2021-02-17 07:15 | XR ---
EXAMINATION TYPE: XR chest 1V portable DATE OF EXAM: 02/17/2021 COMPARISON: Chest x-ray 02/16/2021 HISTORY: Shortness of breath TECHNIQUE: Single frontal view of the chest is obtained. FINDINGS: There is not a significant interval change. IMPRESSION: There is an underlying mass, correlate for possible associated pneumonia
[2021-02-17] MEDS: IPRATROPIUM-ALBUTEROL 3 ML NEB INHALATION SCH ×4 (07:34→20:36)
--- NOTE | 2021-02-17 08:38 | P.PN ---
Subjective Patient is seen in follow-up for end-stage renal disease. He is maintained on hemodialysis on Thursday schedule. He had an extra treatment of dialysis yesterday with 2 L ultrafiltration. Mentation is a little better today. On 2 L nasal cannula. Vital signs are stable. General: The patient appeared well nourished and normally developed. HEENT: Head exam is unremarkable. On nasal cannula. LUNGS: Breath sounds decreased. HEART: Rate and Rhythm are regular. ABDOMEN: Soft, no distention. EXTREMITITES: Trace edema. Objective - Vital Signs Vital signs: Vital Signs Temp 97.9 F 02/17/21 04:00 Pulse 70 02/17/21 07:00 Resp 18 02/17/21 07:00 BP 144/94 02/17/21 07:00 Pulse Ox 94 L 02/17/21 07:00 Intake & Output 02/16/21 02/17/21 02/17/21 18:59 06:59 18:59 Intake Total 400 Output Total 2000 0 0 Balance -1600 0 0 Weight 83.1 kg Intake: Oral 400 Output: Urine 0 0 0 Hemodialysis 2000 - Labs CBC & Chem 7: 02/17/21 03:39 02/17/21 03:39 Labs: Abnormal Lab Results - Last 24 Hours (Table) 02/16/21 02/16/21 02/17/21 Range/Units 04:59 09:45 03:39 WBC (3.8-10.6) k/uL RBC (4.30-5.90) m/uL Hgb (13.0-17.5) gm/dL Hct (39.0-53.0) % MCHC (31.0-37.0) g/dL Neutrophils # (1.3-7.7) k/uL Lymphocytes # (1.0-4.8) k/uL ABG pH 7.31 L (7.35-7.45) ABG pCO2 54 H (35-45) mmHg ABG pO2 70 L (83-108) mmHg ABG HCO3 27 H (21-25) mmol/L ABG Total CO2 29 H (19-24) mmol/L ABG O2 Saturation 93.7 L (94-97) % BUN 31 H (9-20) mg/dL Creatinine 5.07 H (0.66-1.25) mg/dL Glucose 240 H (74-99) mg/dL POC Glucose (mg/dL) (75-99) mg/dL Calcium 8.0 L (8.4-10.2) mg/dL Phosphorus 5.8 H (2.5-4.5) mg/dL Iron 8 L (65-175) ug/dL TIBC 190 L (228-460) ug/dL % Saturation 4.21 L (15.00-50.00) Ferritin 581.6 H (22.0-322.0) ng/mL 02/17/21 02/17/21 Range/Units 03:39 06:30 WBC 14.3 H (3.8-10.6) k/uL RBC 2.90 L (4.30-5.90) m/uL Hgb 8.0 L (13.0-17.5) gm/dL Hct 26.5 L (39.0-53.0) % MCHC 30.2 L (31.0-37.0) g/dL Neutrophils # 13.1 H (1.3-7.7) k/uL Lymphocytes # 0.7 L (1.0-4.8) k/uL ABG pH (7.35-7.45) ABG pCO2 (35-45) mmHg ABG pO2 (83-108) mmHg ABG HCO3 (21-25) mmol/L ABG Total CO2 (19-24) mmol/L ABG O2 Saturation (94-97) % BUN (9-20) mg/dL Creatinine (0.66-1.25) mg/dL Glucose (74-99) mg/dL POC Glucose (mg/dL) 227 H (75-99) mg/dL Calcium (8.4-10.2) mg/dL Phosphorus (2.5-4.5) mg/dL Iron (65-175) ug/dL TIBC (228-460) ug/dL % Saturation (15.00-50.00) Ferritin (22.0-322.0) ng/mL Assessment and Plan Plan: Assessment: 1. End-stage renal disease maintained on hemodialysis on Thursday schedule via permacath. He had a femoral catheter placed yesterday due to malfunctioning permacath. 2. Squamous cell lung cancer with mediastinal lymphadenopathy. Status post bronchoscopy and staging on February 15. 3. Volume overload. Improved with ultrafiltration. 4. Anemia of chronic kidney disease. Iron deficiency noted. 5. Chronic systolic CHF with ejection fraction of 20-25% with moderate mitral regurgitation. 6. Acute hypoxia respiratory failure. 7. Malfunctioning permacath. Vascular surgery following. 8. Chronic kidney disease mineral bone disease. Plan: Hemodialysis tomorrow. Permacath will be exchanged and femoral catheter will be removed prior to discharge. Add IV iron. Wean FiO2. Add PhosLo with meals.
--- NOTE | 2021-02-17 09:04 | P.PN ---
Subjective Progress Note Date: 02/17/21 This is a 65-year-old gentleman with a history of anemia of chronic disease, chronic kidney disease receiving hemodialysis Thursday, history of CVA/TIA, hypertension, SVT, chronic and ongoing tobacco dependence, occasional alcohol use, marijuana use. He was recently hospitalized for short ness of breath and was found to have a right upper lobe lung mass undergone transbronchial biopsy by Dr. Brewer on 12/28/2020. 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 PET scan all confirmed large right lung neoplasm. Right kidney had some subtle hypermetabolic uptake. He had been seen and evaluated by Dr. Washington who recommended the patient have biopsies of the mediastinal adenopathy. He was brought in electively today for EBUS procedure performed by Dr. Brewer. Following the procedure he had some issues with toxemia after being extubated. He has some cough and congestion. He was kept as an inpatient today to receive his hemodialysis and to be followed overnight. He is seen in consultation on the regular medical floor. Currently receiving hemodialysis. He is having issues with hypoxemia and hypertension. Today continues to revealed a right upper lobe mass. Left lung clear. He is maintaining O2 saturations in the 80s on a nonrebreather mask. Hypertensive. Lab work pending. Glucose 95. on 02/16 2021, the patient is much more awake and alert and is communicating. He woke up today and he had a full breakfast. Nevertheless, we have noted that on and off the is still confused and this is the same situation he is been over the past 3-4 weeks as reported by his significant other. No focal neurological deficits. CT of the brain was negative. We considered the possibility of ongoing encephalopathy as his dialysis may not be fully effective knowing that the patient was having some issues with his permacath catheter yesterday. Based on that, we've made recommendations for vascular surgery to replace the catheter. He underwent dialysis with ultrafiltration yesterday and the same will be done today. Also, the possibility of neoplastic syndrome is being considered in this patient based on his massive and large right upper lobe thania or. The endoscopic ultrasound was done yesterday and the appropriate lymph nodes were sampled without any significant complications. He did have a component of respiratory acidosis postop. Please note that blood gases. This could be related to anesthetics, paralytic agents, and possibly the increased amount of codeine that he was ingesting at home. A repeat blood gases will be done today. Earlier this morning he was on 12 L of oxygen and currently is at 5 L and the pulse ox is around 94%. Repeat blood gases will be done. He is able to swallow appropriately. No hyperkalemia. No other major electrolyte disturbance for now. On today's evaluation of a 2020, the patient is doing better. He is awake. Is alert. Oriented to place. He was able to state the presence pain. He underwent a dialysis catheter exchange yesterday. He is currently a femoral dialysis catheter. He underwent a session of dialysis yesterday with a 2 L of ultrafiltration. Currently is on 2 L of oxygen by nasal cannula. His quite comfortable. He is tolerating his diet. No nausea or vomiting. No chest pain. Cardiac rhythm is sinus. Hemodynamically stable. Pulse ox 94% liters of oxygen by nasal cannula. No new complaints. He was seen by neurology yesterday. 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 Nevertheless, the patient does not have any focal neurological deficits. He is moving all 4 extremities. He is able to get out of the bed and some limited amount of activity and ambulation. His overall performance and functional status is poor. 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 Please refer to the consultation note that was done by neurology. The patient also may have vascular dementia, his history of multiple CVAs in the past and he does have other risk factors for vascular/cardiovascular disease/atherosclerosis. Objective - Vital Signs Vital signs: Vital Signs Temp 97.9 F 02/17/21 04:00 Pulse 70 02/17/21 07:00 Resp 18 02/17/21 07:00 BP 144/94 02/17/21 07:00 Pulse Ox 94 L 02/17/21 07:00 Intake & Output 02/16/21 02/17/21 02/17/21 18:59 06:59 18:59 Intake Total 400 Output Total 2000 0 0 Balance -1600 0 0 Weight 83.1 kg Intake: Oral 400 Output: Urine 0 0 0 Hemodialysis 2000 - Exam GENERAL EXAM: 65-year-old -Fijian male patient, O2 saturation 94% on 2 L of oxygen by nasal cannula. Breathing is nonlabored and the patient having any respiratory distress. He is awake and communicating. Nonagitated, awake and oriented and communicating. HEAD: Normocephalic. EYES: Normal reaction of pupils, equal size. NOSE: Clear with pink turbinates. THROAT: No erythema or exudates. NECK: No masses, no JVD. CHEST: No chest wall deformity. LUNGS: Equal air entry with crackles and scattered rhonchi in the right lung. CVS: S1 and S2 normal with no audible murmur, regular rhythm. ABDOMEN: No hepatosplenomegaly, normal bowel sounds, no guarding or rigidity. The patient has a dialysis catheter in his groin SPINE: No scoliosis or deformity SKIN: No rashes CENTRAL NERVOUS SYSTEM: No focal deficits, tone is normal in all 4 extremities. EXTREMITIES: There is no peripheral edema. No clubbing, no cyanosis. Peripheral pulses are intact. Neurologically, much more lucid and awake and communicating. No focal neurological deficits. - Labs CBC & Chem 7: 02/17/21 03:39 02/17/21 03:39 Labs: Abnormal Lab Results - Last 24 Hours (Table) 02/16/21 02/16/21 02/17/21 Range/Units 04:59 09:45 03:39 WBC (3.8-10.6) k/uL RBC (4.30-5.90) m/uL Hgb (13.0-17.5) gm/dL Hct (39.0-53.0) % MCHC (31.0-37.0) g/dL Neutrophils # (1.3-7.7) k/uL Lymphocytes # (1.0-4.8) k/uL ABG pH 7.31 L (7.35-7.45) ABG pCO2 54 H (35-45) mmHg ABG pO2 70 L (83-108) mmHg ABG HCO3 27 H (21-25) mmol/L ABG Total CO2 29 H (19-24) mmol/L ABG O2 Saturation 93.7 L (94-97) % BUN 31 H (9-20) mg/dL Creatinine 5.07 H (0.66-1.25) mg/dL Glucose 240 H (74-99) mg/dL POC Glucose (mg/dL) (75-99) mg/dL Calcium 8.0 L (8.4-10.2) mg/dL Phosphorus 5.8 H (2.5-4.5) mg/dL Iron 8 L (65-175) ug/dL TIBC 190 L (228-460) ug/dL % Saturation 4.21 L (15.00-50.00) Ferritin 581.6 H (22.0-322.0) ng/mL 02/17/21 02/17/21 Range/Units 03:39 06:30 WBC 14.3 H (3.8-10.6) k/uL RBC 2.90 L (4.30-5.90) m/uL Hgb 8.0 L (13.0-17.5) gm/dL Hct 26.5 L (39.0-53.0) % MCHC 30.2 L (31.0-37.0) g/dL Neutrophils # 13.1 H (1.3-7.7) k/uL Lymphocytes # 0.7 L (1.0-4.8) k/uL ABG pH (7.35-7.45) ABG pCO2 (35-45) mmHg ABG pO2 (83-108) mmHg ABG HCO3 (21-25) mmol/L ABG Total CO2 (19-24) mmol/L ABG O2 Saturation (94-97) % BUN (9-20) mg/dL Creatinine (0.66-1.25) mg/dL Glucose (74-99) mg/dL POC Glucose (mg/dL) 227 H (75-99) mg/dL Calcium (8.4-10.2) mg/dL Phosphorus (2.5-4.5) mg/dL Iron (65-175) ug/dL TIBC (228-460) ug/dL % Saturation (15.00-50.00) Ferritin (22.0-322.0) ng/mL Assessment and Plan Plan: 1 Squamous cell carcinoma. The patient is a large right upper lobe mass with some mediastinal lymphadenopathy, post EBUS for mediastinal staging is also still pending. 2 Acute on chronic hypoxic respiratory failure secondary to significant right upper lobe lung mass, positive for squamous cell carcinoma. No signs of any fluid overload. The patient arrived to us with a pulse ox of 85% preoperatively. He will also likely need oxygen at time of discharge. Note that the patient also had a component of acute hypercapnic respiratory failure with of these mentioned above. Patient is improved and the patient is currently on 2 L of oxygen by nasal cannula. He underwent dialysis which obviously improved his oxygenation. His acid-base status is also improved with treatment. 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 CAT scan of the brain has been negative. Consider uremic encephalopathy. I discussed this issue with nephrology. BUN is not elevated. Dialysis catheter will be replaced and the patient will be continued on hemodialysis. No signs of any fluid overload. He has been essentially noncompliant even an outpatient basis regarding his hemodialysis per Dr. Casarez. Patient was also done. There is a possibility of vascular dementia. Visiting combination with metabolic encephalopathy. Consider paraneoplastic syndrome from underlying malignancy. 4 Marijuana use 5 Chronic kidney disease, receiving hemodialysis Thursday 6 History of kidney cancer suspected renal cell carcinoma with previous left nephrectomy 7 Hypertension 8 Anemia of chronic disease Plan: Drop-down the oxygen to 2 L per minute nasal cannula Arrange home O2 A neurologic consultation appreciated, consider paraneoplastic encephalopathy Replaced the permacath by vascular surgery, nevertheless the patient may need a permacath in the upper chest or neck area and the femoral catheter May ul timately needs to be replaced Receiving hemodialysis tomorrow Obtain lab work We will continue to follow and make further recommendations based on his clinical status. He is stable for now. Logically improved Long-term prognosis extremely poor baseline above-mentioned comorbidities. We'll establish a CODE STATUS also with the significant other. The patient can be transferred to [facility] oncology
[2021-02-17] MEDS: SODIUM FERRIC GLUCONAT-SUCROSE 125 MG in SODIUM CHLORIDE 0.9% 100 ML IVPB SCH (09:05)
[2021-02-17 09:48] LABS: Folate, Serum 3.5 ng/mL
[2021-02-17 09:56] LABS: Chol/HDL Ratio 3.48; LDL Cholesterol,Calculated 43.2 mg/dL (0.0-131.0); VLDL Calculation 13.8 mg/dL (5.00-40.00)
[2021-02-17] MEDS: ASPIRIN 325 MG TAB PO SCH (10:50)
[2021-02-17] MEDS: FOLIC ACID 1 MG TAB PO SCH (10:50)
[2021-02-17 11:44] LABS: Glucose,Whole Blood 208 mg/dL (75-99)
[2021-02-17] MEDS: CALCIUM ACETATE 667 MG TAB PO SCH ×2 (11:57→17:06)
[2021-02-17 14:08] LABS: Hemoglobin A1C 5.8 % (4.0-6.0)
--- NOTE | 2021-02-17 15:56 | P.PN ---
Subjective Progress Note Date: 02/17/21 02/17/2021: This is a Tele-neurology follow up performed on the patient today on 02/17/2021. Tele-neurology performed from 10:10 AM to 10:30 AM. Per nurse report, there is no major change. A shunt states he is feeling better. Patient states that he usually walks with a cane but uses it sometimes, not all the time. Here patient has been requiring walking with an assist. Patient is noticed to have ataxia on examination as mentioned below, which he is not aware of, if it was present before. Objective - Vital Signs Vital signs: Vital Signs Temp 97.9 F 02/17/21 04:00 Pulse 70 02/17/21 07:00 Resp 18 02/17/21 07:00 BP 144/94 02/17/21 07:00 Pulse Ox 94 L 02/17/21 07:00 Intake & Output 02/16/21 02/17/21 02/17/21 18:59 06:59 18:59 Intake Total 400 Output Total 2000 0 0 Balance -1600 0 0 Weight 83.1 kg Intake: Oral 400 Output: Urine 0 0 0 Hemodialysis 2000 - Exam Patient is an elderly Afro-English male, sitting comfortably in the recliner. Patient is alert awake, knows that it is January 2021. Today he knows that he is in [facility] in [facility] and name of the current president. Speech and language functions are normal. Patient can name and repeat. Attention, concentration and fund of knowledge is limited. On cranial examination, pupils are round and reacting to light, visual rosas are full on confrontation, no obvious neglect or visual field cut on the right side on confrontation. His extraocular muscles are intact with no nystagmus. Face is symmetric, tongue protrudes to the midline. Palatal elevation and sensation normal, hearing is slightly decreased and shoulder shrug normal, facia l sensation normal. Shoulder shrug normal. On muscle strength testing, there is mild right pronator drift. Patient's strength is slightly weak in the right arm with biceps and triceps 4 whereas 5 o n the left side. Patient's deltoid, engineering program analyst are normal bilaterally. Patient's ankle dorsiflexion, plantarflexion and toes are normal. Patient's hip flexion is 4+ bilaterally. Knees and ankles are normal bilaterally. Deep tendon reflexes are symmetric, 0 at the biceps, trace at brachioradialis. 2+ at the knees, and plantars are withdrawal bilaterally. Sensory to touch is equal with no neglect. Cerebellar function showed ataxia for [id number] testing bilaterally, right more than left. In the lower extremities, patient has slight ataxia for [id number] testing on the left. Tone and bulk of muscles normal. Gait not checked. Per nurse, he requires assist. On general examination, carotids could not be heard because of significant wheezing. No murmur. Abdomen is soft nontender. Chest has wheezing. Patient has bilateral peripheral edema. - Labs CBC & Chem 7: 02/17/21 03:39 02/17/21 03:39 Labs: Abnormal Lab Results - Last 24 Hours (Table) 02/16/21 02/17/21 02/17/21 Range/Units 04:59 03:39 03:39 WBC 14.3 H (3.8-10.6) k/uL RBC 2.90 L (4.30-5.90) m/uL Hgb 8.0 L (13.0-17.5) gm/dL Hct 26.5 L (39.0-53.0) % MCHC 30.2 L (31.0-37.0) g/dL Neutrophils # 13.1 H (1.3-7.7) k/uL Lymphocytes # 0.7 L (1.0-4.8) k/uL BUN 31 H (9-20) mg/dL Creatinine 5.07 H (0.66-1.25) mg/dL Glucose 240 H (74-99) mg/dL POC Glucose (mg/dL) (75-99) mg/dL Calcium 8.0 L (8.4-10.2) mg/dL Iron 8 L (65-175) ug/dL TIBC 190 L (228-460) ug/dL % Saturation 4.21 L (15.00-50.00) Ferritin 581.6 H (22.0-322.0) ng/mL HDL Cholesterol 23.0 L (40.0-60.0) mg/dL Vitamin B12 1938.0 H (200.0-944.0) pg/mL 02/17/21 Range/Units 06:30 WBC (3.8-10.6) k/uL RBC (4.30-5.90) m/uL Hgb (13.0-17.5) gm/dL Hct (39.0-53.0) % MCHC (31.0-37.0) g/dL Neutrophils # (1.3-7.7) k/uL Lymphocytes # (1.0-4.8) k/uL BUN (9-20) mg/dL Creatinine (0.66-1.25) mg/dL Glucose (74-99) mg/dL POC Glucose (mg/dL) 227 H (75-99) mg/dL Calcium (8.4-10.2) mg/dL Iron (65-175) ug/dL TIBC (228-460) ug/dL % Saturation (15.00-50.00) Ferritin (22.0-322.0) ng/mL HDL Cholesterol (40.0-60.0) mg/dL Vitamin B12 (200.0-944.0) pg/mL Assessment and Plan Assessment: * Altered mental status, possible toxic-metabolic encephalopathy. * Slowly progressive memory loss over the past 3 months, possible early stage of vascular dementia. Patient has history of multiple strokes in the past. Also has multiple vascular risk factors. Paraneoplastic process appears less likely. * Patient's examination reveals significant focality, bilaterally. Patient's gait has got worse. Need to rule out acute to subacute CVA. * Newly diagnosed squamous cell lung cancer. * End-stage renal disease, on hemodialysis. * Hypertension * Hyperlipidemia * Chronic tobacco use * History of alcoholism Plan: * Patient's examination shows significant focality. We will check MRI of the brain with and without contrast to rule out an acute stroke or metastatic disease. * Carotid Doppler revealed less than 25% stenosis in both ICAs. Antegrade flow in both vertebral arteries. * 2-D echo completed, results pending. * Hemoglobin A1c 5.8 normal * Lipid panel shows cholesterol 80, LDL 43.2, HDL 23 and triglyceride 69. Lipids are well controlled. No indication for statins. * Continue telemetry monitoring. * B12 1937, folic acid is low 3.5. Patient will be started on folate replacement, TSH normal 1.25, MMA, RPR pending. We will check ammonia. * Start aspirin 325 mg daily. * Dr. Bishop Leon Will resume neurology service from the morning.
[2021-02-17 16:46] LABS: Glucose,Whole Blood 283 mg/dL (75-99)
[2021-02-17 20:07] LABS: Glucose,Whole Blood 234 mg/dL (75-99)
[2021-02-18 06:48] LABS: Glucose,Whole Blood 290 mg/dL (75-99)
[2021-02-18] MEDS: IPRATROPIUM-ALBUTEROL 3 ML NEB INHALATION SCH ×4 (09:09→19:30)
[2021-02-18] MEDS: SODIUM FERRIC GLUCONAT-SUCROSE 125 MG in SODIUM CHLORIDE 0.9% 100 ML IVPB SCH (09:22)
[2021-02-18] MEDS: INSULIN ASPART (NovoLOG) 100 UNIT/ML VIAL SQ SCH ×4 (09:23→20:58)
[2021-02-18] MEDS: FOLIC ACID 1 MG TAB PO SCH (09:23)
[2021-02-18] MEDS: carvediloL 12.5 MG TAB PO SCH ×2 (09:23→17:02)
[2021-02-18] MEDS: CALCIUM ACETATE 667 MG TAB PO SCH ×3 (09:23→17:02)
[2021-02-18] MEDS: ASPIRIN 325 MG TAB PO SCH (09:23)
--- NOTE | 2021-02-18 09:26 | P.PN ---
Subjective Patient is seen in follow-up for end-stage renal disease. He is maintained on hemodialysis on Thursday schedule. Mentation is about the same. On 3 L nasal cannula. Vital signs are stable. General: The patient appeared well nourished and normally developed. HEENT: Head exam is unremarkable. On nasal cannula. LUNGS: Breath sounds decreased. HEART: Rate and Rhythm are regular. ABDOMEN: Soft, no distention. EXTREMITITES: Trace edema. Objective - Vital Signs Vital signs: Vital Signs Temp 97.6 F 02/18/21 07:28 Pulse 61 02/18/21 07:28 Resp 20 02/18/21 07:28 BP 139/75 02/18/21 07:28 Pulse Ox 98 02/18/21 07:28 Intake & Output 02/17/21 02/18/21 02/18/21 18:59 06:59 18:59 Output Total 230 Balance -230 Output: Urine 230 Other: # Voids 0 0 # Bowel Movements 0 - Labs CBC & Chem 7: 02/17/21 03:39 02/17/21 03:39 Labs: Abnormal Lab Results - Last 24 Hours (Table) 02/17/21 02/17/21 02/17/21 Range/Units 03:39 11:43 16:45 POC Glucose (mg/dL) 208 H 283 H (75-99) mg/dL HDL Cholesterol 23.0 L (40.0-60.0) mg/dL Vitamin B12 1938.0 H (200.0-944.0) pg/mL 02/17/21 02/18/21 Range/Units 20:05 06:45 POC Glucose (mg/dL) 234 H 290 H (75-99) mg/dL HDL Cholesterol (40.0-60.0) mg/dL Vitamin B12 (200.0-944.0) pg/mL Assessment and Plan Plan: Assessment: 1. End-stage renal disease maintained on hemodialysis on Thursday schedule via permacath. He had a femoral catheter placed this admission due to malfunctioning permacath. 2. Squamous cell lung cancer with mediastinal lymphadenopathy. Status post bronchoscopy and staging on February 15. 3. Volume overload. Improved with ultrafiltration. 4. Anemia of chronic kidney disease. Iron deficiency noted. 5. Chronic systolic CHF with ejection fraction of 20-25% with moderate mitral regurgitation. 6. Acute hypoxic respiratory failure. 7. Malfunctioning permacath. Vascular surgery following. 8. Chronic kidney disease mineral bone disease maintained on PhosLo. Plan: Hemodialysis today. Permacath will be exchanged and femoral catheter will be removed prior to discharge. Maintain IV iron. Wean FiO2.
[2021-02-18 11:23] LABS: Glucose,Whole Blood 96 mg/dL (75-99)
[2021-02-18] MEDS ORDERED: hydrALAZINE HCL 20 MG/ML 1 ML VIAL IVP PRN (11:36)
[2021-02-18] MEDS ORDERED: LORazepam 2 MG/ML INJ IV PRN (11:36)
--- NOTE | 2021-02-18 12:15 | XR ---
EXAMINATION TYPE: XR chest 1V portable DATE OF EXAM: 02/18/2021 COMPARISON: Chest x-ray 02/17/2021 HISTORY: Shortness of breath TECHNIQUE: Single frontal view of the chest is obtained. FINDINGS: Findings are similar to prior exam. There may be some improvement in aeration at the right lung base. IMPRESSION: Some slight improvement in aeration is suspected.
--- NOTE | 2021-02-18 12:39 | MR ---
MR brain without contrast HISTORY: Cerebrovascular accident, rule out metastasis Multiplanar multisequence imaging through the brain. Exam correlated to CT brain dated 02/07/2021. Fast brain protocol was utilized due to patient's debility. No intravenous contrast was administered due to patient's inability to cooperate very Extensive motion artifact is present. There is a small focus in the periventricular right temporal lo be, axial image #11 of restricted diffusion consistent with subacute ischemia. Encephalomalacia at th e medial aspect of the left occipital lobe is again noted consistent with chronic infarct. Periventri cular and pericallosal confluent, scattered subcortical hyperintensity on T2 and inversion recovery s equences is noted at anterior corpus callosum shows some focal encephalomalacia as does some areas wi thin the periventricular white matter, there is age-related atrophy. Pituitary, cervical medullary ju nction, cerebellopontine angles are grossly to be normal. impression: There is extensive motion on exam. There is evidence of chronic small vessel ischemic lea nge, age related atrophy. Small focus of restricted diffusion consistent with subacute infarct is cynthia pected.
--- NOTE | 2021-02-18 13:31 | ECHOF ---
Referral Reason:AMS,history of multiple stroke/TIA MEASUREMENTS -------- HEIGHT: 180.3 cm WEIGHT: 83.0 kg BP: 153/73 IVSd: 1.4 cm (0.6 - 1.1) LVIDd: 4.7 cm (3.9 - 5.3) LVPWd: 1.6 cm (0.6 - 1.1) EDV(Teich): 104 ml IVSs: 1.9 cm LVIDs: 3.7 cm LVPWs: 1.8 cm %IVS Thck: 36 % ESV(Teich): 59 ml EF(Teich): 43 % %FS: 21 % SV(Teich): 44 ml LA Diam: 4.0 cm (2.7 - 3.8) RVIDd: 3.5 cm (< 3.3) IVC: 24.80 mm LALs A4C: 5.6 cm LAAs A4C: 22.7 cm LAESV A-L A4C: 78 ml LAESV MOD A4C: 72 ml LALs A2C: 6.3 cm LAAs A2C: 19.5 cm LAESV A-L A2C: 52 ml LAESV MOD A2C: 50 ml LAESV(A-L): 67 ml LAESV Index (A-L): 33.12 ml/m Ao Diam: 4.0 cm (2.0 - 3.7) AV Cusp: 2.2 cm (1.5 - 2.6) EPSS: 0.6 cm MV E Ralph: 0.56 m/s MV DecT: 188 ms MV Dec Nelson: 3.0 m/s MV A Ralph: 0.80 m/s MV E/A Ratio: 0.70 MV PHT: 54 ms AV Vmax: 1.32 m/s AV maxP.97 mmHg TR Vmax: 3.93 m/s TR maxP.84 mmHg RAP: 5.00 mmHg RVSP: 66.84 mmHg MV EF SLOPE: 146.16 mm/s (70 - 150) MV EXCURSION: 18.74 mm (> 18.000) FINDINGS -------- Sinus rhythm. This was a technically good study. The left ventricular size is normal. There is moderate concentric left ventricular hypertrophy. O verall left ventricular systolic function is normal with, an EF between 55 - 60 %. The right ventricle is normal in size. LA is midly dilated 29-33ml/m2. The right atrium is normal in size. Interatrial and interventricular septum intact. The aortic valve is trileaflet, and appears structurally normal. No aortic stenosis or regurgitation. There is trace mitral regurgitation. Moderate tricuspid regurgitation present. There is severe pulmonary hypertension. The right ventr icular systolic pressure, as measured by Doppler, is 66.84mmHg. Trace/mild (physiologic) pulmonic regurgitation. The aortic root is dilated measuring 4.0cm. The inferior vena cava is dilated with poor inspiratory collapse which is consistent with estimated r ight atrial pressure of 20 mmHg. There is no pericardial effusion. CONCLUSIONS -------- 1. The left ventricular size is normal. 2. There is moderate concentric left ventricular hypertrophy. 3. Overall left ventricular systolic function is normal with, an EF between 55 - 60 %. 4. LA is midly dilated 29-33ml/m2. 5. The aortic valve is trileaflet, and appears structurally normal. No aortic stenosis or regurgitati on. 6. There is trace mitral regurgitation. 7. Moderate tricuspid regurgitation present. 8. There is severe pulmonary hypertension. 9. The right ventricular systolic pressure, as measured by Doppler, is 66.84mmHg. 10. Trace/mild (physiologic) pulmonic regurgitation. 11. The aortic root is dilated measuring 4.0cm. 12. The inferior vena cava is dilated with poor inspiratory collapse which is consistent with estimat ed right atrial pressure of 20 mmHg. 13. There is no pericardial effusion. CASING OPERATOR: Nguyen Stock RDCS
[2021-02-18 14:05] LABS: Basophils % (A) 0 %; Eosinophils # (A) 0.1 k/uL (0-0.7); Eosinophils % (A) 1 %; HCT 30.9 % (39.0-53.0); HGB 9.4 gm/dL (13.0-17.5); Hypochromasia Marked; Lymphocytes # (A) 0.8 k/uL (1.0-4.8); Lymphocytes % (A) 6 %; MCHC 30.3 g/dL (31.0-37.0); MCV 92.5 fL (80.0-100.0); Mean Platelet Volume 8.4; Monocytes # (A) 0.4 k/uL (0-1.0); Monocytes % (A) 3 %; Neutrophils # (A) 13.2 k/uL (1.3-7.7); Neutrophils % (A) 90 %; Platelet Count 211 k/uL (150-450); RBC 3.35 m/uL (4.30-5.90); WBC 14.6 k/uL (3.8-10.6)
--- NOTE | 2021-02-18 14:16 | P.PN ---
Subjective Progress Note Date: 02/18/21 Principal diagnosis: Squamous cell carcinoma, right upper lobe mass, and mediastinal lymphadenopathy This is a 65-year-old gentleman with a history of anemia of chronic disease, c hronic kidney disease receiving hemodialysis Thursday, history of CVA/TIA, hypertension, SVT, chronic and ongoing tobacco dependence, occasional alcohol use, marijuana use. He was recently hospitalized for shortness of breath and was found to have a right upper lobe lung mass undergone transbronchial biopsy by Dr. Brewer on 12/28/2020. 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 PET scan all confirmed large right lung neoplasm. Right kidney had some subtle hypermetabolic uptake. He had been seen and evaluated by Dr. Washington who recommended the patient have biopsies of the mediastinal adenopathy. He was brought in electively today for EBUS procedure performed by Dr. Brewer. Following the procedure he had some issues with toxemia after being extubated. He has some cough and congestion. He was kept as an inpatient today to receive his hemodialysis and to be followed overnight. He is seen in consultation on the regular medical floor. Currently receiving hemodialysis. He is having issues with hypoxemia and hypertension. Today continues to revealed a right upper lobe mass. Left lung clear. He is maintaining O2 saturations in the 80s on a nonrebreather mask. Hypertensive. Lab work pending. Glucose 95. on 02/16 2021, the patient is much more awake and alert and is communicating. He woke up today and he had a full breakfast. Nevertheless, we have noted that on and off the is still confused and this is the same situation he is been over the past 3-4 weeks as reported by his significant other. No focal neurological deficits. CT of the brain was negative. We considered the possibility of ongoing encephalopathy as his dialysis may not be fully effective knowing that the patient was having some issues with his permacath catheter yesterday. Based on that, we've made recommendations for vascular surgery to replace the cat heter. He underwent dialysis with ultrafiltration yesterday and the same will be done today. Also, the possibility of neoplastic syndrome is being considered in this patient based on his massive and large right upper lobe tumor. The endoscopic ultrasound was done yesterday and the appropriate lymph nodes were sampled without any significant complications. He did have a component of respiratory acidosis postop. Please note that blood gases. This could be related to anesthetics, paralytic agents, and possibly the increased amount of codeine that he was ingesting at home. A repeat blood gases will be done today. Earlier this morning he was on 12 L of oxygen and currently is at 5 L and the pulse ox is around 94%. Repeat blood gases will be done. He is able to swallow appropriately. No hyperkalemia. No other major electrolyte disturbance for now. On today's evaluation of a 2020, the patient is doing better. He is awake. Is alert. Oriented to place. He was able to state the presence pain. He underwent a dialysis catheter exchange yesterday. He is currently a femoral dialysis catheter. He underwent a session of dialysis yesterday with a 2 L of ultrafiltration. Currently is on 2 L of oxygen by nasal cannula. His quite comfortable. He is tolerating his diet. No nausea or vomiting. No chest pain. Cardiac rhythm is sinus. Hemodynamically stable. Pulse ox 94% liters of oxygen by nasal cannula. No new complaints. He was seen by neurology yesterday. 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 Nevertheless, the patient does not have any focal neurological deficits. He is moving all 4 extremities. He is able to get out of the bed and some limited amount of activity and ambula tion. His overall performance and functional status is poor. 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 Please refer to the consultation note that was done by neurology. The patient also may have vascular dementia, his history of multiple CVAs in the past and he does have other risk factors for vascular/cardiovascular disease/atherosclerosis. On the 02/18/2021 patient seen in follow-up on medical surgical floor. He is dyspneic on today's exam, he is tachypneic, he is currently on 4 L of oxygen pulse ox of 94%, his been afebrile, blood pressures 149/100. He denies any chest discomfort. No hemoptysis, he appears to be swallowing, with 1+ edema in his bilateral lower extremities. His last hemodialysis session was on 02/16/2021 with removal of 2 L of fluid. Patient to a right femoral hemodialysis catheter placed on 02/16/2021. Patient's echocardiogram showed moderate concentric LVH with EF of 55-60%. There was moderate tricuspid regurgi tation, severe pulmonary hypertension with right-sided pressure of 66.8 mmHg. Inferior vena cava was dilated with poor inspiratory collapse consistent with estimated right atrial pressure of 20 mmHg. His follow-up chest x-ray showed some slight improvement in aeration. No coughing or wheezing. Patient remains on nebulized bronchodilators. He is on Ativan for anxiety. Tapping on the hemodialysis session today. His labs have been noted, his white blood cell count is 14.6, hemoglobin is 9.4. His biopsy results from EBUS TBNA are still pending at this time. Brain MRI was completed showing evidence of chronic small vessel ischemic changes, age-related atrophy, and small focus of restricted diffusion consistent with subacute infarct. Neurology following. Objective - Vital Signs Vital signs: Vital Signs Temp 97.6 F 02/18/21 07:28 Pulse 61 02/18/21 07:28 Resp 20 02/18/21 07:28 BP 139/75 02/18/21 07:28 Pulse Ox 98 02/18/21 07:28 Intake & Output 02/17/21 02/18/21 02/18/21 18:59 06:59 18:59 Intake Total 150 Output Total 230 Balance -230 150 Intake: Oral 150 Output: Urine 230 Other: # Voids 0 0 # Bowel Movements 0 - Exam GENERAL EXAM: 65-year-old Mal[place]ian [place]ian male, on 4 L of oxygen the pulse ox of 94%, slightly anxious, and dyspneic, however does not appear to be in any acute distress. Awaiting hemodialysis session comfortable in no apparent distress. HEAD: Normocephalic/atraumatic. EYES: Normal reaction of pupils, equal size. Conjunctiva pink, sclera white. NOSE: Clear with pink turbinates. THROAT: No erythema or exudates. NECK: No masses, no JVD, no thyroid enlargement, no adenopathy. CHEST: No chest wall deformity. Symmetrical expansion. Right upper subclavian area hemodialysis permacath in place. LUNGS: Equal air entry with miniature breath sounds CVS: Regular rate and rhythm, normal S1 and S2, no gallops, no murmurs, no rubs ABDOMEN: Soft, nontender. No hepatosplenomegaly, normal bowel sounds, no guarding or rigidity. EXTREMITIES: No clubbing, no edema, no cyanosis, 2+ pulses and upper and lower extremities. Right femoral temporary hemodialysis catheter in place MUSCULOSKELETAL: Muscle strength and tone normal. SPINE: No scoliosis or deformity SKIN: No rashes CENTRAL NERVOUS SYSTEM: Alert and oriented -. No focal deficits, tone is normal in all 4 extremities. PSYCHIATRIC: Alert and oriented -3. Appropriate affect. Intact judgment and insight. - Labs CBC & Chem 7: 02/17/21 03:39 02/17/21 03:39 Labs: Abnormal Lab Results - Last 24 Hours (Table) 02/17/21 02/17/21 02/18/21 Range/Units 16:45 20:05 06:45 POC Glucose (mg/dL) 283 H 234 H 290 H (75-99) mg/dL Assessment and Plan Plan: 1 Squamous cell carcinoma. The patient is a large right upper lobe mass with some mediastinal lymphadenopathy, post EBUS for mediastinal staging is also still pending. 2 Acute on chronic hypoxic respiratory failure secondary to significant right upper lobe lung mass, positive for squamous cell carcinoma. No signs of any fluid overload. The patient arrived to us with a pulse ox of 85% preoperatively. He will also likely need oxygen at time of discharge. Note that the patient also had a component of acute hypercapnic respiratory failure with of these mentioned above. Patient is improved and the patient is currently on 2 L of oxygen by nasal cannula. He underwent dialysis which obviously improved his oxygenation. His acid-base status is also improved with treatment. 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 CAT scan of the brain has been negative. Consider uremic encephalopathy. I discussed this issue with nephrology. BUN is not elevated. Dialysis catheter will be replaced and the patient will be continued on hemodialysis. No signs of any fluid overload. He has been essentially noncompliant even an outpatient basis regarding his hemodialysis per Dr. Casarez. Patient was also done. There is a possibility of vascular dementia. Visiting combination with metabolic encephalopathy. Consider paraneoplastic syndrome from underlying malignancy. 4 Marijuana use 5 Chronic kidney disease, receiving hemodialysis Thursday 6 History of kidney cancer suspected renal cell carcinoma with previous left nephrectomy 7 Hypertension 8 Anemia of chronic disease 9 possible subacute infarct seen on the MRI of the brain Plan: Patient is awaiting hemodialysis Chest x-ray has been reviewed and does not show evidence of significant fluid overload or pulmonary edema, does show stable right lung mass Continue with current medical treatment, patient is awaiting hemodialysis He does appear to be generally fluid overloaded, with mild edema in his bilateral lower extremities Oxygenation is relatively stable, he remains on 4 L of oxygen Vital signs negative for any fever or chills No hemoptysis, no phlegm production Biopsy results from the EBUS TBNA are still pending MRI of the brain negative for signs of brain metastasis Neurology is following in regards to attend mental status, and today's MRI shows possibility of subacute infarct Overall prognosis is guarded Continue to closely follow I performed a history & physical examination of the patient and discussed their management with my nurse practitioner, Monika Westfall. I reviewed the nurse practitioner's note and agree with the documented findings and plan of care. Lung sounds are positive for diminished breath sounds throughout the lung rosas. The findings and the impression was discussed with the patient. I attest to the documentation by the nurse practitioner. Time with Patient: Less than 30
[2021-02-18 14:20] LABS: African American GFR (CKD) 15 (>60 ml/min/1.73 sqM); Anion Gap 9 mmol/L; Blood Urea Nitrogen 44 mg/dL (9-20); Calcium 8.3 mg/dL (8.4-10.2); Carbon Dioxide 30 mmol/L (22-30); Chloride 103 mmol/L (98-107); Glucose 57 mg/dL (74-99); Non-African American GFR(CKD) 13 (>60 ml/min/1.73 sqM); Potassium 3.3 mmol/L (3.5-5.1); Sodium 142 mmol/L (137-145)
[2021-02-18] MEDS ORDERED: POTASSIUM CHLORIDE ER 20 MEQ TAB.ER PO STA (14:27)
[2021-02-18 16:45] LABS: Glucose,Whole Blood 169 mg/dL (75-99)
--- NOTE | 2021-02-18 17:05 | P.PN ---
Subjective Progress Note Date: 02/18/21 I am seeing the patient for the first time for neurological management. Please refer to Dr. Garcia's note for further details. Per the patient's nurse he had some slowed response in his talking but is talkin g appropriately and had no focal deficits otherwise. He received Ativan earlier since he was restless, agitated and received 1mg at 11:49am today. Objective - Vital Signs Vital signs: Vital Signs Temp 97.7 F 02/18/21 14:16 Pulse 69 02/18/21 14:16 Resp 21 02/18/21 14:16 BP 159/88 02/18/21 14:16 Pulse Ox 94 L 02/18/21 14:00 Intake & Output 02/17/21 02/18/21 02/18/21 18:59 06:59 18:59 Intake Total 150 Output Total 230 4000 Balance -230 -3850 Intake: Oral 150 Output: Urine 230 Hemodialysis 4000 Other: # Voids 0 0 # Bowel Movements 0 - Exam GENERAL: The patient is lying in bed and is not in acute distress.t. NEUROLOGICAL: Higher mental function: The patient is slightly drowsy but is awakeable to voice , oriented to self, place and time. Some delay is his language. He is able to name objects (watch, pen cup). Patient is following commands. No aphasia and no neglect. Cranial nerves: The pupils are round, equal and reactive to light. Visual rosas are full to confrontation throughout. Extraocular movement is intact no nystagmus is noted. Facial sensation is normal to touch throughout. The facial strength is normal throughout. Tongue is midline and moved [id number] without any difficulty. No dysarthria is noted. Shoulder shrug is normal bilaterally. Motor: The strength is 5 over 5 throughout. Normal tone and bulk. Cerebellum: Normal finger to nose bilaterally. Sensation: Sensation is normal to touch throughout. Plantars are mute bilaterally. WORK-UP: * MRI the brain is reported as there is extensive motion on exam. There is evidence of chronic small vessel ischemic change, age-related atrophy. Small focus of restricted diffusion consistent with subacute infarct is suspected. I personally reviewed the MRI and I did not see any evidence of acute or suba cute ischemia. The patient does have encephalomalacia over at the medial aspect of left occipital as well as over the right periventricular around the Thalamus/black radiata region. I spoke with the reading radiologist Dr. Holcomb and he agrees there is no evidence of acute or subacute ischemic stroke. * 2-D echo was reported as moderate concentric left ventricular hypertrophy. Ejection fraction 55-60%. Left atrium is mildly dilated. There is severe pulmonary hypertension. Moderate tricuspid regurgitation present. * Carotid Doppler revealed less than 25% stenosis in both ICAs. Antegrade flow in both vertebral arteries. * 2-D echo completed, results pending. * Hemoglobin A1c 5.8 normal * Lipid panel shows cholesterol 80, LDL 43.2, HDL 23 and triglyceride 69. Lipids are well controlled. * TSH normal 1.25, - Labs CBC & Chem 7: 02/18/21 13:00 02/18/21 13:00 Labs: Abnormal Lab Results - Last 24 Hours (Table) 02/17/21 02/17/21 02/18/21 Range/Units 16:45 20:05 06:45 WBC (3.8-10.6) k/uL RBC (4.30-5.90) m/uL Hgb (13.0-17.5) gm/dL Hct (39.0-53.0) % MCHC (31.0-37.0) g/dL Neutrophils # (1.3-7.7) k/uL Lymphocytes # (1.0-4.8) k/uL Potassium (3.5-5.1) mmol/L BUN (9-20) mg/dL Creatinine (0.66-1.25) mg/dL Glucose (74-99) mg/dL POC Glucose (mg/dL) 283 H 234 H 290 H (75-99) mg/dL Calcium (8.4-10.2) mg/dL Troponin I (0.000-0.034) ng/mL 02/18/21 02/18/21 02/18/21 Range/Units 13:00 13:00 13:00 WBC 14.6 H (3.8-10.6) k/uL RBC 3.35 L (4.30-5.90) m/uL Hgb 9.4 L (13.0-17.5) gm/dL Hct 30.9 L (39.0-53.0) % MCHC 30.3 L (31.0-37.0) g/dL Neutrophils # 13.2 H (1.3-7.7) k/uL Lymphocytes # 0.8 L (1.0-4.8) k/uL Potassium 3.3 L (3.5-5.1) mmol/L BUN 44 H (9-20) mg/dL Creatinine 4.49 H (0.66-1.25) mg/dL Glucose 57 L (74-99) mg/dL POC Glucose (mg/dL) (75-99) mg/dL Calcium 8.3 L (8.4-10.2) mg/dL Troponin I 0.080 H* (0.000-0.034) ng/mL Assessment and Plan Assessment: * Altered mental status, possible toxic-metabolic encephalopathy. MRI Brain is negative for acute or subacute ischemic stroke. Has old stroke over the left occipital and right subcortical in thalamus/black radiata region * Slowly progressive memory loss over the past 3 months, possible early stage of vascular dementia. Patient has history of multiple strokes in the past. Also has multiple vascular risk factors. Paraneoplastic process appears less likely. * Newly diagnosed squamous cell lung cancer. * End-stage renal disease, on hemodialysis. * Hypertension * Hyperlipidemia * Chronic tobacco use * History of alcoholism Plan: * MRI the brain w/o (not w/ since has ESRD and is on dialysis) is reported as there is extensive motion on exam. There is evidence of chronic small vessel ischemic change, age-related atrophy. Small focus of restricted diffusion consistent with subacute infarct is suspected. I personally reviewed the MRI and I did not see any evidence of acute or subacute ischemia. The patient does have encephalomalacia over at the medial aspect of left occipital as well as over the right periventricular around the Thalamus/black radiata region. I spoke with the reading radiologist Dr. Holcomb and he agrees there is no evidence of acute or subacute ischemic stroke. * Possible consider CT head with and without (if not done as inpatient can be done as outpatient). * On aspirin 325 mg daily. Started on Lipitor 20mg qhs for secondary stroke prophylaxis. * B12 1938, folic acid is low 3.5. Continue on folate replacement, MMA, RPR pending. Pending ammonia level per Dr. Garcia's request. * Recommend patient to received 2.5 hour ambulatory EEG as outpatient but if patient has worsening of mentation can consider routine EEG. * For DVT will defer managment to primary team. The plan is discussed with the patient nurse. Bishop Leon MD Neuro-Hospitalist Time with Patient: Less than 30
[2021-02-18 20:55] LABS: Glucose,Whole Blood 133 mg/dL (75-99)
[2021-02-18] MEDS: ATORVASTATIN 20 MG TAB PO SCH (20:58)
[2021-02-18] MEDS ORDERED: ALPRAZolam 0.25 MG TAB PO STA (21:30)
[2021-02-18] MEDS ORDERED: IPRATROPIUM-ALBUTEROL 3 ML NEB INHALATION PRN (21:57)
[2021-02-18 22:29] LABS: Glucose,Whole Blood 101 mg/dL (75-99)
--- NOTE | 2021-02-18 23:13 | XR ---
EXAMINATION TYPE: XR chest 1V DATE OF EXAM: 02/18/2021 COMPARISON: 02/18/2021 HISTORY: Short of breath TECHNIQUE: Single view FINDINGS: There is some increased density right midlung field that is probably combined consolidation and loculated pleural fluid in the minor fissure. There is right central venous catheter with tip in the superior vena cava. Left lung is fairly clear. There is some linear density right lung base. Hea rt is enlarged. IMPRESSION: Right side pulmonary infiltrate and atelectasis and loculated pleural fluid without melendez e compared to exam 12 hours ago. No obvious heart failure. Cardiomegaly unchanged.
[2021-02-18] MEDS ORDERED: LORazepam 2 MG/ML INJ IV STA (23:49)
--- NOTE | 2021-02-19 00:39 | P.EN ---
A team note Activated at 10:29 PM. Arrived on the scene shortly after. Reviewed the chart and discussed the case with the RN. The patient with an extensive PMH was admitted for an endobronchial ultrasound-guided lung mass biopsy. Tonight, the patient was noted to have gradually worsening respiratory distress. Vital signs at time of evaluation were BP 183/91, pulse 77, temp 98.1, and SpO2 91% on 4 L nasal cannula. The patient reported feeling short of breath more so than he has been throughout the hospitalization. He reported that he has experienced this several times in the past. He denied chest discomfort or cough. Denied nausea, vomiting, diaphoresis. Denied abdominal pain. EKG obtained and reviewed showing normal sinus rhythm at 82 bpm with LVH with T-wave inversions in leads III and aVF. General: Chronically ill-appearing male, in moderate respiratory distress, appears stated age, normal weight HEENT: NC/AT, anicteric sclerae, moist conjunctiva, no lid-lag, PERRLA Cardiovascular: S1/S2 wnl, no murmurs, rubs, or gallops Lungs: Somewhat poor air entry, right-sided rhonchi noted, no wheezing or rales appreciated, no accessory muscle use Abdominal: Soft, non-tender, non-distended, no guarding, rebound, or rigidity Skin: Warm, dry Extremities: No edema or contractures Psychiatric: Alert and oriented to person, place and time, appropriate affect Neuro: CN II-XII grossly intact, Strength 5/5 in all 4 extremities, Speech intact, Sensation to light touch grossly intact throughout Assessment/plan Shortness of breath, likely multifactorial in setting of right lung mass and ESRD -The patient underwent hemodialysis earlier today with 4 L removed -Repeat chest x-ray ordered -Start patient on BiPAP for now -Transfer patient to 3 S -If chest x-ray shows worsening fluid with ongoing hypertension, consider urgent/emergent dialysis -Low suspicion for pneumonia due to absence of cough and fever -Primary team and sweatband drummer notified by the RN
[2021-02-19] MEDS ORDERED: FUROSEMIDE 10 MG/ML 10 ML VIAL IV STA (00:42)
[2021-02-19] MEDS: hydrALAZINE HCL 20 MG/ML 1 ML VIAL IVP PRN ×3 (01:18→23:30)
[2021-02-19] MEDS ORDERED: LORazepam 2 MG/ML INJ IV ONE (02:00)
[2021-02-19] MEDS ORDERED: LORazepam 2 MG/ML INJ ONE (02:03)
[2021-02-19 02:44] LABS: HCT 28.6 % (39.0-53.0); HGB 8.8 gm/dL (13.0-17.5); Hypochromasia Marked; MCH 27.8 pg (25.0-35.0); MCHC 30.9 g/dL (31.0-37.0); MCV 89.9 fL (80.0-100.0); Mean Platelet Volume 7.9; Platelet Count 209 k/uL (150-450); RBC 3.18 m/uL (4.30-5.90); RDW 15.1 % (11.5-15.5); WBC 16.9 k/uL (3.8-10.6)
[2021-02-19 02:53] LABS: Albumin 2.6 g/dL (3.5-5.0); Calcium 7.7 mg/dL (8.4-10.2); Magnesium 1.8 mg/dL (1.6-2.3); Potassium 3.7 mmol/L (3.5-5.1); Total Bilirubin 0.3 mg/dL (0.2-1.3); Total Protein 5.9 g/dL (6.3-8.2)
--- NOTE | 2021-02-19 04:01 | CT ---
EXAMINATION TYPE: CT chest angio for PE DATE OF EXAM: 02/19/2021 COMPARISON: None HISTORY: R/O PE CT DLP: 409.8 mGycm Automated exposure control for dose reduction was used. CONTRAST: Performed with IV Contrast, patient injected with 80ml mL of Isovue 370. There are 3-D post processed images. There is right pleural effusion. There is large cavitating density in the anterior right upper lobe. There is fluid level and consistent with lung abscess or necrotic tumor. There is no evidence of left pleural effusion or left pulmonary consolidation. There are right bronchial lymph nodes that measure up to 2 cm. There is 1.5 cm pretracheal lymph nodes. There is normal contrast opacification of the pulmonary arteries. I see no filling defect. Heart is s lightly enlarged. There is no pericardial effusion. There is some patchy infiltrates in the right low er lobe. The bony thorax is intact. There is no compression fracture. Sternum is intact. Upper abdomi nal soft tissues are intact. IMPRESSION: Cavitating 7.5 cm masslike infiltrate right upper lobe anterior segment consistent with necrotic tumo r or lung abscess. Mass appears slightly increased compared to CT scan of 01/18/2021. No evidence of pulmonary embolism. Right pleural effusion and right bronchial adenopathy.
[2021-02-19 04:54] LABS: ALT 16 U/L (10-49); AST 19 U/L (14-35)
[2021-02-19 06:39] LABS: Glucose,Whole Blood 126 mg/dL (75-99)
[2021-02-19] MEDS: carvediloL 12.5 MG TAB PO SCH ×2 (06:49→17:10)
[2021-02-19] MEDS: CALCIUM ACETATE 667 MG TAB PO SCH ×3 (06:49→17:10)
[2021-02-19] MEDS: INSULIN ASPART (NovoLOG) 100 UNIT/ML VIAL SQ SCH ×4 (06:52→21:34)
[2021-02-19] MEDS: IPRATROPIUM-ALBUTEROL 3 ML NEB INHALATION SCH ×4 (07:59→18:59)
[2021-02-19] MEDS: FOLIC ACID 1 MG TAB PO SCH (08:12)
[2021-02-19] MEDS: ASPIRIN 325 MG TAB PO SCH (08:12)
--- NOTE | 2021-02-19 08:36 | XR ---
EXAMINATION TYPE: XR chest 1V portable DATE OF EXAM: 02/19/2021 COMPARISON: Chest x-ray 02/18/2021 HISTORY: Shortness of breath TECHNIQUE: Single frontal view of the chest is obtained. FINDINGS: There is no significant interval change. IMPRESSION: Lung mass, small right pleural effusion, correlate to exclude pneumonia versus atelectas is
[2021-02-19] MEDS: SODIUM FERRIC GLUCONAT-SUCROSE 125 MG in SODIUM CHLORIDE 0.9% 100 ML IVPB SCH (08:54)
--- NOTE | 2021-02-19 11:33 | P.PN ---
Subjective Progress Note Date: 02/17/21 Principal diagnosis: Acute hypoxic respiratory failure due to large right upper lobe mass. Status post EBUS and mediastinal lymph node fine-needle aspiration on 02/15/2021 Patient is a 65-year-old male with a known history of hypertension, history of CVA/TIA, SVT, ESRD on hemodialysis Thursday and Thursday, currently everyday smoker was admitted to the hospital after elective endobronchial ultrasound procedure.. Patient was recently admitted to hospital and was found to have right upper lobe mass and underwent bronchoscopy and biopsy on 12/28/2020. 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 PET scan confirmed large right lung neoplasm. Patient had elective EBUS with mediastinal lymph node biopsy. Postprocedure patient was hypoxic and was in the 80s on 100% nonrebreather. Patient was also hypotensive. He was admitted to hospital MICU. Oxygen requirement improved and currently patient is on 5 L oxygen via nasal cannula. Chest x-ray showed there is underlying lung mass. Correlate to exclude pneumonia. Cardiomegaly. Laboratory data showed WBC 13.1, hemoglobin 9.5 and platelets 232 ABG showed pH 7.29 PCO2 57 and PO2 88 Sodium 134 potassium 3.8 chloride 97 BUN 20 and creatinine 4.88 Patient is undergoing hemodialysis currently. Patient had problems with right IJ dialysis catheter and currently placed with right femoral catheter ultrasound-guided by Dr. Neal. 02/17/2021 Patient is awake alert and oriented. Doing better compared to yesterday. Underwent hemodialysis yesterday where a right femoral catheter. Currently on oxygen by mask cannula. Hemodynamically stable. Patient was seen by neurology due to altered mental status. Workup including carotid duplex showed nonocclusive disease. Patient is able to have ambulate in the room. Nephrology and pulmonary is following. Transferring to general medical floor today. Current medications reviewed. Objective - Vital Signs Vital signs: Vital Signs Temp 99.4 F 02/17/21 11:39 Pulse 64 02/17/21 14:20 Resp 18 02/17/21 14:20 BP 156/76 02/17/21 14:20 Pulse Ox 95 02/17/21 14:20 Intake & Output 02/16/21 02/17/21 02/17/21 18:59 06:59 18:59 Intake Total 400 Output Total 2000 0 0 Balance -1600 0 0 Weight 83.1 kg Intake: Oral 400 Output: Urine 0 0 0 Hemodialysis 1999 - Exam PHYSICAL EXAMINATION: Patient is lying in the bed comfortably, no acute distress, awake alert and oriented.. HEENT: Normocephalic. Neck is supple. Pupils reactive. Nostrils clear. Oral cavity is moist. Neck reveals no JVD, carotid bruits, or thyromegaly. CHEST EXAMINATION: Trachea is central. Symmetrical expansion. Scattered coarse sounds on the right side no wheezing... CARDIAC: Normal S1, S2 with no gallops. No murmurs ABDOMEN: Soft. Bowel sounds normal. No organomegaly. No abdominal bruits. Extremities: reveal no edema. No clubbing or cyanosis Neurologically awake, alert, oriented x3 with well-coordinated movements. No focal deficits noted Skin: No rash or skin lesions. Psychiatric: Coperative. Nonsuicidal Musculoskeletal: No joint swelling or deformity. Normal range of motion. - Labs CBC & Chem 7: 02/19/21 02:30 02/19/21 02:30 Labs: Abnormal Lab Results - Last 24 Hours (Table) 02/16/21 02/17/21 02/17/21 Range/Units 04:59 03:39 03:39 WBC 14.3 H (3.8-10.6) k/uL RBC 2.90 L (4.30-5.90) m/uL Hgb 8.0 L (13.0-17.5) gm/dL Hct 26.5 L (39.0-53.0) % MCHC 30.2 L (31.0-37.0) g/dL Neutrophils # 13.1 H (1.3-7.7) k/uL Lymphocytes # 0.7 L (1.0-4.8) k/uL BUN 31 H (9-20) mg/dL Creatinine 5.07 H (0.66-1.25) mg/dL Glucose 240 H (74-99) mg/dL POC Glucose (mg/dL) (75-99) mg/dL Calcium 8.0 L (8.4-10.2) mg/dL Iron 8 L (65-175) ug/dL TIBC 190 L (228-460) ug/dL % Saturation 4.21 L (15.00-50.00) Ferritin 581.6 H (22.0-322.0) ng/mL HDL Cholesterol 23.0 L (40.0-60.0) mg/dL Vitamin B12 1938.0 H (200.0-944.0) pg/mL 02/17/21 02/17/21 Range/Units 06:30 11:43 WBC (3.8-10.6) k/uL RBC (4.30-5.90) m/uL Hgb (13.0-17.5) gm/dL Hct (39.0-53.0) % MCHC (31.0-37.0) g/dL Neutrophils # (1.3-7.7) k/uL Lymphocytes # (1.0-4.8) k/uL BUN (9-20) mg/dL Creatinine (0.66-1.25) mg/dL Glucose (74-99) mg/dL POC Glucose (mg/dL) 227 H 208 H (75-99) mg/dL Calcium (8.4-10.2) mg/dL Iron (65-175) ug/dL TIBC (228-460) ug/dL % Saturation (15.00-50.00) Ferritin (22.0-322.0) ng/mL HDL Cholesterol (40.0-60.0) mg/dL Vitamin B12 (200.0-944.0) pg/mL Assessment and Plan Assessment: Altered mental status possible toxic metabolic encephalopathy. Acute hypoxic respiratory failure due to large right upper lobe mass. 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 ESRD on hemodialysis with malfunctioning of IJ catheter. Right femoral catheter was placed on 02/15. 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 Plan: Patient was 100% nonrebreather initially and is being titrated down to nasal cannula oxygen. New right femoral dialysis catheter was placed and currently patient is underwent hemodialysis yesterday.. Continue with duo nebs and pain management. Respiratory status is stable. Patient was seen by neurology due to altered mental status. Possible early stages vascular dementia. B12 1937, folic acid is low 3.5. Patient will be started on folate replacement, TSH normal 1.25, MMA, RPR pending. Started on aspirin 325 mg daily. Continue blood pressure medications and follow-up closely. Pulmonary and nephrology is on board. Prognosis is guarded this time. Time with Patient: Greater than 30
[2021-02-19 11:36] LABS: Glucose,Whole Blood 126 mg/dL (75-99)
--- NOTE | 2021-02-19 11:38 | P.PN ---
Subjective Progress Note Date: 02/18/21 Principal diagnosis: Acute hypoxic respiratory failure due to large right upper lobe mass. Status post EBUS and mediastinal lymph node fine-needle aspiration on 02/15/2021 Patient is a 65-year-old male with a known history of hypertension, history of CVA/TIA, SVT, ESRD on hemodialysis Thursday and Thursday, currently everyday smoker was admitted to the hospital after elective endobronchial ultrasound procedure.. Patient was recently admitted to hospital and was found to have right upper lobe mass and underwent bronchoscopy and biopsy on 12/28/2020. 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 PET scan confirmed large right lung neoplasm. Patient had elective EBUS with mediastinal lymph node biopsy. Postprocedure patient was hypoxic and was in the 80s on 100% nonrebreather. Patient was also hypotensive. He was admitted to hospital MICU. Oxygen requirement improved and currently patient is on 5 L oxygen via nasal cannula. Chest x-ray showed there is underlying lung mass. Correlate to exclude pneumonia. Cardiomegaly. Laboratory data showed WBC 13.1, hemoglobin 9.5 and platelets 232 ABG showed pH 7.29 PCO2 57 and PO2 88 Sodium 134 potassium 3.8 chloride 97 BUN 20 and creatinine 4.88 Patient is undergoing hemodialysis currently. Patient had problems with right IJ dialysis catheter and currently placed with right femoral catheter ultrasound-guided by Dr. Neal. 02/17/2021 Patient is awake alert and oriented. Doing better compared to yesterday. Underwent hemodialysis yesterday where a right femoral catheter. Currently on oxygen by mask cannula. Hemodynamically stable. Patient was seen by neurology due to altered mental status. Workup including carotid duplex showed nonocclusive disease. Patient is able to have ambulate in the room. Nephrology and pulmonary is following. Transferring to general medical floor today. 02/18/2021 Patient is currently sitting lying in the bed with head of bed elevated. Patien t appears to be confused. Still short of breath. On 4 L oxygen with another cannula. No complaints of chest pain. Patient has been afebrile.. Nephrology is planning for hemodialysis today. Blood pressure is elevated with SBP and 160s. Laboratory data showed WBC 14.6, hemoglobin 9.4 and platelets 211 Sodium 142 potassium 3.3 BUN 44 and creatinine 4.49 and troponin 0.08 Patient is being transferred to telemetry unit. Pulmonary and nephrology is on board. Next and 2-D echocardiogram showed moderate concentric left ventricle hypertrophy with ejection fraction 55-60%. Severe pulmonary hypertension and right ventricular systolic pressure 66.84. In July Eyes dilated with poor inspiratory collapse which is constant with estimated right atrial pressure of 20 mmHg. No pericardial effusion. MRI of the brain showed evidence of chronic small vessel ischemic change, it is related atrophy. Small focus of restricted diffusion consistent with subacute infarct is suspected. Current medications reviewed. Objective - Vital Signs Vital signs: Vital Signs Temp 97.7 F 02/18/21 14:16 Pulse 69 02/18/21 14:16 Resp 21 02/18/21 14:16 BP 159/88 02/18/21 14:16 Pulse Ox 94 L 02/18/21 14:00 Intake & Output 02/17/21 02/18/21 02/18/21 18:59 06:59 18:59 Intake Total 150 Output Total 230 4000 Balance -230 -3850 Intake: Oral 150 Output: Urine 230 Hemodialysis 4000 Other: # Voids 0 0 # Bowel Movements 0 - Exam PHYSICAL EXAMINATION: Patient is lying in the bed comfortably, no acute distress, awake alert and o riented.. HEENT: Normocephalic. Neck is supple. Pupils reactive. Nostrils clear. Oral cavity is moist. Neck reveals no JVD, carotid bruits, or thyromegaly. CHEST EXAMINATION: Trachea is central. Symmetrical expansion. Scattered coarse sounds on the right side no wheezing... CARDIAC: Normal S1, S2 with no gallops. No murmurs ABDOMEN: Soft. Bowel sounds normal. No organomegaly. No abdominal bruits. Extremities: reveal no edema. No clubbing or cyanosis Neurologically awake, alert, oriented x3 with well-coordinated movements. No focal deficits noted Skin: No rash or skin lesions. Psychiatric: Coperative. Nonsuicidal Musculoskeletal: No joint swelling or deformity. Normal range of motion. - Labs CBC & Chem 7: 02/19/21 02:30 02/19/21 02:30 Labs: Abnormal Lab Results - Last 24 Hours (Table) 02/17/21 02/17/21 02/18/21 Range/Units 16:45 20:05 06:45 WBC (3.8-10.6) k/uL RBC (4.30-5.90) m/uL Hgb (13.0-17.5) gm/dL Hct (39.0-53.0) % MCHC (31.0-37.0) g/dL Neutrophils # (1.3-7.7) k/uL Lymphocytes # (1.0-4.8) k/uL Potassium (3.5-5.1) mmol/L BUN (9-20) mg/dL Creatinine (0.66-1.25) mg/dL Glucose (74-99) mg/dL POC Glucose (mg/dL) 283 H 234 H 290 H (75-99) mg/dL Calcium (8.4-10.2) mg/dL Troponin I (0.000-0.034) ng/mL 02/18/21 02/18/21 02/18/21 Range/Units 13:00 13:00 13:00 WBC 14.6 H (3.8-10.6) k/uL RBC 3.35 L (4.30-5.90) m/uL Hgb 9.4 L (13.0-17.5) gm/dL Hct 30.9 L (39.0-53.0) % MCHC 30.3 L (31.0-37.0) g/dL Neutrophils # 13.2 H (1.3-7.7) k/uL Lymphocytes # 0.8 L (1.0-4.8) k/uL Potassium 3.3 L (3.5-5.1) mmol/L BUN 44 H (9-20) mg/dL Creatinine 4.49 H (0.66-1.25) mg/dL Glucose 57 L (74-99) mg/dL POC Glucose (mg/dL) (75-99) mg/dL Calcium 8.3 L (8.4-10.2) mg/dL Troponin I 0.080 H* (0.000-0.034) ng/mL 02/18/21 Range/Units 16:41 WBC (3.8-10.6) k/uL RBC (4.30-5.90) m/uL Hgb (13.0-17.5) gm/dL Hct (39.0-53.0) % MCHC (31.0-37.0) g/dL Neutrophils # (1.3-7.7) k/uL Lymphocytes # (1.0-4.8) k/uL Potassium (3.5-5.1) mmol/L BUN (9-20) mg/dL Creatinine (0.66-1.25) mg/dL Glucose (74-99) mg/dL POC Glucose (mg/dL) 169 H (75-99) mg/dL Calcium (8.4-10.2) mg/dL Troponin I (0.000-0.034) ng/mL Assessment and Plan Assessment: Altered mental status possible toxic metabolic encephalopathy. Possible subacute cerebral infarct Severe pulmonary hypertension Acute hypoxic respiratory failure due to large right upper lobe mass, Fluid load. 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 ESRD on hemodialysis with malfunctioning of IJ catheter. Right femoral catheter was placed on 02/15. 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 Plan: Patient was 100% nonrebreather initially and is being titrated down to nasal cannula oxygen.Currently on 4 L oxygen with another cannula. New right femoral dialysis catheter was placed and currently patient is underwent hemodialysis .. Continue with duo nebs and pain management. Patient was seen by neurology due to altered mental status. Possible early stages vascular dementia.MRI of the brain showed possible subacute infarct. B12 1938, folic acid is low 3.5. Patient will be started on folate replacement, TSH normal 1.25, MMA, RPR pending. Started on aspirin 325 mg daily. Continue blood pressure medications and follow-up closely.Hemodialysis planning for today. Patient was started on IV iron. Pulmonary and nephrology is on board. Prognosis is guarded this time. Time with Patient: Greater than 30
[2021-02-19] MEDS: hydrALAZINE HCL 50 MG TAB PO SCH ×2 (11:46→20:29)
--- NOTE | 2021-02-19 12:01 | PN ---
PROGRESS NOTE Patient is seen for followup for end-stage renal disease. He has been confused, currently off BiPAP and maintained on nasal cannula. Blood pressure this morning elevated at 160 9/102, heart rate 74 per minute, patient is afebrile. Examination of the heart S1, S2. Examination of lungs, decreased breath sounds at the bases. Abdomen is soft, nontender. Examination of lower extremities shows no evidence of edema. The patient is currently confused. He is moving all four extremities, though. LAB: Show sodium 135, potassium 3.7, hemoglobin 8.8 g/dL. ASSESSMENT: 1. End-stage renal disease, on hemodialysis on a Thursday, Thursday, Thursday schedule. 2. Hypertension, uncontrolled partly secondary to agitation. The patient is receiving IV hydralazine. We will switch to p.o. hydralazine. Continue with the Coreg at the current dose. 3. Squamous cell lung cancer with mediastinal lymphadenopathy, status post bronchoscopy and staging on February 15. 4. Volume overload, currently improved post dialysis. 5. Cardiomyopathy, ejection fraction 20-25% with moderate mitral regurgitation. 6. Acute hypoxic respiratory failure, currently off BiPAP, maintained on nasal cannula. 7. Chronic kidney disease mineral bone disorder. 8. Malfunctioning PermCath with plans to exchange catheter prior to discharge. PLAN: Hemodialysis in a.m. MMODL / IJN: [id number] /
--- NOTE | 2021-02-19 12:04 | P.PN ---
Subjective Progress Note Date: 02/19/21 Principal diagnosis: Squamous cell carcinoma, right upper lobe mass, and mediastinal lymphadenopathy This is a 65-year-old gentleman with a history of anemia of chronic disease, c hronic kidney disease receiving hemodialysis Thursday, history of CVA/TIA, hypertension, SVT, chronic and ongoing tobacco dependence, occasional alcohol use, marijuana use. He was recently hospitalized for shortness of breath and was found to have a right upper lobe lung mass undergone transbronchial biopsy by Dr. Brewer on 12/28/2020. 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 PET scan all confirmed large right lung neoplasm. Right kidney had some subtle hypermetabolic uptake. He had been seen and evaluated by Dr. Washington who recommended the patient have biopsies of the mediastinal adenopathy. He was brought in electively today for EBUS procedure performed by Dr. Brewer. Following the procedure he had some issues with toxemia after being extubated. He has some cough and congestion. He was kept as an inpatient today to receive his hemodialysis and to be followed overnight. He is seen in consultation on the regular medical floor. Currently receiving hemodialysis. He is having issues with hypoxemia and hypertension. Today continues to revealed a right upper lobe mass. Left lung clear. He is maintaining O2 saturations in the 80s on a nonrebreather mask. Hypertensive. Lab work pending. Glucose 95. on 02/16 2021, the patient is much more awake and alert and is communicating. He woke up today and he had a full breakfast. Nevertheless, we have noted that on and off the is still confused and this is the same situation he is been over the past 3-4 weeks as reported by his significant other. No focal neurological deficits. CT of the brain was negative. We considered the possibility of ongoing encephalopathy as his dialysis may not be fully effective knowing that the patient was having some issues with his permacath catheter yesterday. Based on that, we've made recommendations for vascular surgery to replace the cat heter. He underwent dialysis with ultrafiltration yesterday and the same will be done today. Also, the possibility of neoplastic syndrome is being considered in this patient based on his massive and large right upper lobe tumor. The endoscopic ultrasound was done yesterday and the appropriate lymph nodes were sampled without any significant complications. He did have a component of respiratory acidosis postop. Please note that blood gases. This could be related to anesthetics, paralytic agents, and possibly the increased amount of codeine that he was ingesting at home. A repeat blood gases will be done today. Earlier this morning he was on 12 L of oxygen and currently is at 5 L and the pulse ox is around 94%. Repeat blood gases will be done. He is able to swallow appropriately. No hyperkalemia. No other major electrolyte disturbance for now. On today's evaluation of a 2020, the patient is doing better. He is awake. Is alert. Oriented to place. He was able to state the presence pain. He underwent a dialysis catheter exchange yesterday. He is currently a femoral dialysis catheter. He underwent a session of dialysis yesterday with a 2 L of ultrafiltration. Currently is on 2 L of oxygen by nasal cannula. His quite comfortable. He is tolerating his diet. No nausea or vomiting. No chest pain. Cardiac rhythm is sinus. Hemodynamically stable. Pulse ox 94% liters of oxygen by nasal cannula. No new complaints. He was seen by neurology yesterday. 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 Nevertheless, the patient does not have any focal neurological deficits. He is moving all 4 extremities. He is able to get out of the bed and some limited amount of activity and ambula tion. His overall performance and functional status is poor. 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 Please refer to the consultation note that was done by neurology. The patient also may have vascular dementia, his history of multiple CVAs in the past and he does have other risk factors for vascular/cardiovascular disease/atherosclerosis. On the 02/18/2021 patient seen in follow-up on medical surgical floor. He is dyspneic on today's exam, he is tachypneic, he is currently on 4 L of oxygen pulse ox of 94%, his been afebrile, blood pressures 149/100. He denies any chest discomfort. No hemoptysis, he appears to be swallowing, with 1+ edema in his bilateral lower extremities. His last hemodialysis session was on 02/16/2021 with removal of 2 L of fluid. Patient to a right femoral hemodialysis catheter placed on 02/16/2021. Patient's echocardiogram showed moderate concentric LVH with EF of 55-60%. There was moderate tricuspid regurgi tation, severe pulmonary hypertension with right-sided pressure of 66.8 mmHg. Inferior vena cava was dilated with poor inspiratory collapse consistent with estimated right atrial pressure of 20 mmHg. His follow-up chest x-ray showed some slight improvement in aeration. No coughing or wheezing. Patient remains on nebulized bronchodilators. He is on Ativan for anxiety. Tapping on the hemodialysis session today. His labs have been noted, his white blood cell count is 14.6, hemoglobin is 9.4. His biopsy results from EBUS [facility] are still pending at this time. Brain MRI was completed showing evidence of chronic small vessel ischemic changes, age-related atrophy, and small focus of restricted diffusion consistent with subacute infarct. Neurology following. On 02/19/2021 patient is seen in follow-up on selective care unit. last night rapid response team was called for ongoing anxiety and shortness of breath. patient was evaluated by Dr. Miguel and he was placed on BiPAP support, with pressures of 12/[address] chest was completed showing no evidence of pulmonary embolism, right pleural effusion, right bronchial adenopathy, cavitating 7.5 cm masslike infiltrate in the right upper lobe anterior segment consistent with necrotic tumor. Patient had a hemodialysis treatment yesterday with removal 4 L of fluid, follow-up chest x-ray today showing small right pleural effusion, right-sided lung mass. no fever or chills overnight, his blood pressures are still quite labile, with systolic ranging from 140 to 170, and diastolic in the 80-110. today's labs have been reviewed, showing white blood cell count of 16.8, hemoglobin is 8.8, sodium is 135, potassium 3.7, BUN is 46, creatinine is 4.9, ammonia level was less than 9, LFTs were unremarkable, troponin was 0.080, patient denies any chest pain, there is no hemoptysis, no phlegm production. mild edema in his bilateral lower extremities. Objective - Vital Signs Vital signs: Vital Signs Temp 98.2 F 02/19/21 08:09 Pulse 84 02/19/21 08:11 Resp 28 H 02/19/21 08:09 BP 169/102 02/19/21 08:09 Pulse Ox 100 02/19/21 08:09 Intake & Output 08/02/19/21 02/19/21 18:59 06:59 18:59 Intake Total 150 Output Total 4000 300 Balance -3850 -300 Intake: Oral 150 Output: Urine 300 Hemodialysis 4000 Other: # Voids 1 1 # Bowel Movements 1 - Exam GENERAL EXAM: 65-year-old Somali Somali male, on currently on BiPAP support, 12/6, and FiO2 of 40%slightly anxious, and dyspneic, however does not appear to be in any acute distress. HEAD: Normocephalic/atraumatic. EYES: Normal reaction of pupils, equal size. Conjunctiva pink, sclera white. NOSE: Clear with pink turbinates. THROAT: No erythema or exudates. NECK: No masses, no JVD, no thyroid enlargement, no adenopathy. CHEST: No chest wall deformity. Symmetrical expansion. Right upper subclavian area hemodialysis permacath in place. LUNGS: Equal air entry with miniature breath sounds CVS: Regular rate and rhythm, normal S1 and S2, no gallops, no murmurs, no rubs ABDOMEN: Soft, nontender. No hepatosplenomegaly, normal bowel sounds, no guarding or rigidity. EXTREMITIES: No clubbing, no edema, no cyanosis, 2+ pulses and upper and lower extremities. Right femoral temporary hemodialysis catheter in place MUSCULOSKELETAL: Muscle strength and tone normal. SPINE: No scoliosis or deformity SKIN: No rashes CENTRAL NERVOUS SYSTEM: Alert and oriented -. No focal deficits, tone is normal in all 4 extremities. PSYCHIATRIC: Alert and oriented -3. Appropriate affect. Intact judgment and insight. - Labs CBC & Chem 7: 02/19/21 02:30 02/19/21 02:30 Labs: Abnormal Lab Results - Last 24 Hours (Table) 02/17/21 02/18/21 02/18/21 Range/Units 03:39 13:00 13:00 WBC 14.6 H (3.8-10.6) k/uL RBC 3.35 L (4.30-5.90) m/uL Hgb 9.4 L (13.0-17.5) gm/dL Hct 30.9 L (39.0-53.0) % MCHC 30.3 L (31.0-37.0) g/dL Neutrophils # 13.2 H (1.3-7.7) k/uL Lymphocytes # 0.8 L (1.0-4.8) k/uL Sodium (137-145) mmol/L Potassium (3.5-5.1) mmol/L BUN (9-20) mg/dL Creatinine (0.66-1.25) mg/dL Glucose (74-99) mg/dL POC Glucose (mg/dL) (75-99) mg/dL Calcium (8.4-10.2) mg/dL AST (17-59) U/L Troponin I 0.080 H* (0.000-0.034) ng/mL Total Protein (6.3-8.2) g/dL Albumin (3.5-5.0) g/dL Methylmalonic Acid 0.84 H (<0.40) umol/L 02/18/21 02/18/21 02/18/21 Range/Units 13:00 16:41 20:53 WBC (3.8-10.6) k/uL RBC (4.30-5.90) m/uL Hgb (13.0-17.5) gm/dL Hct (39.0-53.0) % MCHC (31.0-37.0) g/dL Neutrophils # (1.3-7.7) k/uL Lymphocytes # (1.0-4.8) k/uL Sodium (137-145) mmol/L Potassium 3.3 L (3.5-5.1) mmol/L BUN 44 H (9-20) mg/dL Creatinine 4.49 H (0.66-1.25) mg/dL Glucose 57 L (74-99) mg/dL POC Glucose (mg/dL) 169 H 133 H (75-99) mg/dL Calcium 8.3 L (8.4-10.2) mg/dL AST (17-59) U/L Troponin I (0.000-0.034) ng/mL Total Protein (6.3-8.2) g/dL Albumin (3.5-5.0) g/dL Methylmalonic Acid (<0.40) umol/L 02/18/21 02/19/21 02/19/21 Range/Units 22:28 02:30 02:30 WBC 16.9 H (3.8-10.6) k/uL RBC 3.18 L (4.30-5.90) m/uL Hgb 8.8 L (13.0-17.5) gm/dL Hct 28.6 L (39.0-53.0) % MCHC 30.9 L (31.0-37.0) g/dL Neutrophils # (1.3-7.7) k/uL Lymphocytes # (1.0-4.8) k/uL Sodium 135 L (137-145) mmol/L Potassium (3.5-5.1) mmol/L BUN 46 H (9-20) mg/dL Creatinine 4.90 H (0.66-1.25) mg/dL Glucose 121 H (74-99) mg/dL POC Glucose (mg/dL) 101 H (75-99) mg/dL Calcium 7.7 L (8.4-10.2) mg/dL AST 16 L (17-59) U/L Troponin I (0.000-0.034) ng/mL Total Protein 5.9 L (6.3-8.2) g/dL Albumin 2.6 L (3.5-5.0) g/dL Methylmalonic Acid (<0.40) umol/L 02/19/21 02/19/21 Range/Units 06:37 11:34 WBC (3.8-10.6) k/uL RBC (4.30-5.90) m/uL Hgb (13.0-17.5) gm/dL Hct (39.0-53.0) % MCHC (31.0-37.0) g/dL Neutrophils # (1.3-7.7) k/uL Lymphocytes # (1.0-4.8) k/uL Sodium (137-145) mmol/L Potassium (3.5-5.1) mmol/L BUN (9-20) mg/dL Creatinine (0.66-1.25) mg/dL Glucose (74-99) mg/dL POC Glucose (mg/dL) 126 H 126 H (75-99) mg/dL Calcium (8.4-10.2) mg/dL AST (17-59) U/L Troponin I (0.000-0.034) ng/mL Total Protein (6.3-8.2) g/dL Albumin (3.5-5.0) g/dL Methylmalonic Acid (<0.40) umol/L Assessment and Plan Plan: 1 Squamous cell carcinoma. The patient is a large right upper lobe mass with some mediastinal lymphadenopathy, EBUS TBNA Mediastinal lymph node biopsy was nondiagnostic of malignancy. 2 Acute on chronic hypoxic respiratory failure secondary to significant right upper lobe lung mass, positive for squamous cell carcinoma. No signs of any fluid overload. The patient arrived to us with a pulse ox of 85% preoperatively. He will also likely need oxygen at time of discharge. Note that the patient also had a component of acute hypercapnic respiratory failure with of these mentioned above. Patient is improved and the patient is currently on 2 L of oxygen by nasal cannula. He underwent dialysis which obviously improved his oxygenation. His acid-base status is also improved with treatment. 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 CAT scan of the brain has been negative. Consider uremic encephalopathy. I discussed this issue with nephrology. BUN is not elevated. Dialysis catheter will be replaced and the patient will be continued on hemodialysis. No signs of any fluid overload. He has been essentially noncompliant even an outpatient basis regarding his hemodialysis per Dr. Casarez. Patient was also done. There is a possibility of vascular dementia. Visiting combination with metabolic encephalopathy. Consider paraneoplastic syndrome from underlying malignancy. 4 Marijuana use 5 Chronic kidney disease, receiving hemodialysis Thursday 6 History of kidney cancer suspected renal cell carcinoma with previous left ne phrectomy 7 Hypertension 8 Anemia of chronic disease 9 possible subacute infarct seen on the MRI of the brain Plan: today's chest x-ray and CTA chest reviewed, No evidence of pulmonary embolism on CTA chest, and known right upper lobe cavitating mass and a right pleural effusion, and right bronchial adenopathy chest x-ray showing small right pleural effusion, overall does not show evidenc e of significant fluid overload No fever or chills, no cough or phlegm production patient seems to have a lot of problems with anxiety Continue Xanax May attempt high flow nasal cannula Labs and chest x-ray reviewed Hemodialysis per nephrology Neurology is following TBNA biopsy of the mediastinal lymph nodes are non-diagnostic Consult medical oncology in regards to squamous cell carcinoma Will continue to follow I performed a history & physical examination of the patient and discussed their management with my nurse practitioner, Monika Westfall. I reviewed the nurse practitioner's note and agree with the documented findings and plan of care. Lung sounds are positive for diminished breath sounds throughout the lung rosas. The findings and the impression was discussed with the patient. I attest to the documentation by the nurse practitioner. Time with Patient: Less than 30
--- NOTE | 2021-02-19 14:02 | P.PN ---
Subjective Progress Note Date: 02/19/21 Principal diagnosis: Squamous cell carcinoma, right upper lobe mass, and mediastinal lymphadenopathy This is a 65-year-old gentleman with a history of anemia of chronic disease, c hronic kidney disease receiving hemodialysis Thursday, history of CVA/TIA, hypertension, SVT, chronic and ongoing tobacco dependence, occasional alcohol use, marijuana use. He was recently hospitalized for shortness of breath and was found to have a right upper lobe lung mass undergone transbronchial biopsy by Dr. Brewer on 12/28/2020. 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 PET scan all confirmed large right lung neoplasm. Right kidney had some subtle hypermetabolic uptake. He had been seen and evaluated by Dr. Washington who recommended the patient have biopsies of the mediastinal adenopathy. He was brought in electively today for EBUS procedure performed by Dr. Brewre. Following the procedure he had some issues with toxemia after being extubated. He has some cough and congestion. He was kept as an inpatient today to receive his hemodialysis and to be followed overnight. He is seen in consultation on the regular medical floor. Currently receiving hemodialysis. He is having issues with hypoxemia and hypertension. Today continues to revealed a right upper lobe mass. Left lung clear. He is maintaining O2 saturations in the 80s on a nonrebreather mask. Hypertensive. Lab work pending. Glucose 95. on 02/16 2021, the patient is much more awake and alert and is communicating. He woke up today and he had a full breakfast. Nevertheless, we have noted that on and off the is still confused and this is the same situation he is been over the past 3-4 weeks as reported by his significant other. No focal neurological deficits. CT of the brain was negative. We considered the possibility of ongoing encephalopathy as his dialysis may not be fully effective knowing that the patient was having some issues with his permacath catheter yesterday. Based on that, we've made recommendations for vascular surgery to replace the cat heter. He underwent dialysis with ultrafiltration yesterday and the same will be done today. Also, the possibility of neoplastic syndrome is being considered in this patient based on his massive and large right upper lobe tumor. The endoscopic ultrasound was done yesterday and the appropriate lymph nodes were sampled without any significant complications. He did have a component of respiratory acidosis postop. Please note that blood gases. This could be related to anesthetics, paralytic agents, and possibly the increased amount of codeine that he was ingesting at home. A repeat blood gases will be done today. Earlier this morning he was on 12 L of oxygen and currently is at 5 L and the pulse ox is around 94%. Repeat blood gases will be done. He is able to swallow appropriately. No hyperkalemia. No other major electrolyte disturbance for now. On today's evaluation of a 2020, the patient is doing better. He is awake. Is alert. Oriented to place. He was able to state the presence pain. He underwent a dialysis catheter exchange yesterday. He is currently a femoral dialysis catheter. He underwent a session of dialysis yesterday with a 2 L of ultrafiltration. Currently is on 2 L of oxygen by nasal cannula. His quite comfortable. He is tolerating his diet. No nausea or vomiting. No chest pain. Cardiac rhythm is sinus. Hemodynamically stable. Pulse ox 94% liters of oxygen by nasal cannula. No new complaints. He was seen by neurology yesterday. 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 Nevertheless, the patient does not have any focal neurological deficits. He is moving all 4 extremities. He is able to get out of the bed and some limited amount of activity and ambula tion. His overall performance and functional status is poor. 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 Please refer to the consultation note that was done by neurology. The patient also may have vascular dementia, his history of multiple CVAs in the past and he does have other risk factors for vascular/cardiovascular disease/atherosclerosis. On the 02/18/2021 patient seen in follow-up on medical surgical floor. He is dyspneic on today's exam, he is tachypneic, he is currently on 4 L of oxygen pulse ox of 94%, his been afebrile, blood pressures 149/100. He denies any chest discomfort. No hemoptysis, he appears to be swallowing, with 1+ edema in his bilateral lower extremities. His last hemodialysis session was on 02/16/2021 with removal of 2 L of fluid. Patient to a right femoral hemodialysis catheter placed on 02/16/2021. Patient's echocardiogram showed moderate concentric LVH with EF of 55-60%. There was moderate tricuspid regurgi tation, severe pulmonary hypertension with right-sided pressure of 66.8 mmHg. Inferior vena cava was dilated with poor inspiratory collapse consistent with estimated right atrial pressure of 20 mmHg. His follow-up chest x-ray showed some slight improvement in aeration. No coughing or wheezing. Patient remains on nebulized bronchodilators. He is on Ativan for anxiety. Tapping on the hemodialysis session today. His labs have been noted, his white blood cell count is 14.6, hemoglobin is 9.4. His biopsy results from EBUS TBNA are still pending at this time. Brain MRI was completed showing evidence of chronic small vessel ischemic changes, age-related atrophy, and small focus of restricted diffusion consistent with subacute infarct. Neurology following. On 02/19/2021 patient is seen in follow-up on selective care unit. last night rapid response team was called for ongoing anxiety and shortness of breath. patient was evaluated by Dr. Miguel and he was placed on BiPAP support, with pressures of 12/[address] chest was completed showing no evidence of pulmonary embolism, right pleural effusion, right bronchial adenopathy, cavitating 7.5 cm masslike infiltrate in the right upper lobe anterior segment consistent with necrotic tumor. Patient had a hemodialysis treatment yesterday with removal 4 L of fluid, follow-up chest x-ray today showing small right pleural effusion, right-sided lung mass. no fever or chills overnight, his blood pressures are still quite labile, with systolic ranging from 140 to 170, and diastolic in the 80-110. today's labs have been reviewed, showing white blood cell count of 16.8, hemoglobin is 8.8, sodium is 135, potassium 3.7, BUN is 46, creatinine is 4.9, ammonia level was less than 9, LFTs were unremarkable, troponin was 0.080, patient denies any chest pain, there is no hemoptysis, no phlegm production. mild edema in his bilateral lower extremities. Objective - Vital Signs Vital signs: Vital Signs Temp 98.4 F 02/19/21 11:43 Pulse 72 02/19/21 12:16 Resp 20 02/19/21 11:43 BP 174/95 02/19/21 11:43 Pulse Ox 100 02/19/21 11:43 Intake & Output 02/18/21 02/19/2102/19/21 18:59 06:59 18:59 Intake Total 150 Output Total 4000 550 Balance -3850 -550 Intake: Oral 150 Output: Urine 550 Hemodialysis 4000 Other: # Voids 1 1 # Bowel Movements 1 - Exam GENERAL EXAM: 65-year-old Romanian Romanian male, on currently on BiPAP support, /6, and FiO2 of 40%slightly anxious, and dyspneic, however does not appear to be in any acute distress. HEAD: Normocephalic/atraumatic. EYES: Normal reaction of pupils, equal size. Conjunctiva pink, sclera white. NOSE: Clear with pink turbinates. THROAT: No erythema or exudates. NECK: No masses, no JVD, no thyroid enlargement, no adenopathy. CHEST: No chest wall deformity. Symmetrical expansion. Right upper subclavian area hemodialysis permacath in place. LUNGS: Equal air entry with miniature breath sounds CVS: Regular rate and rhythm, normal S1 and S2, no gallops, no murmurs, no rubs ABDOMEN: Soft, nontender. No hepatosplenomegaly, normal bowel sounds, no guarding or rigidity. EXTREMITIES: No clubbing, no edema, no cyanosis, 2+ pulses and upper and lower extremities. Right femoral temporary hemodialysis catheter in place MUSCULOSKELETAL: Muscle strength and tone normal. SPINE: No scoliosis or deformity SKIN: No rashes CENTRAL NERVOUS SYSTEM: Alert and oriented -. No focal deficits, tone is normal in all 4 extremities. PSYCHIATRIC: Alert and oriented -3. Appropriate affect. Intact judgment and insight. - Labs CBC & Chem 7: 02/19/21 02:30 02/19/21 02:30 Labs: Abnormal Lab Results - Last 24 Hours (Table) 02/17/21 02/18/21 02/18/21 Range/Units 03:39 13:00 13:00 WBC 14.6 H (3.8-10.6) k/uL RBC 3.35 L (4.30-5.90) m/uL Hgb 9.4 L (13.0-17.5) gm/dL Hct 30.9 L (39.0-53.0) % MCHC 30.3 L (31.0-37.0) g/dL Neutrophils # 13.2 H (1.3-7.7) k/uL Lymphocytes # 0.8 L (1.0-4.8) k/uL Sodium (137-145) mmol/L Potassium (3.5-5.1) mmol/L BUN (9-20) mg/dL Creatinine (0.66-1.25) mg/dL Glucose (74-99) mg/dL POC Glucose (mg/dL) (75-99) mg/dL Calcium (8.4-10.2) mg/dL AST (17-59) U/L Troponin I 0.080 H* (0.000-0.034) ng/mL Total Protein (6.3-8.2) g/dL Albumin (3.5-5.0) g/dL Methylmalonic Acid 0.84 H (<0.40) umol/L 02/18/21 02/18/21 02/18/21 Range/Units 13:00 16:41 20:53 WBC (3.8-10.6) k/uL RBC (4.30-5.90) m/uL Hgb (13.0-17.5) gm/dL Hct (39.0-53.0) % MCHC (31.0-37.0) g/dL Neutrophils # (1.3-7.7) k/uL Lymphocytes # (1.0-4.8) k/uL Sodium (137-145) mmol/L Potassium 3.3 L (3.5-5.1) mmol/L BUN 44 H (9-20) mg/dL Creatinine 4.49 H (0.66-1.25) mg/dL Glucose 57 L (74-99) mg/dL POC Glucose (mg/dL) 169 H 133 H (75-99) mg/dL Calcium 8.3 L (8.4-10.2) mg/dL AST (17-59) U/L Troponin I (0.000-0.034) ng/mL Total Protein (6.3-8.2) g/dL Albumin (3.5-5.0) g/dL Methylmalonic Acid (<0.40) umol/L 02/18/21 02/19/21 02/19/21 Range/Units 22:28 02:30 02:30 WBC 16.9 H (3.8-10.6) k/uL RBC 3.18 L (4.30-5.90) m/uL Hgb 8.8 L (13.0-17.5) gm/dL Hct 28.6 L (39.0-53.0) % MCHC 30.9 L (31.0-37.0) g/dL Neutrophils # (1.3-7.7) k/uL Lymphocytes # (1.0-4.8) k/uL Sodium 135 L (137-145) mmol/L Potassium (3.5-5.1) mmol/L BUN 46 H (9-20) mg/dL Creatinine 4.90 H (0.66-1.25) mg/dL Glucose 121 H (74-99) mg/dL POC Glucose (mg/dL) 101 H (75-99) mg/dL Calcium 7.7 L (8.4-10.2) mg/dL AST 16 L (17-59) U/L Troponin I (0.000-0.034) ng/mL Total Protein 5.9 L (6.3-8.2) g/dL Albumin 2.6 L (3.5-5.0) g/dL Methylmalonic Acid (<0.40) umol/L 02/19/21 02/19/21 Range/Units 06:37 11:34 WBC (3.8-10.6) k/uL RBC (4.30-5.90) m/uL Hgb (13.0-17.5) gm/dL Hct (39.0-53.0) % MCHC (31.0-37.0) g/dL Neutrophils # (1.3-7.7) k/uL Lymphocytes # (1.0-4.8) k/uL Sodium (137-145) mmol/L Potassium (3.5-5.1) mmol/L BUN (9-20) mg/dL Creatinine (0.66-1.25) mg/dL Glucose (74-99) mg/dL POC Glucose (mg/dL) 126 H 126 H (75-99) mg/dL Calcium (8.4-10.2) mg/dL AST (17-59) U/L Troponin I (0.000-0.034) ng/mL Total Protein (6.3-8.2) g/dL Albumin (3.5-5.0) g/dL Methylmalonic Acid (<0.40) umol/L Assessment and Plan Plan: 1 Squamous cell carcinoma. The patient is a large right upper lobe mass with some mediastinal lymphadenopathy, EBUS TBNA Mediastinal lymph node biopsy was negative of mediastinal malignancy, and as such this is [id number] disease 2 Acute on chronic hypoxic respiratory failure secondary to significant right upper lobe lung mass, positive for squamous cell carcinoma. No signs of any fluid overload. The patient arrived to us with a pulse ox of 85% preoperatively. He will also likely need oxygen at time of discharge. Note that the patient also had a component of acute hypercapnic respiratory failure with of these mentioned above. Patient is improved and the patient is currently on 2 L of oxygen by nasal cannula. He underwent dialysis which obviously improved his oxygenation. His acid-base status is also improved with treatment. 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 CAT scan of the brain has been negative. Consider uremic encephalopathy. I discussed this issue with nephrology. BUN is not elevated. Dialysis catheter will be replaced and the patient will be continued on hemodialysis. No signs of any fluid overload. He has been essentially noncompliant even an outpatient basis regarding his hemodialysis per Dr. Casarez. Patient was also done. There is a possibility of vascular dementia. Visiting combination with metabolic encephalo carmen. Consider paraneoplastic syndrome from underlying malignancy. 4 Marijuana use 5 Chronic kidney disease, receiving hemodialysis Thursday 6 History of kidney cancer suspected renal cell carcinoma with previous left nephrectomy 7 Hypertension 8 Anemia of chronic disease 9 possible subacute infarct seen on the MRI of the brain Plan: today's chest x-ray and CTA chest reviewed, No evidence of pulmonary embolism on CTA chest, and known right upper lobe cavitating mass and a right pleural effusion, and right bronchial adenopathy chest x-ray showing small right pleural effusion, overall does not show evidence of significant fluid overload No fever or chills, no cough or phlegm production patient seems to have a lot of problems with anxiety Continue Xanax May attempt high flow nasal cannula Labs and chest x-ray reviewed Hemodialysis per nephrology Neurology is following TBNA biopsy of the mediastinal lymph nodes are negative for mediastinal malignancy Consult medical oncology in regards to squamous cell carcinoma Will continue to follow I performed a history & physical examination of the patient and discussed their management with my nurse practitioner, Monika Westfall. I reviewed the nurse practitioner's note and agree with the documented findings and plan of care. Lung sounds are positive for diminished breath sounds throughout the lung fi elds. The findings and the impression was discussed with the patient. I attest to the documentation by the nurse practitioner. Time with Patient: Less than 30
[2021-02-19] MEDS ORDERED: RX INFO: IV CONTRAST WAS GIVEN 1 EACH MISC MISCELLANE PRN (14:21)
[2021-02-19 17:02] LABS: Glucose,Whole Blood 150 mg/dL (75-99)
[2021-02-19 20:18] LABS: Glucose,Whole Blood 110 mg/dL (75-99)
[2021-02-19] MEDS: ATORVASTATIN 20 MG TAB PO SCH (20:29)
[2021-02-20 06:08] LABS: Glucose,Whole Blood 131 mg/dL (75-99)
[2021-02-20] MEDS: carvediloL 12.5 MG TAB PO SCH ×2 (06:34→17:42)
[2021-02-20] MEDS: INSULIN ASPART (NovoLOG) 100 UNIT/ML VIAL SQ SCH ×4 (06:34→21:18)
[2021-02-20] MEDS: CALCIUM ACETATE 667 MG TAB PO SCH ×3 (06:34→17:42)
[2021-02-20 07:28] LABS: Basophils % (A) 0 %; Eosinophils # (A) 0.1 k/uL (0-0.7); Eosinophils % (A) 1 %; HCT 34.1 % (39.0-53.0); HGB 9.7 gm/dL (13.0-17.5); Hypochromasia Marked; Lymphocytes # (A) 1.4 k/uL (1.0-4.8); Lymphocytes % (A) 10 %; MCH 26.2 pg (25.0-35.0); MCHC 28.4 g/dL (31.0-37.0); MCV 92.4 fL (80.0-100.0); Mean Platelet Volume 8.5; Monocytes % (A) 7 %; Neutrophils # (A) 11.2 k/uL (1.3-7.7); Neutrophils % (A) 80 %; Platelet Count 202 k/uL (150-450); RBC 3.69 m/uL (4.30-5.90); RDW 15.5 % (11.5-15.5)
[2021-02-20 07:44] LABS: Calcium 8.7 mg/dL (8.4-10.2); Potassium 4.4 mmol/L (3.5-5.1)
[2021-02-20] MEDS: ASPIRIN 325 MG TAB PO SCH (07:47)
[2021-02-20] MEDS: hydrALAZINE HCL 50 MG TAB PO SCH ×3 (07:48→20:21)
[2021-02-20] MEDS: FOLIC ACID 1 MG TAB PO SCH (07:48)
[2021-02-20] MEDS: SODIUM FERRIC GLUCONAT-SUCROSE 125 MG in SODIUM CHLORIDE 0.9% 100 ML IVPB SCH (08:28)
--- NOTE | 2021-02-20 09:57 | P.PN ---
Subjective Progress Note Date: 02/19/21 Principal diagnosis: Acute hypoxic respiratory failure due to large right upper lobe mass. Status post EBUS and mediastinal lymph node fine-needle aspiration on 02/15/2021 Patient is a 65-year-old male with a known history of hypertension, history of CVA/TIA, SVT, ESRD on hemodialysis Thursday and Thursday, currently everyday smoker was admitted to the hospital after elective endobronchial ultrasound procedure.. Patient was recently admitted to hospital and was found to have right upper lobe mass and underwent bronchoscopy and biopsy on 12/28/2020. 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 PET scan confirmed large right lung neoplasm. Patient had elective EBUS with mediastinal lymph node biopsy. Postprocedure patient was hypoxic and was in the 80s on 100% nonrebreather. Patient was also hypotensive. He was admitted to hospital MICU. Oxygen requirement improved and currently patient is on 5 L oxygen via nasal cannula. Chest x-ray showed there is underlying lung mass. Correlate to exclude pneumonia. Cardiomegaly. Laboratory data showed WBC 13.1, hemoglobin 9.5 and platelets 232 ABG showed pH 7.29 PCO2 57 and PO2 88 Sodium 134 potassium 3.8 chloride 97 BUN 20 and creatinine 4.88 Patient is undergoing hemodialysis currently. Patient had problems with right IJ dialysis catheter and currently placed with right femoral catheter ultrasound-guided by Dr. Neal. 02/17/2021 Patient is awake alert and oriented. Doing better compared to yesterday. Underwent hemodialysis yesterday where a right femoral catheter. Currently on oxygen by mask cannula. Hemodynamically stable. Patient was seen by neurology due to altered mental status. Workup including carotid duplex showed nonocclusive disease. Patient is able to have ambulate in the room. Nephrology and pulmonary is following. Transferring to general medical floor today. 02/18/2021 Patient is currently sitting lying in the bed with head of bed elevated. Patien t appears to be confused. Still short of breath. On 4 L oxygen with another cannula. No complaints of chest pain. Patient has been afebrile.. Nephrology is planning for hemodialysis today. Blood pressure is elevated with SBP and 160s. Laboratory data showed WBC 14.6, hemoglobin 9.4 and platelets 211 Sodium 142 potassium 3.3 BUN 44 and creatinine 4.49 and troponin 0.08 Patient is being transferred to telemetry unit. Pulmonary and nephrology is on board. Next and 2-D echocardiogram showed moderate concentric left ventricle hypertrophy with ejection fraction 55-60%. Severe pulmonary hypertension and right ventricular systolic pressure 66.84. In July Eyes dilated with poor inspiratory collapse which is constant with estimated right atrial pressure of 20 mmHg. No pericardial effusion. MRI of the brain showed evidence of chronic small vessel ischemic change, it is related atrophy. Small focus of restricted diffusion consistent with subacute infarct is suspected. 02/19/2021 Patient is currently in the telemetry unit. Last night patient became more anxious and short of breath and was placed on BiPAP. CTA chest showed no evidence of PE, cavitating 7.5 cm masslike infiltrate right upper lobe anterior segment consistent with necrotic tumor R lung abscess. Mass appears slightly increased compared to computed tomography scan of 01/18/2021. Chest x-ray showed lung mass small right pleural effusion, correlate to exclude pneumonia versus atelectasis. Laboratory data showed WBC 16.9 hemoglobin 8.8 and platelets 209 BUN 46 and creatinine 4.9 magnesium 1.8 Patient has been afebrile. Currently on oxygen at 2 to 3Y another cannula. Patient is otherwise lethargic and sleepy. Denied chest pain. Current medications reviewed. Objective - Vital Signs Vital signs: Vital Signs Temp 97.7 F 02/19/21 15:54 Pulse 76 02/19/21 20:00 Resp 22 02/19/21 20:00 BP 163/91 02/19/21 21:59 Pulse Ox 91 L 02/19/21 20:00 Intake & Output 02/19/21 02/19/21 02/20/21 06:59 18:59 06:59 Intake Total 480 Output Total 825 Balance -345 Intake: Oral 480 Output: Urine 825 Other: # Voids 1 - Exam PHYSICAL EXAMINATION: Patient is lying in the bed comfortably, no acute distress, awake alert and oriented.. HEENT: Normocephalic. Neck is supple. Pupils reactive. Nostrils clear. Oral cavity is moist. Neck reveals no JVD, carotid bruits, or thyromegaly. CHEST EXAMINATION: Trachea is central. Symmetrical expansion. Scattered coarse sounds on the right side no wheezing... CARDIAC: Normal S1, S2 with no gallops. No murmurs ABDOMEN: Soft. Bowel sounds normal. No organomegaly. No abdominal bruits. Extremities: reveal no edema. No clubbing or cyanosis Neurologically awake, alert, oriented x3 with well-coordinated movements. No focal deficits noted Skin: No rash or skin lesions. Psychiatric: Coperative. Nonsuicidal Musculoskeletal: No joint swelling or deformity. Normal range of motion. - Labs CBC & Chem 7: 02/20/21 06:37 02/20/21 06:37 Labs: Abnormal Lab Results - Last 24 Hours (Table) 02/17/21 02/18/21 02/19/21 Range/Units 03:39 22:28 02:30 WBC 16.9 H (3.8-10.6) k/uL RBC 3.18 L (4.30-5.90) m/uL Hgb 8.8 L (13.0-17.5) gm/dL Hct 28.6 L (39.0-53.0) % MCHC 30.9 L (31.0-37.0) g/dL Sodium (137-145) mmol/L BUN (9-20) mg/dL Creatinine (0.66-1.25) mg/dL Glucose (74-99) mg/dL POC Glucose (mg/dL) 101 H (75-99) mg/dL Calcium (8.4-10.2) mg/dL AST (17-59) U/L Total Protein (6.3-8.2) g/dL Albumin (3.5-5.0) g/dL Methylmalonic Acid 0.84 H (<0.40) umol/L 02/19/21 02/19/21 02/19/21 Range/Units 02:30 06:37 11:34 WBC (3.8-10.6) k/uL RBC (4.30-5.90) m/uL Hgb (13.0-17.5) gm/dL Hct (39.0-53.0) % MCHC (31.0-37.0) g/dL Sodium 135 L (137-145) mmol/L BUN 46 H (9-20) mg/dL Creatinine 4.90 H (0.66-1.25) mg/dL Glucose 121 H (74-99) mg/dL POC Glucose (mg/dL) 126 H 126 H (75-99) mg/dL Calcium 7.7 L (8.4-10.2) mg/dL AST 16 L (17-59) U/L Total Protein 5.9 L (6.3-8.2) g/dL Albumin 2.6 L (3.5-5.0) g/dL Methylmalonic Acid (<0.40) umol/L 02/19/21 02/19/21 Range/Units 17:00 20:17 WBC (3.8-10.6) k/uL RBC (4.30-5.90) m/uL Hgb (13.0-17.5) gm/dL Hct (39.0-53.0) % MCHC (31.0-37.0) g/dL Sodium (137-145) mmol/L BUN (9-20) mg/dL Creatinine (0.66-1.25) mg/dL Glucose (74-99) mg/dL POC Glucose (mg/dL) 150 H 110 H (75-99) mg/dL Calcium (8.4-10.2) mg/dL AST (17-59) U/L Total Protein (6.3-8.2) g/dL Albumin (3.5-5.0) g/dL Methylmalonic Acid (<0.40) umol/L Assessment and Plan Assessment: Altered mental status possible toxic metabolic encephalopathy. Possible subacute cerebral infarct as per MRI. Severe pulmonary hypertension Acute hypoxic respiratory failure due to large right upper lobe mass, Fluid load. 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 Squamous cell carcinoma. Large right upper lobe mass with mediastinal lymphadenopathy. ESRD on hemodialysis with malfunctioning of IJ catheter. Right femoral catheter was placed on 02/15. 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 Plan: Last night. Patient was placed on BiPAP. Titrate down to 2 L oxygen with another cannula. Continue the Xanax when necessary for anxiety. New right femoral dialysis catheter was placed and currently patient is underwent hemodialysis . Continued on hemodialysis as per schedule.. Continue with duo nebs and pain management. Patient was seen by neurology due to altered mental status. Possible early stages vascular dementia.MRI of the brain showed possible subacute infarct. B12 1938, folic acid is low 3.5. Patient will be started on folate replacement, TSH normal 1.25, MMA, RPR pending. Started on aspirin 325 mg daily. Continue blood pressure medications and follow closely.. Patient was started on IV iron. Pulmonary and nephrology is on board. Prognosis is guarded this time. Time with Patient: Greater than 30
[2021-02-20] MEDS: IPRATROPIUM-ALBUTEROL 3 ML NEB INHALATION SCH ×4 (10:03→20:18)
--- NOTE | 2021-02-20 10:11 | CT ---
EXAMINATION TYPE: CT brain w con DATE OF EXAM: 02/20/2021 COMPARISON: 02/07/2021 INDICATION: altered mental status, rule out mass, hx lung cancer DLP: 1099.4 mGycm, Automated exposure control for dose reduction was used. CONTRAST: [address] of the brain is performed utilizing 3 mm thick sections through the posterior fossa and 3 mm thick sections through the remaining calvarium. Study is performed within 24 hours of arrival to the hosp ital. No abnormal hyperdensity is present to suggest an acute intracranial hemorrhage. No mass lesion is evident. No suspicious enhancement is evident. No acute infarcts are evident. There is an old left occipital lobe infarct. Periventricular white mat ter hypodensity is present, likely on the basis of chronic white matter ischemic changes. An old lacu andrew infarct within the left basal ganglia is present. Ventricles and sulci are prominent for the patient age. Paranasal sinuses and mastoid air cells within the [id number] are clear. IMPRESSIONS: 1. No acute changes or abnormal enhancement to suggest radiographic evidence metastatic disease. MR I may be more sensitive. 2. Old left occipital lobe infarct. 3. Atrophy with chronic appearing periventricular white matter ischemic changes
[2021-02-20 11:30] VITALS: BMI 25.5
--- NOTE | 2021-02-20 11:50 | P.PN ---
Subjective Progress Note Date: 02/20/21 The patient is seen at bedside and per nurse he is slowing in responding but responds appropriately. Patient denies of any focal weakness, numbness, visual disturbances. Objective - Vital Signs Vital signs: Vital Signs Temp 98.6 F 02/20/21 07:46 Pulse 70 02/20/21 07:46 Resp 18 02/20/21 08:00 BP 144/87 02/20/21 07:46 Pulse Ox 97 02/20/21 07:46 Intake & Output 02/19/21 02/20/21 02/20/21 18:59 06:59 18:59 Intake Total 480 0 Output Total 825 200 Balance -345 -200 0 Weight 83.1 kg Intake: Oral 480 0 Output: Urine 825 200 Other: # Voids 1 - Exam GENERAL: The patient is lying in bed and is not in acute distress.t. NEUROLOGICAL: Higher mental function: The patient is slightly drowsy but is awakeable to voice, oriented to self. He was able to tell me he was in the hospital but did not tell which. He stated the month is February but could not tell me year. He is responding slowly. He is able to name objects (watch, pen cup). Patient is following simple commands. No aphasia and no neglect. Cranial nerves: The pupils are round, equal and reactive to light. Visual rosas are full to confrontation throughout. Extraocular movement is intact no nystagmus is noted. Facial sensation is normal to touch throughout. The facial strength is normal throughout. Tongue is midline and moved [id number] without any difficulty. No dysarthria is noted. Motor: The strength is 5 over 5 throughout. Normal tone and bulk. Sensation: Sensation is normal to touch throughout. Plantars are mute bilaterally. WORK-UP: * MRI the brain is reported as there is extensive motion on exam. There is evidence of chronic small vessel ischemic change, age-related atrophy. Small focus of restricted diffusion consistent with subacute infarct is suspected. I personally reviewed the MRI and I did not see any evidence of acute or subacute ischemia. The patient does have encephalomalacia over at the medial aspect of left occipital as well as over the right periventricular around the Thalamus/black radiata region. I spoke with the reading radiologist Dr. Holcomb and he agrees there is no evidence of acute or subacute ischemic stroke. * CT head w/ contrast on 02/20/21 (since could not get MRI Brain to rule out mass): No acute changes or abnormal enhancement suggests radiographic evidence of metastatic disease. MRI may be more sensitive. Old left occipital lobe infarct. Atrophy with chronic appearing periventricular white matter ischemic changes at. * 2-D echo was reported as moderate concentric left ventricular hypertrophy. Ejection fraction 55-60%. Left atrium is mildly dilated. There is severe pulmonary hypertension. Moderate tricuspid regurgitation present. * Carotid Doppler revealed less than 25% stenosis in both ICAs. Antegrade flow in both vertebral arteries. * 2-D echo completed, results pending. * Hemoglobin A1c 5.8 normal * Lipid panel shows cholesterol 80, LDL 43.2, HDL 23 and triglyceride 69. Lipids are well controlled. * TSH normal 1.25, * B12 1938, folic acid is low 3.5. Methylmalonic acid is 0.84 which is considered abnormal and the normal is less than 0.40. * Ammonia level is less than 9 which is within normal limits. * Treponema pallidum antibody is nonreactive - Labs CBC & Chem 7: 02/20/21 06:37 02/20/21 06:37 Labs: Abnormal Lab Results - Last 24 Hours (Table) 02/19/21 02/19/21 02/20/21 Range/Units 17:00 20:17 06:06 WBC (3.8-10.6) k/uL RBC (4.30-5.90) m/uL Hgb (13.0-17.5) gm/dL Hct (39.0-53.0) % MCHC (31.0-37.0) g/dL Neutrophils # (1.3-7.7) k/uL BUN (9-20) mg/dL Creatinine (0.66-1.25) mg/dL Glucose (74-99) mg/dL POC Glucose (mg/dL) 150 H 110 H 131 H (75-99) mg/dL 02/20/21 02/20/21 Range/Units 06:37 06:37 WBC 14.0 H (3.8-10.6) k/uL RBC 3.69 L (4.30-5.90) m/uL Hgb 9.7 L (13.0-17.5) gm/dL Hct 34.1 L (39.0-53.0) % MCHC 28.4 L (31.0-37.0) g/dL Neutrophils # 11.2 H (1.3-7.7) k/uL BUN 64 H (9-20) mg/dL Creatinine 6.64 H (0.66-1.25) mg/dL Glucose 114 H (74-99) mg/dL POC Glucose (mg/dL) (75-99) mg/dL Assessment and Plan Assessment: * Altered mental status, possible toxic-metabolic encephalopathy. MRI Brain is negative for acute or subacute ischemic stroke. Has old stroke over the left occipital and right subcortical in thalamus/black radiata region * Slowly progressive memory loss over the past 3 months, possible early stage of vascular dementia. Patient has history of multiple strokes in the past. Also has multiple vascular risk factors. Paraneoplastic process appears less likely. * Newly diagnosed squamous cell lung cancer. * End-stage renal disease, on hemodialysis. * Hypertension * Hyperlipidemia * Chronic tobacco use * History of alcoholism Plan: * Continue aspirin 325 mg daily and Lipitor 20mg qhs for secondary stroke prophylaxis. * B12 1938, folic acid is low 3.5. Continue on folate replacement. * Ordered a routine EEG. I will not start the patient on antiepileptic drug unless there is epileptiform discharges or seizure on the EEG. * Recommend patient to received 2.5 hour ambulatory EEG as outpatient but if patient has worsening of mentation can consider routine EEG. * For DVT will defer managment to primary team. The plan is discussed with the patient nurse. Bishop Leon MD Neuro-Hospitalist Time with Patient: Less than 30
[2021-02-20 12:01] LABS: Glucose,Whole Blood 137 mg/dL (75-99)
--- NOTE | 2021-02-20 12:04 | PN ---
PROGRESS NOTE Patient is seen for followup for end-stage renal disease. Patient's mentation seems to be much improved from yesterday. He is scheduled for hemodialysis today. The patient had a brain CT scan done which showed no acute changes. On examination today, blood pressure 144/87, heart rate 70 per minute. He is afebrile. EXAMINATION OF THE HEART: S1 and S2. EXAMINATION OF LUNGS: Bilateral breath sounds are heard. Decreased breath sounds at the bases. ABDOMEN: Soft, nontender. LOWER EXTREMITIES: Examination of lower extremities shows trace lower extremity edema. WINDOW SASH INSTALLER EXAM: WINDOW SASH INSTALLER exam shows patient is moving all 4 extremities. He is answering questions appropriately. Mentation is much improved from yesterday. Labs show sodium 137, potassium 4.4, BUN 64, serum creatinine 6.64, hemoglobin 9.7. ASSESSMENT: 1. End-stage renal disease, on hemodialysis on a Thursday, Thursday, Thursday schedule. 2. Fluid overload, currently improved. 3. Altered mentation. Seems to be improving currently. No abnormality noted on brain CT. 4. Acute hypoxic respiratory failure, multifactorial, associated with element of fluid overload as well as underlying lung mass and lung cancer. 5. Anemia, multifactorial. PLAN: Hemodialysis today. Goal UF about 4 L as tolerated. MMODL / IJN: [id number] /
--- NOTE | 2021-02-20 12:12 | P.PN ---
Subjective Progress Note Date: 02/20/21 Principal diagnosis: Squamous cell carcinoma, right upper lobe mass, and mediastinal lymphadenopathy This is a 65-year-old gentleman with a history of anemia of chronic disease, c hronic kidney disease receiving hemodialysis Thursday, history of CVA/TIA, hypertension, SVT, chronic and ongoing tobacco dependence, occasional alcohol use, marijuana use. He was recently hospitalized for shortness of breath and was found to have a right upper lobe lung mass undergone transbronchial biopsy by Dr. Brewer on 12/28/2020. 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 PET scan all confirmed large right lung neoplasm. Right kidney had some subtle hypermetabolic uptake. He had been seen and evaluated by Dr. Washington who recommended the patient have biopsies of the mediastinal adenopathy. He was brought in electively today for EBUS procedure performed by Dr. Brewer. Following the procedure he had some issues with toxemia after being extubated. He has some cough and congestion. He was kept as an inpatient today to receive his hemodialysis and to be followed overnight. He is seen in consultation on the regular medical floor. Currently receiving hemodialysis. He is having issues with hypoxemia and hypertension. Today continues to revealed a right upper lobe mass. Left lung clear. He is maintaining O2 saturations in the 80s on a nonrebreather mask. Hypertensive. Lab work pending. Glucose 95. on 02/16 2021, the patient is much more awake and alert and is communicating. He woke up today and he had a full breakfast. Nevertheless, we have noted that on and off the is still confused and this is the same situation he is been over the past 3-4 weeks as reported by his significant other. No focal neurological deficits. CT of the brain was negative. We considered the possibility of ongoing encephalopathy as his dialysis may not be fully effective knowing that the patient was having some issues with his permacath catheter yesterday. Based on that, we've made recommendations for vascular surgery to replace the cat heter. He underwent dialysis with ultrafiltration yesterday and the same will be done today. Also, the possibility of neoplastic syndrome is being considered in this patient based on his massive and large right upper lobe tumor. The endoscopic ultrasound was done yesterday and the appropriate lymph nodes were sampled without any significant complications. He did have a component of respiratory acidosis postop. Please note that blood gases. This could be related to anesthetics, paralytic agents, and possibly the increased amount of codeine that he was ingesting at home. A repeat blood gases will be done today. Earlier this morning he was on 12 L of oxygen and currently is at 5 L and the pulse ox is around 94%. Repeat blood gases will be done. He is able to swallow appropriately. No hyperkalemia. No other major electrolyte disturbance for now. On today's evaluation of a 2020, the patient is doing better. He is awake. Is alert. Oriented to place. He was able to state the presence pain. He underwent a dialysis catheter exchange yesterday. He is currently a femoral dialysis catheter. He underwent a session of dialysis yesterday with a 2 L of ultrafiltration. Currently is on 2 L of oxygen by nasal cannula. His quite comfortable. He is tolerating his diet. No nausea or vomiting. No chest pain. Cardiac rhythm is sinus. Hemodynamically stable. Pulse ox 94% liters of oxygen by nasal cannula. No new complaints. He was seen by neurology yesterday. 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 Nevertheless, the patient does not have any focal neurological deficits. He is moving all 4 extremities. He is able to get out of the bed and some limited amount of activity and ambula tion. His overall performance and functional status is poor. 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 Please refer to the consultation note that was done by neurology. The patient also may have vascular dementia, his history of multiple CVAs in the past and he does have other risk factors for vascular/cardiovascular disease/atherosclerosis. On the 02/18/2021 patient seen in follow-up on medical surgical floor. He is dyspneic on today's exam, he is tachypneic, he is currently on 4 L of oxygen pulse ox of 94%, his been afebrile, blood pressures 149/100. He denies any chest discomfort. No hemoptysis, he appears to be swallowing, with 1+ edema in his bilateral lower extremities. His last hemodialysis session was on 02/16/2021 with removal of 2 L of fluid. Patient to a right femoral hemodialysis catheter placed on 02/16/2021. Patient's echocardiogram showed moderate concentric LVH with EF of 55-60%. There was moderate tricuspid regurgi tation, severe pulmonary hypertension with right-sided pressure of 66.8 mmHg. Inferior vena cava was dilated with poor inspiratory collapse consistent with estimated right atrial pressure of 20 mmHg. His follow-up chest x-ray showed some slight improvement in aeration. No coughing or wheezing. Patient remains on nebulized bronchodilators. He is on Ativan for anxiety. Tapping on the hemodialysis session today. His labs have been noted, his white blood cell count is 14.6, hemoglobin is 9.4. His biopsy results from EBUS [facility] are still pending at this time. Brain MRI was completed showing evidence of chronic small vessel ischemic changes, age-related atrophy, and small focus of restricted diffusion consistent with subacute infarct. Neurology following. On 02/19/2021 patient is seen in follow-up on selective care unit. last night rapid response team was called for ongoing anxiety and shortness of breath. patient was evaluated by Dr. Miguel and he was placed on BiPAP support, with pressures of 12/[address] chest was completed showing no evidence of pulmonary embolism, right pleural effusion, right bronchial adenopathy, cavitating 7.5 cm masslike infiltrate in the right upper lobe anterior segment consistent with necrotic tumor. Patient had a hemodialysis treatment yesterday with removal 4 L of fluid, follow-up chest x-ray today showing small right pleural effusion, right-sided lung mass. no fever or chills overnight, his blood pressures are still quite labile, with systolic ranging from 140 to 170, and diastolic in the 80-110. today's labs have been reviewed, showing white blood cell count of 16.8, hemoglobin is 8.8, sodium is 135, potassium 3.7, BUN is 46, creatinine is 4.9, ammonia level was less than 9, LFTs were unremarkable, troponin was 0.080, patient denies any chest pain, there is no hemoptysis, no phlegm production. mild edema in his bilateral lower extremities. On 02/20/2021 patient seen in follow-up on selective care unit, he seen resting comfortably in bed, currently on 2 L of oxygen with a pulse ox of 99%. He is calm and comfortable on today's exam, cooperative, responding appropriately, afebrile, blood pressure is better controlled, with systolic in the 140s to 150s, and at times in the 170s and diastolic in the 80s and 90s. His labs have been reviewed, is with condoms 14, hemoglobin is 9.7, electrolytes are within normal limits, potassium is 4.4, B1 is 64, creatinine 6.64. No fever or chills. He received one-time dose of Lasix. His last hemodialysis treatment was the day before yesterday would removal of 4 L of fluid. No cooperative chest pain, no cough, no hemoptysis. Some mild edema in his bilateral lower extremities. Patient is being seen by neurology, brain CT this morning shows no acute changes or abnormal enhancement to suggest radiographic evidence of metastatic disease. There is evidence of old left occipital lobe infarct. Objective - Vital Signs Vital signs: Vital Signs Temp 98.5 F 02/20/21 11:55 Pulse 71 02/20/21 11:55 Resp 18 02/20/21 11:55 BP 176/98 02/20/21 11:55 Pulse Ox 99 02/20/21 11:55 Intake & Output 02/19/21 02/20/21 02/20/21 18:59 06:59 18:59 Intake Total 480 0 Output Total 825 200 Balance -345 -200 0 Weight 83.1 kg Intake: Oral 480 0 Output: Urine 825 200 Other: # Voids 1 - Exam GENERAL EXAM: 65-year-old [place] male, 2 L of oxygen pulse ox of 99% however does not appear to be in any acute distress. HEAD: Normocephalic/atraumatic. EYES: Normal reaction of pupils, equal size. Conjunctiva pink, sclera white. NOSE: Clear with pink turbinates. THROAT: No erythema or exudates. NECK: No masses, no JVD, no thyroid enlargement, no adenopathy. CHEST: No chest wall deformity. Symmetrical expansion. Right upper subclavian area hemodialysis permacath in place. LUNGS: Equal air entry with miniature breath sounds CVS: Regular rate and rhythm, normal S1 and S2, no gallops, no murmurs, no rubs ABDOMEN: Soft, nontender. No hepatosplenomegaly, normal bowel sounds, no guarding or rigidity. EXTREMITIES: No clubbing, no edema, no cyanosis, 2+ pulses and upper and lower extremities. Right femoral temporary hemodialysis catheter in place MUSCULOSKELETAL: Muscle strength and tone normal. SPINE: No scoliosis or deformity SKIN: No rashes CENTRAL NERVOUS SYSTEM: Alert and oriented -. No focal deficits, tone is normal in all 4 extremities. PSYCHIATRIC: Alert and oriented -3. Appropriate affect. Intact judgment and insight. - Labs CBC & Chem 7: 02/20/21 06:37 02/20/21 06:37 Labs: Abnormal Lab Results - Last 24 Hours (Table) 02/19/21 02/19/21 02/20/21 Range/Units 17:00 20:17 06:06 WBC (3.8-10.6) k/uL RBC (4.30-5.90) m/uL Hgb (13.0-17.5) gm/dL Hct (39.0-53.0) % MCHC (31.0-37.0) g/dL Neutrophils # (1.3-7.7) k/uL BUN (9-20) mg/dL Creatinine (0.66-1.25) mg/dL Glucose (74-99) mg/dL POC Glucose (mg/dL) 150 H 110 H 131 H (75-99) mg/dL 02/20/21 02/20/21 02/20/21 Range/Units 06:37 06:37 11:58 WBC 14.0 H (3.8-10.6) k/uL RBC 3.69 L (4.30-5.90) m/uL Hgb 9.7 L (13.0-17.5) gm/dL Hct 34.1 L (39.0-53.0) % MCHC 28.4 L (31.0-37.0) g/dL Neutrophils # 11.2 H (1.3-7.7) k/uL BUN 64 H (9-20) mg/dL Creatinine 6.64 H (0.66-1.25) mg/dL Glucose 114 H (74-99) mg/dL POC Glucose (mg/dL) 137 H (75-99) mg/dL Assessment and Plan Plan: 1 Squamous cell carcinoma. The patient is a large right upper lobe mass with some mediastinal lymphadenopathy, EBUS TBNA Mediastinal lymph node biopsy was negative of mediastinal malignancy, and as such this is T3N0M0 disease. Patient is a surgical candidate for surgical resection related to multiple comorbidities, and general medical debility 2 Acute on chronic hypoxic respiratory failure secondary to significant right upper lobe lung mass, positive for squamous cell carcinoma. No signs of any fluid overload. The patient arrived to us with a pulse ox of 85% preoperatively. He will also likely need oxygen at time of discharge. Note that the patient also had a component of acute hypercapnic respiratory failure with of these mentioned above. Patient is improved and the patient is currently on 2 L of oxygen by nasal cannula. He underwent dialysis which obviously improved his oxygenation. His acid-base status is also improved with treatment. 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 CAT scan of the brain has been negative. Consider uremic encephalopathy. I discussed this issue with nephrology. BUN is not elevated. Dialysis catheter will be replaced and the patient will be continued on hemodialysis. No signs of any fluid overload. He has been essentially noncompliant even an outpatient basis regarding his hemodialysis per Dr. Casarez. Patient was also done. There is a possibility of vascular dementia. Visiting combination with metabolic encephalopathy. Consider paraneoplastic syndrome from underlying malignancy. 4 Marijuana use 5 Chronic kidney disease, receiving hemodialysis Thursday 6 History of kidney cancer suspected renal cell carcinoma with previous left nephrectomy 7 Hypertension 8 Anemia of chronic disease 9 possible subacute infarct seen on the MRI of the brain Plan: Breathing much more comfortably today Vital signs are stable Currently down to 2 L of oxygen Awaiting evaluation by medical oncology Increase activity as tolerated Obtain a home oxygen evaluation and patient will likely qualify for home oxygen Hemodialysis per nephrology May need physical therapy evaluation Patient is not a candidate for surgical resection for his locally advanced squamous cell lung carcinoma related to general medical debility, and multiple comorbidities He is also undergoing neurological evaluation He may need subacute rehab placement, pending evaluation by physical therapy will continue to follow I performed a history & physical examination of the patient and discussed their management with my nurse practitioner, Monika Westfall. I reviewed the nurse practitioner's note and agree with the documented findings and plan of care. Lung sounds are positive for diminished breath sounds throughout the lung rosas. The findings and the impression was discussed with the patient. I attest to the documentation by the nurse practitioner. Time with Patient: Less than 30
--- NOTE | 2021-02-20 14:11 | EEG ---
ELECTROENCEPHALOGRAM REPORT DATE OF SERVICE: 02/20/2021 CLINICAL HISTORY: This is a 65-year-old gentleman with altered mental status. The video EEG is obtained to evaluate for seizure and epileptiform activity. The patient is not on any antiepileptic drugs. EEG TYPE: A routine 21-channel EEG is performed with video using the 10/20 electrode placement system. DESCRIPTION: Awake and drowsy states are obtained. During awake state, there is a posterior- dominant rhythm of low to moderate voltage that is well modulated of 7-7.5 hertz activity. During drowsiness there is slowing and attenuation of background activity. There is no physiological stage 2 sleep architecture seen. There is no focal slowing. Interictal and ictal is none. ACTIVATION PROCEDURE: Photic stimulation did not evoke a posterior driving response. There is no abnormality during the photic stimulation. Hyperventilation is not performed. CLINICAL INTERPRETATION: This is an abnormal routine EEG. The background slowing is suggestive of mild encephalopathy. There is no focal slowing, epileptiform discharges or seizure on the EEG. Clinical correlation is recommended. SKIP / EVA: [id number] / [id number]
--- NOTE | 2021-02-20 14:17 | P.CONS ---
History of Present Illness - Reason for Consult Consult date: 02/20/21 Hx squamous cell carcinoma Requesting physician: Monika Westfall - Chief Complaint in for elective biopsy of suspicious LN prior to surgery - History of Present Illness Mr. Owens is a pleasant 65-year-old male with multiple medical problems. He was seen in hospital December 2020, presented with shortness of breath, started a few days prior, progressed, associated with cough without expectoration, no hemoptysis, cramping in both lower extremities, with radiation upwards into the lower trunk. CXR revealed a large right upper lobe mass like opacity. CT confirmed the presence of right upper lobe mass greater than 6 cm. 12/31/20 meyer needle biopsy of lung mass was positive for sq cell carcinoma. Prior chest x-ray in the EMR, from 02/08 had shown no evidence of a mass. Staging scans and marvin MRI were neg for evidence of metastasis. He had a creatinine of 10.60 on admission. He has a known history of chronic kidney disease with baseline creatinine in the 3-4 range based on most recent labs in the EMR. According to the patient, since 02/08, his kidney function has been getting worse, and dialysis was recommended as an outpatient. He had not followed up on that because of the coronavirus epidemic. He was seen in [facility] just about 3 weeks ago-for 1st visit, he has had no treatment, he was doing good and plan was for him to go to Cardiothoracic surgery for resection of lung mass. There were a few suspicious LN in the chest so, they were biopsied, station 7 and 4R, path was neg for malignancy. His dialysis catheter was malfunctioning but, that is managed. Pt is now confused, he is oriented x1, he knows he is confused, he can't think right. He denies any pain, nausea, mild SOB. Review of Systems Focused ROS is neg except as stated in HPI Past Medical History Past Medical History: Cancer, CVA/TIA, Hypertension, Myocardial Infarction ([place]), Supraventricular Tachycardia (SVT) Additional Past Medical History / Comment(s): multiple strokes, [place] (2005), Dialysis [facility]- Thursday, Wednesdays and Fridays. Last Dialysis-02/13/21 Last Myocardial Infarction Date:: 2005 History of Any Multi-Drug Resistant Organisms: None Reported Past Surgical History: Heart Catheterization Additional Past Surgical History / Comment(s): removal of left kidney Past Anesthesia/Blood Transfusion Reactions: No Reported Reaction Past Psychological History: Unable to Obtain Smoking Status: Current every day smoker Past Alcohol Use History: Unable to Obtain Past Drug Use History: Unable to Obtain - Past Family History Mother Family Medical History: Unable to Obtain Medications and Allergies Home Medications Medication Instructions Recorded Confirmed Type Nitroglycerin Sl Tabs [Nitrostat] 0.4 mg SUBLINGUAL Q5M PRN #30 tab 08/29/18 02/15/21 Rx carvediloL [Coreg*] 25 mg PO BID-W/MEALS #60 tab 08/29/18 02/15/21 Rx Acetaminophen Tab [Tylenol] 650 mg PO Q6HR PRN tab 12/31/20 02/15/21 Rx Hydrocodone Bit/Homatrop Me-Br 5 ml PO Q6H #100 ml 01/30/21 02/15/21 Rx [Hycodan 5 mg-1.5 mg/5 ml Soln] Hydrocodone Bit/Homatrop Me-Br 5 ml PO Q6H PRN #100 ml 02/06/21 02/15/21 Rx [Hycodan 5 mg-1.5 mg/5 ml Soln] Hydrocodone Bit/Homatrop Me-Br 5 ml PO Q6H PRN #100 ml 02/13/21 02/15/21 Rx [Hycodan 5 mg-1.5 mg/5 ml Soln] Allergies Allergy/AdvReac Type Severity Reaction Status Date / Time clonidine Allergy Swelling Verified 02/15/21 08:12 hydralazine Allergy Rash/Hives Verified 02/15/21 08:12 lisinopril Allergy Swelling Verified 02/15/21 08:12 Physical Exam Vitals: Vital Signs Temp Pulse Pulse Resp BP Pulse Ox 02/20/21 08:00 18 02/20/21 07:46 98.6 F 70 18 144/87 97 02/20/21 03:49 98.4 F 91 22 154/96 100 02/19/21 23:35 174/102 02/19/21 23:30 97.5 F L 83 20 191/111 97 02/19/21 21:59 163/91 02/19/21 20:00 76 22 181/111 91 L 02/19/21 19:12 80 02/19/21 18:59 80 02/19/21 16:03 76 02/19/21 15:54 97.7 F 74 24 170/97 100 02/19/21 15:49 76 02/19/21 14:16 75 20 02/19/21 12:16 72 02/19/21 11:58 68 02/19/21 11:43 98.4 F 75 20 174/95 100 Intake and Output 02/19/21 02/20/21 02/20/21 22:59 06:59 14:59 Intake Total 480 0 Output Total 275 200 Balance 205 -200 0 Intake: Oral 480 0 Output: Urine 275 200 Other: # Voids 1 - Constitutional General appearance: average body habitus, mild distress - EENT Eyes: anicteric sclerae, EOMI ENT: hearing grossly normal, normal oropharynx - Neck Neck: no lymphadenopathy - Respiratory Respiratory: right: diminished, left: CTA, bilateral: other (chayo mildly labored) - Cardiovascular Rhythm: regular Heart sounds: normal: S1, S2 Abnormal Heart Sounds: no systolic murmur, no diastolic murmur, no rub, no S3 Gallop, no S4 Gallop, no click, no other leg Peripheral Edema: bilateral: None - Gastrointestinal General gastrointestinal: no absent bowel sounds, no decreased bowel sounds, no distended, no hepatomegaly, no hyperactive bowel sounds, normal bowel sounds, no organomegaly, no rigid, no scaphoid, soft, no splenomegaly, no tenderness, no umbilical hernia, no ventral hernia - Musculoskeletal Musculoskeletal: generalized weakness - Psychiatric Oriented to self, wakes to voice, drifts to sleep easily. Results CBC & Chem 7: 02/20/21 06:37 02/20/21 06:37 Labs: Abnormal Lab Results - Last 24 Hours (Table) 02/17/21 02/19/21 02/19/21 Range/Units 03:39 11:34 17:00 WBC (3.8-10.6) k/uL RBC (4.30-5.90) m/uL Hgb (13.0-17.5) gm/dL Hct (39.0-53.0) % MCHC (31.0-37.0) g/dL Neutrophils # (1.3-7.7) k/uL BUN (9-20) mg/dL Creatinine (0.66-1.25) mg/dL Glucose (74-99) mg/dL POC Glucose (mg/dL) 126 H 150 H (75-99) mg/dL Methylmalonic Acid 0.84 H (<0.40) umol/L 02/19/21 02/20/21 02/20/21 Range/Units 20:17 06:06 06:37 WBC 14.0 H (3.8-10.6) k/uL RBC 3.69 L (4.30-5.90) m/uL Hgb 9.7 L (13.0-17.5) gm/dL Hct 34.1 L (39.0-53.0) % MCHC 28.4 L (31.0-37.0) g/dL Neutrophils # 11.2 H (1.3-7.7) k/uL BUN (9-20) mg/dL Creatinine (0.66-1.25) mg/dL Glucose (74-99) mg/dL POC Glucose (mg/dL) 110 H 131 H (75-99) mg/dL Methylmalonic Acid (<0.40) umol/L 02/20/21 Range/Units 06:37 WBC (3.8-10.6) k/uL RBC (4.30-5.90) m/uL Hgb (13.0-17.5) gm/dL Hct (39.0-53.0) % MCHC (31.0-37.0) g/dL Neutrophils # (1.3-7.7) k/uL BUN 64 H (9-20) mg/dL Creatinine 6.64 H (0.66-1.25) mg/dL Glucose 114 H (74-99) mg/dL POC Glucose (mg/dL) (75-99) mg/dL Methylmalonic Acid (<0.40) umol/L Chest x-ray: report reviewed CT scan - chest: report reviewed CT Scan - head: report reviewed Assessment and Plan (1) Confusion Narrative/Plan: Dr. Vaca discussed case with Nephrology, not felt that confusion is 2/2 uremic encephalopathy from worsening renal function. Neurology has seen pt, no acute stroke, possibly early stage vascular dementia. MRI brain without contrast was neg for mets. Nephrology will give dialysis for 3 days in a row if MRI with contrast ordered. Will order to rule out brain mets. Final option would be for LP to assess CSF. Paraneoplastic process is in differential. Current Visit: Yes Status: Acute Priority: High Code(s): R41.0 - DISORIENTATION, UNSPECIFIED SNOMED Code(s): 233501782 (2) Squamous cell lung cancer Narrative/Plan: Pt was completing work up (LN were neg) so that he could have surgery for sq ell lung ca. Pending resolution of his current condition, reassess. Current Visit: Yes Status: Acute Priority: High Code(s): C34.90 - MALIGNANT NEOPLASM OF UNSP PART OF UNSP BRONCHUS OR LUNG SNOMED Code(s): 952604320 (3) Acute on chronic renal failure Narrative/Plan: Nephrology following, pt cont on dialysis Current Visit: Yes Status: Acute Priority: High Code(s): N17.9 - ACUTE KIDNEY FAILURE, UNSPECIFIED; N18.9 - CHRONIC KIDNEY DISEASE, UNSPECIFIED SNOMED Code(s): 526477049 (4) Anemia in chronic kidney disease Narrative/Plan: Hgb stable at this time. He was given IV iron. Transfuse for Hgb <7 Current Visit: Yes Status: Chronic Priority: Medium Code(s): N18.9 - CHRONIC KIDNEY DISEASE, UNSPECIFIED; D63.1 - ANEMIA IN CHRONIC KIDNEY DISEASE SNOMED Code(s): 809732655 Plan: CTA chest was neg-done after respiratory event early this AM Doctor attests: I performed a history and physical examination of this patient, developed impression and plan of care. Discussed with dictator. I agree with dictators note, documented as a scribe.
[2021-02-20 16:55] LABS: Glucose,Whole Blood 104 mg/dL (75-99)
[2021-02-20 20:15] LABS: Glucose,Whole Blood 110 mg/dL (75-99)
[2021-02-20] MEDS: ATORVASTATIN 20 MG TAB PO SCH (20:21)
--- NOTE | 2021-02-20 22:05 | P.PN ---
Subjective Progress Note Date: 02/20/21 Principal diagnosis: Acute hypoxic respiratory failure due to large right upper lobe mass. Status post EBUS and mediastinal lymph node fine-needle aspiration on 02/15/2021 Patient is a 65-year-old male with a known history of hypertension, history of CVA/TIA, SVT, ESRD on hemodialysis Thursday and Thursday, currently everyday smoker was admitted to the hospital after elective endobronchial ultrasound procedure.. Patient was recently admitted to hospital and was found to have right upper lobe mass and underwent bronchoscopy and biopsy on 12/28/2020. 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 PET scan confirmed large right lung neoplasm. Patient had elective EBUS with mediastinal lymph node biopsy. Postprocedure patient was hypoxic and was in the 80s on 100% nonrebreather. Patient was also hypotensive. He was admitted to hospital MICU. Oxygen requirement improved and currently patient is on 5 L oxygen via nasal cannula. Chest x-ray showed there is underlying lung mass. Correlate to exclude pneumonia. Cardiomegaly. Laboratory data showed WBC 13.1, hemoglobin 9.5 and platelets 232 ABG showed pH 7.29 PCO2 57 and PO2 88 Sodium 134 potassium 3.8 chloride 97 BUN 20 and creatinine 4.88 Patient is undergoing hemodialysis currently. Patient had problems with right IJ dialysis catheter and currently placed with right femoral catheter ultrasound-guided by Dr. Neal. 02/17/2021 Patient is awake alert and oriented. Doing better compared to yesterday. Underwent hemodialysis yesterday where a right femoral catheter. Currently on oxygen by mask cannula. Hemodynamically stable. Patient was seen by neurology due to altered mental status. Workup including carotid duplex showed nonocclusive disease. Patient is able to have ambulate in the room. Nephrology and pulmonary is following. Transferring to general medical floor today. 02/18/2021 Patient is currently sitting lying in the bed with head of bed elevated. Patien t appears to be confused. Still short of breath. On 4 L oxygen with another cannula. No complaints of chest pain. Patient has been afebrile.. Nephrology is planning for hemodialysis today. Blood pressure is elevated with SBP and 160s. Laboratory data showed WBC 14.6, hemoglobin 9.4 and platelets 211 Sodium 142 potassium 3.3 BUN 44 and creatinine 4.49 and troponin 0.08 Patient is being transferred to telemetry unit. Pulmonary and nephrology is on board. Next and 2-D echocardiogram showed moderate concentric left ventricle hypertrophy with ejection fraction 55-60%. Severe pulmonary hypertension and right ventricular systolic pressure 66.84. In July Eyes dilated with poor inspiratory collapse which is constant with estimated right atrial pressure of 20 mmHg. No pericardial effusion. MRI of the brain showed evidence of chronic small vessel ischemic change, it is related atrophy. Small focus of restricted diffusion consistent with subacute infarct is suspected. 02/19/2021 Patient is currently in the telemetry unit. Last night patient became more anxious and short of breath and was placed on BiPAP. CTA chest showed no evidence of PE, cavitating 7.5 cm masslike infiltrate right upper lobe anterior segment consistent with necrotic tumor R lung abscess. Mass appears slightly increased compared to computed tomography scan of 01/18/2021. Chest x-ray showed lung mass small right pleural effusion, correlate to exclude pneumonia versus atelectasis. Laboratory data showed WBC 16.9 hemoglobin 8.8 and platelets 209 BUN 46 and creatinine 4.9 magnesium 1.8 Patient has been afebrile. Currently on oxygen at 2 to 3Y another cannula. Patient is otherwise lethargic and sleepy. Denied chest pain. 02/20/2021 Patient is currently resting in the bed. Requiring oxygen at 2 to 3 L via nasal cannula. Blood pressure is controlled. Patient was given one-time dose of Lasix. Laboratory data showed WBC 14.0 hemoglobin 9.7 and platelets 202 BUN 64 and creatinine 6.64 calcium 8.[address] today. Showed no acute change or abnormal enhancement to suggest radiographic evidence of metastatic disease. MRI brain there is more sensitive. Old left occipital lobe infarct. Atrophy with chronic appearing periventricular white matter ischemic changes. Neurology, nephrology and pulmonary is on board. Oncology has seen the patient today. Current medications reviewed. Current medications reviewed. Objective - Vital Signs Vital signs: Vital Signs Temp 97.8 F 02/20/21 20:00 Pulse 89 02/20/21 20:00 Resp 18 02/20/21 20:00 BP 110/75 02/20/21 20:00 Pulse Ox 95 02/20/21 20:00 Intake & Output 02/20/21 02/20/21 02/21/21 06:59 18:59 06:59 Intake Total 300 Output Total 200 3000 Balance -200 -2700 Weight 83.1 kg Intake: Oral 0 Hemodialysis 300 Output: Urine 200 0 Hemodialysis 3000 Other: # Voids 1 - Exam PHYSICAL EXAMINATION: Patient is lying in the bed comfortably, no acute distress, awake alert and oriented.. HEENT: Normocephalic. Neck is supple. Pupils reactive. Nostrils clear. Oral cavity is moist. Neck reveals no JVD, carotid bruits, or thyromegaly. CHEST EXAMINATION: Trachea is central. Symmetrical expansion. Scattered coarse sounds on the right side no wheezing... CARDIAC: Normal S1, S2 with no gallops. No murmurs ABDOMEN: Soft. Bowel sounds normal. No organomegaly. No abdominal bruits. Extremities: reveal no edema. No clubbing or cyanosis Neurologically awake, alert, oriented x3 with well-coordinated movements. No focal deficits noted Skin: No rash or skin lesions. Psychiatric: Coperative. Nonsuicidal Musculoskeletal: No joint swelling or deformity. Normal range of motion. - Labs CBC & Chem 7: 02/20/21 06:37 02/20/21 06:37 Labs: Abnormal Lab Results - Last 24 Hours (Table) 02/20/21 02/20/21 02/20/21 Range/Units 06:06 06:37 06:37 WBC 14.0 H (3.8-10.6) k/uL RBC 3.69 L (4.30-5.90) m/uL Hgb 9.7 L (13.0-17.5) gm/dL Hct 34.1 L (39.0-53.0) % MCHC 28.4 L (31.0-37.0) g/dL Neutrophils # 11.2 H (1.3-7.7) k/uL BUN 64 H (9-20) mg/dL Creatinine 6.64 H (0.66-1.25) mg/dL Glucose 114 H (74-99) mg/dL POC Glucose (mg/dL) 131 H (75-99) mg/dL 02/20/21 02/20/21 02/20/21 Range/Units 11:58 16:52 20:13 WBC (3.8-10.6) k/uL RBC (4.30-5.90) m/uL Hgb (13.0-17.5) gm/dL Hct (39.0-53.0) % MCHC (31.0-37.0) g/dL Neutrophils # (1.3-7.7) k/uL BUN (9-20) mg/dL Creatinine (0.66-1.25) mg/dL Glucose (74-99) mg/dL POC Glucose (mg/dL) 137 H 104 H 110 H (75-99) mg/dL Assessment and Plan Assessment: Altered mental status possible toxic metabolic encephalopathy. improving Possible subacute cerebral infarct as per MRI. Severe pulmonary hypertension Acute hypoxic respiratory failure due to large right upper lobe mass, Fluid load. Currently titrated down to oxygen via nasal cannula. 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 Squamous cell carcinoma. Large right upper lobe mass with mediastinal lymphadenopathy. ESRD on hemodialysis with malfunctioning of IJ catheter. Right femoral catheter was placed on 02/15. 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 Plan: Last night. Patient was placed on BiPAP. Titrate down to 2 L oxygen with another cannula. Continue the Xanax when necessary for anxiety. New right femoral dialysis catheter was placed and currently patient is underwent hemodialysis . Continued on hemodialysis as per schedule.. Continue with duo nebs and pain management. Patient was seen by neurology due to altered mental status. Possible early stages vascular dementia.MRI of the brain showed possible subacute infarct. Repeat CT Head with No evidence of metastatic lesions. B12 1938, folic acid is low 3.5. Patient will be started on folate replacement, TSH normal 1.25, MMA, RPR pending. Started on aspirin 325 mg daily. Continue blood pressure medications and follow closely.. Patient was given IV iron. Pulmonary and nephrology is on board. Prognosis is guarded this time. Time with Patient: Greater than 30
[2021-02-21 06:06] LABS: Glucose,Whole Blood 113 mg/dL (75-99)
[2021-02-21] MEDS: carvediloL 12.5 MG TAB PO SCH (06:16)
[2021-02-21] MEDS: CALCIUM ACETATE 667 MG TAB PO SCH ×2 (06:16→12:46)
[2021-02-21] MEDS: INSULIN ASPART (NovoLOG) 100 UNIT/ML VIAL SQ SCH ×2 (06:17→12:44)
[2021-02-21 08:01] LABS: Calcium 8.1 mg/dL (8.4-10.2)
[2021-02-21 08:15] LABS: Basophils % (A) 0 %; Eosinophils # (A) 0.1 k/uL (0-0.7); Eosinophils % (A) 1 %; HCT 29.4 % (39.0-53.0); HGB 9.2 gm/dL (13.0-17.5); Hypochromasia Moderate; Lymphocytes # (A) 1.6 k/uL (1.0-4.8); Lymphocytes % (A) 12 %; MCH 27.7 pg (25.0-35.0); MCHC 31.4 g/dL (31.0-37.0); MCV 88.3 fL (80.0-100.0); Mean Platelet Volume 8.3; Monocytes # (A) 1.2 k/uL (0-1.0); Monocytes % (A) 9 %; Neutrophils # (A) 9.3 k/uL (1.3-7.7); Neutrophils % (A) 74 %; Platelet Count 227 k/uL (150-450); RBC 3.33 m/uL (4.30-5.90); RDW 15.3 % (11.5-15.5); WBC 12.5 k/uL (3.8-10.6)
[2021-02-21] MEDS: IPRATROPIUM-ALBUTEROL 3 ML NEB INHALATION SCH ×3 (08:16→15:18)
[2021-02-21] MEDS: FOLIC ACID 1 MG TAB PO SCH (09:33)
[2021-02-21] MEDS: hydrALAZINE HCL 50 MG TAB PO SCH ×2 (09:33→15:29)
[2021-02-21] MEDS: ASPIRIN 325 MG TAB PO SCH (09:33)
--- NOTE | 2021-02-21 10:37 | P.PN ---
Subjective Progress Note Date: 02/21/21 Principal diagnosis: Squamous cell carcinoma, right upper lobe mass, and mediastinal lymphadenopathy This is a 65-year-old gentleman with a history of anemia of chronic disease, c hronic kidney disease receiving hemodialysis Thursday, history of CVA/TIA, hypertension, SVT, chronic and ongoing tobacco dependence, occasional alcohol use, marijuana use. He was recently hospitalized for shortness of breath and was found to have a right upper lobe lung mass undergone transbronchial biopsy by Dr. Brewer on 12/28/2020. 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 PET scan all confirmed large right lung neoplasm. Right kidney had some subtle hypermetabolic uptake. He had been seen and evaluated by Dr. Washington who recommended the patient have biopsies of the mediastinal adenopathy. He was brought in electively today for EBUS procedure performed by Dr. Brewer. Following the procedure he had some issues with toxemia after being extubated. He has some cough and congestion. He was kept as an inpatient today to receive his hemodialysis and to be followed overnight. He is seen in consultation on the regular medical floor. Currently receiving hemodialysis. He is having issues with hypoxemia and hypertension. Today continues to revealed a right upper lobe mass. Left lung clear. He is maintaining O2 saturations in the 80s on a nonrebreather mask. Hypertensive. Lab work pending. Glucose 95. on 02/16 2021, the patient is much more awake and alert and is communicating. He woke up today and he had a full breakfast. Nevertheless, we have noted that on and off the is still confused and this is the same situation he is been over the past 3-4 weeks as reported by his significant other. No focal neurological deficits. CT of the brain was negative. We considered the possibility of ongoing encephalopathy as his dialysis may not be fully effective knowing that the patient was having some issues with his permacath catheter yesterday. Based on that, we've made recommendations for vascular surgery to replace the cat heter. He underwent dialysis with ultrafiltration yesterday and the same will be done today. Also, the possibility of neoplastic syndrome is being considered in this patient based on his massive and large right upper lobe tumor. The endoscopic ultrasound was done yesterday and the appropriate lymph nodes were sampled without any significant complications. He did have a component of respiratory acidosis postop. Please note that blood gases. This could be related to anesthetics, paralytic agents, and possibly the increased amount of codeine that he was ingesting at home. A repeat blood gases will be done today. Earlier this morning he was on 12 L of oxygen and currently is at 5 L and the pulse ox is around 94%. Repeat blood gases will be done. He is able to swallow appropriately. No hyperkalemia. No other major electrolyte disturbance for now. On today's evaluation of a 2020, the patient is doing better. He is awake. Is alert. Oriented to place. He was able to state the presence pain. He underwent a dialysis catheter exchange yesterday. He is currently a femoral dialysis catheter. He underwent a session of dialysis yesterday with a 2 L of ultrafiltration. Currently is on 2 L of oxygen by nasal cannula. His quite comfortable. He is tolerating his diet. No nausea or vomiting. No chest pain. Cardiac rhythm is sinus. Hemodynamically stable. Pulse ox 94% liters of oxygen by nasal cannula. No new complaints. He was seen by neurology yesterday. 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 Nevertheless, the patient does not have any focal neurological deficits. He is moving all 4 extremities. He is able to get out of the bed and some limited amount of activity and ambula tion. His overall performance and functional status is poor. 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 Please refer to the consultation note that was done by neurology. The patient also may have vascular dementia, his history of multiple CVAs in the past and he does have other risk factors for vascular/cardiovascular disease/atherosclerosis. On the 02/18/2021 patient seen in follow-up on medical surgical floor. He is dyspneic on today's exam, he is tachypneic, he is currently on 4 L of oxygen pulse ox of 94%, his been afebrile, blood pressures 149/100. He denies any chest discomfort. No hemoptysis, he appears to be swallowing, with 1+ edema in his bilateral lower extremities. His last hemodialysis session was on 02/16/2021 with removal of 2 L of fluid. Patient to a right femoral hemodialysis catheter placed on 02/16/2021. Patient's echocardiogram showed moderate concentric LVH with EF of 55-60%. There was moderate tricuspid regurgi tation, severe pulmonary hypertension with right-sided pressure of 66.8 mmHg. Inferior vena cava was dilated with poor inspiratory collapse consistent with estimated right atrial pressure of 20 mmHg. His follow-up chest x-ray showed some slight improvement in aeration. No coughing or wheezing. Patient remains on nebulized bronchodilators. He is on Ativan for anxiety. Tapping on the hemodialysis session today. His labs have been noted, his white blood cell count is 14.6, hemoglobin is 9.4. His biopsy results from EBUS [facility] are still pending at this time. Brain MRI was completed showing evidence of chronic small vessel ischemic changes, age-related atrophy, and small focus of restricted diffusion consistent with subacute infarct. Neurology following. On 02/19/2021 patient is seen in follow-up on selective care unit. last night rapid response team was called for ongoing anxiety and shortness of breath. patient was evaluated by Dr. Miguel and he was placed on BiPAP support, with pressures of 12/[address] chest was completed showing no evidence of pulmonary embolism, right pleural effusion, right bronchial adenopathy, cavitating 7.5 cm masslike infiltrate in the right upper lobe anterior segment consistent with necrotic tumor. Patient had a hemodialysis treatment yesterday with removal 4 L of fluid, follow-up chest x-ray today showing small right pleural effusion, right-sided lung mass. no fever or chills overnight, his blood pressures are still quite labile, with systolic ranging from 140 to 170, and diastolic in the 80-110. today's labs have been reviewed, showing white blood cell count of 16.8, hemoglobin is 8.8, sodium is 135, potassium 3.7, BUN is 46, creatinine is 4.9, ammonia level was less than 9, LFTs were unremarkable, troponin was 0.080, patient denies any chest pain, there is no hemoptysis, no phlegm production. mild edema in his bilateral lower extremities. On 02/20/2021 patient seen in follow-up on selective care unit, he seen resting comfortably in bed, currently on 2 L of oxygen with a pulse ox of 99%. He is calm and comfortable on today's exam, cooperative, responding appropriately, afebrile, blood pressure is better controlled, with systolic in the 140s to 150s, and at times in the 170s and diastolic in the 80s and 90s. His labs have been reviewed, is with condoms 14, hemoglobin is 9.7, electrolytes are within normal limits, potassium is 4.4, B1 is 64, creatinine 6.64. No fever or chills. He received one-time dose of Lasix. His last hemodialysis treatment was the day before yesterday would removal of 4 L of fluid. No cooperative chest pain, no cough, no hemoptysis. Some mild edema in his bilateral lower extremities. Patient is being seen by neurology, brain CT this morning shows no acute changes or abnormal enhancement to suggest radiographic evidence of metastatic disease. There is evidence of old left occipital lobe infarct. On 02/21/2021 patient seen in follow-up on selective care unit, he is awake and alert, oriented 3, seems very comfortable sitting up in the recliner, he is on 3 L of oxygen pulse ox of the 100%, no altered mentation, confusion is much improved, blood pressures much better controlled, 123/71 this morning. Denies shortness of breath, no cough, no phlegm production, no hemoptysis. Hemodialysis yesterday with removal of 3 L of fluid. No fever or chills, today's labs have been reviewed, with Doxil, was 4.5, hemoglobin is 9.2, sodium is 135, there is fluctuance or within normal limits, BUN is 42 creatinine is 4.86. Brain CT showed no acute changes or abnormal enhancement to suggest radiographic evidence of metastatic disease. EEG showed mild encephalopathy, there is no focal slowing, epileptiform discharges or seizure on the EEG. He had no other acute events overnight. Medical oncology consultation was noted. Objective - Vital Signs Vital signs: Vital Signs Temp 97.8 F 02/20/21 20:00 Pulse 87 02/21/21 04:00 Resp 16 02/21/21 04:00 BP 123/71 02/21/21 04:00 Pulse Ox 100 02/21/21 04:00 Intake & Output 02/20/21 02/21/21 02/21/21 18:59 06:59 18:59 Intake Total 300 100 Output Total 3000 Balance -2700 100 Weight 83.1 kg Intake: Oral 0 100 Hemodialysis 300 Output: Urine 0 Hemodialysis 3000 Other: # Voids 1 - Exam GENERAL EXAM: 65-year-old French French male, 2 L of oxygen pulse ox of 99% however does not appear to be in any acute distress. HEAD: Normocephalic/atraumatic. EYES: Normal reaction of pupils, equal size. Conjunctiva pink, sclera white. NOSE: Clear with pink turbinates. THROAT: No erythema or exudates. NECK: No masses, no JVD, no thyroid enlargement, no adenopathy. CHEST: No chest wall deformity. Symmetrical expansion. Right upper subclavian area hemodialysis permacath in place. LUNGS: Equal air entry with miniature breath sounds CVS: Regular rate and rhythm, normal S1 and S2, no gallops, no murmurs, no rubs ABDOMEN: Soft, nontender. No hepatosplenomegaly, normal bowel sounds, no guarding or rigidity. EXTREMITIES: No clubbing, no edema, no cyanosis, 2+ pulses and upper and lower extremities. Right femoral temporary hemodialysis catheter in place MUSCULOSKELETAL: Muscle strength and tone normal. SPINE: No scoliosis or deformity SKIN: No rashes CENTRAL NERVOUS SYSTEM: Alert and oriented -. No focal deficits, tone is normal in all 4 extremities. PSYCHIATRIC: Alert and oriented -3. Appropriate affect. Intact judgment and insight. - Labs CBC & Chem 7: 02/21/21 06:59 02/21/21 06:59 Labs: Abnormal Lab Results - Last 24 Hours (Table) 02/20/21 02/20/21 02/20/21 Range/Units 11:58 16:52 20:13 WBC (3.8-10.6) k/uL RBC (4.30-5.90) m/uL Hgb (13.0-17.5) gm/dL Hct (39.0-53.0) % Neutrophils # (1.3-7.7) k/uL Monocytes # (0-1.0) k/uL Sodium (137-145) mmol/L BUN (9-20) mg/dL Creatinine (0.66-1.25) mg/dL Glucose (74-99) mg/dL POC Glucose (mg/dL) 137 H 104 H 110 H (75-99) mg/dL Calcium (8.4-10.2) mg/dL 02/21/21 02/21/21 02/21/21 Range/Units 06:06 06:59 06:59 WBC 12.5 H (3.8-10.6) k/uL RBC 3.33 L (4.30-5.90) m/uL Hgb 9.2 L (13.0-17.5) gm/dL Hct 29.4 L (39.0-53.0) % Neutrophils # 9.3 H (1.3-7.7) k/uL Monocytes # 1.2 H (0-1.0) k/uL Sodium 135 L (137-145) mmol/L BUN 42 H (9-20) mg/dL Creatinine 4.86 H (0.66-1.25) mg/dL Glucose 103 H (74-99) mg/dL POC Glucose (mg/dL) 113 H (75-99) mg/dL Calcium 8.1 L (8.4-10.2) mg/dL Assessment and Plan Plan: 1 Squamous cell carcinoma. The patient is a large right upper lobe mass with s ome mediastinal lymphadenopathy, EBUS TBNA Mediastinal lymph node biopsy was negative of mediastinal malignancy, and as such this is T3N0M0 disease. Patient is a surgical candidate for surgical resection related to multiple comorbidities, and general medical debility 2 Acute on chronic hypoxic respiratory failure secondary to significant right upper lobe lung mass, positive for squamous cell carcinoma. No signs of any fluid overload. The patient arrived to us with a pulse ox of 85% preoper atively. He will also likely need oxygen at time of discharge. Note that the patient also had a component of acute hypercapnic respiratory failure with of these mentioned above. Patient is improved and the patient is currently on 2 L of oxygen by nasal cannula. He underwent dialysis which obviously improved his oxygenation. His acid-base status is also improved with treatment. 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 CAT scan of the brain has been negative. Consider uremic encephalopathy. I discussed this issue with nephrology. BUN is not elevated. Dialysis catheter will be replaced and the patient will be continued on hemodialysis. No signs of any fluid overload. He has been essentially noncompliant even an outpatient basis regarding his hemodialysis per Dr. Casarez. Patient was also done. There is a possibility of vascular dementia. Visiting combination with metabolic encephalopathy. Consider paraneoplastic syndrome from underlying malignancy. 4 Marijuana use 5 Chronic kidney disease, receiving hemodialysis Thursday 6 History of kidney cancer suspected renal cell carcinoma with previous left nephrectomy 7 Hypertension 8 Anemia of chronic disease 9 possible subacute infarct seen on the MRI of the brain Plan: Vital signs are stable Mentation is significantly improved Breathing comfortably, Currently on 2-3 L of supplemental oxygen Obtain a home oxygen evaluation It is likely the patient will need home oxygen to go home with From pulmonary perspective he could be considered for discharge home He is a poor surgical candidate for right lung mass resection Outpatient follow-up with medical oncology And follow up with Dr. Brewer in the office in 7-10 days I performed a history & physical examination of the patient and discussed their management with my nurse practitioner, Monika Westfall. I reviewed the nurse practitioner's note and agree with the documented findings and plan of care. Lung sounds are positive for diminished breath sounds throughout the lung rosas. The findings and the impression was discussed with the patient. I attest to the documentation by the nurse practitioner. Time with Patient: Less than 30
[2021-02-21 11:48] LABS: Glucose,Whole Blood 129 mg/dL (75-99)
[2021-02-21 11:52] VITALS: TEMP 98
[2021-02-21] MEDS ORDERED: SODIUM CHLORIDE 0.9% 500 ML 250 ML IV ONE (12:09)
--- NOTE | 2021-02-21 12:15 | PN ---
PROGRESS NOTE Patient is seen for followup for end-stage renal disease. He is currently sitting up in a bedside chair. He is comfortable. He is alert and oriented x3. The patient states that he wants to be discharged today. He tolerated his treatment well. We had about 3 L of ultrafiltration yesterday. On examination today, blood pressure was 118/71, heart rate 74 per minute. He is afebrile. EXAMINATION OF THE HEART: S1 and S2. EXAMINATION OF LUNGS: Bilateral breath sounds are heard. ABDOMEN: Soft, nontender. LOWER EXTREMITIES: Examination of lower extremities shows no significant edema. STEM FRAZER EXAM: Grossly intact. Labs show sodium 135, potassium 4.0, BUN 42, creatinine 4.8, hemoglobin 9.2 g/dL. ASSESSMENT: 1. End-stage renal disease, on hemodialysis on a Thursday, Thursday, Thursday schedule. 2. Volume overload, currently improved. 3. Encephalopathy, metabolic, currently improved. 4. Squamous cell cancer of the lung. To be managed as outpatient with surgery and radiation therapy as per Oncology. PLAN: Hemodialysis in a.m. Clear with Pulmonology for discharge today. MMODL / IJN: [id number] /
[2021-02-21 12:42] VITALS: RESP 16
[2021-02-21 15:36] VITALS: BP 96/60; PULSE 73
--- NOTE | 2021-02-21 16:10 | P.PN ---
Subjective Progress Note Date: 02/21/21 Principal diagnosis: AMS post procedure In f/u today pt is A&Ox4, he states he is tired and feeling a little weak but he knows he is thinking better then the previous few days. He is anxious to go home. Objective - Vital Signs Vital signs: Vital Signs Temp 98.0 F 02/21/21 11:51 Pulse 72 02/21/21 12:42 Resp 16 02/21/21 12:42 BP 90/52 02/21/21 12:42 Pulse Ox 96 02/21/21 12:42 Intake & Output 02/20/21 02/21/21 02/21/21 18:59 06:59 18:59 Intake Total 300 100 Output Total 3000 Balance -2700 100 Weight 83.1 kg Intake: Oral 0 100 Hemodialysis 300 Output: Urine 0 Hemodialysis 3000 Other: # Voids 1 - Constitutional General appearance: Present: average body habitus, cooperative, no acute distress - EENT Eyes: Present: anicteric sclerae, EOMI ENT: Present: hearing grossly normal - Respiratory Respiratory: bilateral: CTA, diminished - Cardiovascular Rhythm: regular Heart sounds: normal: S1, S2 Abnormal Heart Sounds: Absent: systolic murmur, diastolic murmur, rub, S3 Gallop, S4 Gallop, click, other - Peripheral edema leg Peripheral Edema: bilateral: None - Musculoskeletal Musculoskeletal: Present: generalized weakness - Psychiatric Psychiatric: Present: A&O x's 3 - Labs CBC & Chem 7: 02/21/21 06:59 02/21/21 06:59 Labs: Abnormal Lab Results - Last 24 Hours (Table) 02/20/21 02/20/21 02/21/21 Range/Units 16:52 20:13 06:06 WBC (3.8-10.6) k/uL RBC (4.30-5.90) m/uL Hgb (13.0-17.5) gm/dL Hct (39.0-53.0) % Neutrophils # (1.3-7.7) k/uL Monocytes # (0-1.0) k/uL Sodium (137-145) mmol/L BUN (9-20) mg/dL Creatinine (0.66-1.25) mg/dL Glucose (74-99) mg/dL POC Glucose (mg/dL) 104 H 110 H 113 H (75-99) mg/dL Calcium (8.4-10.2) mg/dL 02/21/21 02/21/21 02/21/21 Range/Units 06:59 06:59 11:40 WBC 12.5 H (3.8-10.6) k/uL RBC 3.33 L (4.30-5.90) m/uL Hgb 9.2 L (13.0-17.5) gm/dL Hct 29.4 L (39.0-53.0) % Neutrophils # 9.3 H (1.3-7.7) k/uL Monocytes # 1.2 H (0-1.0) k/uL Sodium 135 L (137-145) mmol/L BUN 42 H (9-20) mg/dL Creatinine 4.86 H (0.66-1.25) mg/dL Glucose 103 H (74-99) mg/dL POC Glucose (mg/dL) 129 H (75-99) mg/dL Calcium 8.1 L (8.4-10.2) mg/dL Assessment and Plan (1) Confusion Current Visit: Yes Status: Resolved Priority: High Code(s): R41.0 - D ISORIENTATION, UNSPECIFIED SNOMED Code(s): 025550044 (2) Squamous cell lung cancer Narrative/Plan: Pt was completing work up (LN were neg) so that he could have surgery for sq ell lung ca. Encouraged him to f/u with Cardiothoracic surgeon and plans for curative surgery Current Visit: Yes Status: Acute Priority: High Code(s): C34.90 - MALIGNANT NEOPLASM OF UNSP PART OF UNSP BRONCHUS OR LUNG SNOMED Code(s): 775443967 (3) Acute on chronic renal failure Narrative/Plan: Nephrology following, pt cont on dialysis Current Visit: Yes Status: Acute Priority: High Code(s): N17.9 - ACUTE KIDNEY FAILURE, UNSPECIFIED; N18.9 - CHRONIC KIDNEY DISEASE, UNSPECIFIED SNOMED Code(s): 903471073 (4) Anemia in chronic kidney disease Narrative/Plan: Hgb stable at this time. He was given IV iron. Transfuse for Hgb <7 Current Visit: Yes Status: Chronic Priority: Medium Code(s): N18.9 - CHRONIC KIDNEY DISEASE, UNSPECIFIED; D63.1 - ANEMIA IN CHRONIC KIDNEY DISEASE SNOMED Code(s): 985711987 Plan: Unclear cause of pt encephalopathy (reaction to anesthesia?).
[2021-02-21 16:50] LABS: Glucose,Whole Blood 104 mg/dL (75-99)
--- NOTE | 2021-02-26 08:09 | CDI ---
Documentation Clarification Form Date: 02/26/21 From: Lizet Goode Admit Date: 02/15/2021 04:12:00 PM Patient Name: David Owens Visit Number: [id number] Discharge Date: 02/21/2021 05:33:00 PM ATTENTION: The Clinical Documentation Specialists (CDI) and [facility] Coding Staff appreciate your assistance in clarifying documentation. Please respond to the clarification below the line at the bottom and electronically sign. The CDI & [facility] Coding staff will review the response and follow-up if needed. Please note: Queries are made part of the Legal Health Record. If you have any questions, please contact the author of this message via ITS. Dr. Cirilo Alvarez, Pulmonary hypertension is documented in the Echo and numerous progress notes and patient is noted to have moderate tricuspid regurgitation, RUL malignancy, Hypertensive heart & renal failure (chronic systolic CHF and ESRD) Please clarify the underlying cause of the pulmonary hypertension. History/Risk Factors: moderate tricuspid regurgitation, RUL malignancy, Hypertensive heart & renal failure (chronic systolic CHF and ESRD) Clinical Indicators: Echo shows severe pulmonary hypertension. Treatment: IV Lasix 80 mg Please clarify the cause of pulmonary hypertension: [ ] Pulmonary hypertension is due to [ ] Pulmonary hypertension unknown cause [ ] Other explanation of clinical findings (please specify) [ ] Unable to determine (no explanation for clinical findings) Pulmonary hypertension is due to chronic CHF and COPD MTDD
--- NOTE | 2021-02-27 15:34 | P.DS ---
Providers Date of admission: 02/15/21 16:12 Expected date of discharge: 02/21/21 Attending physician: Phil Pa Consults: 02/15/21 12:43 Consult Physician Stat Consulting Provider: Chad Rajput Consult Reason/Comments: [facility] NEEDS DIALYSIS TODAY Do you want consulting provider notified?: Already Contacted 02/15/21 12:44 Consult Physician Stat Consulting Provider: Jagdish Brewer Consult Reason/Comments: BEING ADMITTED UNDER DR PA Do you want consulting provider notified?: Already Contacted 02/15/21 15:34 Consult Physician Stat Consulting Provider: Jacob Neal Consult Reason/Comments: dialysis cath malfunction Do you want consulting provider notified?: Yes 02/15/21 15:45 Consult Physician Urgent Consulting Provider: Jacob Neal Consult Reason/Comments: Malfunctioning dialysis port Do you want consulting provider notified?: Already Contacted 02/16/21 09:14 Consult Physician Urgent Consulting Provider: Zaira Garcia Consult Reason/Comments: AMS Do you want consulting provider notified?: Yes 02/19/21 12:02 Consult Physician Routine Consulting Provider: Curtis Vaca Consult Reason/Comments: squamous cell carcinoma Do you want consulting provider notified?: Yes Primary care physician: [facility] Hospital Course: Discharge diagnosis Altered mental status possible toxic metabolic encephalopathy. improving Possible subacute cerebral infarct as per MRI. Severe pulmonary hypertension Acute hypoxic respiratory failure due to large right upper lobe mass, Fluid load. Currently titrated down to oxygen via nasal cannula. 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 Squamous cell carcinoma. Large right upper lobe mass with mediastinal lymphadenopathy. ESRD on hemodialysis with malfunctioning of IJ catheter. Right femoral catheter was placed on 02/15. 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 Hospital course Patient is a 65-year-old male with a known history of hypertension, history of CVA/TIA, SVT, ESRD on hemodialysis Thursday and Thursday, currently everyday smoker was admitted to the hospital after elective endobronchial ultrasound procedure.. Patient was recently admitted to hospital and was found to have right upper lobe mass and underwent bronchoscopy and biopsy on 12/28/2020. 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 PET scan confirmed large right lung neoplasm. Patient had elective EBUS with mediastinal lymph node biopsy. Postprocedure patient was hypoxic and was in the 80s on 100% nonrebreather. Patient was also hypotensive. He was admitted to hospital MICU. Oxygen requirement improved and currently patient is on 5 L oxygen via nasal cannula. Chest x-ray showed there is underlying lung mass. Correlate to exclude pneumonia. Cardiomegaly. Laboratory data showed WBC 13.1, hemoglobin 9.5 and platelets 232 ABG showed pH 7.29 PCO2 57 and PO2 88 Sodium 134 potassium 3.8 chloride 97 BUN 20 and creatinine 4.88 Patient is undergoing hemodialysis currently. Patient had problems with right IJ dialysis catheter and currently placed with right femoral catheter ultrasound-guided by Dr. Neal. 02/17/2021 Patient is awake alert and oriented. Doing better compared to yesterday. Underwent hemodialysis yesterday where a right femoral catheter. Currently on oxygen by mask cannula. Hemodynamically stable. Patient was seen by neurology due to altered mental status. Workup including carotid duplex showed nonocclusive disease. Patient is able to have ambulate in the room. Nephrology and pulmonary is following. Transferring to general medical floor today. 02/18/2021 Patient is currently sitting lying in the bed with head of bed elevated. Patient appears to be confused. Still short of breath. On 4 L oxygen with another cannula. No complaints of chest pain. Patient has been afebrile.. Nephrology is planning for hemodialysis today. Blood pressure is elevated with SBP and 160s. Laboratory data showed WBC 14.6, hemoglobin 9.4 and platelets 211 Sodium 142 potassium 3.3 BUN 44 and creatinine 4.49 and troponin 0.08 Patient is being transferred to telemetry unit. Pulmonary and nephrology is on board. Next and 2-D echocardiogram showed moderate concentric left ventricle hypertrophy with ejection fraction 55-60%. Severe pulmonary hypertension and right ventricular systolic pressure 66.84. In July Eyes dilated with poor inspiratory collapse which is constant with estimated right atrial pressure of 20 mmHg. No pericardial effusion. MRI of the brain showed evidence of chronic small vessel ischemic change, it is related atrophy. Small focus of restricted diffusion consistent with subacute infarct is suspected. 02/19/2021 Patient is currently in the telemetry unit. Last night patient became more anxious and short of breath and was placed on BiPAP. CTA chest showed no evidence of PE, cavitating 7.5 cm masslike infiltrate right upper lobe anterior segment consistent with necrotic tumor R lung abscess. Mass appears slightly increased compared to computed tomography scan of 01/18/2021. Chest x-ray showed lung mass small right pleural effusion, correlate to exclude pneumonia versus atelectasis. Laboratory data showed WBC 16.9 hemoglobin 8.8 and platelets 209 BUN 46 and creatinine 4.9 magnesium 1.8 Patient has been afebrile. Currently on oxygen at 2 to 3Y another cannula. Patient is otherwise lethargic and sleepy. Denied chest pain. 02/20/2021 Patient is currently resting in the bed. Requiring oxygen at 2 to 3 L via nasal cannula. Blood pressure is controlled. Patient was given one-time dose of Lasix. Laboratory data showed WBC 14.0 hemoglobin 9.7 and platelets 202 BUN 64 and creatinine 6.64 calcium 8.[address] today. Showed no acute change or abnormal enhancement to suggest radiographic evidence of metastatic disease. MRI brain there is more sensitive. Old left occipital lobe infarct. Atrophy with chronic appearing periventricular white matter ischemic changes. Neurology, nephrology and pulmonary is on board. Oncology has seen the patient today. 02-21 Patient is currently awake alert and oriented 3. Sitting up in the chair and breathing comfortably. On 3 at approximately another cannula. Home oxygen is being arranged. Patient underwent hemodialysis as per schedule. Patient had CT head and EEG showed no productive form discharges. Patient wishes to be discharged home. Patient wants to follow with oncology and pulmonary in the clinic and also follow-up with Hem[facility]ialysis [facility]tr[facility] Thursday and Thursday. Patient is being discharged home today. PHYSICAL EXAMINATION: Patient is lying in the bed comfortably, no acute distress, awake alert and oriented.. HEENT: Normocephalic. Neck is supple. Pupils reactive. Nostrils clear. Oral cav ity is moist. Neck reveals no JVD, carotid bruits, or thyromegaly. CHEST EXAMINATION: Trachea is central. Symmetrical expansion. Scattered coarse sounds on the right side . no wheezing... CARDIAC: Normal S1, S2 with no gallops. No murmurs ABDOMEN: Soft. Bowel sounds normal. No organomegaly. No abdominal bruits. Extremities: reveal no edema. No clubbing or cyanosis Neurologically awake, alert, oriented x3 with well-coordinated movements. No focal deficits noted Skin: No rash or skin lesions. Psychiatric: Coperative. Nonsuicidal Musculoskeletal: No joint swelling or deformity. Normal range of motion. Vital signs: Vital Signs Temp 97.8 F 02/20/21 20:00 Pulse 87 02/21/21 04:00 Resp 16 02/21/21 04:00 BP 123/71 02/21/21 04:00 Pulse Ox 100 02/21/21 04:00 Intake & Output 02/20/21 02/21/21 02/21/21 18:59 06:59 18:59 Intake Total 300 100 Output Total 3000 Balance -2700 100 Weight 83.1 kg Intake: Oral 0 100 Hemodialysis 300 Output: Urine 0 Hemodialysis 3000 Other: # Voids 1 Total time taken greater than 35 minutes including 18 minutes for counseling and coordination of care. Patient Condition at Discharge: Fair Plan - Discharge Summary Discharge Rx Participant: Yes New Discharge Prescriptions: New Atorvastatin [Lipitor] 20 mg PO HS #30 tab Calcium Acetate [PhosLo] 667 mg PO TID-W/MEALS #90 tab Folic Acid 1 mg PO DAILY #30 tab Aspirin 325 mg PO DAILY #30 tab Continue carvediloL [Coreg*] 25 mg PO BID-W/MEALS #60 tab Nitroglycerin Sl Tabs [Nitrostat] 0.4 mg SUBLINGUAL Q5M PRN #30 tab PRN Reason: Chest Pain Hydrocodone Bit/Homatrop Me-Br [Hycodan 5 mg-1.5 mg/5 ml Soln] 5 ml PO Q6H PRN #100 ml PRN Reason: Cough Acetaminophen Tab [Tylenol] 650 mg PO Q6HR PRN tab PRN Reason: Fever And/ Or Pain Hydrocodone Bit/Homatrop Me-Br [Hycodan 5 mg-1.5 mg/5 ml Soln] 5 ml PO Q6H #100 ml Hydrocodone Bit/Homatrop Me-Br [Hycodan 5 mg-1.5 mg/5 ml Soln] 5 ml PO Q6H PRN #100 ml PRN Reason: Cough Discharge Medication List Nitroglycerin Sl Tabs [Nitrostat] 0.4 mg SUBLINGUAL Q5M PRN #30 tab 08/29/18 [Rx] carvediloL [Coreg*] 25 mg PO BID-W/MEALS #60 tab 08/29/18 [Rx] Acetaminophen Tab [Tylenol] 650 mg PO Q6HR PRN tab 12/31/20 [Rx] Hydrocodone Bit/Homatrop Me-Br [Hycodan 5 mg-1.5 mg/5 ml Soln] 5 ml PO Q6H #100 ml 01/30/21 [Rx] Hydrocodone Bit/Homatrop Me-Br [Hycodan 5 mg-1.5 mg/5 ml Soln] 5 ml PO Q6H PRN #100 ml 02/06/21 [Rx] Hydrocodone Bit/Homatrop Me-Br [Hycodan 5 mg-1.5 mg/5 ml Soln] 5 ml PO Q6H PRN #100 ml 02/13/21 [Rx] Aspirin 325 mg PO DAILY #30 tab 02/21/21 [Rx] Atorvastatin [Lipitor] 20 mg PO HS #30 tab 02/21/21 [Rx] Calcium Acetate [PhosLo] 667 mg PO TID-W/MEALS #90 tab 02/21/21 [Rx] Folic Acid 1 mg PO DAILY #30 tab 02/21/21 [Rx] Follow up Appointment(s)/Referral(s): [facility] [NON-STAFF] - As Needed (Supplier of four wheeled walker and home oxygen) [facility], [NON-STAFF] - Jagdish Brewer MD [STAFF PHYSICIAN] - 1 Week (Office currently closed, pt to call and make an appt) Activity/Diet/Wound Care/Special Instructions: Pt needs to f/u with Cardiothoracic Surgeon Dr. Washington. Referral was made 01/25. Please call his ofc to see if there is an appt for pt. Pt to see Medical Oncologist Dr. Vaca after seen by Cardiothoracic surgeon. Phone numbers given for Dr. Washington and Dr. Vaca Discharge Disposition: HOME WITH HOME HEALTH SERVICES
== END 2021-02-21 17:33 | disposition home health service (06) | DRG 189 ==
LOC: ORWHC2ENDO 06:47 → 5NMEDONC 09:54 → ORWHC2ENDO 16:14 → 2SICU 16:44 → 4SSUR 02-17 10:43 → 3SCARD 02-18 23:50
PROVIDERS: ADMIT Hospitalist; ATTEND Hospitalist
PROC: 07D78ZX Extraction of Thorax Lymphatic, Via Natural or Artificial Opening Endoscopic, Diagnostic (ICD-10-PCS; principal; 2021-02-15 08:00)
PROC: 5A1D70Z Performance of Urinary Filtration, Intermittent, Less than 6 Hours Per Day (ICD-10-PCS; 2021-02-15 08:00)
PROC: 06HY33Z Insertion of Infusion Device into Lower Vein, Percutaneous Approach (ICD-10-PCS; 2021-02-16)
PROC: 5A0935A Assistance with Respiratory Ventilation, Less than 24 Consecutive Hours, High Flow/Velocity Cannula (ICD-10-PCS; 2021-02-18)
PROC: 5A09457 Assistance with Respiratory Ventilation, 24-96 Consecutive Hours, Continuous Positive Airway Pressure (ICD-10-PCS; 2021-02-18)
DX: J96.21 Acute and chronic respiratory failure with hypoxia (principal); G92 Toxic encephalopathy; N18.6 End stage renal disease; C34.11 Malignant neoplasm of upper lobe, right bronchus or lung; I13.2 Hypertensive heart and chronic kidney disease with heart failure and with stage 5 chronic kidney disease, or end stage renal disease; N17.9 Acute kidney failure, unspecified; E87.2 Acidosis; I42.9 Cardiomyopathy, unspecified; T82.41XA Breakdown (mechanical) of vascular dialysis catheter, initial encounter; I50.22 Chronic systolic (congestive) heart failure; I47.1 Supraventricular tachycardia; I95.9 Hypotension, unspecified; G13.0 Paraneoplastic neuromyopathy and neuropathy; I27.22 Pulmonary hypertension due to left heart disease; I27.23 Pulmonary hypertension due to lung diseases and hypoxia; D63.1 Anemia in chronic kidney disease; E83.9 Disorder of mineral metabolism, unspecified; J96.02 Acute respiratory failure with hypercapnia; F01.50 Vascular dementia, unspecified severity, without behavioral disturbance, psychotic disturbance, mood disturbance, and anxiety; Z99.2 Dependence on renal dialysis; F10.21 Alcohol dependence, in remission; J98.09 Other diseases of bronchus, not elsewhere classified; R59.0 Localized enlarged lymph nodes; D50.9 Iron deficiency anemia, unspecified; R27.0 Ataxia, unspecified; F41.9 Anxiety disorder, unspecified; E78.5 Hyperlipidemia, unspecified; I08.1 Rheumatic disorders of both mitral and tricuspid valves; I25.2 Old myocardial infarction; F17.210 Nicotine dependence, cigarettes, uncomplicated; Z79.899 Other long term (current) drug therapy; Z86.73 Personal history of transient ischemic attack (TIA), and cerebral infarction without residual deficits; Z90.5 Acquired absence of kidney; Z85.528 Personal history of other malignant neoplasm of kidney; Z98.890 Other specified postprocedural states; Y84.8 Other medical procedures as the cause of abnormal reaction of the patient, or of later complication, without mention of misadventure at the time of the procedure; Z88.8 Allergy status to other drugs, medicaments and biological substances
CPT/HCPCS: 31627; 31629; 36600; 70460; 70551; 71045; 71275; 80048; 80053; 80061; 82140; 82607; 82728; 82746; 82805; 83036; 83540; 83550; 83735; 83921; 84100; 84443; 84450; 84460; 84484; 85025; 85027; 86780; 88305; 90935; 93005; 93306; 93880; 94640; 94660; 94760; 95816

== ENCOUNTER 2021-02-22 20:44 | Emergency (ER) | payer MEDICARE, OTHER ==
[2021-02-22 21:52] VITALS: BP 117/71; PULSE 96; RESP 18; TEMP 99.1
--- NOTE | 2021-02-22 22:47 | ED ---
General Adult HPI - General Chief complaint: Recheck/Abnormal Lab/Rx Stated complaint: Port problems Time Seen by Provider: 02/22/21 21:50 Source: patient Mode of arrival: ambulatory - History of Present Illness Initial comments: 65-year-old male with past medical history of renal disease, recently started hemodialysis who presents to the emergency department requesting that his catheter be removed. I did receive a call from Dr. Neal. Dr. Neal states that the patient had a catheter placed in his right chest wall for dialysis. He did go to dialysis today where his dialysis was completed. He continues to have his temp catheter in his right groin. Dr. Anthony was requesting that this be removed as he does have his permanent one in place. Patient was instructed to come to the ER for removal. He denies any bleeding or drainage from the site. His chest wall catheter was used without issue. No other alleviating, precipitating or modifying factors - Related Data Previous Rx's Medication Instructions Recorded Nitroglycerin Sl Tabs [Nitrostat] 0.4 mg SUBLINGUAL Q5M PRN #30 tab 08/29/18 carvediloL [Coreg*] 25 mg PO BID-W/MEALS #60 tab 08/29/18 Acetaminophen Tab [Tylenol] 650 mg PO Q6HR PRN tab 12/31/20 Hydrocodone Bit/Homatrop Me-Br 5 ml PO Q6H #100 ml 01/30/21 [Hycodan 5 mg-1.5 mg/5 ml Soln] Hydrocodone Bit/Homatrop Me-Br 5 ml PO Q6H PRN #100 ml 02/06/21 [Hycodan 5 mg-1.5 mg/5 ml Soln] Hydrocodone Bit/Homatrop Me-Br 5 ml PO Q6H PRN #100 ml 02/13/21 [Hycodan 5 mg-1.5 mg/5 ml Soln] Aspirin 325 mg PO DAILY #30 tab 02/21/21 Atorvastatin [Lipitor] 20 mg PO HS #30 tab 02/21/21 Calcium Acetate [PhosLo] 667 mg PO TID-W/MEALS #90 tab 02/21/21 Folic Acid 1 mg PO DAILY #30 tab 02/21/21 Allergies Allergy/AdvReac Type Severity Reaction Status Date / Time clonidine Allergy Swelling Verified 02/22/21 21:52 hydralazine Allergy Rash/Hives Verified 02/22/21 21:52 lisinopril Allergy Swelling Verified 02/22/21 21:52 Review of Systems ROS Statement: Those systems with pertinent positive or pertinent negative responses have been documented in the HPI. ROS Other: All systems not noted in ROS Statement are negative. Past Medical History Past Medical History: Cancer, CVA/TIA, Hypertension, Myocardial Infarction ([place]), Supraventricular Tachycardia (SVT) Additional Past Medical History / Comment(s): multiple strokes, [place] (2005), Dialysis Port Rt Chest- Thursday, Wednesdays and Fridays. Last Dialysis-02/13/21 Last Myocardial Infarction Date:: 2005 History of Any Multi-Drug Resistant Organisms: None Reported Past Surgical History: Heart Catheterization Additional Past Surgical History / Comment(s): removal of left kidney Past Anesthesia/Blood Transfusion Reactions: No Reported Reaction Past Psychological History: Unable to Obtain Smoking Status: Current every day smoker Past Alcohol Use History: Unable to Obtain Past Drug Use History: Unable to Obtain - Past Family History Mother Family Medical History: Unable to Obtain General Exam General appearance: alert, in no apparent distress Head exam: Present: atraumatic, normocephalic, normal inspection Eye exam: Present: normal appearance, PERRL, EOMI. Absent: scleral icterus, conjunctival injection, periorbital swelling ENT exam: Present: normal exam, mucous membranes moist Neck exam: Present: normal inspection. Absent: tenderness, meningismus, lymphadenopathy Respiratory exam: Present: rales, accessory muscle use. Absent: respiratory distress, wheezes, rhonchi, stridor Cardiovascular Exam: Present: regular rate, normal rhythm, normal heart sounds. Absent: systolic murmur, diastolic murmur, rubs, gallop, clicks GI/Abdominal exam: Present: soft, normal bowel sounds. Absent: distended, tenderness, guarding, rebound, rigid exam: Present: other (temp catheter right groin. Incision clean, dry, intact. No bleeding. No pulsitile mass) Extremities exam: Present: normal inspection, full ROM, normal capillary refill. Absent: tenderness, pedal edema, joint swelling, calf tenderness Back exam: Present: normal inspection Neurological exam: Present: alert, oriented X3, CN II-XII intact Psychiatric exam: Present: normal affect, normal mood Skin exam: Present: warm, dry, intact, normal color. Absent: rash Course Vital Signs 02/22/21 21:44 Temperature 99.1 F Pulse Rate 96 Respiratory 18 Rate Blood Pressure 117/71 O2 Sat by Pulse 95 Oximetry Medical Decision Making - Medical Decision Making Upon arrival the patient was placed in room 21. A thorough history and physical exam was performed. 2 stitches were removed and I did pull the patient's catheter. I placed pressure to the site for 15 minutes. I then placed a pressure dressing. The patient is instructed that he needs to lay flat for 30 minutes and have me reassess the wound. I did return back to the patient's room after 30 minutes and the patient was already ambulating down the hallway. Nurse states that the patient no longer wanted to wait for his discharge instructions. She informed him of the risks of bleeding from the site. The patient is alert, capable of making his own decisions with his girlfriend at bedside. He states that he wants to leave right now continues ambulate down the hallway without his discharge paperwork Disposition Clinical Impression: KASSIE (acute kidney injury), Chronic renal disease, stage IV Disposition: HOME SELF-CARE Condition: Stable Instructions (If sedation given, give patient instructions): Peritoneal Dialysis Catheter Care (ED) Additional Instructions: No lifting over 10 lbs. Pressure dressing must be left in place for 24 hours. Return to the ED for any new or worsening symptoms. Is patient prescribed a controlled substance at d/c from ED?: No Referrals: Hansa Freeman MD [Primary Care Provider] - 1-2 days Radha Anthony MD [STAFF PHYSICIAN] - 1-2 days Time of Disposition: 22:47
== END 2021-02-22 22:50 | disposition home or self-care (01) ==
LOC: EC 20:44
DX: I12.9 Hypertensive chronic kidney disease with stage 1 through stage 4 chronic kidney disease, or unspecified chronic kidney disease (principal); N18.4 Chronic kidney disease, stage 4 (severe); N17.9 Acute kidney failure, unspecified; I25.2 Old myocardial infarction; F17.200 Nicotine dependence, unspecified, uncomplicated; Z79.82 Long term (current) use of aspirin; Z88.8 Allergy status to other drugs, medicaments and biological substances; Z86.73 Personal history of transient ischemic attack (TIA), and cerebral infarction without residual deficits; Z99.2 Dependence on renal dialysis; Z90.5 Acquired absence of kidney
CPT/HCPCS: 99283